=== PATIENT | male | born 1965 | race Caucasian/White ===

== ENCOUNTER 2017-01-23 13:47 | Emergency (ER) | payer MEDICARE ==
[2017-01-23] MEDS ORDERED: Lactated Ringers 1,000 ML IV ONE ×2 (14:07→14:27)
[2017-01-23 14:26] LABS: Lactic Acid 1.8 (0.4-2.0); VBG CARBOXYHEMOGLOBIN 1.3 % T HGB (0.0-6.9); VBG HCO3- 23.7 meq/L (22-28); VBG HEMOGLOBIN 15.8; VBG O2 SATURATION 72.1 (95-100); VBG POTASSIUM 4.5 (3.5-5.1); VBG pH 7.35 (7.32-7.42)
--- NOTE | 2017-01-23 14:27 | ERPHSYRPT ---
- History of Present Illness Time Seen by Provider: 01/23/17 13:57 Source: patient, family Patient Subjective Stated Complaint: pt states his blood sugar has been elevated for the past few days. pt states he has muscle cramps in legs. Triage Nursing Assessment: pt pink, warm dry. accu check 362. pt afebrile. Physician History: CC: high sugar HX: 51 y/o patient of Dr Jose Raul Laughlin and [facility]. He has DM. He has increased sugars for a while. On oral agents. He has a couple of weeks of leg cramps worsening. Not able to see dr and no recent labs so came to ER. No diarrhea. Normal urination. No chest or abd pain. Timing/Duration: week(s) Allergies/Adverse Reactions: tuberculin,PPD,multi-puncture [From Tuberculin PPD Mary Ellen Test] Allergy ( Intermediate, Verified 01/23/17 14:08) Rash butorphanol tartrate [From Stadol] Allergy (Unknown, Verified 01/23/17 14:08) chlorpromazine HCl [From Thorazine] Allergy (Unknown, Verified 01/23/17 14:08) haloperidol Allergy (Unknown, Verified 01/23/17 14:08) ketorolac tromethamine [From Toradol] Allergy (Unknown, Verified 01/23/17 14:08) nalbuphine [Nalbuphine] Allergy (Unknown, Verified 01/23/17 14:08) prochlorperazine edisylate [From Compazine] Allergy (Unknown, Verified 01/23/17 14:08) chloraprep Allergy (Intermediate, Uncoded 01/23/17 14:08) Rash Home Medications: Brimonidine Tartrate [Alphagan P 0.15%] 1 drops OP BID 09/30/12 [History] Metformin HCl 1000 mg [Glucophage 1000 MG] 1,000 mg PO BID 09/15/14 [History] Apixaban [Eliquis] 2.5 mg PO BID 03/30/15 [History] Levothyroxine Sodium 25 Mcg [Synthroid 25 Mcg] 25 mcg PO DAILY 03/30/15 [ History] Dorzolamide HCl/Timolol Maleat [Dorzolamide-Timolol Eye Drops] 1 ml OP BID 09/05 [History] Cetirizine HCl 10 mg PO DAILY 01/23/17 [History] Clonidine HCl 0.1 mg [Catapres 0.1 MG] 0.1 mg PO DAILY 01/23/17 [History] Glipizide 10 mg [Glucotrol 10 MG] 10 mg PO DAILY 01/23/17 [History] Propranolol HCl 20 mg [Inderal 20 MG] 40 mg PO BID 01/23/17 [History] Ropinirole HCl [Requip] 0.5 mg PO HS 01/23/17 [History] Hx Tetanus, Diphtheria Vaccination/Date Given: Yes (unknown) Hx Influenza Vaccination/Date Given: Yes Hx Pneumococcal Vaccination/Date Given: Yes Immunizations Up to Date: Yes - Review of Systems Constitutional: Malaise, No Fever, No Chills Eyes: No Symptoms Ears, Nose, & Throat: No Symptoms Respiratory: No Cough, No Dyspnea Cardiac: No Chest Pain Abdominal/Gastrointestinal: No Abdominal Pain, No Vomiting Genitourinary Symptoms: No Dysuria Musculoskeletal: Myalgias (cramps) Skin: No Symptoms Neurological: No Symptoms All Other Systems: Reviewed and Negative - Past Medical History Pertinent Past Medical History: Yes Neurological History: Migraines ENT History: Glaucoma Cardiac History: Angina, Hypertension Respiratory History: Pneumonia, Pulmonary Embolism, Other Endocrine Medical History: Diabetes Type II, Hypothyroidism Musculoskeletal History: No Pertinent History GI Medical History: Pancreatitis History: No Pertinent History Psycho-Social History: No Pertinent History Male Reproductive Disorders: No Pertinent History Other Medical History: Pulmonary hypertension - Past Surgical History Past Surgical History: Yes Neuro Surgical History: No Pertinent History Cardiac: Cardiac Catheterization Respiratory: No Pertinent History Gastrointestinal: Appendectomy, Cholecystectomy, Hernia Repair, Pancreatic Surgery Genitourinary: No Pertinent History, Other Musculoskeletal: Other Male Surgical History: Testicular Surgery Other Surgical History: old port removed, port placed x 2, had a surgery to look in bladder, right shoulder surgery. SHUNT IN RIGHT EYE - Social History Smoking Status: Current some day smoker How long have you smoked: 2 yrs Exposure to second hand smoke: Yes Alcohol Use: Socially Drug Use: none Patient Lives Alone: No Significant Family History: diabetes - Nursing Vital Signs Nursing Vital Signs: Initial Vital Signs Temperature 98.2 F Temperature Source Oral Pulse Rate 88 Respiratory Rate 18 Blood Pressure [Left Arm] 137/82 Pain Intensity 0 - Physical Exam General Appearance: alert Eye Exam: PERRL/EOMI Ears, Nose, Throat Exam: moist mucous membranes Neck Exam: normal inspection, non-tender, supple Respiratory Exam: normal breath sounds, lungs clear Cardiovascular Exam: regular rate/rhythm Gastrointestinal/Abdomen Exam: soft, No tenderness, No distention Extremity Exam: normal inspection, normal range of motion Neurologic Exam: alert, oriented x 3, cooperative, sensation nml, No motor deficits Skin Exam: warm, dry, No rash SpO2 Interpretation: normal SpO2: 97 Oxygen Delivery: Room Air - Course Nursing assessment & vital signs reviewed: Yes Ordered Tests: Active Orders 24 hr Category Date Time Status Accucheck STAT Care 01/23/17 14:06 Active Clean Catch Urine Specimen STAT Care 01/23/17 14:06 Active IV Insertion STAT Care 01/23/17 14:06 Active CBC W DIFF Stat Lab 01/23/17 14:25 Completed CK-Creatinine Phosphokinase Stat Lab 01/23/17 14:25 Completed CMP Stat Lab 01/23/17 14:25 Completed Lactic Acid Urgent Lab 01/23/17 14:24 Completed MAGNESIUM Stat Lab 01/23/17 14:25 Completed UA Stat Lab 01/23/17 14:25 Completed VENOUS BLOOD GAS Urgent Lab 01/23/17 14:24 Completed Medication Summary Generic Name Dose Route Start Last Admin Trade Name Freq PRN Reason Stop Dose Admin Magnesium Sulfate/Dextrose 100 mls @ 100 mls/hr 01/23/17 15:15 01/23/17 15:19 Magnesium 1 Gm / 100 Ml D5w IV 01/23/17 17:14 100 mls/hr Q1H REGAN Administration Discontinued Medications Generic Name Dose Route Start Last Admin Trade Name Freq PRN Reason Stop Dose Admin Lactated Ringer's 1,000 mls @ 999 mls/hr 01/23/17 14:07 01/23/17 14:29 Lactated Ringers IV 01/23/17 15:07 999 mls/hr .Q1H1M ONE Administration Lactated Ringer's Confirm 01/23/17 14:27 Lactated Ringers Administered 01/23/17 14:28 Dose 1,000 mls @ ud IV .STK-MED ONE Magnesium Sulfate/Dextrose Confirm 01/23/17 15:19 Magnesium 1 Gm / 100 Ml D5w Administered 01/23/17 15:20 Dose 200 mls @ ud IV .STK-MED ONE Insulin Aspart 10 unit 01/23/17 15:14 01/23/17 15:19 Novolog Insulin SQ 01/23/17 15:15 10 unit STAT ONE Administration Insulin Aspart Confirm 01/23/17 15:18 Novolog Insulin Administered 01/23/17 15:19 Dose 10 unit .ROUTE .STK-MED ONE Lab/Rad Data: Laboratory Result Diagrams 01/23/17 14:25 01/23/17 14:25 Laboratory Results 01/23/17 01/23/17 01/23/17 Range/Units 14:25 14:25 14:25 WBC (4.0-10.5) K/mm3 RBC (4.1-5.6) M/mm3 Hgb (12.5-18.0) gm/dl Hct (42-50) % MCV (78-100) fl MCH (26-32) pg MCHC (32-36) g/dl RDW (11.5-14.0) % Plt Count (150-450) K/mm3 MPV (6-9.5) fl Gran % (36.0-66.0) % Lymphocytes % (24.0-44.0) % Monocytes % (0.0-12.0) % Eosinophils % (0.00-5.0) % Basophils % (0.0-0.4) % Basophils # (0-0.4) VBG pH (7.32-7.42) VBG pCO2 at Pat Temp (42-55) mm/Hg VBG pO2 at Pat Temp (25-40) mm/Hg VBG HCO3 (22-28) meq/L VBG O2 Sat (Day[place]) (95-100) VBG Base Excess (-2.0-2.0) VBG Hemoglobin VBG Carboxyhemoglobin (0.0-6.9) % T HGB POC Potassium (3.5-5.1) Sodium (136-145) mEq/L Potassium (3.5-5.1) mEq/L Chloride (98-107) mEq/L Carbon Dioxide (21-32) mEq/L Anion Gap (5-15) MEQ/L BUN (9-20) mg/dL Creatinine (0.55-1.30) mg/dl Estimated GFR ML/MIN Glucose (70-110) MG/DL Hemoglobin A1c 9.6 H (4.5-6.2) Lactic Acid (0.4-2.0) Calcium (8.5-10.1) mg/dL Magnesium 1.7 L (1.8-2.4) mg/dL Total Bilirubin (0.2-1.0) mg/dL AST (15-37) U/L ALT (12-78) U/L Alkaline Phosphatase (46-116) U/L Creatine Kinase 80 (39-308) U/L Serum Total Protein (6.4-8.2) gm/dL Albumin (3.4-5.0) g/dL Ur Collection Type CLEAN CATCH Urine Color YELLOW (YELLOW) Urine Appearance CLEAR (CLEAR) Urine pH 5.0 (5-6) Ur Specific [place] 1.015 (1.005-1.025) Urine Protein NEGATIVE (Negative) Urine Glucose (UA) >=1000 (NEGATIVE) mg/dL Urine Ketones SMALL-15 (NEGATIVE) Urine Nitrite NEGATIVE (NEGATIVE) Urine Bilirubin NEGATIVE (NEGATIVE) Urine Urobilinogen 0.2 (0-1) mg/dL Urine WBC (Auto) NEGATIVE (NEGATIVE) Urine RBC (Auto) NEGATIVE (0-5) Maximino/ul Specimen Received 01/23/17 1407 01/23/17 01/23/17 01/23/17 Range/Units 14:25 14:25 14:24 WBC 10.0 (4.0-10.5) K/mm3 RBC 5.25 (4.1-5.6) M/mm3 Hgb 15.5 (12.5-18.0) gm/dl Hct 46.1 (42-50) % MCV 87.8 (78-100) fl MCH 29.5 (26-32) pg MCHC 33.6 (32-36) g/dl RDW 13.7 (11.5-14.0) % Plt Count 227 (150-450) K/mm3 MPV 9.9 H (6-9.5) fl Gran % 57.7 (36.0-66.0) % Lymphocytes % 30.5 (24.0-44.0) % Monocytes % 9.6 (0.0-12.0) % Eosinophils % 1.7 (0.00-5.0) % Basophils % 0.5 (0.0-0.4) % Basophils # 0.05 (0-0.4) VBG pH 7.35 (7.32-7.42) VBG pCO2 at Pat Temp 43 (42-55) mm/Hg VBG pO2 at Pat Temp 34 (25-40) mm/Hg VBG HCO3 23.7 (22-28) meq/L VBG O2 Sat (Dayne) 72.1 L (95-100) VBG Base Excess -2.0 (-2.0-2.0) VBG Hemoglobin 15.8 VBG Carboxyhemoglobin 1.3 (0.0-6.9) % T HGB POC Potassium 4.5 (3.5-5.1) Sodium 135 L (136-145) mEq/L Potassium 4.5 (3.5-5.1) mEq/L Chloride 99 (98-107) mEq/L Carbon Dioxide 23.4 (21-32) mEq/L Anion Gap 16.7 H (5-15) MEQ/L BUN 17 (9-20) mg/dL Creatinine 0.97 (0.55-1.30) mg/dl Estimated GFR > 60 ML/MIN Glucose 428 H (70-110) MG/DL Hemoglobin A1c (4.5-6.2) Lactic Acid 1.8 (0.4-2.0) Calcium 9.3 (8.5-10.1) mg/dL Magnesium (1.8-2.4) mg/dL Total Bilirubin 0.4 (0.2-1.0) mg/dL AST 17 (15-37) U/L ALT 23 (12-78) U/L Alkaline Phosphatase 50 (46-116) U/L Creatine Kinase (39-308) U/L Serum Total Protein 7.7 (6.4-8.2) gm/dL Albumin 3.9 (3.4-5.0) g/dL Ur Collection Type Urine Color (YELLOW) Urine Appearance (CLEAR) Urine pH (5-6) Ur Specific [place] (1.005-1.025) Urine Protein (Negative) Urine Glucose (UA) (NEGATIVE) mg/dL Urine Ketones (NEGATIVE) Urine Nitrite (NEGATIVE) Urine Bilirubin (NEGATIVE) Urine Urobilinogen (0-1) mg/dL Urine WBC (Auto) (NEGATIVE) Urine RBC (Auto) (0-5) Maximino/ul Specimen Received - Progress Progress Note: 01/23/17 14:27 He is off his pain meds and appears much improved over chronic baseline of the past. Will check labs. IVF given. 01/23/17 15:37 No sign of infection. He has chronically high sugar. Will need med adjustment. IVF bolus, novolog, and mag sulfate given here. Appt tomorrow with Dr Lauhglin at 3 :15. Counseled pt/family regarding: lab results, diagnosis, need for follow-up - Departure Time of Disposition: 15:40 Departure Disposition: Home Clinical Impression: Hyperglycemia due to type 2 diabetes mellitus, Leg cramps Condition: Fair Critical Care Time: No Referrals: EVARISTO LAUGHLIN [Primary Care Provider] - Instructions: Hyperglycemia -- Adult, Leg Cramps Additional Instructions: Continue your normal medications. See Dr Jose Raul Laughlin tomorrow at 3:15. Take your medications to your doctor appt.
[2017-01-23 14:41] LABS: BASOPHIL % 0.5 % (0.0-0.4); Collection Type CLEAN CATCH; Eosinophil % 1.7 % (0.00-5.0); Granulocytes % 57.7 % (36.0-66.0); Lymphocytes % 30.5 % (24.0-44.0); Mean Cell Volume 87.8 fl (78-100); Mean Corpuscular Hemoglobin 29.5 pg (26-32); Mean Platelet Volume 9.9 fl (6-9.5); Monocytes % 9.6 % (0.0-12.0); Platelet Count 227 K/mm3 (150-450); Red Blood Count 5.25 M/mm3 (4.1-5.6); Red Cell Distribution Width 13.7 % (11.5-14.0)
[2017-01-23 14:42] LABS: COMPLETE URINE MICROSCOPIC? NO
[2017-01-23 15:01] LABS: ALBUMIN 3.9 g/dL (3.4-5.0); ALKALINE PHOSPHATASE 50 U/L (46-116); ANION GAP 16.7 MEQ/L (5-15); BILIRUBIN,TOTAL 0.4 mg/dL (0.2-1.0); BLOOD UREA NITROGEN 17 mg/dL (9-20); CHLORIDE 99 mEq/L (98-107); Carbon Dioxide 23.4 mEq/L (21-32); Glucose 428 MG/DL (70-110); Potassium 4.5 mEq/L (3.5-5.1); SGOT/AST 17 U/L (15-37); SGPT/ALT 23 U/L (12-78); SODIUM 135 mEq/L (136-145); Total Protein 7.7 gm/dL (6.4-8.2)
[2017-01-23 15:10] LABS: MAGNESIUM 1.7 mg/dL (1.8-2.4)
[2017-01-23] MEDS ORDERED: NovoLOG Insulin SQ ONE (15:14)
[2017-01-23] MEDS ORDERED: NovoLOG Insulin ONE (15:18)
[2017-01-23] MEDS ORDERED: Magnesium 1 Gm / 100 Ml D5W*** 200 ML IV ONE (15:19)
[2017-01-23] MEDS: Magnesium 1 Gm / 100 Ml D5W*** 100 ML IV SCH ×2 (15:19→15:53)
[2017-01-23 16:10] VITALS: BP 128/70; PULSE 78; O2SAT 100
== END 2017-01-23 16:11 | disposition home or self-care (01) ==
LOC: ED 13:47
DX: E11.65 Type 2 diabetes mellitus with hyperglycemia (principal); R25.2 Cramp and spasm; Z79.01 Long term (current) use of anticoagulants; Z79.84 Long term (current) use of oral hypoglycemic drugs; Z79.899 Other long term (current) drug therapy; E03.9 Hypothyroidism, unspecified; I10 Essential (primary) hypertension
CPT/HCPCS: 36000; 36415; 36591; 80053; 81002; 82550; 82805; 82962; 83036; 83605; 83735; 85025; 96360; 96361; 96365; 96372; 99283; 99284; J1642; J3475; A9270-GY

== ENCOUNTER 2017-02-11 13:20 | Emergency (ER) | payer MEDICARE ==
[2017-02-11 13:43] VITALS: BP 133/79; PULSE 84; O2SAT 96
--- NOTE | 2017-02-11 14:00 | ERPHSYRPT ---
- History of Present Illness Time Seen by Provider: 02/11/17 13:57 Source: patient Exam Limitations: no limitations Patient Subjective Stated Complaint: states for several days has been having severe leg cramps. states they are waking him up at night. Triage Nursing Assessment: ambulated to room without difficulty. skin w/d, color normal. Physician History: Patient is a 51-year-old male who complains of 2 weeks of increasing muscle cramps that are significantly worse at night. He states that when he is in bed and stretches, the muscles in his calves and thighs were tense up and cramping. He also has some cramping of his forearm muscles as well. He was seen 2 weeks ago in the ER and given lactated Ringer's and magnesium with minimal relief. His past medical history significant for diabetes, pulmonary embolism, chronic pain, and migraine. Timing/Duration: week(s) (2) Severity: moderate Modifying Factors: Improves With: nothing Allergies/Adverse Reactions: tuberculin,PPD,multi-puncture [From Tuberculin PPD Mary Ellen Test] Allergy ( Intermediate, Verified 01/23/17 14:08) Rash butorphanol tartrate [From Stadol] Allergy (Unknown, Verified 01/23/17 14:08) chlorpromazine HCl [From Thorazine] Allergy (Unknown, Verified 01/23/17 14:08) haloperidol Allergy (Unknown, Verified 01/23/17 14:08) ketorolac tromethamine [From Toradol] Allergy (Unknown, Verified 01/23/17 14:08) nalbuphine [Nalbuphine] Allergy (Unknown, Verified 01/23/17 14:08) prochlorperazine edisylate [From Compazine] Allergy (Unknown, Verified 01/23/17 14:08) chloraprep Allergy (Intermediate, Uncoded 01/23/17 14:08) Rash Home Medications: Brimonidine Tartrate [Alphagan P 0.15%] 1 drops OP BID 09/30/12 [History] Metformin HCl 1000 mg [Glucophage 1000 MG] 1,000 mg PO BID 09/15/14 [History] Apixaban [Eliquis] 2.5 mg PO BID 03/30/15 [History] Levothyroxine Sodium 25 Mcg [Synthroid 25 Mcg] 25 mcg PO DAILY 03/30/15 [ History] Dorzolamide HCl/Timolol Maleat [Dorzolamide-Timolol Eye Drops] 1 ml OP BID 09/05 [History] Cetirizine HCl 10 mg PO DAILY 01/23/17 [History] Clonidine HCl 0.1 mg [Catapres 0.1 MG] 0.1 mg PO DAILY 01/23/17 [History] Glipizide 10 mg [Glucotrol 10 MG] 10 mg PO DAILY 01/23/17 [History] Propranolol HCl 20 mg [Inderal 20 MG] 40 mg PO BID 01/23/17 [History] Ropinirole HCl [Requip] 0.5 mg PO HS 01/23/17 [History] Insulin Glargine [Lantus Insulin] 6 unit SQ HS 02/11/17 [History] Insulin Glargine [Lantus Insulin] 18 unit SQ DAILY 02/11/17 [History] Lisinopril 10 mg [Zestril 10 MG] 10 mg PO DAILY 02/11/17 [History] Hx Tetanus, Diphtheria Vaccination/Date Given: Yes (unknown) Hx Influenza Vaccination/Date Given: Yes Hx Pneumococcal Vaccination/Date Given: Yes - Review of Systems Constitutional: No Fever, No Chills Eyes: No Symptoms Ears, Nose, & Throat: No Symptoms Respiratory: No Cough, No Dyspnea Cardiac: No Chest Pain, No Edema, No Syncope Abdominal/Gastrointestinal: No Abdominal Pain, No Nausea, No Vomiting, No Diarrhea Genitourinary Symptoms: No Dysuria Musculoskeletal: Other (muscle cramps) Skin: No Rash Neurological: No Dizziness, No Focal Weakness, No Sensory Changes Psychological: No Symptoms Endocrine: No Symptoms Hematologic/Lymphatic: No Symptoms Immunological/Allergic: No Symptoms All Other Systems: Reviewed and Negative - Past Medical History Pertinent Past Medical History: Yes Neurological History: Migraines ENT History: Glaucoma Cardiac History: Angina, Hypertension Respiratory History: Pneumonia, Pulmonary Embolism, Other Endocrine Medical History: Diabetes Type II, Hypothyroidism Musculoskeletal History: No Pertinent History GI Medical History: Pancreatitis History: No Pertinent History Psycho-Social History: No Pertinent History Male Reproductive Disorders: No Pertinent History Other Medical History: Pulmonary hypertension - Past Surgical History Past Surgical History: Yes Neuro Surgical History: No Pertinent History Cardiac: Cardiac Catheterization Respiratory: No Pertinent History Gastrointestinal: Appendectomy, Cholecystectomy, Hernia Repair, Pancreatic Surgery Genitourinary: No Pertinent History, Other Musculoskeletal: Other Male Surgical History: Testicular Surgery Other Surgical History: old port removed, port placed x 2, had a surgery to look in bladder, right shoulder surgery. SHUNT IN RIGHT EYE - Social History Smoking Status: Current every day smoker How long have you smoked: 2 yrs Exposure to second hand smoke: No Alcohol Use: Socially Drug Use: none Patient Lives Alone: Yes Significant Family History: diabetes - Nursing Vital Signs Nursing Vital Signs: Initial Vital Signs Temperature 98.5 F Temperature Source Oral Pulse Rate 84 Respiratory Rate 16 Blood Pressure [Right Arm] 133/79 Blood Pressure [Left Arm] 133/79 Pain Intensity 10 - Physical Exam General Appearance: no apparent distress, alert Eye Exam: PERRL/EOMI, eyes nml inspection Ears, Nose, Throat Exam: normal ENT inspection, TMs normal, pharynx normal, moist mucous membranes Neck Exam: normal inspection, non-tender, supple, full range of motion Respiratory Exam: normal breath sounds, lungs clear, No respiratory distress Cardiovascular Exam: regular rate/rhythm, normal heart sounds, normal peripheral pulses Gastrointestinal/Abdomen Exam: soft, normal bowel sounds, No tenderness, No mass Rectal Exam: not done Back Exam: normal inspection, normal range of motion, No CVA tenderness, No vertebral tenderness Extremity Exam: other (pt curled to keep muscles from cramping. no tenderness on palpation) Neurologic Exam: alert, oriented x 3, cooperative, normal mood/affect, nml cerebellar function, nml station & gait, sensation nml, No motor deficits Skin Exam: normal color, warm, dry, No rash Lymphatic Exam: No adenopathy SpO2 Interpretation: normal SpO2: 96 Oxygen Delivery: Room Air Ordered Tests: Active Orders 24 hr Category Date Time Status IV Insertion STAT Care 02/11/17 14:00 Active BMP Stat Lab 02/11/17 14:22 Completed CBC W DIFF Stat Lab 02/11/17 14:22 Completed MAGNESIUM Stat Lab 02/11/17 14:22 Completed Medication Summary Generic Name Dose Route Start Last Admin Trade Name Freq PRN Reason Stop Dose Admin Lactated Ringer's 1,000 mls @ 999 mls/hr 02/11/17 14:01 02/11/17 14:07 Lactated Ringers IV 02/11/17 15:01 999 mls/hr .Q1H1M ONE Administration Discontinued Medications Generic Name Dose Route Start Last Admin Trade Name Edgar PRN Reason Stop Dose Admin Lactated Ringer's Confirm 02/11/17 14:06 Lactated Ringers Administered 02/11/17 14:07 Dose 1,000 mls @ ud IV .STK-MED ONE Lab/Rad Data: Laboratory Result Diagrams 02/11/17 14:22 02/11/17 14:22 Laboratory Results 02/11/17 02/11/17 02/11/17 Range/Units 14:22 14:22 14:22 WBC 10.0 (4.0-10.5) K/mm3 RBC 4.97 (4.1-5.6) M/mm3 Hgb 14.7 (12.5-18.0) gm/dl Hct 44.9 (42-50) % MCV 90.3 (78-100) fl MCH 29.6 (26-32) pg MCHC 32.7 (32-36) g/dl RDW 13.8 (11.5-14.0) % Plt Count 216 (150-450) K/mm3 MPV 9.5 (6-9.5) fl Gran % 58.9 (36.0-66.0) % Lymphocytes % 28.7 (24.0-44.0) % Monocytes % 10.5 (0.0-12.0) % Eosinophils % 1.4 (0.00-5.0) % Basophils % 0.5 (0.0-0.4) % Basophils # 0.05 (0-0.4) Sodium 139 (136-145) mEq/L Potassium 4.3 (3.5-5.1) mEq/L Chloride 103 (98-107) mEq/L Carbon Dioxide 24.4 (21-32) mEq/L Anion Gap 16.3 H (5-15) MEQ/L BUN 24 H (9-20) mg/dL Creatinine 0.98 (0.55-1.30) mg/dl Estimated GFR > 60 ML/MIN Glucose 255 H (70-110) MG/DL Calcium 8.9 (8.5-10.1) mg/dL Magnesium 1.9 (1.8-2.4) mg/dL - Progress Progress: unchanged Counseled pt/family regarding: lab results, diagnosis - Departure Time of Disposition: 14:54 Departure Disposition: Home Clinical Impression: Muscle cramps Condition: Stable Critical Care Time: No Additional Instructions: You have muscle cramps. The laboratory values show your potassium and magnesium levels are normal. You were given 1 L of lactated Ringer's by IV in the ER. Take Flexeril 10 mg at night every 8 hours as needed. Follow-up as needed. Prescriptions: Cyclobenzaprine HCl [Flexeril] 10 mg PO Q8H PRN PRN #10 tablet PRN Reason: Pain
[2017-02-11] MEDS ORDERED: Lactated Ringers 1,000 ML IV ONE ×2 (14:01→14:06)
[2017-02-11 14:25] LABS: BASOPHIL % 0.5 % (0.0-0.4); Eosinophil % 1.4 % (0.00-5.0); Granulocytes % 58.9 % (36.0-66.0); Lymphocytes % 28.7 % (24.0-44.0); Mean Cell Volume 90.3 fl (78-100); Mean Corpuscular Hemoglobin 29.6 pg (26-32); Mean Platelet Volume 9.5 fl (6-9.5); Monocytes % 10.5 % (0.0-12.0); Platelet Count 216 K/mm3 (150-450); Red Blood Count 4.97 M/mm3 (4.1-5.6); Red Cell Distribution Width 13.8 % (11.5-14.0)
[2017-02-11 14:43] LABS: ANION GAP 16.3 MEQ/L (5-15); BLOOD UREA NITROGEN 24 mg/dL (9-20); CHLORIDE 103 mEq/L (98-107); Carbon Dioxide 24.4 mEq/L (21-32); Glucose 255 MG/DL (70-110); Potassium 4.3 mEq/L (3.5-5.1); SODIUM 139 mEq/L (136-145)
== END 2017-02-11 15:14 | disposition home or self-care (01) ==
LOC: ED 13:20
DX: R25.2 Cramp and spasm (principal)
CPT/HCPCS: 36000; 36415; 36591; 80048; 83735; 85025; 96360; 99283; J1642

== ENCOUNTER 2017-04-06 20:59 | Emergency (ER) | payer MEDICARE, OTHER ==
[2017-04-06] MEDS ORDERED: Sodium Chloride 0.9% 1000 ML 1,000 ML IV SCH (21:30)
[2017-04-06] MEDS ORDERED: Nitrostat 0.4 MG (ED) SL ONE (21:31)
[2017-04-06] MEDS ORDERED: Robitussin AC Syrup Unit Dose Cup PO PRN (21:36)
--- NOTE | 2017-04-06 21:36 | ERPHSYRPT ---
- History of Present Illness Time Seen by Provider: 04/06/17 21:23 Source: patient, other (PREVIOUS ) Exam Limitations: no limitations Physician History: FOR THE PAST 2 MONTHS PT HAS HAD A NON-PRODUCTIVE COUGH UNTIL TONIGHT WHEN HE COUGHED UP GREEN PHLEGM. ABOUT 1 HOUR AGO FOR 15 MINUTES PT HAD 4 EPISODES WHERE HE WOULD COUGH AND LOSE CONSCIOUSNESS FOR A FEW SECONDS. PT ALSO C/O CHEST PAIN, SHORTNESS OF AIR, DIAPHORESIS AND NAUSEA FOR THE PAST HOUR AND A HEADACHE ASSOCIATED WITH COUGHING. Allergies/Adverse Reactions: tuberculin,PPD,multi-puncture [From Tuberculin PPD Mary Ellen Test] Allergy ( Intermediate, Verified 04/06/17 22:34) Rash butorphanol tartrate [From Stadol] Allergy (Unknown, Verified 04/06/17 22:34) chlorpromazine HCl [From Thorazine] Allergy (Unknown, Verified 04/06/17 22:34) haloperidol Allergy (Unknown, Verified 04/06/17 22:34) ketorolac tromethamine [From Toradol] Allergy (Unknown, Verified 04/06/17 22:34) nalbuphine [Nalbuphine] Allergy (Unknown, Verified 04/06/17 22:34) prochlorperazine edisylate [From Compazine] Allergy (Unknown, Verified 04/06/17 22:34) chloraprep Allergy (Intermediate, Uncoded 04/06/17 22:34) Rash Home Medications: Brimonidine Tartrate [Alphagan P 0.15%] 1 drops OP BID 09/30/12 [History] Metformin HCl 1000 mg [Glucophage 1000 MG] 1,000 mg PO BID 09/15/14 [History] Apixaban [Eliquis] 2.5 mg PO BID 03/30/15 [History] Levothyroxine Sodium 25 Mcg [Synthroid 25 Mcg] 25 mcg PO DAILY 03/30/15 [ History] Dorzolamide HCl/Timolol Maleat [Dorzolamide-Timolol Eye Drops] 1 ml OP BID 09/05 [History] Cetirizine HCl 10 mg PO DAILY 01/23/17 [History] Clonidine HCl 0.1 mg [Catapres 0.1 MG] 0.1 mg PO DAILY 01/23/17 [History] Glipizide 10 mg [Glucotrol 10 MG] 10 mg PO DAILY 01/23/17 [History] Propranolol HCl 20 mg [Inderal 20 MG] 40 mg PO BID 01/23/17 [History] Ropinirole HCl [Requip] 0.5 mg PO HS 01/23/17 [History] Insulin Glargine [Lantus Insulin] 6 unit SQ HS 02/11/17 [History] Insulin Glargine [Lantus Insulin] 18 unit SQ DAILY 02/11/17 [History] Lisinopril 10 mg [Zestril 10 MG] 10 mg PO DAILY 02/11/17 [History] Hx Tetanus, Diphtheria Vaccination/Date Given: Yes (unknown) Hx Influenza Vaccination/Date Given: Yes Hx Pneumococcal Vaccination/Date Given: Yes - Review of Systems Respiratory: Cough, Dyspnea Cardiac: Chest Pain Abdominal/Gastrointestinal: Nausea Neurological: Headache, Other (LOSS OF CONSCIOUSNESS TONIGHT) Endocrine: Excessive Sweating All Other Systems: Reviewed and Negative - Past Medical History Pertinent Past Medical History: Yes Neurological History: Migraines ENT History: Glaucoma Cardiac History: Angina, Hypertension Respiratory History: Pneumonia, Pulmonary Embolism, Other Endocrine Medical History: Diabetes Type II, Hypothyroidism Musculoskeletal History: No Pertinent History GI Medical History: Pancreatitis History: No Pertinent History Psycho-Social History: No Pertinent History Male Reproductive Disorders: No Pertinent History Other Medical History: Pulmonary hypertension - Past Surgical History Past Surgical History: Yes Neuro Surgical History: No Pertinent History Cardiac: Cardiac Catheterization Respiratory: No Pertinent History Gastrointestinal: Appendectomy, Cholecystectomy, Hernia Repair, Pancreatic Surgery Genitourinary: No Pertinent History, Other Musculoskeletal: Other Male Surgical History: Testicular Surgery Other Surgical History: old port removed, port placed x 2, had a surgery to look in bladder, right shoulder surgery. SHUNT IN RIGHT EYE - Social History Smoking Status: Current every day smoker How long have you smoked: 2 yrs Exposure to second hand smoke: No Alcohol Use: Socially Drug Use: none Patient Lives Alone: Yes Significant Family History: diabetes - Nursing Vital Signs Nursing Vital Signs: Initial Vital Signs Pulse Rate 92 H 04/06/17 22:11 Respiratory Rate 16 04/06/17 22:11 Blood Pressure 138/88 04/06/17 22:11 O2 Sat by Pulse Oximetry 97 04/06/17 22:11 Pain Scale Pain Intensity 3 - Physical Exam General Appearance: alert Eye Exam: PERRL/EOMI Ears, Nose, Throat Exam: moist mucous membranes, pharyngeal erythema Neck Exam: normal inspection Respiratory Exam: lungs clear Cardiovascular Exam: normal heart sounds Gastrointestinal/Abdomen Exam: soft, normal bowel sounds Back Exam: normal range of motion Extremity Exam: normal inspection Neurologic Exam: alert, cooperative Skin Exam: warm, dry - Course Nursing assessment & vital signs reviewed: Yes EKG Interpreted by Me: RATE (91), Sinus Rhythm, NORMAL AXIS, NORMAL INTERVALS - Radiology Exams Chest X-ray Interpretation: Interpreted by me, No Pneumonia - CT Exams Head CT Interpretation: Tele-radiologist Report (NO ACUTE INTRACRANIAL ABNORMALITY.) Ordered Tests: Active Orders 24 hr Category Date Time Status Fiscal Services Manager STAT Care 04/06/17 21:28 Active EKG-ER Only STAT Care 04/06/17 21:28 Active IV Insertion STAT Care 04/06/17 21:28 Active CHEST 1 VIEW (PORTABLE) Stat Exams 04/06/17 21:29 Taken HEAD WITHOUT CONTRAST [CT] Stat Exams 04/06/17 21:32 Taken AMYLASE Stat Lab 04/06/17 21:55 Completed CBC W DIFF Stat Lab 04/06/17 21:55 Completed CMP Stat Lab 04/06/17 21:55 Completed ETHYL ALCOHOL Stat Lab 04/06/17 21:55 Completed LIPASE Stat Lab 04/06/17 21:55 Completed MAGNESIUM Stat Lab 04/06/17 21:55 Completed NT PRO BNP Stat Lab 04/06/17 21:55 Completed PROTIME WITH INR Stat Lab 04/06/17 21:55 Completed PTT Stat Lab 04/06/17 21:55 Completed TROPONIN Q3H Lab 04/06/17 21:55 Completed TROPONIN Q3H Lab 04/07/17 00:30 Ordered TROPONIN Q3H Lab 04/07/17 03:30 Ordered TROPONIN Q3H Lab 04/07/17 06:30 Ordered TROPONIN Q3H Lab 04/07/17 09:30 Ordered UA W/RFX UR CULTURE Stat Lab 04/06/17 21:45 Completed Urine Triage Profile Stat Lab 04/06/17 21:45 Completed Medication Summary Generic Name Dose Route Start Last Admin Trade Name Freq PRN Reason Stop Dose Admin Guaifenesin/Codeine Phosphate 10 ml 04/06/17 21:36 04/06/17 22:06 Robitussin Ac Syrup Unit Dose Cup PO 05/06/17 21:35 10 ml Q4H PRN PRN Administration COUGH Sodium Chloride 1,000 mls @ 100 mls/hr 04/06/17 21:30 04/06/17 22:07 Sodium Chloride 0.9% 1000 Ml IV 05/06/17 21:29 100 mls/hr .Q10H REGAN Administration Discontinued Medications Generic Name Dose Route Start Last Admin Trade Name Freq PRN Reason Stop Dose Admin Nitroglycerin 0.4 mg 04/06/17 21:31 04/06/17 22:07 Nitrostat 0.4 Mg (Ed) SL 04/06/17 21:32 0.4 mg STAT ONE Administration Lab/Rad Data: Laboratory Result Diagrams 04/06/17 21:55 04/06/17 21:55 Laboratory Results 04/06/17 04/06/17 04/06/17 Range/Units 21:55 21:55 21:55 WBC (4.0-10.5) K/mm3 RBC (4.1-5.6) M/mm3 Hgb (12.5-18.0) gm/dl Hct (42-50) % MCV (78-100) fl MCH (26-32) pg MCHC (32-36) g/dl RDW (11.5-14.0) % Plt Count (150-450) K/mm3 MPV (6-9.5) fl Gran % (36.0-66.0) % Lymphocytes % (24.0-44.0) % Monocytes % (0.0-12.0) % Eosinophils % (0.00-5.0) % Basophils % (0.0-0.4) % Basophils # (0-0.4) INR 1.08 (0.8-3.0) APTT 70.6 H (24.1-36.1) SECONDS Sodium 141 (136-145) mEq/L Potassium 4.0 (3.5-5.1) mEq/L Chloride 104 (98-107) mEq/L Carbon Dioxide 28.2 (21-32) mEq/L Anion Gap 12.9 (5-15) MEQ/L BUN 13 (9-20) mg/dL Creatinine 1.28 (0.55-1.30) mg/dl Estimated GFR > 60 ML/MIN Glucose 154 H (70-110) MG/DL Calcium 8.9 (8.5-10.1) mg/dL Magnesium 1.9 (1.8-2.4) mg/dL Total Bilirubin 0.40 (0.2-1.0) mg/dL AST 18 (15-37) U/L ALT 25 (12-78) U/L Alkaline Phosphatase 39 L (46-116) U/L Troponin I < 0.017 (0.000-0.056) ng/ml NT-Pro-B Natriuret Pep 31 (0-125) pg/ml Serum Total Protein 7.2 (6.4-8.2) gm/dL Albumin 3.7 (3.4-5.0) g/dL Amylase 50 (25-115) U/L Lipase 146 (73-393) U/L Ur Collection Type Urine Color (YELLOW) Urine Appearance (CLEAR) Urine pH (5-6) Ur Specific [place] (1.005-1.025) Urine Protein (Negative) Urine Ketones (NEGATIVE) Urine Blood (0-5) Maximino/ul Urine Nitrite (NEGATIVE) Urine Bilirubin (NEGATIVE) Urine Urobilinogen (0-1) mg/dL Ur Leukocyte Esterase (NEGATIVE) Urine Glucose (NEGATIVE) mg/dL Urine Opiates Level (NEGATIVE) Ur Methadone (NEGATIVE) Urine Barbiturates (NEGATIVE) Ur Phencyclidine (PCP) (NEGATIVE) Urine Amphetamine (NEGATIVE) U Benzodiazepine Level (NEGATIVE) Urine Cocaine (NEGATIVE) Urine Marijuana (THC) (NEGATIVE) Ethyl Alcohol < 0.010 (0.00-0.01) % Specimen Received 04/06/17 04/06/17 04/06/17 Range/Units 21:55 21:45 21:45 WBC 9.2 (4.0-10.5) K/mm3 RBC 4.74 (4.1-5.6) M/mm3 Hgb 14.2 (12.5-18.0) gm/dl Hct 43.1 (42-50) % MCV 90.9 (78-100) fl MCH 30.0 (26-32) pg MCHC 32.9 (32-36) g/dl RDW 13.2 (11.5-14.0) % Plt Count 234 (150-450) K/mm3 MPV 9.3 (6-9.5) fl Gran % 47.7 (36.0-66.0) % Lymphocytes % 34.3 (24.0-44.0) % Monocytes % 15.5 H (0.0-12.0) % Eosinophils % 2.1 (0.00-5.0) % Basophils % 0.4 (0.0-0.4) % Basophils # 0.04 (0-0.4) INR (0.8-3.0) APTT (24.1-36.1) SECONDS Sodium (136-145) mEq/L Potassium (3.5-5.1) mEq/L Chloride (98-107) mEq/L Carbon Dioxide (21-32) mEq/L Anion Gap (5-15) MEQ/L BUN (9-20) mg/dL Creatinine (0.55-1.30) mg/dl Estimated GFR ML/MIN Glucose (70-110) MG/DL Calcium (8.5-10.1) mg/dL Magnesium (1.8-2.4) mg/dL Total Bilirubin (0.2-1.0) mg/dL AST (15-37) U/L ALT (12-78) U/L Alkaline Phosphatase (46-116) U/L Troponin I (0.000-0.056) ng/ml NT-Pro-B Natriuret Pep (0-125) pg/ml Serum Total Protein (6.4-8.2) gm/dL Albumin (3.4-5.0) g/dL Amylase (25-115) U/L Lipase (73-393) U/L Ur Collection Type CCMS Urine Color YELLOW (YELLOW) Urine Appearance CLEAR (CLEAR) Urine pH 7.0 (5-6) Ur Specific [place] 1.010 (1.005-1.025) Urine Protein NEGATIVE (Negative) Urine Ketones NEGATIVE (NEGATIVE) Urine Blood NEGATIVE (0-5) Maximino/ul Urine Nitrite NEGATIVE (NEGATIVE) Urine Bilirubin NEGATIVE (NEGATIVE) Urine Urobilinogen NORMAL (0-1) mg/dL Ur Leukocyte Esterase NEGATIVE (NEGATIVE) Urine Glucose 250 (NEGATIVE) mg/dL Urine Opiates Level NEG. (NEGATIVE) Ur Methadone NEG. (NEGATIVE) Urine Barbiturates NEG. (NEGATIVE) Ur Phencyclidine (PCP) NEG. (NEGATIVE) Urine Amphetamine NEG. (NEGATIVE) U Benzodiazepine Level NEG. (NEGATIVE) Urine Cocaine NEG. (NEGATIVE) Urine Marijuana (THC) NEG. (NEGATIVE) Ethyl Alcohol (0.00-0.01) % Specimen Received 04-06-17 2200 - Departure Time of Disposition: 23:07 Departure Disposition: Home Clinical Impression: CHEST PAIN, PHARYNGITIS, AMS, DM, HTN Condition: Stable Critical Care Time: No Referrals: EVARISTO LAUGHLIN [Primary Care Provider] - Instructions: Pharyngitis/Tonsillopharyngitis -- Adult Additional Instructions: FOLLOW UP WITH PRIVATE DOCTOR TOMORROW. Prescriptions: Guaifenesin/Codeine Phosphate [Robitussin AC Syrup] 10 ml PO Q4H PRN PRN #120 ml PRN Reason: Cough Azithromycin 250 mg [Zithromax 250 MG TABLET] 250 mg PO ZPACK #6 tablet
[2017-04-06 21:58] LABS: BASOPHIL % 0.4 % (0.0-0.4); Eosinophil % 2.1 % (0.00-5.0); Granulocytes % 47.7 % (36.0-66.0); Lymphocytes % 34.3 % (24.0-44.0); Mean Cell Volume 90.9 fl (78-100); Mean Platelet Volume 9.3 fl (6-9.5); Monocytes % 15.5 % (0.0-12.0); Platelet Count 234 K/mm3 (150-450); Red Blood Count 4.74 M/mm3 (4.1-5.6); Red Cell Distribution Width 13.2 % (11.5-14.0); White Blood Count 9.2 K/mm3 (4.0-10.5)
[2017-04-06 22:01] LABS: ADD URINE CULTURE? NO (NO); Bilirubin NEGATIVE (NEGATIVE); Blood NEGATIVE Ery/ul (0-5); COMPLETE URINE MICROSCOPIC? NO; Collection Type CCMS; Glucose 250 mg/dL (NEGATIVE); Leukocyte Esterase NEGATIVE (NEGATIVE)
[2017-04-06] MEDS ORDERED: Robitussin AC Syrup Unit Dose Cup ONE ×2 (22:04→22:07)
[2017-04-06] MEDS ORDERED: Sodium Chloride 0.9% 1000 ML 1,000 ML ONE (22:04)
[2017-04-06 22:23] LABS: INR 1.08 (0.8-3.0); PROTIME 12.2 SECONDS (8.83-12.87)
[2017-04-06 22:26] LABS: PTT 70.6 SECONDS (24.1-36.1)
[2017-04-06 22:36] LABS: ALBUMIN 3.7 g/dL (3.4-5.0); ALKALINE PHOSPHATASE 39 U/L (46-116); ANION GAP 12.9 MEQ/L (5-15); BLOOD UREA NITROGEN 13 mg/dL (9-20); CHLORIDE 104 mEq/L (98-107); Carbon Dioxide 28.2 mEq/L (21-32); ETHYL ALCOHOL < 0.010 % (0.00-0.01); Glucose 154 MG/DL (70-110); LIPASE 146 U/L (73-393); MAGNESIUM 1.9 mg/dL (1.8-2.4); SGOT/AST 18 U/L (15-37); SGPT/ALT 25 U/L (12-78); SODIUM 141 mEq/L (136-145); Total Protein 7.2 gm/dL (6.4-8.2)
[2017-04-06 23:00] VITALS: BP 125/74; PULSE 85; O2SAT 95
[2017-04-06] MEDS ORDERED: Zithromax 250 MG TABLET PO ONE (23:07)
[2017-04-06] MEDS ORDERED: Zithromax 250 MG TABLET ONE (23:18)
[2017-04-07] MEDS ORDERED: Nitrostat 0.4 MG (ED) SL ONE (04:22)
--- NOTE | 2017-04-07 08:01 | XRAY ---
Indication: Cough. Comparison: September 05, 2016. Portable chest remains clear again with calcified granulomas and left-sided Port-A-Cath. Heart is not enlarged. Bony thorax intact. No new/acute findings.
--- NOTE | 2017-04-07 08:01 | XRAY ---
Indication: Syncope. Multiple contiguous axial images obtained through the head without contrast. Comparison: November 25, 2009. Again normal appearing brain parenchyma, ventricles, and bony calvarium. Visualized paranasal sinuses are clear. Again partial opacification of the mastoid cells. 3 mm density seen anterior to the right globe. Impression: 1. No acute intracranial abnormalities. 2. Stable opacification of the mastoid air cells presumed inflammatory. 3. Right anterior globe 3 mm density either iatrogenic versus foreign body. Comment: Preliminary interpretation was made by [facility]. No discrepancy. CTDI 68.98
== END 2017-04-06 23:39 | disposition home or self-care (01) ==
LOC: ED 20:59
DX: R07.89 Other chest pain (principal); J02.9 Acute pharyngitis, unspecified; R41.82 Altered mental status, unspecified; E11.9 Type 2 diabetes mellitus without complications; I10 Essential (primary) hypertension; R06.02 Shortness of breath; R61 Generalized hyperhidrosis
CPT/HCPCS: 93041; 99284; 36000; 96360; 93005; 82150; 81002; 85610; 85730; 36415; 83690; 83880; 83735; 80307; 85025; 80053; 84484; 71010; 70450; G0481; 96361; J1642; A9270-GY

== ENCOUNTER 2018-05-29 22:52 | Emergency (ER) | payer MEDICARE ==
[2018-05-29] MEDS ORDERED: Unasyn 3 GM Vial IM ONE (23:43)
[2018-05-29] MEDS ORDERED: Adacel Vial IM ONE ×2 (23:44→23:52)
--- NOTE | 2018-05-29 23:50 | ERPHSYRPT ---
- History of Present Illness Time Seen by Provider: 05/29/18 23:34 Source: patient Exam Limitations: no limitations Patient Subjective Stated Complaint: pt states while fishing, the fish's horn went into his lt hand. states he thins there is some of the horn or skin remaining in his hand. states his hand and lower arm are swelling and burning Triage Nursing Assessment: pt alert and oreinted, asnwers questions approp. pt ambulatory with steady gait noted. respriations nonlabored with lungs cta. swelling noted to lt hand and wrist. small open area between thumb and forefinger with minimal bleeding noted. cap refill and radial pu lse wnl. Physician History: 52-year-old white male arrives with complaint of pain and swelling and erythema of his left hand. Symptoms since this afternoon patient states he was out fishing he was horned by a catfish. He thinks he might have got some in the morning inside of his left hand. He states he is having pain in his left hand radiating up to his left proximal forearm, He denies any other complaints, Past medical history includes migraines, glaucoma, angina, high blood pressure, pneumonia, pulmonary embolism, diabetes type 2, hypothyroidism, pancreatitis, pulmonary high blood pressure Past surgical history includes cardiac catheter, appendectomy, cholecystectomy, hernia repair, testicular surgery, cystoscopy, right shoulder surgery, shunt in his right eye. Patient states his tetanus is not up-to-date last tetanus was around 10 years ago Occurred: this afternoon Method of Injury: other (horned by a cat fish) Quality: constant Severity of Pain-Max: moderate Severity of Pain-Current: moderate Extremities Pain Location: hand: left Modifying Factors: Improves With: nothing Associated Symptoms: none Allergies/Adverse Reactions: tuberculin,PPD,multi-puncture [From Tuberculin PPD Mary Ellen Test] Allergy ( Intermediate, Verified 05/29/18 23:32) Rash butorphanol tartrate [From Stadol] Allergy (Unknown, Verified 05/29/18 23:32) chlorpromazine HCl [From Thorazine] Allergy (Unknown, Verified 05/29/18 23:32) irritable haloperidol Allergy (Unknown, Verified 05/29/18 23:32) ketorolac tromethamine [From Toradol] Allergy (Unknown, Verified 05/29/18 23:32) nalbuphine [Nalbuphine] Allergy (Unknown, Verified 05/29/18 23:32) prochlorperazine edisylate [From Compazine] Allergy (Unknown, Verified 05/29/18 23:32) irritable lisinopril Adverse Reaction (Verified 05/29/18 23:32) Cough chloraprep Allergy (Intermediate, Uncoded 05/29/18 23:32) Rash Home Medications: Brimonidine Tartrate [Alphagan P 0.15%] 1 drops OP BID 09/30/12 [History] Metformin HCl 1000 mg [Glucophage 1000 MG] 1,000 mg PO BID 09/15/14 [History] Apixaban [Eliquis 5 mg Tablet] 2.5 mg PO BID 03/30/15 [History] Levothyroxine Sodium 25 Mcg [Synthroid 25 Mcg] 25 mcg PO DAILY 03/30/15 [ History] Dorzolamide HCl/Timolol Maleat [Dorzolamide-Timolol Eye Drops] 1 ml OP BID 09/05 [History] Cetirizine HCl 10 mg PO DAILY 01/23/17 [History] Insulin Glargine [Lantus Insulin] 55 unit SQ HS 02/11/17 [History] Insulin Aspart [NovoLOG Insulin] 12 units SQ TIDWM 07/13/17 [History] Furosemide 20 mg [Lasix 20 mg] 20 mg PO DAILY 10/25/17 [History] Metoprolol Succinate 100 mg [Toprol Xl 100 MG] 100 mg PO DAILY 10/25/17 [ History] Potassium Chloride [K-Tab ER] 20 meq PO DAILY 10/25/17 [History] Montelukast Sodium 10 mg [Singulair 10 MG] 10 mg PO QPM 05/22/18 [History] Hx Tetanus, Diphtheria Vaccination/Date Given: Yes (unknown) Hx Influenza Vaccination/Date Given: Yes Hx Pneumococcal Vaccination/Date Given: Yes Immunizations Up to Date: Yes - Review of Systems Constitutional: No Fever, No Chills Eyes: No Symptoms Ears, Nose, & Throat: No Symptoms Respiratory: No Cough, No Dyspnea Cardiac: No Chest Pain, No Edema, No Syncope Abdominal/Gastrointestinal: No Abdominal Pain, No Nausea, No Vomiting, No Diarrhea Genitourinary Symptoms: No Dysuria Musculoskeletal: Other (pain erythema and swelling left hand) Skin: Other (Erythema left hand) Neurological: No Symptoms Psychological: No Symptoms Endocrine: No Symptoms All Other Systems: Reviewed and Negative - Past Medical History Pertinent Past Medical History: Yes Neurological History: Migraines ENT History: Glaucoma Cardiac History: Angina, Hypertension Respiratory History: Pneumonia, Pulmonary Embolism, Other Endocrine Medical History: Diabetes Type II, Hypothyroidism Musculoskeletal History: No Pertinent History GI Medical History: Pancreatitis History: No Pertinent History Psycho-Social History: Anxiety Male Reproductive Disorders: No Pertinent History Other Medical History: Pulmonary hypertension - Past Surgical History Past Surgical History: Yes Neuro Surgical History: No Pertinent History Cardiac: Cardiac Catheterization Respiratory: No Pertinent History Gastrointestinal: Appendectomy, Cholecystectomy, Hernia Repair, Pancreatic Surgery Genitourinary: No Pertinent History, Other Musculoskeletal: Other Male Surgical History: Testicular Surgery Other Surgical History: old port removed, port placed x 2, had a surgery to look in bladder, right shoulder surgery. SHUNT IN RIGHT EYE - Social History Smoking Status: Current some day smoker How long have you smoked: 2 yrs Exposure to second hand smoke: No Alcohol Use: Socially Drug Use: none Patient Lives Alone: No Significant Family History: diabetes - Nursing Vital Signs Nursing Vital Signs: Initial Vital Signs Temperature 98.5 F 05/29/18 23:23 Pulse Rate 87 05/29/18 23:23 Respiratory Rate 18 05/29/18 23:23 Blood Pressure 151/99 05/29/18 23:23 O2 Sat by Pulse Oximetry 96 05/29/18 23:23 Pain Scale Pain Intensity 5 - Physical Exam General Appearance: mild distress Eyes, Ears, Nose, Throat Exam: moist mucous membranes Neck Exam: non-tender, supple Cardiovascular/Respiratory Exam: chest non-tender, normal breath sounds, regular rate/rhythm, no respiratory distress Abdominal Exam: non-tender, No guarding Back Exam: normal inspection, No vertebral tenderness Shoulder Exam: normal inspection, non-tender, no evidence of injury, normal ROM Elbow/Forearm Exam: normal inspection, non-tender, no evidence of injury, normal ROM Wrist Exam: normal inspection, non-tender, no evidence of injury, normal ROM Hand Exam: No normal inspection (mild edema, erythema, left dorsal hand, 1 mm puncture wound left dorsal hand proximal to the first intertriginous area) Neuro/Tendon Exam: normal sensation, normal motor functions Mental Status Exam: alert, oriented x 3, cooperative Skin Exam: other (mild erythema left dorsal hand) SpO2 Interpretation: normal (96%) SpO2: 96 Oxygen Delivery: Room Air - Course Nursing assessment & vital signs reviewed: Yes - Radiology Exams Left Hand X-ray Interpretation: Interpreted by me (small 1-2 mm fb left hand) Ordered Tests: Active Orders 24 hr Category Date Time Status Wound Care STAT Care 05/29/18 23:44 Active HAND (MINIMUM 3 VIEWS) Stat Exams 05/29/18 23:50 Taken BLOOD CULTURE Stat Lab 05/29/18 00:27 Received Medication Summary Discontinued Medications Generic Name Dose Route Start Last Admin Trade Name Freq PRN Reason Stop Dose Admin Ampicillin Sodium/Sulbactam Sodium 3 g 05/29/18 23:43 05/30/18 00:36 Unasyn 3 Gm Vial IM 05/29/18 23:44 3 g STAT ONE Administration Ampicillin Sodium/Sulbactam Sodium Confirm 05/29/18 23:52 Unasyn 3 Gm Vial Administered 05/29/18 23:53 Dose 3 g .ROUTE .STK-MED ONE Diphtheria/Tetanus/Acell Pertussis 0.5 ml 05/29/18 23:44 05/30/18 00:35 Adacel Vial IM 05/29/18 23:45 0.5 ml .ONCE ONE Administration Diphtheria/Tetanus/Acell Pertussis Confirm 05/29/18 23:52 Adacel Vial Administered 05/29/18 23:53 Dose 0.5 ml IM .STK-MED ONE - Progress Progress: improved Progress Note: 05/29/18 23:51 This is a 52-year-old white male arrives with complaint of pain and swelling of his left hand since being horned by a catfish. Patient states he feels like he perhaps could have portion of the catfish eldon in his left hand. On physical examination he has mild edema and erythema to the dorsal left hand. Will go ahead and have area cleansed by the patient's nurse patient does states he soaked his hand in hot water earlier. Will go ahead and obtain of blood cultures and give patient Unasyn 3 g IV. Plan home with Augmentin 500 mg orally 3 times a day for 7 days. Will update patient's DTaP. Patient was offered pain medications however he does not want this. 05/30/18 00:35 Consent obtained for removal of foreign body of left hand, Left hand sterilely cleansed. One percent lidocaine used to anesthetize the area around approximately 1-2 mm laceration/puncture wound left hand just proximal to intertriginous space #1 dorsal hand. Small splinter forceps used to attempt to locate foreign body however unable to locate foreign body. Area is cleansed again by nurse bacitracin is applied. 05/30/18 00:38 patient with full range range of motion left hand, patient neurovascularlily intact after attempt to remove foreign body. - Departure Time of Disposition: 00:37 Departure Disposition: Home Clinical Impression: Puncture wound of left hand Qualifiers: Encounter type: initial encounter Foreign body presence: unspecified Qualified Code(s): S61.432A - Puncture wound without foreign body of left hand, initial encounter Foreign body of left hand Qualifiers: Encounter type: initial encounter Qualified Code(s): S60.552A - Superficial foreign body of left hand, initial encounter Condition: Fair Critical Care Time: No Referrals: EVARISTO LAUGHLIN [Primary Care Provider] - Additional Instructions: Return home. Clean area and apply bacitracin daily. Augmentin 500 mg orally 3 times a day for 7 days. Follow-up with your family doctor. Return for acute distress or for severe symptoms. Prescriptions: Amox Tr/Potass Clav. 500 mg [Augmentin 500-125 Tablet] 500 mg PO TID #21 tablet
[2018-05-29] MEDS ORDERED: Unasyn 3 GM Vial ONE (23:52)
[2018-05-30] MEDS ORDERED: BACIGUENT PACKET TP ONE (00:44)
[2018-05-30 00:57] VITALS: BP 127/80; PULSE 82; O2SAT 97
[2018-05-30] MEDS ORDERED: BACIGUENT PACKET ONE (03:13)
--- NOTE | 2018-05-30 08:52 | XRAY ---
Indication: Puncture wound. Comparison: None 3 views of the left hand demonstrates tiny 2-3 mm foreign body in the soft tissues between the 1st and 2nd metacarpals. Elsewhere mild degenerative changes of the 1st metacarpal multangular articulation and mild degenerative changes of all IP joints. No other bony, articular, or soft tissue abnormalities.
== END 2018-05-30 00:55 | disposition home or self-care (01) ==
LOC: ED 22:52
DX: S61.432A Puncture wound without foreign body of left hand, initial encounter (principal); W56.52XA Struck by other fish, initial encounter; Y93.89 Activity, other specified; Z79.899 Other long term (current) drug therapy
CPT/HCPCS: 36415; 73130; 87040; 90471; 90715; 96372; 99284; J0295; A9270-GY

== ENCOUNTER 2018-09-17 13:16 | Emergency (ER) | payer MEDICARE ==
[2018-09-17 14:18] LABS: BASOPHIL % 0.4 % (0.0-0.4); Basophil (Absolute #) 0.03 (0-0.4); Eosinophil % 2.9 % (0.00-5.0); Eosinophil (Absolute #) 0.24 (0-0.5); Granulocyte Absolute (ANC) 5.02 (1.4-6.9); Granulocytes % 61.4 % (36.0-66.0); Hemoglobin 13.5 gm/dl (12.5-18.0); Lymphocyte (Absolute #) 1.85 (1.0-4.6); Lymphocytes % 22.6 % (24.0-44.0); Mean Cell Volume 91.1 fl (78-100); Mean Corpuscular Hemoglobin 29.3 pg (26-32); Mean Corpuscular Hgb Concent. 32.1 g/dl (32-36); Mean Platelet Volume 9.3 fl (6-9.5); Monocyte (Absolute #) 1.04 (0.0-1.3); Monocytes % 12.7 % (0.0-12.0); Platelet Count 208 K/mm3 (150-450); Red Blood Count 4.61 M/mm3 (4.1-5.6); Red Cell Distribution Width 14.6 % (11.5-14.0); White Blood Count 8.2 K/mm3 (4.0-10.5)
[2018-09-17 14:41] LABS: ALBUMIN 4.1 g/dL (3.5-5.0); ALKALINE PHOSPHATASE 58 U/L (38-126); ANION GAP 16.5 MEQ/L (5-15); BLOOD UREA NITROGEN 23 mg/dL (9-20); CHLORIDE 99 mmol/L (98-107); Calcium 9.3 mg/dL (8.4-10.2); Carbon Dioxide 28 mmol/L (22-30); Glucose 252 mg/dL (74-106); NT PRO BNP 30.8 pg/mL (0-900); Potassium 3.5 mmol/L (3.5-5.1); SGOT/AST 40 U/L (17-59); SGPT/ALT 39 U/L (0-50); SODIUM 140 mmol/L (137-145); Total Protein 7.1 g/dL (6.3-8.2)
[2018-09-17] MEDS ORDERED: Lasix 20 MG/2 ML IV STA (15:13)
[2018-09-17] MEDS ORDERED: Lasix 40 MG/4 ML ONE (15:32)
--- NOTE | 2018-09-17 15:53 | ERPHSYRPT ---
- History of Present Illness Source: patient Exam Limitations: no limitations Patient Subjective Stated Complaint: states has had facial, arm, and leg swelling for two days. denies any new foods or meds. recent dx of enlarged heart from hypertension. also states is unable to lie flat. Triage Nursing Assessment: ambulated to room per self. skin w/d, color normal, resp nonlabored at this time. moderate swelling noted to face, arms, hand, and lower legs. Physician History: Pt is a 52 y/o male that presented to the ED complaining of edema. Pt states, had a cardiac work up in the past, that was okay, and had a stress test that was normal. Pt states, that he woke up today, and noticed that he has edema in his face, abdomen and extremities. Pt presented to the ED. Pt denies SOB or cough. No chest pain or palpitations. No N/V/D or abdominal pain. Timing/Duration: today Severity: mild Modifying Factors: Improves With: nothing Allergies/Adverse Reactions: tuberculin,PPD,multi-puncture [From Tuberculin PPD Mary Ellen Test] Allergy ( Intermediate, Verified 09/17/18 13:31) Rash butorphanol tartrate [From Stadol] Allergy (Unknown, Verified 09/17/18 13:31) chlorpromazine HCl [From Thorazine] Allergy (Unknown, Verified 09/17/18 13:31) irritable haloperidol Allergy (Unknown, Verified 09/17/18 13:31) "makes me stay awake too much" ketorolac tromethamine [From Toradol] Allergy (Unknown, Verified 09/17/18 13:31) severe pain in lower back and kidneys nalbuphine [Nalbuphine] Allergy (Unknown, Verified 09/17/18 13:31) prochlorperazine edisylate [From Compazine] Allergy (Unknown, Verified 09/17/18 13:31) irritable lisinopril Adverse Reaction (Verified 09/17/18 13:31) Cough chloraprep Allergy (Intermediate, Uncoded 09/11/18 07:18) Rash Home Medications: Brimonidine Tartrate [Alphagan P 0.15%] 1 drops OP BID 09/30/12 [History] Metformin HCl 1000 mg [Glucophage 1000 MG] 1,000 mg PO BID 09/15/14 [History] Apixaban [Eliquis 5 mg Tablet] 2.5 mg PO BID 03/30/15 [History] Levothyroxine Sodium 25 Mcg [Synthroid 25 Mcg] 25 mcg PO DAILY 03/30/15 [ History] Dorzolamide HCl/Timolol Maleat [Dorzolamide-Timolol Eye Drops] 1 ml OP BID 09/05 [History] Cetirizine HCl 10 mg PO DAILY 01/23/17 [History] Insulin Glargine [Lantus Insulin] 55 unit SQ HS 02/11/17 [History] Insulin Aspart [NovoLOG Insulin] 12 units SQ TIDWM 07/13/17 [History] Furosemide 20 mg [Lasix 20 mg] 20 mg PO DAILY 10/25/17 [History] Metoprolol Succinate 100 mg [Toprol Xl 100 MG] 100 mg PO DAILY 10/25/17 [ History] Potassium Chloride [K-Tab ER] 20 meq PO DAILY 10/25/17 [History] Montelukast Sodium 10 mg [Singulair 10 MG] 10 mg PO QPM 05/22/18 [History] Cholecalciferol (Vitamin D3) [Vitamin D3] 3,000 unit PO DAILY 06/19/18 [History] Furosemide [Lasix] 30 mg PO DAILY 06/19/18 [History] Hctz/Triamteren 37.5 mg/25 mg* [Maxzide-25MG Tablet] 50 mg PO DAILY 06/19/18 [History] Hx Tetanus, Diphtheria Vaccination/Date Given: No (unknown) Hx Influenza Vaccination/Date Given: No Hx Pneumococcal Vaccination/Date Given: Yes - Review of Systems Constitutional: No Fever, No Chills Eyes: No Symptoms Ears, Nose, & Throat: No Symptoms Respiratory: Dyspnea, Dyspnea on Exertion (LABOY) Cardiac: Edema, Orthopnea, No Chest Pain, No Syncope Abdominal/Gastrointestinal: No Abdominal Pain, No Nausea, No Vomiting, No Diarrhea Musculoskeletal: No Back Pain, No Neck Pain Skin: No Rash Neurological: No Dizziness, No Focal Weakness, No Sensory Changes - Past Medical History Pertinent Past Medical History: Yes Neurological History: Migraines ENT History: Glaucoma Cardiac History: Angina, Hypertension Respiratory History: Pneumonia, Pulmonary Embolism, Other Endocrine Medical History: Diabetes Type II, Hypothyroidism Musculoskeletal History: No Pertinent History GI Medical History: Pancreatitis History: No Pertinent History Psycho-Social History: Anxiety Male Reproductive Disorders: No Pertinent History Other Medical History: Pulmonary hypertension; enlarged heart - Past Surgical History Past Surgical History: Yes Neuro Surgical History: No Pertinent History Cardiac: Cardiac Catheterization Respiratory: No Pertinent History Gastrointestinal: Appendectomy, Cholecystectomy, Hernia Repair, Pancreatic Surgery Genitourinary: No Pertinent History, Other Musculoskeletal: Other Male Surgical History: Testicular Surgery Other Surgical History: old port removed, port placed x 2, had a surgery to look in bladder, right shoulder surgery. SHUNT IN RIGHT EYE - Social History Smoking Status: Current some day smoker How long have you smoked: 2 yrs Exposure to second hand smoke: Yes Alcohol Use: Socially Drug Use: none Patient Lives Alone: No Significant Family History: diabetes - Nursing Vital Signs Nursing Vital Signs: Initial Vital Signs Temperature 98.4 F 09/17/18 13:24 Pulse Rate 95 H 09/17/18 13:24 Respiratory Rate 18 09/17/18 13:24 Blood Pressure 135/82 09/17/18 13:24 O2 Sat by Pulse Oximetry 95 09/17/18 13:24 Pain Scale Pain Intensity 5 - Physical Exam General Appearance: no apparent distress, alert Eye Exam: PERRL/EOMI, eyes nml inspection Ears, Nose, Throat Exam: normal ENT inspection, TMs normal, pharynx normal, moist mucous membranes Neck Exam: normal inspection, non-tender, supple, full range of motion Respiratory Exam: normal breath sounds, lungs clear, No respiratory distress Cardiovascular Exam: regular rate/rhythm, normal heart sounds, normal peripheral pulses, edema (LEs, non pitting.) Gastrointestinal/Abdomen Exam: soft, normal bowel sounds, No tenderness, No mass Extremity Exam: normal inspection, normal range of motion, pelvis stable, pedal edema (Non pitting.) Lymphatic Exam: No adenopathy SpO2: 95 Oxygen Delivery: Room Air - Course Nursing assessment & vital signs reviewed: Yes EKG Interpreted by Me: Sinus Rhythm, Other (old VA) - Radiology Exams Chest X-ray Interpretation: Interpreted by me (Mild congestion. No PNA, or effusions. 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 Tender STAT Care 09/17/18 13:40 Active CHEST 2 VIEWS (PA AND LAT) Stat Exams 09/17/18 13:39 Taken CBC W DIFF Stat Lab 09/17/18 14:05 Completed CMP Stat Lab 09/17/18 14:05 Completed NT PRO BNP Stat Lab 09/17/18 14:05 Completed TROPONIN Q3H Lab 09/17/18 14:05 Completed TROPONIN Q3H Lab 09/17/18 16:45 Ordered TROPONIN Q3H Lab 09/17/18 19:45 Ordered TROPONIN Q3H Lab 09/17/18 22:45 Ordered TROPONIN Q3H Lab 09/18/18 01:45 Ordered Medication Summary Generic Name Dose Route Start Last Admin Trade Name Freq PRN Reason Stop Dose Admin Heparin Sodium (Beef Lung) 500 units 09/17/18 15:41 Heparin Lock Flush 100 Units/Ml 5ml Syringe PORT FLUSH 10/17/18 15:40 PRN PRN IV PORT FLUSH Discontinued Medications Generic Name Dose Route Start Last Admin Trade Name Freq PRN Reason Stop Dose Admin Furosemide 20 mg 09/17/18 15:13 09/17/18 15:34 Lasix 20 Mg/2 Ml IV 09/17/18 15:14 20 mg ONCE STA Administration Furosemide Confirm 09/17/18 15:32 Lasix 40 Mg/4 Ml Administered 09/17/18 15:33 Dose 40 mg .ROUTE .[employer] ONE Lab/Rad Data: Laboratory Result Diagrams 09/17/18 14:05 09/17/18 14:05 Laboratory Results 09/17/18 09/17/18 09/17/18 Range/Units 14:05 14:05 14:05 WBC 8.2 (4.0-10.5) K/mm3 RBC 4.61 (4.1-5.6) M/mm3 Hgb 13.5 (12.5-18.0) gm/dl Hct 42.0 (42-50) % MCV 91.1 (78-100) fl MCH 29.3 (26-32) pg MCHC 32.1 (32-36) g/dl RDW 14.6 H (11.5-14.0) % Plt Count 208 (150-450) K/mm3 MPV 9.3 (6-9.5) fl Gran % 61.4 (36.0-66.0) % Eos # (Auto) 0.24 (0-0.5) Absolute Lymphs (auto) 1.85 (1.0-4.6) Absolute Monos (auto) 1.04 (0.0-1.3) Lymphocytes % 22.6 L (24.0-44.0) % Monocytes % 12.7 H (0.0-12.0) % Eosinophils % 2.9 (0.00-5.0) % Basophils % 0.4 (0.0-0.4) % Absolute Granulocytes 5.02 (1.4-6.9) Basophils # 0.03 (0-0.4) Sodium 140 (137-145) mmol/L Potassium 3.5 (3.5-5.1) mmol/L Chloride 99 (98-107) mmol/L Carbon Dioxide 28 (22-30) mmol/L Anion Gap 16.5 H (5-15) MEQ/L BUN 23 H (9-20) mg/dL Creatinine 0.80 (0.66-1.25) mg/dL Estimated GFR > 60.0 ML/MIN Glucose 252 H (74-106) mg/dL Calcium 9.3 (8.4-10.2) mg/dL Total Bilirubin 0.60 (0.2-1.3) mg/dL AST 40 (17-59) U/L ALT 39 (0-50) U/L Alkaline Phosphatase 58 (38-126) U/L Troponin I < 0.012 (0.000-0.034) ng/mL NT-Pro-B Natriuret Pep 30.8 (0-900) pg/mL Serum Total Protein 7.1 (6.3-8.2) g/dL Albumin 4.1 (3.5-5.0) g/dL - Progress Progress: unchanged Will see patient in: office (F/U with PCP and cardiology) - Departure Time of Disposition: 16:00 Departure Disposition: Home Clinical Impression: Edema Condition: Stable Critical Care Time: No Referrals: EVARISTO LAUGHLIN [Primary Care Provider] - Additional Instructions: Pt did get lasix IV 20mg once. Labs and EKG did not show acute ACS. No CHF. Pt should f/u with his PCP and get referal to Cardiology for a work up, as pt is diabetic as well.
[2018-09-17 16:12] VITALS: BP 166/89; PULSE 80; O2SAT 98
--- NOTE | 2018-09-17 18:53 | XRAY ---
Indication: Edema. Swollen face. Comparison: April 06, 2017. PA/lateral chest remains clear again with incidental calcified granulomas and left Port-A-Cath. Heart and mediastinal structures within normal limits. Bony thorax intact again with mild degenerative changes. Impression: Stable nonacute chest with chronic features..
== END 2018-09-17 16:13 | disposition home or self-care (01) ==
LOC: ED 13:16
DX: R60.9 Edema, unspecified (principal); Z79.899 Other long term (current) drug therapy; E11.9 Type 2 diabetes mellitus without complications; Z79.84 Long term (current) use of oral hypoglycemic drugs; I10 Essential (primary) hypertension
CPT/HCPCS: 36000; 36415; 71046; 80053; 83880; 84484; 85025; 96374; 99284; J1642; J1940

== ENCOUNTER 2018-09-22 22:19 | Emergency (ER) | payer MEDICARE ==
--- NOTE | 2018-09-22 22:37 | ERPHSYRPT ---
- History of Present Illness Time Seen by Provider: 09/22/18 22:32 Source: patient Physician History: 52 y/o diabetic, obese white male with h/o htn presents with palpitations, elevated bp and elevated bs. pts blood glucose was 400. he took 12 subq reg insulin at 1900 and blood glucose on arrival 370. pt denies cp, denies abd pain and denies soa. pt forgot his insulin yesterday Severity: mild Associated Symptoms: No nausea, No vomiting, No abdominal pain, No shortness of breath, No malaise, No weakness Allergies/Adverse Reactions: tuberculin,PPD,multi-puncture [From Tuberculin PPD Mary Ellen Test] Allergy ( Intermediate, Verified 09/17/18 13:31) Rash butorphanol tartrate [From Stadol] Allergy (Unknown, Verified 09/17/18 13:31) chlorpromazine HCl [From Thorazine] Allergy (Unknown, Verified 09/17/18 13:31) irritable haloperidol Allergy (Unknown, Verified 09/17/18 13:31) "makes me stay awake too much" ketorolac tromethamine [From Toradol] Allergy (Unknown, Verified 09/17/18 13:31) severe pain in lower back and kidneys nalbuphine [Nalbuphine] Allergy (Unknown, Verified 09/17/18 13:31) prochlorperazine edisylate [From Compazine] Allergy (Unknown, Verified 09/17/18 13:31) irritable lisinopril Adverse Reaction (Verified 09/17/18 13:31) Cough chloraprep Allergy (Intermediate, Uncoded 09/11/18 07:18) Rash Home Medications: Brimonidine Tartrate [Alphagan P 0.15%] 1 drops OP BID 09/30/12 [History] Metformin HCl 1000 mg [Glucophage 1000 MG] 1,000 mg PO BID 09/15/14 [History] Apixaban [Eliquis 5 mg Tablet] 2.5 mg PO BID 03/30/15 [History] Levothyroxine Sodium 25 Mcg [Synthroid 25 Mcg] 25 mcg PO DAILY 03/30/15 [ History] Dorzolamide HCl/Timolol Maleat [Dorzolamide-Timolol Eye Drops] 1 ml OP BID 09/05 [History] Cetirizine HCl 10 mg PO DAILY 01/23/17 [History] Insulin Glargine [Lantus Insulin] 55 unit SQ HS 02/11/17 [History] Insulin Aspart [NovoLOG Insulin] 12 units SQ TIDWM 07/13/17 [History] Furosemide 20 mg [Lasix 20 mg] 20 mg PO DAILY 10/25/17 [History] Metoprolol Succinate 100 mg [Toprol Xl 100 MG] 100 mg PO DAILY 10/25/17 [ History] Potassium Chloride [K-Tab ER] 20 meq PO DAILY 10/25/17 [History] Montelukast Sodium 10 mg [Singulair 10 MG] 10 mg PO QPM 05/22/18 [History] Cholecalciferol (Vitamin D3) [Vitamin D3] 3,000 unit PO DAILY 06/19/18 [History] Furosemide [Lasix] 30 mg PO DAILY 06/19/18 [History] Hctz/Triamteren 37.5 mg/25 mg* [Maxzide-25MG Tablet] 50 mg PO DAILY 06/19/18 [History] Hx Tetanus, Diphtheria Vaccination/Date Given: No (unknown) Hx Influenza Vaccination/Date Given: No Hx Pneumococcal Vaccination/Date Given: Yes - Review of Systems Constitutional: No Symptoms Eyes: No Symptoms Ears, Nose, & Throat: No Symptoms Respiratory: No Symptoms Cardiac: Palpitations, No Chest Pain Abdominal/Gastrointestinal: No Abdominal Pain, No Nausea, No Vomiting, No Diarrhea Genitourinary Symptoms: No Symptoms, No Dysuria, No Frequency, No Hematuria Musculoskeletal: No Symptoms Skin: No Symptoms Neurological: No Symptoms Psychological: No Symptoms Endocrine: No Symptoms Hematologic/Lymphatic: No Symptoms Immunological/Allergic: No Symptoms All Other Systems: Reviewed and Negative - Past Medical History Pertinent Past Medical History: Yes Neurological History: Migraines ENT History: Glaucoma Cardiac History: Angina, Hypertension Respiratory History: Pneumonia, Pulmonary Embolism, Other Endocrine Medical History: Diabetes Type II, Hypothyroidism Musculoskeletal History: No Pertinent History GI Medical History: Pancreatitis History: No Pertinent History Psycho-Social History: Anxiety Male Reproductive Disorders: No Pertinent History Other Medical History: Pulmonary hypertension; enlarged heart - Past Surgical History Past Surgical History: Yes Neuro Surgical History: No Pertinent History Cardiac: Cardiac Catheterization Respiratory: No Pertinent History Gastrointestinal: Appendectomy, Cholecystectomy, Hernia Repair, Pancreatic Surgery Genitourinary: No Pertinent History, Other Musculoskeletal: Other Male Surgical History: Testicular Surgery Other Surgical History: old port removed, port placed x 2, had a surgery to look in bladder, right shoulder surgery. SHUNT IN RIGHT EYE - Social History Smoking Status: Current some day smoker How long have you smoked: 2 yrs Exposure to second hand smoke: Yes Alcohol Use: Socially Drug Use: none Patient Lives Alone: No Significant Family History: diabetes - Nursing Vital Signs Nursing Vital Signs: Initial Vital Signs Temperature 98.8 F 09/22/18 22:31 Pulse Rate 110 H 09/22/18 22:31 Respiratory Rate 18 09/22/18 22:31 Blood Pressure 169/68 09/22/18 22:31 O2 Sat by Pulse Oximetry 95 09/22/18 22:31 Pain Scale Pain Intensity 3 - Physical Exam General Appearance: no apparent distress, alert, anxiety Eye Exam: PERRL/EOMI Ears, Nose, Throat Exam: normal ENT inspection, moist mucous membranes Neck Exam: normal inspection, non-tender, supple, full range of motion Respiratory Exam: normal breath sounds, lungs clear, airway intact, No chest tenderness, No respiratory distress, No accessory muscle use, No rhonchi, No wheezing, No stridor Cardiovascular Exam: regular rate/rhythm, normal heart sounds, normal peripheral pulses Gastrointestinal/Abdomen Exam: soft, normal bowel sounds, No tenderness, No guarding, No rebound Rectal Exam: not done Extremity Exam: normal inspection, normal range of motion, pelvis stable Neurologic Exam: alert, oriented x 3, cooperative, manganese breaker II-XII nml as tested Skin Exam: normal color, warm, dry Lymphatic Exam: No adenopathy SpO2 Interpretation: normal Oxygen Delivery: Room Air - Course Nursing assessment & vital signs reviewed: Yes EKG Interpreted by Me: RATE ([id number]), Sinus Tach, NORMAL AXIS, NORMAL QRS Ordered Tests: Active Orders 24 hr Category Date Time Status Receiving Associate Store STAT Care 09/22/18 22:40 Active EKG-ER Only STAT Care 09/22/18 22:39 Active IV Insertion STAT Care 09/22/18 22:39 Active CBC W DIFF Stat Lab 09/22/18 23:30 Completed CMP Stat Lab 09/22/18 23:30 Completed PROTIME WITH INR Stat Lab 09/22/18 23:30 Completed TROPONIN Q3H Lab 09/22/18 23:30 Completed TROPONIN Q3H Lab 09/23/18 01:45 Ordered TROPONIN Q3H Lab 09/23/18 04:45 Ordered TROPONIN Q3H Lab 09/23/18 07:45 Ordered TROPONIN Q3H Lab 09/23/18 10:45 Ordered Medication Summary Discontinued Medications Generic Name Dose Route Start Last Admin Trade Name Edgar PRN Reason Stop Dose Admin Sodium Chloride 1,000 mls @ 999 mls/hr 09/22/18 22:39 09/22/18 23:13 Sodium Chloride 0.9% 1000 Ml IV 09/22/18 23:39 999 mls/hr .Q1H1M STA Administration Sodium Chloride Confirm 09/22/18 23:10 Sodium Chloride 0.9% 1000 Ml Administered 09/22/18 23:11 Dose 1,000 mls @ ud .ROUTE .[facility] ONE Insulin Human Regular 5 unit 09/22/18 22:40 09/22/18 23:14 Novolin R IV 09/22/18 22:41 5 unit STAT ONE Administration Insulin Human Regular Confirm 09/22/18 23:10 Novolin R Administered 09/22/18 23:11 Dose 5 unit .ROUTE .[facility] ONE Metoprolol Tartrate 5 mg 09/22/18 22:41 09/22/18 23:14 Lopressor 5 Mg/5 Ml Injection IV 09/22/18 22:42 5 mg STAT ONE Administration Metoprolol Tartrate Confirm 09/22/18 23:10 Lopressor 5 Mg/5 Ml Injection Administered 09/22/18 23:11 Dose 5 mg IV .STK-[facility] ONE Lab/Rad Data: Laboratory Result Diagrams 09/22/18 23:30 09/22/18 23:30 Laboratory Results 09/22/18 09/22/18 09/22/18 Range/Units 23:30 23:30 23:30 WBC (4.0-10.5) K/mm3 RBC (4.1-5.6) M/mm3 Hgb (12.5-18.0) gm/dl Hct (42-50) % MCV (78-100) fl MCH (26-32) pg MCHC (32-36) g/dl RDW (11.5-14.0) % Plt Count (150-450) K/mm3 MPV (6-9.5) fl Gran % (36.0-66.0) % Eos # (Auto) (0-0.5) Absolute Lymphs (auto) (1.0-4.6) Absolute Monos (auto) (0.0-1.3) Lymphocytes % (24.0-44.0) % Monocytes % (0.0-12.0) % Eosinophils % (0.00-5.0) % Basophils % (0.0-0.4) % Absolute Granulocytes (1.4-6.9) Basophils # (0-0.4) PT 11.3 (8.83-12.87) SECONDS INR 0.97 (0.8-3.0) Sodium 134 L (137-145) mmol/L Potassium 3.7 (3.5-5.1) mmol/L Chloride 94 L (98-107) mmol/L Carbon Dioxide 27 (22-30) mmol/L Anion Gap 15.8 H (5-15) MEQ/L BUN 23 H (9-20) mg/dL Creatinine 0.79 (0.66-1.25) mg/dL Estimated GFR > 60.0 ML/MIN Glucose 357 H (74-106) mg/dL Calcium 9.1 (8.4-10.2) mg/dL Total Bilirubin 0.40 (0.2-1.3) mg/dL AST 47 (17-59) U/L ALT 46 (0-50) U/L Alkaline Phosphatase 79 (38-126) U/L Troponin I < 0.012 (0.000-0.034) ng/mL Serum Total Protein 7.3 (6.3-8.2) g/dL Albumin 4.1 (3.5-5.0) g/dL 09/22/18 Range/Units 23:30 WBC 9.8 (4.0-10.5) K/mm3 RBC 4.79 (4.1-5.6) M/mm3 Hgb 13.9 (12.5-18.0) gm/dl Hct 43.3 (42-50) % MCV 90.4 (78-100) fl MCH 29.0 (26-32) pg MCHC 32.1 (32-36) g/dl RDW 14.7 H (11.5-14.0) % Plt Count 222 (150-450) K/mm3 MPV 9.6 H (6-9.5) fl Gran % 59.3 (36.0-66.0) % Eos # (Auto) 0.30 (0-0.5) Absolute Lymphs (auto) 2.22 (1.0-4.6) Absolute Monos (auto) 1.42 H (0.0-1.3) Lymphocytes % 22.7 L (24.0-44.0) % Monocytes % 14.5 H (0.0-12.0) % Eosinophils % 3.1 (0.00-5.0) % Basophils % 0.4 (0.0-0.4) % Absolute Granulocytes 5.80 (1.4-6.9) Basophils # 0.04 (0-0.4) PT (8.83-12.87) SECONDS INR (0.8-3.0) Sodium (137-145) mmol/L Potassium (3.5-5.1) mmol/L Chloride (98-107) mmol/L Carbon Dioxide (22-30) mmol/L Anion Gap (5-15) MEQ/L BUN (9-20) mg/dL Creatinine (0.66-1.25) mg/dL Estimated GFR ML/MIN Glucose (74-106) mg/dL Calcium (8.4-10.2) mg/dL Total Bilirubin (0.2-1.3) mg/dL AST (17-59) U/L ALT (0-50) U/L Alkaline Phosphatase (38-126) U/L Troponin I (0.000-0.034) ng/mL Serum Total Protein (6.3-8.2) g/dL Albumin (3.5-5.0) g/dL - Progress Progress: improved, re-examined Progress Note: 09/23/18 00:11 pt wants to go home. he is feeling well. Counseled pt/family regarding: lab results, diagnosis, need for follow-up, rad results - Departure Time of Disposition: 00:12 Departure Disposition: Home Clinical Impression: Palpitations, Hypertension, Hyperglycemia Condition: Stable Critical Care Time: No Referrals: EVARISTO LAUGHLIN [Primary Care Provider] - Additional Instructions: monitor and treat your high blood sugar closely. take your medications as prescribed. follow up with primary doctor for further management
[2018-09-22] MEDS ORDERED: Sodium Chloride 0.9% 1000 ML 1,000 ML IV STA (22:39)
[2018-09-22 22:40] VITALS: PULSE 110
[2018-09-22] MEDS ORDERED: NovoLIN R IV ONE (22:40)
[2018-09-22] MEDS ORDERED: LOPRESSOR 5 MG/5 ML INJECTION IV ONE ×2 (22:41→23:10)
[2018-09-22] MEDS ORDERED: NovoLIN R ONE (23:10)
[2018-09-22] MEDS ORDERED: Sodium Chloride 0.9% 1000 ML 1,000 ML ONE (23:10)
[2018-09-22 23:36] LABS: BASOPHIL % 0.4 % (0.0-0.4); Basophil (Absolute #) 0.04 (0-0.4); Eosinophil % 3.1 % (0.00-5.0); Granulocytes % 59.3 % (36.0-66.0); Hematocrit 43.3 % (42-50); Hemoglobin 13.9 gm/dl (12.5-18.0); Lymphocyte (Absolute #) 2.22 (1.0-4.6); Lymphocytes % 22.7 % (24.0-44.0); Mean Cell Volume 90.4 fl (78-100); Mean Corpuscular Hgb Concent. 32.1 g/dl (32-36); Mean Platelet Volume 9.6 fl (6-9.5); Monocyte (Absolute #) 1.42 (0.0-1.3); Monocytes % 14.5 % (0.0-12.0); Platelet Count 222 K/mm3 (150-450); Red Blood Count 4.79 M/mm3 (4.1-5.6); Red Cell Distribution Width 14.7 % (11.5-14.0); White Blood Count 9.8 K/mm3 (4.0-10.5)
[2018-09-22 23:49] LABS: INR 0.97 (0.8-3.0); PROTIME 11.3 SECONDS (8.83-12.87)
[2018-09-22 23:53] LABS: ALBUMIN 4.1 g/dL (3.5-5.0); ALKALINE PHOSPHATASE 79 U/L (38-126); ANION GAP 15.8 MEQ/L (5-15); BLOOD UREA NITROGEN 23 mg/dL (9-20); CHLORIDE 94 mmol/L (98-107); Calcium 9.1 mg/dL (8.4-10.2); Carbon Dioxide 27 mmol/L (22-30); Creatinine 1 0.79 mg/dL (0.66-1.25); Glucose 357 mg/dL (74-106); Potassium 3.7 mmol/L (3.5-5.1); SGOT/AST 47 U/L (17-59); SGPT/ALT 46 U/L (0-50); SODIUM 134 mmol/L (137-145); Total Protein 7.3 g/dL (6.3-8.2)
[2018-09-23 00:19] VITALS: BP 144/88; O2SAT 94
== END 2018-09-23 00:34 | disposition home or self-care (01) ==
LOC: ED 22:19
DX: R00.2 Palpitations (principal); I10 Essential (primary) hypertension; E11.65 Type 2 diabetes mellitus with hyperglycemia; Z79.899 Other long term (current) drug therapy; Z79.01 Long term (current) use of anticoagulants; Z79.4 Long term (current) use of insulin
CPT/HCPCS: 36000; 36415; 80053; 82962; 84484; 85025; 85610; 93005; 93041; 96360; 96372; 96374; 99284; J1642; A9270-GY

== ENCOUNTER 2018-10-04 23:21 | Emergency (ER) | payer MEDICARE ==
[2018-10-05] MEDS ORDERED: Zofran 4 MG/2 ML VIAL IV ONE (00:26)
[2018-10-05] MEDS ORDERED: Sodium Chloride 0.9% 1000 ML 1,000 ML IV STA (00:26)
[2018-10-05] MEDS ORDERED: MORPHINE SULFATE 4 MG INJ IV ONE (00:26)
--- NOTE | 2018-10-05 00:26 | ERPHSYRPT ---
- History of Present Illness Time Seen by Provider: 10/05/18 00:21 Source: patient Exam Limitations: no limitations Patient Subjective Stated Complaint: diarrhea Triage Nursing Assessment: Patient ambulated back to ED and transferred self to bed. Patient A+O X 3. Patient complains of diarrhea since 2300 on 10/03/18. Patient states everytime he drinks or eats he will have immediate diarrhea. Patient complains of abdominal pain 5/10. Patient states he ate taco mon prior to this happening. Abdomen soft and non distended with BS X 4. Physician History: Patient is a 53-year-old male complaining of severe diarrhea that began late yesterday evening. The patient thinks is from eating [employer] 2 days ago. He had eye surgery yesterday morning at the [place] on his right eye. He called them to see if it could've been the anesthesia. He has been nauseated but has not vomited. He does not feel well at all. Everything he tries to eat or drink stimulates his bowels are within 10 minutes. He is not lightheaded. He is worried about electrolyte imbalance. His past medical history significant for right eye surgery, HTN, DM, high cholesterol, hypothyroidism. Timing/Duration: yesterday, sudden, worse Severity: severe Modifying Factors: Improves With: eating Associated Symptoms: nausea Allergies/Adverse Reactions: tuberculin,PPD,multi-puncture [From Tuberculin PPD Mary Ellen Test] Allergy ( Intermediate, Verified 10/04/18 23:42) Rash butorphanol tartrate [From Stadol] Allergy (Unknown, Verified 10/04/18 23:42) chlorpromazine HCl [From Thorazine] Allergy (Unknown, Verified 10/04/18 23:42) irritable haloperidol Allergy (Unknown, Verified 10/04/18 23:42) "makes me stay awake too much" ketorolac tromethamine [From Toradol] Allergy (Unknown, Verified 10/04/18 23:42) severe pain in lower back and kidneys nalbuphine [Nalbuphine] Allergy (Unknown, Verified 10/04/18 23:42) prochlorperazine edisylate [From Compazine] Allergy (Unknown, Verified 10/04/18 23:42) irritable lisinopril Adverse Reaction (Verified 10/04/18 23:42) Cough chloraprep Allergy (Intermediate, Uncoded 10/04/18 23:42) Rash Home Medications: Brimonidine Tartrate [Alphagan P 0.15%] 1 drops OP BID 09/30/12 [History] Metformin HCl 1000 mg [Glucophage 1000 MG] 1,000 mg PO BID 09/15/14 [History] Apixaban [Eliquis 5 mg Tablet] 2.5 mg PO BID 03/30/15 [History] Levothyroxine Sodium 25 Mcg [Synthroid 25 Mcg] 25 mcg PO DAILY 03/30/15 [ History] Dorzolamide HCl/Timolol Maleat [Dorzolamide-Timolol Eye Drops] 1 ml OP BID 09/05 [History] Insulin Glargine [Lantus Insulin] 58 unit SQ BID 02/11/17 [History] Insulin Aspart [NovoLOG Insulin] 36 units SQ TIDWM 07/13/17 [History] Metoprolol Succinate 100 mg [Toprol Xl 100 MG] 100 mg PO DAILY 10/25/17 [ History] Montelukast Sodium 10 mg [Singulair 10 MG] 10 mg PO QPM 05/22/18 [History] Cholecalciferol (Vitamin D3) [Vitamin D3] 3,000 unit PO DAILY 06/19/18 [History] Furosemide [Lasix] 30 mg PO DAILY 06/19/18 [History] Hctz/Triamteren 37.5 mg/25 mg* [Maxzide-25MG Tablet] 50 mg PO DAILY 06/19/18 [History] Hx Tetanus, Diphtheria Vaccination/Date Given: No (unknown) Hx Influenza Vaccination/Date Given: No Hx Pneumococcal Vaccination/Date Given: No Immunizations Up to Date: Yes - Review of Systems Constitutional: Fever Eyes: No Symptoms Ears, Nose, & Throat: No Symptoms Respiratory: No Cough, No Dyspnea Cardiac: No Chest Pain, No Edema, No Syncope Abdominal/Gastrointestinal: Nausea, Diarrhea, No Vomiting Genitourinary Symptoms: No Dysuria Musculoskeletal: No Back Pain, No Neck Pain Skin: No Rash Neurological: No Dizziness, No Focal Weakness, No Sensory Changes Psychological: No Symptoms Endocrine: No Symptoms Hematologic/Lymphatic: No Symptoms Immunological/Allergic: No Symptoms All Other Systems: Reviewed and Negative - Past Medical History Pertinent Past Medical History: Yes Neurological History: Migraines ENT History: Glaucoma Cardiac History: Angina, Hypertension Respiratory History: Pneumonia, Pulmonary Embolism, Other Endocrine Medical History: Diabetes Type II, Hypothyroidism Musculoskeletal History: No Pertinent History GI Medical History: Pancreatitis History: No Pertinent History Psycho-Social History: Anxiety Male Reproductive Disorders: No Pertinent History Other Medical History: Pulmonary hypertension; enlarged heart - Past Surgical History Past Surgical History: Yes Neuro Surgical History: No Pertinent History Cardiac: Cardiac Catheterization Respiratory: No Pertinent History Gastrointestinal: Appendectomy, Cholecystectomy, Hernia Repair, Pancreatic Surgery Genitourinary: No Pertinent History, Other Musculoskeletal: Other Male Surgical History: Testicular Surgery Other Surgical History: old port removed, port placed x 2, had a surgery to look in bladder, right shoulder surgery. SHUNT IN RIGHT EYE. Open shut back up in right eye 10/03/18 - Social History Smoking Status: Light tobacco smoker How long have you smoked: 18 months Exposure to second hand smoke: Yes Alcohol Use: Socially Drug Use: none Patient Lives Alone: No Significant Family History: diabetes - Nursing Vital Signs Nursing Vital Signs: Initial Vital Signs Temperature 101.6 F 10/04/18 23:27 Pulse Rate 122 H 10/04/18 23:27 Respiratory Rate 18 10/04/18 23:27 Blood Pressure 123/74 10/04/18 23:27 O2 Sat by Pulse Oximetry 93 L 10/04/18 23:27 Pain Scale Pain Intensity 4 - Physical Exam General Appearance: moderate distress, obese Eye Exam: PERRL/EOMI (right eye with surgically induced conjunctival hemorrhage. ), eyes nml inspection Ears, Nose, Throat Exam: normal ENT inspection, TMs normal, pharynx normal, moist mucous membranes Neck Exam: normal inspection, non-tender, supple, full range of motion Respiratory Exam: normal breath sounds, lungs clear, No respiratory distress Cardiovascular Exam: regular rate/rhythm, normal heart sounds, normal peripheral pulses Gastrointestinal/Abdomen Exam: soft, normal bowel sounds, No tenderness, No mass Rectal Exam: not done Back Exam: normal inspection, normal range of motion, No CVA tenderness, No vertebral tenderness Extremity Exam: normal inspection, normal range of motion, pelvis stable Neurologic Exam: alert, oriented x 3, cooperative, normal mood/affect, nml cerebellar function, nml station & gait, sensation nml, No motor deficits Skin Exam: normal color, warm, dry, No rash SpO2 Interpretation: normal SpO2: 93 O2 Delivery: Room Air - CT Exams Abdomen/Pelvis CT Interpretation: Negative, Tele-radiologist Report (Per Dr Thayer), No appendicitis, Other (fatty liver) Ordered Tests: Active Orders 24 hr Category Date Time Status IV Insertion STAT Care 10/05/18 00:26 Active ABDOMEN AND PELVIS W/0 CONTRAS [CT] Stat Exams 10/05/18 00:26 Taken AMYLASE Stat Lab 10/05/18 01:50 Completed CBC W DIFF Stat Lab 10/05/18 01:50 Completed CMP Stat Lab 10/05/18 01:50 Completed LIPASE Stat Lab 10/05/18 01:50 Completed Lactic Acid Stat Lab 10/05/18 01:52 Completed Medication Summary Discontinued Medications Generic Name Dose Route Start Last Admin Trade Name Freq PRN Reason Stop Dose Admin Diphenoxylate HCl/Atropine 1 tablet 10/05/18 00:28 10/05/18 01:40 Lomotil PO 10/05/18 00:29 1 tablet STAT ONE Administration Diphenoxylate HCl/Atropine Confirm 10/05/18 00:34 Lomotil Administered 10/05/18 00:35 Dose 1 tablet .ROUTE .STK-MED ONE Sodium Chloride 1,000 mls @ 999 mls/hr 10/05/18 00:26 10/05/18 01:43 Sodium Chloride 0.9% 1000 Ml IV 10/05/18 01:26 999 mls/hr .Q1H1M STA Administration Sodium Chloride Confirm 10/05/18 00:34 Sodium Chloride 0.9% 1000 Ml Administered 10/05/18 00:35 Dose 1,000 mls @ ud .ROUTE .STK-MED ONE Morphine Sulfate 4 mg 10/05/18 00:26 10/05/18 01:41 Morphine Sulfate 4 Mg Inj IV 10/05/18 00:27 4 mg STAT ONE Administration Morphine Sulfate Confirm 10/05/18 00:34 Morphine Sulfate 4 Mg Inj Administered 10/05/18 00:35 Dose 4 mg .ROUTE .STK-MED ONE Ondansetron HCl 4 mg 10/05/18 00:26 10/05/18 01:41 Zofran 4 Mg/2 Ml Vial IV 10/05/18 00:27 4 mg STAT ONE Administration Ondansetron HCl Confirm 10/05/18 00:33 Zofran 4 Mg/2 Ml Vial Administered 10/05/18 00:34 Dose 4 mg .ROUTE .STK-MED ONE Lab/Rad Data: Laboratory Result Diagrams 10/05/18 01:50 10/05/18 01:50 Laboratory Results 10/05/18 10/05/18 10/05/18 Range/Units 01:52 01:50 01:50 WBC 9.7 (4.0-10.5) K/mm3 RBC 4.61 (4.1-5.6) M/mm3 Hgb 13.3 (12.5-18.0) gm/dl Hct 42.3 (42-50) % MCV 91.8 (78-100) fl MCH 28.9 (26-32) pg MCHC 31.4 L (32-36) g/dl RDW 15.5 H (11.5-14.0) % Plt Count 183 (150-450) K/mm3 MPV 9.3 (6-9.5) fl Gran % 69.1 H (36.0-66.0) % Eos # (Auto) 0.26 (0-0.5) Absolute Lymphs (auto) 1.45 (1.0-4.6) Absolute Monos (auto) 1.28 (0.0-1.3) Lymphocytes % 14.9 L (24.0-44.0) % Monocytes % 13.1 H (0.0-12.0) % Eosinophils % 2.7 (0.00-5.0) % Basophils % 0.2 (0.0-0.4) % Absolute Granulocytes 6.73 (1.4-6.9) Basophils # 0.02 (0-0.4) Sodium 136 L (137-145) mmol/L Potassium 3.2 L (3.5-5.1) mmol/L Chloride 102 (98-107) mmol/L Carbon Dioxide 24 (22-30) mmol/L Anion Gap 13.6 (5-15) MEQ/L BUN 22 H (9-20) mg/dL Creatinine 0.87 (0.66-1.25) mg/dL Estimated GFR > 60.0 ML/MIN Glucose 203 H (74-106) mg/dL Lactic Acid 1.3 (0.4-2.0) Calcium 7.6 L (8.4-10.2) mg/dL Total Bilirubin 0.40 (0.2-1.3) mg/dL AST 90 H (17-59) U/L ALT 78 H (0-50) U/L Alkaline Phosphatase 46 (38-126) U/L Serum Total Protein 6.4 (6.3-8.2) g/dL Albumin 3.6 (3.5-5.0) g/dL Amylase 48 (30-110) U/L Lipase 76 (23-300) U/L - Progress Progress: improved Counseled pt/family regarding: lab results, diagnosis, rad results - Departure Time of Disposition: 02:42 Departure Disposition: Home Clinical Impression: Hypokalemia, Diarrhea Condition: Stable Critical Care Time: No Referrals: DOCTOR,NO FAMILY [Primary Care Provider] - Additional Instructions: You had diarrhea. You also have low serum potassium. You were given morphine 4 mg, Zofran 4 mg, and fluids by IV in the ER. You were also given Lomotil and potassium 40 mEq orally. Do not take anything more by mouth this evening. In the morning start with a full liquid diet and advance as tolerated. Avoid milk products. Follow-up with your primary medical doctor as needed.
[2018-10-05] MEDS ORDERED: Lomotil PO ONE (00:28)
[2018-10-05] MEDS ORDERED: Zofran 4 MG/2 ML VIAL ONE (00:33)
[2018-10-05] MEDS ORDERED: Sodium Chloride 0.9% 1000 ML 1,000 ML ONE (00:34)
[2018-10-05] MEDS ORDERED: MORPHINE SULFATE 4 MG INJ ONE (00:34)
[2018-10-05] MEDS ORDERED: Lomotil ONE (00:34)
[2018-10-05 02:01] LABS: BASOPHIL % 0.2 % (0.0-0.4); Basophil (Absolute #) 0.02 (0-0.4); Eosinophil % 2.7 % (0.00-5.0); Eosinophil (Absolute #) 0.26 (0-0.5); Granulocytes % 69.1 % (36.0-66.0); Hematocrit 42.3 % (42-50); Hemoglobin 13.3 gm/dl (12.5-18.0); Lymphocyte (Absolute #) 1.45 (1.0-4.6); Lymphocytes % 14.9 % (24.0-44.0); Mean Cell Volume 91.8 fl (78-100); Mean Corpuscular Hemoglobin 28.9 pg (26-32); Mean Corpuscular Hgb Concent. 31.4 g/dl (32-36); Mean Platelet Volume 9.3 fl (6-9.5); Monocyte (Absolute #) 1.28 (0.0-1.3); Monocytes % 13.1 % (0.0-12.0); Platelet Count 183 K/mm3 (150-450); Red Blood Count 4.61 M/mm3 (4.1-5.6); Red Cell Distribution Width 15.5 % (11.5-14.0); White Blood Count 9.7 K/mm3 (4.0-10.5)
[2018-10-05 02:13] VITALS: BP 122/81
[2018-10-05 02:33] LABS: ALBUMIN 3.6 g/dL (3.5-5.0); ALKALINE PHOSPHATASE 46 U/L (38-126); AMYLASE 48 U/L (30-110); ANION GAP 13.6 MEQ/L (5-15); BLOOD UREA NITROGEN 22 mg/dL (9-20); CHLORIDE 102 mmol/L (98-107); Calcium 7.6 mg/dL (8.4-10.2); Carbon Dioxide 24 mmol/L (22-30); Creatinine 1 0.87 mg/dL (0.66-1.25); Glucose 203 mg/dL (74-106); LIPASE 76 U/L (23-300); Potassium 3.2 mmol/L (3.5-5.1); SGOT/AST 90 U/L (17-59); SGPT/ALT 78 U/L (0-50); SODIUM 136 mmol/L (137-145); Total Protein 6.4 g/dL (6.3-8.2)
[2018-10-05] MEDS ORDERED: Klor Con 10 MEQ PO ONE ×2 (02:43→02:45)
[2018-10-05 02:55] VITALS: PULSE 102; O2SAT 96
[2018-10-05 03:00] LABS: 027 TOX PROD PRESUMPTIVE NEGATIVE (NEGATIVE); TOXIGENIC C. DIFF ORG NEGATIVE (NEGATIVE)
--- NOTE | 2018-10-05 09:20 | XRAY ---
Indication: Abdominal pain, fever, and diarrhea. Multiple contiguous axial images obtained through the abdomen and pelvis without contrast as ordered. Comparison: January 07, 2013. Lung bases demonstrates mild bibasilar dependent atelectasis with stable right base calcified granuloma. No infiltrate or effusion. Heart is not enlarged. Noncontrasted stomach and bowel loops appear nonobstructed. Patient reports previous appendectomy and cholecystectomy. No free fluid/air. Mild diffuse fatty liver with now minimal pneumobilia. Again hepatic/splenic calcified granulomas. Remaining liver, pancreas, spleen, adrenal glands, kidneys, ureters, bladder, and aorta appear unremarkable for noncontrast exam. Osseous structures intact. Stable small fatty right inguinal hernia. Impression: 1. Fatty liver, fatty right inguinal hernia, and evidence for old granulomatous disease. 2. No acute intra-abdominal/pelvic abnormalities on this noncontrast exam. Comment: Preliminary interpretation was made by [facility]. No critical discrepancy. CTDI 23.67
[2018-10-07 09:36] LABS: Source: Feces
== END 2018-10-05 03:35 | disposition home or self-care (01) ==
LOC: ED 23:21
DX: R19.7 Diarrhea, unspecified (principal); I10 Essential (primary) hypertension; E11.9 Type 2 diabetes mellitus without complications; E78.00 Pure hypercholesterolemia, unspecified; F41.9 Anxiety disorder, unspecified; E03.9 Hypothyroidism, unspecified; Z79.4 Long term (current) use of insulin; Z79.01 Long term (current) use of anticoagulants; Z79.899 Other long term (current) drug therapy; Z86.711 Personal history of pulmonary embolism; Z72.0 Tobacco use
CPT/HCPCS: 36000; 36415; 74176; 80053; 82150; 83605; 83690; 85025; 87045; 87046; 87177; 87209; 87335; 87493; 96360; 96374; 96375; 99284; J1642; J2270; J2405; A9270-GY

== ENCOUNTER 2018-10-05 16:36 | Inpatient (IN) | payer MEDICARE ==
[2018-10-05] MEDS ORDERED: MORPHINE SULFATE 4 MG INJ IV ONE (17:59)
[2018-10-05] MEDS ORDERED: Sodium Chloride 0.9% 1000 ML 1,000 ML IV STA (17:59)
[2018-10-05] MEDS ORDERED: Zofran 4 MG/2 ML VIAL IV ONE (17:59)
[2018-10-05] MEDS ORDERED: MORPHINE SULFATE 4 MG INJ ONE (18:04)
[2018-10-05] MEDS ORDERED: Sodium Chloride 0.9% 1000 ML 1,000 ML ONE ×2 (18:04→21:24)
[2018-10-05] MEDS ORDERED: Zofran 4 MG/2 ML VIAL ONE (18:04)
--- NOTE | 2018-10-05 18:05 | ERPHSYRPT ---
- History of Present Illness Historian: patient Exam Limitations: no limitations Patient Subjective Stated Complaint: Pt states "I was here last night after my post op and I was having horrible diarrhea and no vomiting. Today I am having severe vomiting and really bad diarrea still. I called the foreign legal consultant dr for Dr. Dawn and he said to just come back to the ed." Triage Nursing Assessment: Pt alert and oriented X 3, skin pwd. Pt ambulates with an upright steady gait, able to speak in clear full sentences. pt in no apparent respiratory distress. PT left eye red, pain free. Timing/Duration: day(s) (3 days) Activities at Onset: none Quality: cramping Abdominal Pain Onset Location: generalized abdomen Pain Radiation: no radiation Severity of Pain-Max: moderate Severity of Pain-Current: moderate Modifying Factors: Improves With: nothing Associated Symptoms: diarrhea, nausea, vomiting, No back, No chest pain, No diaphoresis, No fever/chills, No fatigue, No headache, No heartburn, No loss of appetite, No shortness of breath, No syncope, No testicular pain, No weakness Previous symptoms: same symptoms as today (seen yesterday for the same) Hx Tetanus, Diphtheria Vaccination/Date Given: No Hx Influenza Vaccination/Date Given: No Hx Pneumococcal Vaccination/Date Given: No Immunizations Up to Date: Yes <YENY SANTO - Last Filed: 10/05/18 19:19> <SASHA COX - Last Filed: 10/05/18 23:06> - History of Present Illness Time Seen by Provider: 10/05/18 18:00 Physician History: 53-year-old white male seen here yesterday for complaints of diarrhea patient the apparently began having diarrhea after he had eye surgery 3 days ago he states that he had eaten at [employer] prior to onset of the diarrhea he was seen in this emergency room patient was given Zofran morphine IV fluids and the patient on Lomotil he states today he is beginning to have continuing diarrhea and vomiting he states he has abdominal pain which is a generalized. Past medical history includes migraines, glaucoma, angina, hypertension, pneumonia, pulmonary embolism, diabetes type 2, hypothyroidism, pancreatitis, anxiety, pulmonary hypertension, enlarged heart Past surgical history includes cardiac catheterization, appendectomy, cholecystectomy, hernia repair, pancreatic surgery testicular surgery, old port removed, port placed 2, cystoscopy, right shoulder surgery, shunt in the right eye and opening the shunt back up in the right eye 10/03/18 Social history positive tobacco use alcohol socially denies illicit drug use. (YENY SANTO) Allergies/Adverse Reactions: tuberculin,PPD,multi-puncture [From Tuberculin PPD Mary Ellen Test] Allergy ( Intermediate, Verified 10/04/18 23:42) Rash butorphanol tartrate [From Stadol] Allergy (Unknown, Verified 10/04/18 23:42) chlorpromazine HCl [From Thorazine] Allergy (Unknown, Verified 10/04/18 23:42) irritable haloperidol Allergy (Unknown, Verified 10/04/18 23:42) "makes me stay awake too much" ketorolac tromethamine [From Toradol] Allergy (Unknown, Verified 10/04/18 23:42) severe pain in lower back and kidneys nalbuphine [Nalbuphine] Allergy (Unknown, Verified 10/04/18 23:42) prochlorperazine edisylate [From Compazine] Allergy (Unknown, Verified 10/04/18 23:42) irritable lisinopril Adverse Reaction (Verified 10/04/18 23:42) Cough chloraprep Allergy (Intermediate, Uncoded 10/04/18 23:42) Rash Home Medications: Brimonidine Tartrate [Alphagan P 0.15%] 1 drops OP BID 09/30/12 [History] Metformin HCl 1000 mg [Glucophage 1000 MG] 1,000 mg PO BID 09/15/14 [History] Apixaban [Eliquis 5 mg Tablet] 2.5 mg PO BID 03/30/15 [History] Levothyroxine Sodium 25 Mcg [Synthroid 25 Mcg] 25 mcg PO DAILY 03/30/15 [ History] Dorzolamide HCl/Timolol Maleat [Dorzolamide-Timolol Eye Drops] 1 ml OP BID 09/05 [History] Insulin Glargine [Lantus Insulin] 58 unit SQ BID 02/11/17 [History] Insulin Aspart [NovoLOG Insulin] 36 units SQ TIDWM 07/13/17 [History] Metoprolol Succinate 100 mg [Toprol Xl 100 MG] 100 mg PO DAILY 10/25/17 [ History] Montelukast Sodium 10 mg [Singulair 10 MG] 10 mg PO QPM 05/22/18 [History] Cholecalciferol (Vitamin D3) [Vitamin D3] 3,000 unit PO DAILY 06/19/18 [History] Furosemide [Lasix] 30 mg PO DAILY 06/19/18 [History] Hctz/Triamteren 37.5 mg/25 mg* [Maxzide-25MG Tablet] 50 mg PO DAILY 06/19/18 [History] - Review of Systems Constitutional: No Fever, No Chills Eyes: No Symptoms Ears, Nose, & Throat: No Symptoms Respiratory: No Cough, No Dyspnea Cardiac: No Chest Pain, No Edema, No Syncope Abdominal/Gastrointestinal: Abdominal Pain, Nausea, Vomiting, Diarrhea, No Constipation, No Hematemesis, No Hematochezia, No Melena, No Dysphagia, No Appetite Changes Genitourinary Symptoms: No Dysuria Musculoskeletal: No Back Pain, No Neck Pain Skin: No Rash Neurological: No Dizziness, No Focal Weakness, No Sensory Changes Psychological: No Symptoms Endocrine: No Symptoms All Other Systems: Reviewed and Negative <YENY SANTO - Last Filed: 10/05/18 19:19> - Past Medical History Pertinent Past Medical History: Yes Neurological History: Migraines ENT History: Glaucoma Cardiac History: Angina, Hypertension Respiratory History: Pneumonia, Pulmonary Embolism, Other Endocrine Medical History: Diabetes Type II, Hypothyroidism Musculoskeletal History: No Pertinent History GI Medical History: Pancreatitis History: No Pertinent History Psycho-Social History: Anxiety Male Reproductive Disorders: No Pertinent History Other Medical History: Pulmonary hypertension; enlarged heart - Past Surgical History Past Surgical History: Yes Neuro Surgical History: No Pertinent History Cardiac: Cardiac Catheterization Respiratory: No Pertinent History Gastrointestinal: Appendectomy, Cholecystectomy, Hernia Repair, Pancreatic Surgery Genitourinary: No Pertinent History, Other Musculoskeletal: Other Male Surgical History: Testicular Surgery Other Surgical History: old port removed, port placed x 2, had a surgery to look in bladder, right shoulder surgery. SHUNT IN RIGHT EYE. Open shut back up in right eye 10/03/18 - Social History Smoking Status: Light tobacco smoker How long have you smoked: years Exposure to second hand smoke: Yes Alcohol Use: Socially Drug Use: none Patient Lives Alone: No Significant Family History: diabetes <ANUSHAYENY BRAXTON - Last Filed: 10/05/18 19:19> - Physical Exam General Appearance: mild distress Eye Exam: PERRL/EOMI, eyes nml inspection, other (patient with right subconjunctival hematoma secondary to surgery) Ears, Nose, Throat Exam: normal ENT inspection, pharynx normal, moist mucous membranes Neck Exam: normal inspection, non-tender, supple, full range of motion Respiratory Exam: normal breath sounds, lungs clear, No respiratory distress Cardiovascular Exam: regular rate/rhythm, normal heart sounds, capillary refill <2 sec Gastrointestinal/Abdomen Exam: distention, No soft (Abdomen mildly firm), No tenderness, No mass Back Exam: normal inspection, normal range of motion, No CVA tenderness, No vertebral tenderness Extremity Exam: normal inspection, normal range of motion, pelvis stable Neurologic Exam: alert, oriented x 3, cooperative, bench examiner II-XII nml as tested, normal mood/affect, nml cerebellar function, sensation nml, No motor deficits Skin Exam: normal color, warm, dry SpO2 Interpretation: normal (98%) SpO2: 98 <YENY SANTO - Last Filed: 10/05/18 19:19> - Nursing Vital Signs Nursing Vital Signs: Initial Vital Signs Temperature 99.6 F 10/05/18 17:00 Pulse Rate 106 H 10/05/18 17:00 Respiratory Rate 20 10/05/18 17:00 Blood Pressure 153/85 10/05/18 17:00 O2 Sat by Pulse Oximetry 98 10/05/18 17:00 Pain Scale Pain Intensity 4 - Course Nursing assessment & vital signs reviewed: Yes EKG Interpreted by Me: Sinus Tach, NORMAL AXIS, NORMAL INTERVALS, NORMAL QRS, Non-specific ST Changes - CT Exams Abdomen/Pelvis CT Interpretation: Tele-radiologist Report, Other (mild hepatic steatosis no change for prior CT, no acute abd pathology. reducible hernias) <SASHA COX - Last Filed: 10/05/18 23:06> Ordered Tests: Active Orders 24 hr Category Date Time Status EKG-ER Only STAT Care 10/05/18 19:49 Active IV Insertion STAT Care 10/05/18 17:59 Active ABDOMEN AND PELVIS W CONTRAST [CT] Stat Exams 10/05/18 19:48 Taken AMYLASE Stat Lab 10/05/18 17:15 Completed CBC W DIFF Stat Lab 10/05/18 17:15 Completed CMP Stat Lab 10/05/18 17:15 Completed LIPASE Stat Lab 10/05/18 17:15 Completed Lactic Acid Stat Lab 10/05/18 19:17 Ordered TROPONIN Q3H Lab 10/05/18 20:00 Completed TROPONIN Q3H Lab 10/05/18 23:00 Ordered TROPONIN Q3H Lab 10/06/18 02:00 Ordered TROPONIN Q3H Lab 10/06/18 05:00 Ordered TROPONIN Q3H Lab 10/06/18 08:00 Ordered Medication Summary Discontinued Medications Generic Name Dose Route Start Last Admin Trade Name Freq PRN Reason Stop Dose Admin Sodium Chloride 1,000 mls @ 999 mls/hr 10/05/18 17:59 10/05/18 19:12 Sodium Chloride 0.9% 1000 Ml IV 10/05/18 18:59 Infused .Q1H1M STA Infusion Sodium Chloride Confirm 10/05/18 18:04 Sodium Chloride 0.9% 1000 Ml Administered 10/05/18 18:05 Dose 1,000 mls @ ud .ROUTE .STK-MED ONE Metronidazole 500 mg in 100 mls @ 200 mls/hr 10/05/18 19:50 10/05/18 20:30 Flagyl 500 Mg Ivpb IV 10/05/18 20:19 200 ml/hr STAT STA 200 mls/hr Administration Levofloxacin/Dextrose 750 mg in 150 mls @ 100 mls/hr 10/05/18 19:51 10/05/18 20:40 Levofloxacin 750mg/150ml D5w IV 10/05/18 21:20 100 ml/hr STAT STA 100 mls/hr Administration Metronidazole Confirm 10/05/18 20:28 Flagyl 500 Mg Ivpb Administered 10/05/18 20:29 Dose 500 mg in 100 mls @ ud IV .STK-MED ONE Levofloxacin/Dextrose Confirm 10/05/18 20:28 Levofloxacin 750mg/150ml D5w Administered 10/05/18 20:29 Dose 750 mg in 150 mls @ ud IV .STK-MED ONE Sodium Chloride Confirm 10/05/18 21:24 Sodium Chloride 0.9% 1000 Ml Administered 10/05/18 21:25 Dose 1,000 mls @ ud .ROUTE .STK-MED ONE Midazolam HCl 2 mg 10/05/18 19:03 10/05/18 19:06 Versed 5 Mg/5 Ml IV 10/05/18 19:04 Not Given STAT ONE Midazolam HCl 1 mg 10/05/18 19:04 10/05/18 19:06 Versed 5 Mg/5 Ml IV 10/05/18 19:05 Not Given STAT ONE Morphine Sulfate 4 mg 10/05/18 17:59 10/05/18 18:05 Morphine Sulfate 4 Mg Inj IV 10/05/18 18:00 4 mg STAT ONE Administration Morphine Sulfate Confirm 10/05/18 18:04 Morphine Sulfate 4 Mg Inj Administered 10/05/18 18:05 Dose 4 mg .ROUTE .STK-MED ONE Morphine Sulfate 6 mg 10/05/18 20:41 10/05/18 21:20 Morphine Sulfate 10 Mg/Ml IV 10/05/18 20:42 6 mg STAT ONE Administration Morphine Sulfate Confirm 10/05/18 21:14 Morphine Sulfate 10 Mg/Ml Administered 10/05/18 21:15 Dose 10 mg .ROUTE .STK-MED ONE Ondansetron HCl 4 mg 10/05/18 17:59 10/05/18 18:06 Zofran 4 Mg/2 Ml Vial IV 10/05/18 18:00 4 mg STAT ONE Administration Ondansetron HCl Confirm 10/05/18 18:04 Zofran 4 Mg/2 Ml Vial Administered 10/05/18 18:05 Dose 4 mg .ROUTE .STK-MED ONE Lab/Rad Data: Laboratory Result Diagrams 10/05/18 17:15 10/05/18 17:15 Laboratory Results 10/05/18 10/05/18 10/05/18 Range/Units 20:00 17:15 17:15 WBC 7.3 (4.0-10.5) K/mm3 RBC 4.35 (4.1-5.6) M/mm3 Hgb 12.7 (12.5-18.0) gm/dl Hct 41.1 L (42-50) % MCV 94.5 (78-100) fl MCH 29.2 (26-32) pg MCHC 30.9 L (32-36) g/dl RDW 15.6 H (11.5-14.0) % Plt Count 191 (150-450) K/mm3 MPV 9.3 (6-9.5) fl Gran % 51.1 (36.0-66.0) % Eos # (Auto) 0.26 (0-0.5) Absolute Lymphs (auto) 2.04 (1.0-4.6) Absolute Monos (auto) 1.26 (0.0-1.3) Lymphocytes % 27.8 (24.0-44.0) % Monocytes % 17.2 H (0.0-12.0) % Eosinophils % 3.5 (0.00-5.0) % Basophils % 0.4 (0.0-0.4) % Absolute Granulocytes 3.75 (1.4-6.9) Basophils # 0.03 (0-0.4) Sodium 140 (137-145) mmol/L Potassium 4.2 D (3.5-5.1) mmol/L Chloride 106 (98-107) mmol/L Carbon Dioxide 23 (22-30) mmol/L Anion Gap 14.4 (5-15) MEQ/L BUN 16 (9-20) mg/dL Creatinine 0.69 (0.66-1.25) mg/dL Estimated GFR > 60.0 ML/MIN Glucose 283 H (74-106) mg/dL Calcium 7.7 L (8.4-10.2) mg/dL Total Bilirubin 0.30 (0.2-1.3) mg/dL AST 55 (17-59) U/L ALT 70 H (0-50) U/L Alkaline Phosphatase 45 (38-126) U/L Troponin I < 0.012 (0.000-0.034) ng/mL Serum Total Protein 6.4 (6.3-8.2) g/dL Albumin 3.6 (3.5-5.0) g/dL Amylase 43 (30-110) U/L Lipase 87 (23-300) U/L - Progress Progress: improved <YENY SANTO - Last Filed: 10/05/18 19:19> - Progress Progress: improved, re-examined Discussed with : Satish Will see patient in: hospital (observation) Counseled pt/family regarding: lab results, diagnosis, need for follow-up, rad results <SASHA COX - Last Filed: 10/05/18 23:06> - Progress Progress Note: 10/05/18 19:18 Care of this patient will be transferred to Dr. Ye. Secondary to shift change. I have discussed the case with Dr. Cox. (YENY SANTO) 10/05/18 19:47 pt taken over from dr santo at [facility]; now very tender RLQ and need to reimage , discussed with pt; also will begin ab 10/05/18 21:22 we have had some delays in imaging and lab which has delayed the pts disposition. 10/05/18 23:04 discussed with pt and Dr. Satish goodiwn and all agree best for obs and rehydration; (SASHA COX) <YENY SANTO - Last Filed: 10/05/18 19:19> - Departure Time of Disposition: 23:05 Departure Disposition: Observation Critical Care Time: No <SASHA COX - Last Filed: 10/05/18 23:06> - Departure Clinical Impression: Diarrhea, Nausea & vomiting, intractable vomiting and bloody diarrhea Condition: Good Referrals: DOCTOR,NO FAMILY [Primary Care Provider] -
[2018-10-05] MEDS ORDERED: VERSED 5 MG/5 ML IV ONE ×2 (19:03→19:04)
[2018-10-05 19:29] LABS: ALBUMIN 3.6 g/dL (3.5-5.0); ALKALINE PHOSPHATASE 45 U/L (38-126); AMYLASE 43 U/L (30-110); ANION GAP 14.4 MEQ/L (5-15); BLOOD UREA NITROGEN 16 mg/dL (9-20); CHLORIDE 106 mmol/L (98-107); Calcium 7.7 mg/dL (8.4-10.2); Carbon Dioxide 23 mmol/L (22-30); Creatinine 1 0.69 mg/dL (0.66-1.25); Glucose 283 mg/dL (74-106); LIPASE 87 U/L (23-300); Potassium 4.2 mmol/L (3.5-5.1); SGOT/AST 55 U/L (17-59); SGPT/ALT 70 U/L (0-50); SODIUM 140 mmol/L (137-145); Total Protein 6.4 g/dL (6.3-8.2)
[2018-10-05 19:33] LABS: BASOPHIL % 0.4 % (0.0-0.4); Basophil (Absolute #) 0.03 (0-0.4); Eosinophil % 3.5 % (0.00-5.0); Eosinophil (Absolute #) 0.26 (0-0.5); Granulocyte Absolute (ANC) 3.75 (1.4-6.9); Granulocytes % 51.1 % (36.0-66.0); Hematocrit 41.1 % (42-50); Hemoglobin 12.7 gm/dl (12.5-18.0); Lymphocyte (Absolute #) 2.04 (1.0-4.6); Lymphocytes % 27.8 % (24.0-44.0); Mean Cell Volume 94.5 fl (78-100); Mean Corpuscular Hemoglobin 29.2 pg (26-32); Mean Corpuscular Hgb Concent. 30.9 g/dl (32-36); Mean Platelet Volume 9.3 fl (6-9.5); Monocyte (Absolute #) 1.26 (0.0-1.3); Monocytes % 17.2 % (0.0-12.0); Platelet Count 191 K/mm3 (150-450); Red Blood Count 4.35 M/mm3 (4.1-5.6); Red Cell Distribution Width 15.6 % (11.5-14.0); White Blood Count 7.3 K/mm3 (4.0-10.5)
[2018-10-05] MEDS ORDERED: FLAGYL 500 MG IVPB 500 MG/100 ML BAG IV STA (19:50)
[2018-10-05] MEDS ORDERED: LEVOFLOXACIN 750MG/150ML D5W 750 MG/150 ML BAG IV STA (19:51)
[2018-10-05] MEDS ORDERED: LEVOFLOXACIN 750MG/150ML D5W 750 MG/150 ML BAG IV ONE (20:28)
[2018-10-05] MEDS ORDERED: FLAGYL 500 MG IVPB 500 MG/100 ML BAG IV ONE (20:28)
[2018-10-05] MEDS ORDERED: MORPHINE SULFATE 10 MG/ML IV ONE (20:41)
[2018-10-05] MEDS ORDERED: MORPHINE SULFATE 10 MG/ML ONE (21:14)
[2018-10-06] MEDS: FLAGYL 500 MG IVPB 500 MG/100 ML BAG IV SCH ×5 (00:25→23:40)
[2018-10-06] MEDS: Zofran 4 MG/2 ML VIAL IV PRN ×3 (01:16→22:30)
[2018-10-06] MEDS: DILAUDID 2 MG INJECTION IV PRN ×5 (01:17→22:32)
[2018-10-06] MEDS: ELIQUIS 2.5 MG TABLET PO SCH ×3 (01:59→21:04)
[2018-10-06] MEDS: Mirapex 0.5 MG Tablet PO SCH ×2 (01:59→21:03)
[2018-10-06] MEDS: TYLENOL 325 MG PO PRN ×2 (05:50→21:03)
[2018-10-06] MEDS: Sodium Chloride 0.9% 1000 ML 1,000 ML IV SCH ×2 (05:51→17:11)
[2018-10-06 06:16] LABS: BASOPHIL % 0.4 % (0.0-0.4); Basophil (Absolute #) 0.04 (0-0.4); Eosinophil % 2.6 % (0.00-5.0); Eosinophil (Absolute #) 0.28 (0-0.5); Granulocyte Absolute (ANC) 6.71 (1.4-6.9); Granulocytes % 62.4 % (36.0-66.0); Hemoglobin 12.4 gm/dl (12.5-18.0); Lymphocytes % 20.5 % (24.0-44.0); Mean Cell Volume 94.5 fl (78-100); Mean Corpuscular Hgb Concent. 30.2 g/dl (32-36); Mean Platelet Volume 9.3 fl (6-9.5); Monocyte (Absolute #) 1.51 (0.0-1.3); Monocytes % 14.1 % (0.0-12.0); Platelet Count 187 K/mm3 (150-450); Red Blood Count 4.34 M/mm3 (4.1-5.6); Red Cell Distribution Width 15.6 % (11.5-14.0); White Blood Count 10.7 K/mm3 (4.0-10.5)
[2018-10-06 06:39] LABS: Mean Corpuscular Hemoglobin 28.5 pg (26-32)
[2018-10-06 06:41] LABS: ALBUMIN 3.6 g/dL (3.5-5.0); ALKALINE PHOSPHATASE 46 U/L (38-126); ANION GAP 11.2 MEQ/L (5-15); BLOOD UREA NITROGEN 12 mg/dL (9-20); CHLORIDE 102 mmol/L (98-107); Calcium 7.7 mg/dL (8.4-10.2); Carbon Dioxide 29 mmol/L (22-30); Creatinine 1 0.73 mg/dL (0.66-1.25); Glucose 186 mg/dL (74-106); SGOT/AST 50 U/L (17-59); SGPT/ALT 72 U/L (0-50); SODIUM 137 mmol/L (137-145); Total Protein 6.4 g/dL (6.3-8.2)
[2018-10-06 08:29] LABS: Slide Review 1 YES
[2018-10-06] MEDS: NovoLIN R SQ PRN ×4 (08:55→21:02)
--- NOTE | 2018-10-06 09:02 | XRAY ---
Indication: Worsening abdominal pain and diarrhea. Vomiting. Multiple contiguous axial images obtained through the abdomen and pelvis using 80 cc of Isovue-370 contrast only. Comparison: Noncontrast exam taken earlier in the day. Lung bases again demonstrates bibasilar dependent atelectasis and right base calcified granuloma. New finding paraesophageal calcified granuloma not previously imaged. Heart is not enlarged. Noncontrasted stomach and bowel loops remain nonobstructed. Again appendectomy and cholecystectomy. No free fluid/air. Stable fatty liver, hepatic/splenic calcified granulomas, and small fatty right inguinal hernia. Remaining liver, pancreas, spleen, adrenal glands, kidneys, ureters, bladder, and aorta appear unremarkable. Impression: CT abdomen/pelvis with contrast exam unchanged again demonstrating fatty liver, fatty right inguinal hernia, and evidence for old granulomatous disease. No new/acute findings. Comment: Preliminary interpretation was made by [facility]. No critical discrepancy. CTDI 23.68
[2018-10-06] MEDS: Pepcid 20 MG VIAL IV SCH ×2 (09:19→21:05)
--- NOTE | 2018-10-06 10:08 | PCM.HP ---
History of Present Illness - Chief Complaint Chief Complaint: intractable bloody diarrhea /vomiting History of Present Illness: is a 53 year old male who presented to the ER with complaints of a 3 day history of abdominal cramping, diarrhea and nausea. He reports blood in the stool and states he was febrile at home, thinks he ate something bad from [employer] the night before his eye surgery. he has no complaints related to the eye from the procedure. - Review of Systems Constitutional: Fever, Chills Abdominal/Gastrointestinal: Abdominal Pain, Diarrhea Genitourinary Symptoms: No Dysuria Musculoskeletal: No Back Pain, No Neck Pain Skin: No Rash Neurological: No Symptoms All Other Systems: Reviewed and Negative Medications & Allergies Home Medications: Home Medication List Brimonidine Tartrate [Alphagan P 0.15%] 1 drops OP BID 09/30/12 [History Confirmed 10/05/18] Promethazine HCl 25 mg [Phenergan 25 mg] 25 mg PO Q6H PRN PRN #0 tablet [Rx Confirmed 10/05/18] Metformin HCl 1000 mg [Glucophage 1000 MG] 1,000 mg PO BID 09/15/14 [History Confirmed 10/05/18] Magnesium Oxide 400 mg [Mag-Ox 400] 400 mg PO BID #0 tablet 12/26/14 [Rx Confirmed 10/05/18] Apixaban [Eliquis 5 mg Tablet] 2.5 mg PO BID 03/30/15 [History Confirmed 10/05/18] Levothyroxine Sodium 25 Mcg [Synthroid 25 Mcg] 25 mcg PO DAILY 03/30/15 [ History Confirmed 10/05/18] Dorzolamide HCl/Timolol Maleat [Dorzolamide-Timolol Eye Drops] 1 drop OP BID [History Confirmed 10/06/18] Insulin Glargine [Lantus Insulin] 58 unit SQ BID 02/11/17 [History Confirmed 10/05/18] Insulin Aspart [NovoLOG Insulin] 36 units SQ TIDWM 07/13/17 [History Confirmed 10/05/18] Metoprolol Succinate 100 mg [Toprol Xl 100 MG] 100 mg PO DAILY 10/25/17 [ History Confirmed 10/05/18] Montelukast Sodium 10 mg [Singulair 10 MG] 10 mg PO QPM 05/22/18 [History Confirmed 10/05/18] Cholecalciferol (Vitamin D3) [Vitamin D3] 3,000 unit PO DAILY 06/19/18 [History Confirmed 10/05/18] Furosemide [Lasix] 30 mg PO DAILY 06/19/18 [History Confirmed 10/05/18] Hctz/Triamteren 37.5 mg/25 mg* [Maxzide-25MG Tablet] 50 mg PO DAILY 06/19/18 [History Confirmed 10/05/18] Latanoprostene Bunod [Vyzulta] 1 drop OP HS 10/06/18 [History Confirmed 10/06/18 ] Moxifloxacin HCl [Moxifloxacin] 1 drop OP QID 10/06/18 [History Confirmed ] Neomycin/Polymyxin B/Dexametha [Mryvmu-Qzqdz-Ajhrsne Eye Ointm] 0.5 gm OP HS [History Confirmed 10/06/18] Pramipexole Di-HCl 0.5 mg [Mirapex 0.5 MG Tablet] 1 mg PO HS 10/06/18 [ History Confirmed 10/06/18] Prednisolone Acetate/Pf [Prednisolone Acet 1% Eye Drop] 1 drop OP UD 10/06/18 [ History Confirmed 10/06/18] Allergies/Adverse Reactions: Allergies Allergy/AdvReac Type Severity Reaction Status Date / Time tuberculin,PPD,multi-puncture Allergy Intermediate Rash Verified 10/04/18 23:42 [From Tuberculin PPD Mary Ellen Test] butorphanol tartrate Allergy Unknown Verified 10/04/18 23:42 [From Stadol] chlorpromazine HCl Allergy Unknown Verified 10/04/18 23:42 [From Thorazine] haloperidol Allergy Unknown Verified 10/04/18 23:42 ketorolac tromethamine Allergy Unknown Verified 10/04/18 23:42 [From Toradol] nalbuphine [Nalbuphine] Allergy Unknown Verified 10/04/18 23:42 prochlorperazine edisylate Allergy Unknown Verified 10/04/18 23:42 [From Compazine] lisinopril AdvReac Cough Verified 10/04/18 23:42 chloraprep Allergy Intermediate Rash Uncoded 10/04/18 23:42 - Past Medical History Past Medical History: Yes Neurological History: Migraines ENT History: Glaucoma Cardiac History: Angina, Hypertension Respiratory History: Pneumonia, Pulmonary Embolism, Other Endocrine Medical History: Diabetes Type II, Hypothyroidism Musculoskelatal History: No Pertinent History GI Medical History: Pancreatitis History: No Pertinent History Pyscho-Social History: Anxiety Male Reproductive Disorders: No Pertinent History Comment: Pulmonary hypertension; enlarged heart - Past Surgical History Past Surgical History: Yes Neuro Surgical History: No Pertinent History Cardiac History: Cardiac Catheterization Respiratory Surgery: No Pertinent History GI Surgical History: Appendectomy, Cholecystectomy, Hernia Repair, Pancreatic Surgery Genitourinary Surgical Hx: No Pertinent History, Other Musculskeletal Surgical Hx: Other Male Surgical History: Testicular Surgery Other Surgical History: old port removed, port placed x 2, had a surgery to look in bladder, right shoulder surgery. SHUNT IN RIGHT EYE. Open shut back up in right eye 10/03/18 - Social History Smoking Status: Former smoker How long have you smoked: years Exposure to second hand smoke: No Alcohol: Rarely Drug Use: none Significant Family History: diabetes - Physical Exam Vital Signs: Vital Signs - 24 hr Temp Pulse Resp BP Pulse Ox 10/06/18 08:37 86 18 92 L 10/06/18 07:13 97.8 F 88 20 128/61 94 L 10/06/18 02:00 97.2 F 82 20 127/81 99 10/06/18 01:32 95 10/05/18 22:45 83 18 126/85 98 10/05/18 22:44 83 18 126/85 98 10/05/18 22:42 106 H 18 148/69 95 10/05/18 21:28 81 18 129/84 97 10/05/18 20:31 81 18 134/75 97 10/05/18 19:19 98 10/05/18 19:09 98.9 F 95 H 18 139/81 95 10/05/18 18:11 93 H 20 157/89 94 L 10/05/18 17:00 99.6 F 106 H 20 153/85 98 Oxygen-Last 24 hours O2 Percentage 2 Liters = 28% O2 Percentage 2 Liters = 28% General Appearance: no apparent distress, alert, obese Neurologic Exam: alert, oriented x 3, cooperative Eye Exam: PERRL/EOMI, other (bruising around right eye, conjunctive clear. no warmth, no redness, no drainage) Respiratory Exam: normal breath sounds, lungs clear, No respiratory distress Cardiovascular Exam: regular rate/rhythm, normal heart sounds, normal peripheral pulses Gastrointestinal/Abdomen Exam: soft, normal bowel sounds, No tenderness, No mass Extremity Exam: normal inspection, normal range of motion, pelvis stable Skin Exam: normal color, warm, dry, No rash Results - Labs Lab/Micro Results: Accuchecks Accucheck Value: 195 Accucheck Value: 348 Lab Results-Last 24 Hours 10/05/18 10/05/18 10/05/18 Range/Units 17:15 17:15 20:00 WBC 7.3 (4.0-10.5) K/mm3 RBC 4.35 (4.1-5.6) M/mm3 Hgb 12.7 (12.5-18.0) gm/dl Hct 41.1 L (42-50) % MCV 94.5 (78-100) fl MCH 29.2 (26-32) pg MCHC 30.9 L (32-36) g/dl RDW 15.6 H (11.5-14.0) % Plt Count 191 (150-450) K/mm3 MPV 9.3 (6-9.5) fl Gran % 51.1 (36.0-66.0) % Eos # (Auto) 0.26 (0-0.5) Absolute Lymphs (auto) 2.04 (1.0-4.6) Absolute Monos (auto) 1.26 (0.0-1.3) Lymphocytes % 27.8 (24.0-44.0) % Monocytes % 17.2 H (0.0-12.0) % Eosinophils % 3.5 (0.00-5.0) % Basophils % 0.4 (0.0-0.4) % Absolute Granulocytes 3.75 (1.4-6.9) Basophils # 0.03 (0-0.4) Sodium 140 (137-145) mmol/L Potassium 4.2 D (3.5-5.1) mmol/L Chloride 106 (98-107) mmol/L Carbon Dioxide 23 (22-30) mmol/L Anion Gap 14.4 (5-15) MEQ/L BUN 16 (9-20) mg/dL Creatinine 0.69 (0.66-1.25) mg/dL Estimated GFR > 60.0 ML/MIN Glucose 283 H (74-106) mg/dL Lactic Acid (0.4-2.0) Calcium 7.7 L (8.4-10.2) mg/dL Total Bilirubin 0.30 (0.2-1.3) mg/dL AST 55 (17-59) U/L ALT 70 H (0-50) U/L Alkaline Phosphatase 45 (38-126) U/L Troponin I < 0.012 (0.000-0.034) ng/mL Serum Total Protein 6.4 (6.3-8.2) g/dL Albumin 3.6 (3.5-5.0) g/dL Amylase 43 (30-110) U/L Lipase 87 (23-300) U/L Slides for Path Review 10/05/18 10/05/18 10/06/18 Range/Units 23:00 23:20 02:00 WBC (4.0-10.5) K/mm3 RBC (4.1-5.6) M/mm3 Hgb (12.5-18.0) gm/dl Hct (42-50) % MCV (78-100) fl MCH (26-32) pg MCHC (32-36) g/dl RDW (11.5-14.0) % Plt Count (150-450) K/mm3 MPV (6-9.5) fl Gran % (36.0-66.0) % Eos # (Auto) (0-0.5) Absolute Lymphs (auto) (1.0-4.6) Absolute Monos (auto) (0.0-1.3) Lymphocytes % (24.0-44.0) % Monocytes % (0.0-12.0) % Eosinophils % (0.00-5.0) % Basophils % (0.0-0.4) % Absolute Granulocytes (1.4-6.9) Basophils # (0-0.4) Sodium (137-145) mmol/L Potassium (3.5-5.1) mmol/L Chloride (98-107) mmol/L Carbon Dioxide (22-30) mmol/L Anion Gap (5-15) MEQ/L BUN (9-20) mg/dL Creatinine (0.66-1.25) mg/dL Estimated GFR ML/MIN Glucose (74-106) mg/dL Lactic Acid 1.2 (0.4-2.0) Calcium (8.4-10.2) mg/dL Total Bilirubin (0.2-1.3) mg/dL AST (17-59) U/L ALT (0-50) U/L Alkaline Phosphatase (38-126) U/L Troponin I < 0.012 < 0.012 (0.000-0.034) ng/mL Serum Total Protein (6.3-8.2) g/dL Albumin (3.5-5.0) g/dL Amylase (30-110) U/L Lipase (23-300) U/L Slides for Path Review 10/06/18 10/06/18 10/06/18 Range/Units 06:00 06:00 06:00 WBC 10.7 H (4.0-10.5) K/mm3 RBC 4.34 (4.1-5.6) M/mm3 Hgb 12.4 L (12.5-18.0) gm/dl Hct 41.0 L (42-50) % MCV 94.5 (78-100) fl MCH 28.5 (26-32) pg MCHC 30.2 L (32-36) g/dl RDW 15.6 H (11.5-14.0) % Plt Count 187 (150-450) K/mm3 MPV 9.3 (6-9.5) fl Gran % 62.4 (36.0-66.0) % Eos # (Auto) 0.28 (0-0.5) Absolute Lymphs (auto) 2.20 (1.0-4.6) Absolute Monos (auto) 1.51 H (0.0-1.3) Lymphocytes % 20.5 L (24.0-44.0) % Monocytes % 14.1 H (0.0-12.0) % Eosinophils % 2.6 (0.00-5.0) % Basophils % 0.4 (0.0-0.4) % Absolute Granulocytes 6.71 (1.4-6.9) Basophils # 0.04 (0-0.4) Sodium (137-145) mmol/L Potassium (3.5-5.1) mmol/L Chloride (98-107) mmol/L Carbon Dioxide (22-30) mmol/L Anion Gap (5-15) MEQ/L BUN (9-20) mg/dL Creatinine (0.66-1.25) mg/dL Estimated GFR ML/MIN Glucose (74-106) mg/dL Lactic Acid 0.8 (0.4-2.0) Calcium (8.4-10.2) mg/dL Total Bilirubin (0.2-1.3) mg/dL AST (17-59) U/L ALT (0-50) U/L Alkaline Phosphatase (38-126) U/L Troponin I < 0.012 (0.000-0.034) ng/mL Serum Total Protein (6.3-8.2) g/dL Albumin (3.5-5.0) g/dL Amylase (30-110) U/L Lipase (23-300) U/L Slides for Path Review YES 10/06/18 10/06/18 Range/Units 06:00 08:05 WBC (4.0-10.5) K/mm3 RBC (4.1-5.6) M/mm3 Hgb (12.5-18.0) gm/dl Hct (42-50) % MCV (78-100) fl MCH (26-32) pg MCHC (32-36) g/dl RDW (11.5-14.0) % Plt Count (150-450) K/mm3 MPV (6-9.5) fl Gran % (36.0-66.0) % Eos # (Auto) (0-0.5) Absolute Lymphs (auto) (1.0-4.6) Absolute Monos (auto) (0.0-1.3) Lymphocytes % (24.0-44.0) % Monocytes % (0.0-12.0) % Eosinophils % (0.00-5.0) % Basophils % (0.0-0.4) % Absolute Granulocytes (1.4-6.9) Basophils # (0-0.4) Sodium 137 (137-145) mmol/L Potassium 4.0 (3.5-5.1) mmol/L Chloride 102 (98-107) mmol/L Carbon Dioxide 29 (22-30) mmol/L Anion Gap 11.2 (5-15) MEQ/L BUN 12 (9-20) mg/dL Creatinine 0.73 (0.66-1.25) mg/dL Estimated GFR > 60.0 ML/MIN Glucose 186 H (74-106) mg/dL Lactic Acid (0.4-2.0) Calcium 7.7 L (8.4-10.2) mg/dL Total Bilirubin 0.40 (0.2-1.3) mg/dL AST 50 (17-59) U/L ALT 72 H (0-50) U/L Alkaline Phosphatase 46 (38-126) U/L Troponin I < 0.012 (0.000-0.034) ng/mL Serum Total Protein 6.4 (6.3-8.2) g/dL Albumin 3.6 (3.5-5.0) g/dL Amylase (30-110) U/L Lipase (23-300) U/L Slides for Path Review Accuchecks Accucheck Value: 195 Accucheck Value: 348 - Radiology Impressions Radiology Exams & Impressions: Radiology Procedures Category Date Time Status ABDOMEN AND PELVIS W CONTRAST [CT] Stat Exams 10/05/18 19:48 Completed - Other Procedures and Tests Respiratory Therapy 10/06/18 02:02 Oxygen NASAL CANNULA 2 lpm Respiratory Therapy Assessment Assessment/Plan (1) Diarrhea Current Visit: Yes Status: Acute Assessment & Plan: GI panel ordered as directed but uncollected for some reason, improved at this point on levaquin and flagyl. continue fluids and supportive care at this time. h/h stable Code(s): R19.7 - DIARRHEA, UNSPECIFIED (2) Nausea & vomiting Current Visit: Yes Status: Acute Code(s): R11.2 - NAUSEA WITH VOMITING, UNSPECIFIED
[2018-10-06] MEDS ORDERED: PREDNISOLONE ACETATE OP SCH (11:00)
[2018-10-06] MEDS: Alphagan P 0.15% OP SCH ×2 (11:37→21:18)
[2018-10-06] MEDS: PRED-FORTE 1% OPHTHALMIC OP SCH ×5 (11:38→21:15)
[2018-10-06] MEDS: Lantus Insulin SQ SCH ×2 (11:44→21:01)
[2018-10-06] MEDS: PATIENT OWN MEDICATION OP SCH ×5 (13:08→23:34)
[2018-10-06] MEDS: Singulair 10 MG PO SCH (21:04)
[2018-10-06] MEDS ORDERED: LEVOFLOXACIN 750MG/150ML D5W 750 MG/150 ML BAG IV SCH (22:00)
[2018-10-06] MEDS ORDERED: LATANOPROSTENE BUNOD OP SCH (22:00)
[2018-10-06] MEDS ORDERED: POLYMYXIN B OP SCH (22:00)
[2018-10-06] MEDS ORDERED: [UNRECOGNIZED DRUG - OTHER] OP SCH (22:00)
[2018-10-06] MEDS ORDERED: DEXAMETHASONE OP SCH (22:00)
[2018-10-06] MEDS ORDERED: NEOMYCIN OP SCH (22:00)
[2018-10-06] MEDS: COSOPT OPHTHALMIC 10 ML OP SCH (23:29)
[2018-10-07] MEDS: DILAUDID 2 MG INJECTION IV PRN ×4 (04:07→19:54)
[2018-10-07] MEDS: Zofran 4 MG/2 ML VIAL IV PRN (04:41)
[2018-10-07] MEDS: Sodium Chloride 0.9% 1000 ML 1,000 ML IV SCH ×3 (04:41→15:38)
[2018-10-07] MEDS: FLAGYL 500 MG IVPB 500 MG/100 ML BAG IV SCH (06:11)
[2018-10-07] MEDS: PRED-FORTE 1% OPHTHALMIC OP SCH ×8 (06:16→19:56)
[2018-10-07 06:56] LABS: C. difficile toxin A/B NEGATIVE (NEGATIVE); Campylobacter NEGATIVE (NEGATIVE); Cyclospora cayentanensis NEGATIVE (NEGATIVE); Entamoeaba histolytica NEGATIVE (NEGATIVE); Enteroaggregative E.coli NEGATIVE (NEGATIVE); Giardia lamblia NEGATIVE (NEGATIVE); Salmonella NEGATIVE (NEGATIVE); Shiga-like toxin prod.E.coli NEGATIVE (NEGATIVE); Vibrio NEGATIVE (NEGATIVE)
[2018-10-07 06:57] LABS: Adenovirus F 40/41 NEGATIVE (NEGATIVE); Astrovirus NEGATIVE (NEGATIVE); Rotavirus A NEGATIVE (NEGATIVE)
[2018-10-07 06:58] LABS: Sapovirus NEGATIVE (NEGATIVE)
[2018-10-07] MEDS: NovoLIN R SQ PRN ×4 (08:18→23:02)
--- NOTE | 2018-10-07 09:14 | PCM.NOTE ---
Date and Time: 10/07/18911 Subjective Assessment: patient continues to complain of abdominal cramping, diarrhea and nausea and vomiting. he feels weak still Objective Exam General Appearance: no apparent distress, alert Neurologic Exam: alert, oriented x 3, cooperative, normal mood/affect, nml cerebellar function, sensation nml, No motor deficits Skin Exam: normal color, warm, dry Respiratory Exam: normal breath sounds, lungs clear, No respiratory distress Cardiovascular Exam: regular rate/rhythm, normal heart sounds Gastrointestinal/Abdomen Exam: soft, No tenderness, No mass Extremity Exam: normal inspection, normal range of motion OBJECTIVE DATA Vital Signs: Vital Signs - 24 hr Temp Pulse Resp BP Pulse Ox 10/07/18 08:00 97.7 F 80 18 142/71 95 10/07/18 04:15 97.7 F 80 20 145/76 98 10/07/18 00:21 98.3 F 76 18 128/61 98 10/06/18 19:42 97.9 F 87 20 129/65 97 10/06/18 16:00 98.4 F 78 18 131/78 96 10/06/18 10:41 98.1 F 90 20 126/66 93 L Oxygen-Last 24 hours O2 Percentage 2 Liters = 28% O2 Percentage 2 Liters = 28% O2 Percentage 2 Liters = 28% O2 Percentage 2 Liters = 28% O2 Percentage 2 Liters = 28% Pain Assessment - Last Documented Pain Intensity 4 Pain Scale Used 0-10 Pain Scale Intake and Output: Intake & Output 10/04/18 10/05/18 10/06/18 10/07/18 11:59 11:59 11:59 11:59 Intake Total 300 4698 Output Total 550 1600 Balance -250 3098 Weight 114.9 kg 119.5 kg Lab Results: Accuchecks Date 10/06/18 Date 10/06/18 Time 16:30 Time 11:30 Accucheck Value: 253 Accucheck Value: 215 Accucheck Value: 183 Lab Results-Last 24 Hours 10/06/18 Range/Units 23:01 Stl C. cayetanensis PCR NEGATIVE (NEGATIVE) Stl Adenov F 40/41 PCR NEGATIVE (NEGATIVE) Stool Astrovirus (PCR) NEGATIVE (NEGATIVE) Stool Cryptosporidium PCR NEGATIVE (NEGATIVE) Stool EPEC (PCR) NEGATIVE (NEGATIVE) Stool EAEC (PCR) NEGATIVE (NEGATIVE) Stl E. histolytica PCR NEGATIVE (NEGATIVE) Stl P. shigelloides PCR NEGATIVE (NEGATIVE) Stool Sapovirus (PCR) NEGATIVE (NEGATIVE) St Y.enterocolitica PCR NEGATIVE (NEGATIVE) Stool Vibrio (PCR) NEGATIVE (NEGATIVE) Stl Vibrio cholerae PCR NEGATIVE (NEGATIVE) Stl Norovirus GI/GII PCR POSITIVE A (NEGATIVE) Campylobacter (PCR) NEGATIVE (NEGATIVE) C. difficile Toxin A&B NEGATIVE (NEGATIVE) Enterotoxigenic E. coli NEGATIVE (NEGATIVE) E.coli Shiga Toxins NEGATIVE (NEGATIVE) Giardia lamblia NEGATIVE (NEGATIVE) Rotavirus A (PCR) NEGATIVE (NEGATIVE) Salmonella (PCR) NEGATIVE (NEGATIVE) Shigella (PCR) NEGATIVE (NEGATIVE) Radiology Exams: Radiology Procedures Category Date Time Status ABDOMEN AND PELVIS W CONTRAST [CT] Stat Exams 10/05/18 19:48 Completed Assessment/Plan (1) Diarrhea Current Visit: Yes Status: Acute Assessment & Plan: gi panel positive for norovirus, otherwise negative. continue fluids and symptomatic treatment Code(s): R19.7 - DIARRHEA, UNSPECIFIED (2) Nausea & vomiting Current Visit: Yes Status: Acute Assessment & Plan: zofran not effective, will try phenergan Code(s): R11.2 - NAUSEA WITH VOMITING, UNSPECIFIED
[2018-10-07] MEDS: Alphagan P 0.15% OP SCH ×2 (09:37→22:54)
[2018-10-07] MEDS: COSOPT OPHTHALMIC 10 ML OP SCH ×2 (09:38→22:55)
[2018-10-07] MEDS: ELIQUIS 2.5 MG TABLET PO SCH ×2 (09:39→22:58)
[2018-10-07] MEDS: Lantus Insulin SQ SCH ×2 (09:39→22:58)
[2018-10-07] MEDS: Maxzide-25MG Tablet PO SCH (09:39)
[2018-10-07] MEDS: PATIENT OWN MEDICATION OP SCH ×6 (09:40→23:11)
[2018-10-07] MEDS: Pepcid 20 MG VIAL IV SCH ×2 (09:41→22:59)
[2018-10-07] MEDS: Toprol Xl 100 MG PO SCH (09:42)
[2018-10-07] MEDS: SYNTHROID 25 MCG PO SCH (09:42)
[2018-10-07] MEDS: Phenergan 25 MG INJ IM PRN ×3 (09:54→19:53)
[2018-10-07] MEDS ORDERED: FLUZONE QUAD (36mo-64yo) 2018-2019 SYRINGE IM ONE (10:00)
[2018-10-07] MEDS: Mirapex 0.5 MG Tablet PO SCH (22:59)
[2018-10-07] MEDS: Singulair 10 MG PO SCH (23:00)
[2018-10-08] MEDS: DILAUDID 2 MG INJECTION IV PRN ×6 (00:50→22:43)
[2018-10-08] MEDS: Sodium Chloride 0.9% 1000 ML 1,000 ML IV SCH ×3 (00:50→17:43)
[2018-10-08] MEDS: Phenergan 25 MG INJ IM PRN ×2 (00:51→05:39)
[2018-10-08 05:35] LABS: Hematocrit 40.3 % (42-50); Hemoglobin 12.4 gm/dl (12.5-18.0); Mean Cell Volume 93.5 fl (78-100); Mean Corpuscular Hgb Concent. 30.8 g/dl (32-36); Mean Platelet Volume 9.5 fl (6-9.5); Platelet Count 190 K/mm3 (150-450); Red Blood Count 4.31 M/mm3 (4.1-5.6); Red Cell Distribution Width 14.8 % (11.5-14.0); White Blood Count 9.5 K/mm3 (4.0-10.5)
[2018-10-08] MEDS: PRED-FORTE 1% OPHTHALMIC OP SCH ×8 (05:39→22:23)
[2018-10-08 05:46] LABS: Mean Corpuscular Hemoglobin 28.7 pg (26-32)
[2018-10-08 05:52] LABS: ANISOCYTOSIS 1+; Lymphocytes 17 % (24-44); Monocyte 4 % (0.0-12.0); Neutrophils 79 % (36.-66.); Polychromasia 1+; Total Cells Counted 100
[2018-10-08 05:53] LABS: Platelet Estimate NORMAL (NORMAL)
[2018-10-08 05:57] LABS: ALBUMIN 3.4 g/dL (3.5-5.0); ALKALINE PHOSPHATASE 46 U/L (38-126); ANION GAP 8.5 MEQ/L (5-15); BLOOD UREA NITROGEN 10 mg/dL (9-20); CHLORIDE 95 mmol/L (98-107); Calcium 8.3 mg/dL (8.4-10.2); Carbon Dioxide 35 mmol/L (22-30); Creatinine 1 0.75 mg/dL (0.66-1.25); Glucose 143 mg/dL (74-106); Potassium 3.9 mmol/L (3.5-5.1); SGOT/AST 40 U/L (17-59); SGPT/ALT 56 U/L (0-50); SODIUM 135 mmol/L (137-145); Total Protein 6.3 g/dL (6.3-8.2)
[2018-10-08] MEDS: Maxzide-25MG Tablet PO SCH (09:06)
[2018-10-08] MEDS: Pepcid 20 MG VIAL IV SCH ×2 (09:06→22:40)
[2018-10-08] MEDS: SYNTHROID 25 MCG PO SCH (09:06)
[2018-10-08] MEDS: ELIQUIS 2.5 MG TABLET PO SCH ×2 (09:06→22:34)
[2018-10-08] MEDS: Toprol Xl 100 MG PO SCH (09:06)
[2018-10-08] MEDS: Alphagan P 0.15% OP SCH ×2 (09:07→22:33)
--- NOTE | 2018-10-08 09:11 | PCM.NOTE ---
Date and Time: 10/08/18906 Subjective Assessment: Pt still c/o lower abd cramping. Had several episodes of vomiting last night. Some small amounts of liquid stool at times. Overall feels the vomiting and diarrhea have improved since admission. R eye is s/p surgery and he is supposed to f/u with surgery in 2d. - Review of Systems Constitutional: No Fever Abdominal/Gastrointestinal: Abdominal Pain, Vomiting, Diarrhea Objective Exam General Appearance: no apparent distress, alert Neurologic Exam: oriented x 3, cooperative Skin Exam: normal color, warm, dry, No rash Eye Exam: other (R eyelids with bruising; conjunctival erythema - no exudate) Respiratory Exam: normal breath sounds, lungs clear, No crackles/rales, No rhonchi, No wheezing Cardiovascular Exam: regular rate/rhythm Gastrointestinal/Abdomen Exam: soft, normal bowel sounds, tenderness (LLQ/ suprapubic), guarding (mild), No distention, No mass, No rebound Extremity Exam: normal inspection, No pedal edema, No swelling Back Exam: normal inspection, No rash OBJECTIVE DATA Vital Signs: Vital Signs - 24 hr Temp Pulse Resp BP Pulse Ox 10/08/18 07:16 98 F 71 20 141/74 95 10/08/18 04:00 97.4 F 71 20 135/84 94 L 10/08/18 00:00 96.9 F 72 19 136/73 96 10/07/18 20:00 96.1 F 73 16 124/68 95 10/07/18 19:43 95 10/07/18 15:49 97.6 F 78 18 129/80 95 10/07/18 12:00 95.9 F 78 18 153/85 93 L Oxygen-Last 24 hours O2 Percentage 2 Liters = 28% O2 Percentage 2 Liters = 28% O2 Percentage 2 Liters = 28% O2 Percentage 2 Liters = 28% Pain Assessment - Last Documented Pain Intensity 7 Pain Scale Used 0-10 Pain Scale Intake and Output: Intake & Output 10/05/18 10/06/18 10/07/18 10/08/18 11:59 11:59 11:59 11:59 Intake Total 300 4818 3651 Output Total 550 1600 1950 Balance -250 3218 1701 Weight 114.9 kg 119.5 kg 114.8 kg Lab Results: Accuchecks Date 10/08/18 Date 10/07/18 Date 10/07/18 Date 10/07/18 Time 07:43 Time 22:00 Time 16:30 Time 11:30 Accucheck Value: 145 Accucheck Value: 181 Accucheck Value: 189 Accucheck Value: 264 Lab Results-Last 24 Hours 10/08/18 10/08/18 Range/Units 05:15 05:15 WBC 9.5 (4.0-10.5) K/mm3 RBC 4.31 (4.1-5.6) M/mm3 Hgb 12.4 L (12.5-18.0) gm/dl Hct 40.3 L (42-50) % MCV 93.5 (78-100) fl MCH 28.7 (26-32) pg MCHC 30.8 L (32-36) g/dl RDW 14.8 H (11.5-14.0) % Plt Count 190 (150-450) K/mm3 MPV 9.5 (6-9.5) fl Segmented Neutrophils 79 H (36.-66.) % Lymphocytes (Manual) 17 L (24-44) % Monocytes (Manual) 4 (0.0-12.0) % Platelet Estimate NORMAL (NORMAL) RBC Morphology ABNORMAL Polychromasia 1+ Anisocytosis 1+ Sodium 135 L (137-145) mmol/L Potassium 3.9 (3.5-5.1) mmol/L Chloride 95 L (98-107) mmol/L Carbon Dioxide 35 H (22-30) mmol/L Anion Gap 8.5 (5-15) MEQ/L BUN 10 (9-20) mg/dL Creatinine 0.75 (0.66-1.25) mg/dL Estimated GFR > 60.0 ML/MIN Glucose 143 H (74-106) mg/dL Calcium 8.3 L (8.4-10.2) mg/dL Total Bilirubin 0.60 (0.2-1.3) mg/dL AST 40 (17-59) U/L ALT 56 H (0-50) U/L Alkaline Phosphatase 46 (38-126) U/L Serum Total Protein 6.3 (6.3-8.2) g/dL Albumin 3.4 L (3.5-5.0) g/dL Assessment/Plan (1) Diarrhea Current Visit: Yes Status: Acute Qualifiers: Diarrhea type: infectious Qualified Code(s): A09 - Infectious gastroenteritis and colitis, unspecified Assessment & Plan: Norovirus. on isolation. some improvement. Will decrease diet back to full liquids and change his nausea medicine to scheduled in an effort to decrease the vomiting and increase his po intake. Code(s): R19.7 - DIARRHEA, UNSPECIFIED (2) Glaucoma Current Visit: Yes Status: Chronic Qualifiers: Glaucoma type: unspecified Laterality: unspecified laterality Qualified Code(s): H40.9 - Unspecified glaucoma Assessment & Plan: s/p surgery on the R. Would like to keep ICP down (no vomiting) Code(s): H40.9 - UNSPECIFIED GLAUCOMA (3) Nausea & vomiting Current Visit: Yes Status: Acute Qualifiers: Vomiting type: unspecified Vomiting Intractability: non-intractable Qualified Code(s): R11.2 - Nausea with vomiting, unspecified Code(s): R11.2 - NAUSEA WITH VOMITING, UNSPECIFIED (4) Diabetes mellitus type 2 Current Visit: No Status: Chronic Assessment & Plan: [phone] here Code(s): E11.9 - TYPE 2 DIABETES MELLITUS WITHOUT COMPLICATIONS (5) Hx pulmonary embolism Current Visit: No Status: Chronic Assessment & Plan: on eliquis Code(s): Z86.711 - PERSONAL HISTORY OF PULMONARY EMBOLISM
[2018-10-08] MEDS: COSOPT OPHTHALMIC 10 ML OP SCH ×2 (09:14→22:38)
[2018-10-08] MEDS: PATIENT OWN MEDICATION OP SCH ×6 (09:17→22:51)
[2018-10-08] MEDS: Lantus Insulin SQ SCH ×2 (09:23→22:35)
[2018-10-08] MEDS: Phenergan 25 MG INJ IV SCH ×3 (09:24→22:25)
[2018-10-08] MEDS: Zofran 4 MG/2 ML VIAL IV SCH ×4 (09:24→22:45)
[2018-10-08] MEDS: Mirapex 0.5 MG Tablet PO SCH (22:34)
[2018-10-08] MEDS: Singulair 10 MG PO SCH (22:35)
[2018-10-09] MEDS: Zofran 4 MG/2 ML VIAL IV SCH ×4 (02:25→09:41)
[2018-10-09] MEDS: Sodium Chloride 0.9% 1000 ML 1,000 ML IV SCH (02:26)
[2018-10-09] MEDS: DILAUDID 2 MG INJECTION IV PRN ×2 (03:39→07:51)
[2018-10-09] MEDS: Phenergan 25 MG INJ IV SCH ×2 (03:39→07:52)
[2018-10-09 05:58] LABS: Hematocrit 42.9 % (42-50); Hemoglobin 13.3 gm/dl (12.5-18.0); Mean Cell Volume 92.7 fl (78-100); Mean Corpuscular Hemoglobin 28.7 pg (26-32); Mean Platelet Volume 9.2 fl (6-9.5); Platelet Count 223 K/mm3 (150-450); Red Blood Count 4.63 M/mm3 (4.1-5.6); Red Cell Distribution Width 14.9 % (11.5-14.0); White Blood Count 8.4 K/mm3 (4.0-10.5)
[2018-10-09 06:07] LABS: ALBUMIN 3.5 g/dL (3.5-5.0); ALKALINE PHOSPHATASE 50 U/L (38-126); ANION GAP 11.4 MEQ/L (5-15); BLOOD UREA NITROGEN 9 mg/dL (9-20); CHLORIDE 96 mmol/L (98-107); Calcium 8.8 mg/dL (8.4-10.2); Carbon Dioxide 34 mmol/L (22-30); Creatinine 1 0.68 mg/dL (0.66-1.25); Glucose 151 mg/dL (74-106); SGOT/AST 44 U/L (17-59); SGPT/ALT 54 U/L (0-50); SODIUM 138 mmol/L (137-145); Total Protein 6.4 g/dL (6.3-8.2)
--- NOTE | 2018-10-09 07:57 | PCM.DS ---
Discharge Summary Date of Admission: 10/06/18 10:04 Admitting Physician: ANSHU NYE Primary Care Provider: ANSHU NYE Allergies Allergies tuberculin,PPD,multi-puncture [From Tuberculin PPD Mary Ellen Test] Allergy ( Intermediate, Verified 10/04/18 23:42) Rash butorphanol tartrate [From Stadol] Allergy (Unknown, Verified 10/04/18 23:42) chlorpromazine HCl [From Thorazine] Allergy (Unknown, Verified 10/04/18 23:42) irritable haloperidol Allergy (Unknown, Verified 10/04/18 23:42) "makes me stay awake too much" ketorolac tromethamine [From Toradol] Allergy (Unknown, Verified 10/04/18 23:42) severe pain in lower back and kidneys nalbuphine [Nalbuphine] Allergy (Unknown, Verified 10/04/18 23:42) prochlorperazine edisylate [From Compazine] Allergy (Unknown, Verified 10/04/18 23:42) irritable lisinopril Adverse Reaction (Verified 10/04/18 23:42) Cough chloraprep Allergy (Intermediate, Uncoded 10/04/18 23:42) Rash Hospital Summary - Hospital Course Hospital Course: patient was admitted with nausea, vomiting and diarrhea 3 days after eye surgery for glaucoma. he was found to have norovirus on GI panel, he is tolerating po intake now. still has some nausea and abdominal cramping but diarrhea nearly resolved and vomiting as well. he is afebrile. - Vitals & Intake/Output Vital Signs: Vital Signs Temperature 97.2 F 10/09/18 04:03 Pulse Rate 77 10/09/18 04:03 Respiratory Rate 20 10/09/18 04:03 Blood Pressure 135/77 10/09/18 04:03 O2 Sat by Pulse Oximetry 94 L 10/09/18 04:03 Oxygen-Last Documented O2 Percentage 4 Liters = 36% Intake & Output: Intake & Output 10/06/18 10/07/18 10/08/18 10/09/18 11:59 11:59 11:59 11:59 Intake Total 300 4818 3651 4618 Output Total 550 1600 1950 3400 Balance -250 3218 1701 1218 Weight 114.9 kg 119.5 kg 114.8 kg - Lab Result Diagrams: 10/09/18 05:30 10/09/18 05:30 Lab Results-Last 24 Hrs: Accuchecks Date 10/08/18 Date 10/08/18 Date 10/08/18 Time 22:00 Time 16:40 Time 10:57 Accucheck Value: 142 Accucheck Value: 182 Accucheck Value: 210 Lab Results-Last 24 Hours 10/09/18 10/09/18 Range/Units 05:30 05:30 WBC 8.4 (4.0-10.5) K/mm3 RBC 4.63 (4.1-5.6) M/mm3 Hgb 13.3 (12.5-18.0) gm/dl Hct 42.9 (42-50) % MCV 92.7 (78-100) fl MCH 28.7 (26-32) pg MCHC 31.0 L (32-36) g/dl RDW 14.9 H (11.5-14.0) % Plt Count 223 (150-450) K/mm3 MPV 9.2 (6-9.5) fl Sodium 138 (137-145) mmol/L Potassium 4.0 (3.5-5.1) mmol/L Chloride 96 L (98-107) mmol/L Carbon Dioxide 34 H (22-30) mmol/L Anion Gap 11.4 (5-15) MEQ/L BUN 9 (9-20) mg/dL Creatinine 0.68 (0.66-1.25) mg/dL Estimated GFR > 60.0 ML/MIN Glucose 151 H (74-106) mg/dL Calcium 8.8 (8.4-10.2) mg/dL Total Bilirubin 0.70 (0.2-1.3) mg/dL AST 44 (17-59) U/L ALT 54 H (0-50) U/L Alkaline Phosphatase 50 (38-126) U/L Serum Total Protein 6.4 (6.3-8.2) g/dL Albumin 3.5 (3.5-5.0) g/dL Micro Results-Entire Visit: Accuchecks Date 10/08/18 Date 10/08/18 Date 10/08/18 Time 22:00 Time 16:40 Time 10:57 Accucheck Value: 142 Accucheck Value: 182 Accucheck Value: 210 - Procedures and Test Procedures and Tests throughout Hospitalization: Therapy Orders & Screens 10/06/18 02:02 Oxygen NASAL CANNULA 2 lpm Comment: Diagnosis: intractable bloody diarrhea /vomiting Respiratory Therapy Assessment Comment: Diagnosis: intractable bloody diarrhea /vomiting 10/06/18 02:20 RT Screen per Nursing Assess ONCE Comment: Protocol Order Physician Instructions: Greater than 3 points order RT Admission Screen Reason For Exam: Triggered on Admission Diagnosis: intractable bloody diarrhea /vomiting Diagnosis: intractable bloody diarrhea /vomiting Pneumonia: No Home O2: Yes Asthma: Yes CHF: No Home CPAP/BIPAP: No Home Nebs/MDI: No Total Points: 9 Discharge Exam General Appearance: no apparent distress, alert Neurologic Exam: alert, oriented x 3, cooperative, normal mood/affect, nml cerebellar function, sensation nml, No motor deficits Skin Exam: normal color, warm, dry Eye Exam: other (right periorbital bruising and conjunctival injection, no drainage, no redness) Neck Exam: normal inspection, non-tender, supple, full range of motion Respiratory Exam: normal breath sounds, lungs clear, No respiratory distress Cardiovascular Exam: regular rate/rhythm, normal heart sounds Gastrointestinal/Abdomen Exam: soft, No tenderness, No mass Extremity Exam: normal inspection, normal range of motion Final Diagnosis/Problem List - Final Discharge Diagnosis/Problem (1) Diarrhea Current Visit: Yes Status: Acute Assessment & Plan: resolved at this time, discussed bland diet and push fluids at home (2) Nausea & vomiting Current Visit: Yes Status: Acute (3) Norovirus Current Visit: Yes Status: Acute - Discharge Disposition: Home, Self-Care Condition: Good Prescriptions: Continue Brimonidine Tartrate [Alphagan P 0.15%] 1 drops OP BID Promethazine HCl 25 mg [Phenergan 25 mg] 25 mg PO Q6H PRN PRN #0 tablet PRN Reason: Nausea Metformin HCl 1000 mg [Glucophage 1000 MG] 1,000 mg PO BID Magnesium Oxide 400 mg [Mag-Ox 400] 400 mg PO BID #0 tablet Apixaban [Eliquis 5 mg Tablet] 2.5 mg PO BID Levothyroxine Sodium 25 Mcg [Synthroid 25 Mcg] 25 mcg PO DAILY Dorzolamide HCl/Timolol Maleat [Dorzolamide-Timolol Eye Drops] 1 drop OP BID Insulin Glargine [Lantus Insulin] 58 unit SQ BID Insulin Aspart [NovoLOG Insulin] 36 units SQ TIDWM Metoprolol Succinate 100 mg [Toprol Xl 100 MG] 100 mg PO DAILY Montelukast Sodium 10 mg [Singulair 10 MG] 10 mg PO QPM Cholecalciferol (Vitamin D3) [Vitamin D3] 3,000 unit PO DAILY Hctz/Triamteren 37.5 mg/25 mg* [Maxzide-25MG Tablet] 50 mg PO DAILY Furosemide [Lasix] 30 mg PO DAILY Moxifloxacin HCl [Moxifloxacin] 1 drop OP QID Neomycin/Polymyxin B/Dexametha [Iszfvu-Zpxjs-Rxqddfc Eye Ointm] 0.5 gm OP HS Prednisolone Acetate/Pf [Prednisolone Acet 1% Eye Drop] 1 drop OP UD Latanoprostene Bunod [Vyzulta] 1 drop OP HS Pramipexole Di-HCl 0.5 mg [Mirapex 0.5 MG Tablet] 1 mg PO HS Follow up with: MICHAELA SAL NP [NON-STAFF PHY W/O PRIVILEGES] - 1 Week
[2018-10-09] MEDS: PRED-FORTE 1% OPHTHALMIC OP SCH ×2 (08:04)
[2018-10-09 08:18] VITALS: BP 152/74; PULSE 78; O2SAT 95
== END 2018-10-09 09:55 | disposition home or self-care (01) | DRG 392 ==
LOC: ED 16:36 → UNDOADMOB 10-06 00:20 → MED SURG 10-06 00:20 → OBSVTOIN 10-06 10:04 → MED SURG 10-06 10:04 → OBSVTOIN 10-07 10:04 → INTOOBSV 10-07 10:04
PROVIDERS: ADMIT Family Medicine; ATTEND Family Medicine
DX: R19.7 Diarrhea, unspecified (principal); K92.1 Melena; A08.11 Acute gastroenteropathy due to Norwalk agent; R11.2 Nausea with vomiting, unspecified; I10 Essential (primary) hypertension; E11.9 Type 2 diabetes mellitus without complications; Z79.4 Long term (current) use of insulin; Z79.899 Other long term (current) drug therapy; R10.9 Unspecified abdominal pain; Z98.890 Other specified postprocedural states; Z86.711 Personal history of pulmonary embolism
CPT/HCPCS: 36000; 36415; 74177; 80053; 82150; 82962; 83605; 83690; 84484; 85025; 87507; 93005; 94760; 94762; 96360; 96365; 96367; 96374; 96375; 96376; 99285; J1170; J1642; J1956; J2270; J2405; J2550; A9270-GY

== ENCOUNTER 2018-10-28 09:05 | Emergency (ER) | payer MEDICARE ==
[2018-10-28] MEDS ORDERED: Zofran 4 MG/2 ML VIAL IV ONE (09:28)
[2018-10-28] MEDS ORDERED: Sodium Chloride 0.9% 1000 ML 1,000 ML IV STA (09:28)
[2018-10-28] MEDS ORDERED: MORPHINE SULFATE 4 MG INJ IV ONE ×2 (09:28→13:35)
--- NOTE | 2018-10-28 09:29 | ERPHSYRPT ---
- History of Present Illness Time Seen by Provider: 10/28/18 09:24 Source: patient Exam Limitations: no limitations Physician History: The patient is a 53-year-old male status post eye shunt for pressure relief secondary to glaucoma one month ago now complaining of a sudden onset of right eye pain that began Sunday night after vomiting. His vision has decreased significantly. The eye surgery was done at [facility] in [place] by Dr. Mcclure. The patient called the nurse this morning and was told to come immediately to have his eye checked out. He is unable to drive secondary to the pain and vomiting. He is also vomited again this morning. His past medical history is significant for glaucoma, right eye surgery, HTN, DM , high cholesterol, and PE. Timing/Duration: day(s) (3), sudden Location: right eye Severity: severe Apparent Injury: possibly Associated Symptoms: pain, redness, blurred vision Visual Assistive Devices: Glasses Allergies/Adverse Reactions: tuberculin,PPD,multi-puncture [From Tuberculin PPD Mary Ellen Test] Allergy ( Intermediate, Verified 10/28/18 09:24) Rash butorphanol tartrate [From Stadol] Allergy (Unknown, Verified 10/28/18 09:24) chlorpromazine HCl [From Thorazine] Allergy (Unknown, Verified 10/28/18 09:24) irritable haloperidol Allergy (Unknown, Verified 10/28/18:24) "makes me stay awake too much" ketorolac tromethamine [From Toradol] Allergy (Unknown, Verified 10/28/18 09:24) severe pain in lower back and kidneys nalbuphine [Nalbuphine] Allergy (Unknown, Verified 10/28/18 09:24) prochlorperazine edisylate [From Compazine] Allergy (Unknown, Verified 10/28/18 09:24) irritable lisinopril Adverse Reaction (Verified 10/28/18 09:24) Cough chloraprep Allergy (Intermediate, Uncoded 10/28/18:24) Rash Home Medications: Brimonidine Tartrate [Alphagan P 0.15%] 1 drops OP BID 09/30/12 [History] Metformin HCl 1000 mg [Glucophage 1000 MG] 1,000 mg PO BID 09/15/14 [History] Apixaban [Eliquis 5 mg Tablet] 2.5 mg PO BID 03/30/15 [History] Levothyroxine Sodium 25 Mcg [Synthroid 25 Mcg] 25 mcg PO DAILY 03/30/15 [ History] Dorzolamide HCl/Timolol Maleat [Dorzolamide-Timolol Eye Drops] 1 drop OP BID [History] Insulin Glargine [Lantus Insulin] 58 unit SQ BID 02/11/17 [History] Insulin Aspart [NovoLOG Insulin] 36 units SQ TIDWM 07/13/17 [History] Metoprolol Succinate 100 mg [Toprol Xl 100 MG] 100 mg PO DAILY 10/25/17 [ History] Montelukast Sodium 10 mg [Singulair 10 MG] 10 mg PO QPM 05/22/18 [History] Cholecalciferol (Vitamin D3) [Vitamin D3] 3,000 unit PO DAILY 06/19/18 [History] Furosemide [Lasix] 30 mg PO DAILY 06/19/18 [History] Hctz/Triamteren 37.5 mg/25 mg* [Maxzide-25MG Tablet] 50 mg PO DAILY 06/19/18 [History] Latanoprostene Bunod [Vyzulta] 1 drop OP HS 10/06/18 [History] Moxifloxacin HCl [Moxifloxacin] 1 drop OP QID 10/06/18 [History] Neomycin/Polymyxin B/Dexametha [Mxtowf-Qxuvh-Hyiknbs Eye Ointm] 0.5 gm OP HS [History] Pramipexole Di-HCl 0.5 mg [Mirapex 0.5 MG Tablet] 1 mg PO HS 10/06/18 [ History] Prednisolone Acetate/Pf [Prednisolone Acet 1% Eye Drop] 1 drop OP UD 10/06/18 [ History] Hx Tetanus, Diphtheria Vaccination/Date Given: No Hx Influenza Vaccination/Date Given: No Hx Pneumococcal Vaccination/Date Given: No - Review of Systems Constitutional: No Fever, No Chills Eyes: Eye Pain, Eye Redness, Vision Changes Ears, Nose, & Throat: No Symptoms Respiratory: No Cough, No Dyspnea Cardiac: No Chest Pain, No Edema, No Syncope Abdominal/Gastrointestinal: No Abdominal Pain, No Nausea, No Vomiting, No Diarrhea Genitourinary Symptoms: No Dysuria Musculoskeletal: No Back Pain, No Neck Pain Skin: No Rash Neurological: No Dizziness, No Focal Weakness, No Sensory Changes Psychological: No Symptoms Endocrine: No Symptoms Hematologic/Lymphatic: No Symptoms Immunological/Allergic: No Symptoms All Other Systems: Reviewed and Negative - Past Medical History Pertinent Past Medical History: Yes Neurological History: Migraines ENT History: Glaucoma Cardiac History: Angina, Hypertension Respiratory History: Pneumonia, Pulmonary Embolism, Other Endocrine Medical History: Diabetes Type II, Hypothyroidism Musculoskeletal History: No Pertinent History GI Medical History: Pancreatitis History: No Pertinent History Psycho-Social History: Anxiety Male Reproductive Disorders: No Pertinent History Other Medical History: Pulmonary hypertension; enlarged heart - Past Surgical History Past Surgical History: Yes Neuro Surgical History: No Pertinent History Cardiac: Cardiac Catheterization Respiratory: No Pertinent History Gastrointestinal: Appendectomy, Cholecystectomy, Hernia Repair, Pancreatic Surgery Genitourinary: No Pertinent History, Other Musculoskeletal: Other Male Surgical History: Testicular Surgery Other Surgical History: old port removed, port placed x 2, had a surgery to look in bladder, right shoulder surgery. SHUNT IN RIGHT EYE. Open shut back up in right eye 10/03/18 - Social History Smoking Status: Former smoker How long have you smoked: years Exposure to second hand smoke: No Alcohol Use: Socially Drug Use: none Patient Lives Alone: No Significant Family History: diabetes - Nursing Vital Signs Nursing Vital Signs: Initial Vital Signs Temperature 97.8 F 10/28/18 09:10 Pulse Rate 91 H 10/28/18 09:10 Blood Pressure 162/86 10/28/18 09:10 O2 Sat by Pulse Oximetry 98 10/28/18 09:10 Pain Scale Pain Intensity 8 - Physical Exam General Appearance: moderate distress, obese Eye Exam: right eye: conjunctival inflammation, other (pupil nonreactive to light and contralateral light), left eye: normal inspection, PERRL Ears, Nose, Throat Exam: normal ENT inspection Neck Exam: normal inspection Respiratory Exam: normal breath sounds Cardiovascular Exam: regular rate/rhythm Gastrointestinal Exam: soft Extremity Exam: normal inspection Neurologic: alert Skin Exam: normal color SpO2 Interpretation: normal O2 Delivery: Room Air Ordered Tests: Active Orders 24 hr Category Date Time Status Nursing [Miscellaneous Nursing Order] ROUTINE Care 10/28/18 09:32 Active BMP Stat Lab 10/28/18 09:55 Completed CBC W DIFF Stat Lab 10/28/18 09:55 Completed Lactic Acid Stat Lab 10/28/18 09:57 Completed Lactic Acid Stat Lab 10/28/18 11:58 Ordered Medication Summary Discontinued Medications Generic Name Dose Route Start Last Admin Trade Name Edgar PRN Reason Stop Dose Admin Sodium Chloride 1,000 mls @ 999 mls/hr 10/28/18 09:28 10/28/18 11:21 Sodium Chloride 0.9% 1000 Ml IV 10/28/18 10:28 Infused .Q1H1M STA Infusion Sodium Chloride Confirm 10/28/18 10:03 Sodium Chloride 0.9% 1000 Ml Administered 10/28/18 10:04 Dose 1,000 mls @ ud .ROUTE .STK-MED ONE Morphine Sulfate 4 mg 10/28/18 09:28 10/28/18 10:18 Morphine Sulfate 4 Mg Inj IV 10/28/18 09:29 4 mg STAT ONE Administration Morphine Sulfate Confirm 10/28/18 10:03 Morphine Sulfate 4 Mg Inj Administered 10/28/18 10:04 Dose 4 mg .ROUTE .STK-MED ONE Ondansetron HCl 4 mg 10/28/18 09:28 10/28/18 10:26 Zofran 4 Mg/2 Ml Vial IV 10/28/18 09:29 Not Given STAT ONE Promethazine HCl 25 mg 10/28/18 10:04 10/28/18 10:17 Phenergan 25 Mg Inj IM 10/28/18 10:05 25 mg STAT ONE Administration Promethazine HCl Confirm 10/28/18 10:11 Phenergan 25 Mg Inj Administered 10/28/18 10:12 Dose 25 mg .ROUTE .STK-MED ONE Lab/Rad Data: Laboratory Result Diagrams 10/28/18 09:55 10/28/18 09:55 Laboratory Results 10/28/18 10/28/18 10/28/18 Range/Units 09:57 09:55 09:55 WBC 10.9 H (4.0-10.5) K/mm3 RBC 4.70 (4.1-5.6) M/mm3 Hgb 13.3 (12.5-18.0) gm/dl Hct 42.0 (42-50) % MCV 89.4 (78-100) fl MCH 28.3 (26-32) pg MCHC 31.7 L (32-36) g/dl RDW 14.7 H (11.5-14.0) % Plt Count 194 (150-450) K/mm3 MPV 9.3 (6-9.5) fl Gran % 69.1 H (36.0-66.0) % Eos # (Auto) 0.15 (0-0.5) Absolute Lymphs (auto) 2.02 (1.0-4.6) Absolute Monos (auto) 1.17 (0.0-1.3) Lymphocytes % 18.5 L (24.0-44.0) % Monocytes % 10.7 (0.0-12.0) % Eosinophils % 1.4 (0.00-5.0) % Basophils % 0.3 (0.0-0.4) % Absolute Granulocytes 7.57 H (1.4-6.9) Basophils # 0.03 (0-0.4) Sodium 135 L (137-145) mmol/L Potassium 4.1 (3.5-5.1) mmol/L Chloride 97 L (98-107) mmol/L Carbon Dioxide 26 (22-30) mmol/L Anion Gap 16.9 H (5-15) MEQ/L BUN 22 H (9-20) mg/dL Creatinine 0.63 L (0.66-1.25) mg/dL Estimated GFR > 60.0 ML/MIN Glucose 261 H (74-106) mg/dL Lactic Acid 3.1 H (0.4-2.0) Calcium 9.0 (8.4-10.2) mg/dL - Progress Progress: improved Progress Note: 10/28/18 12:17 [facility] and several hrs before I talked with Dr Whittaker who accepts pt to 2nd floor eye clinic at [facility]. - Departure Time of Disposition: 12:18 Departure Disposition: Transfer (transfer to [facility] [place] per Dr Whittaker) Clinical Impression: Acute right eye pain Condition: Stable Critical Care Time: No Referrals: ANSHU NYE MD [Primary Care Provider] -
[2018-10-28 09:59] LABS: Lactic Acid 3.1 (0.4-2.0)
[2018-10-28] MEDS ORDERED: MORPHINE SULFATE 4 MG INJ ONE ×2 (10:03→13:37)
[2018-10-28] MEDS ORDERED: Sodium Chloride 0.9% 1000 ML 1,000 ML ONE (10:03)
[2018-10-28] MEDS ORDERED: Phenergan 25 MG INJ IM ONE ×2 (10:04→12:24)
[2018-10-28] MEDS ORDERED: Phenergan 25 MG INJ ONE ×2 (10:11→13:37)
[2018-10-28 10:15] LABS: ANION GAP 16.9 MEQ/L (5-15); BLOOD UREA NITROGEN 22 mg/dL (9-20); CHLORIDE 97 mmol/L (98-107); Carbon Dioxide 26 mmol/L (22-30); Creatinine 1 0.63 mg/dL (0.66-1.25); Glucose 261 mg/dL (74-106); Potassium 4.1 mmol/L (3.5-5.1); SODIUM 135 mmol/L (137-145)
[2018-10-28 11:00] LABS: BASOPHIL % 0.3 % (0.0-0.4); Basophil (Absolute #) 0.03 (0-0.4); Eosinophil % 1.4 % (0.00-5.0); Eosinophil (Absolute #) 0.15 (0-0.5); Granulocyte Absolute (ANC) 7.57 (1.4-6.9); Granulocytes % 69.1 % (36.0-66.0); Hemoglobin 13.3 gm/dl (12.5-18.0); Lymphocyte (Absolute #) 2.02 (1.0-4.6); Lymphocytes % 18.5 % (24.0-44.0); Mean Cell Volume 89.4 fl (78-100); Mean Corpuscular Hemoglobin 28.3 pg (26-32); Mean Corpuscular Hgb Concent. 31.7 g/dl (32-36); Mean Platelet Volume 9.3 fl (6-9.5); Monocyte (Absolute #) 1.17 (0.0-1.3); Monocytes % 10.7 % (0.0-12.0); Platelet Count 194 K/mm3 (150-450); Red Cell Distribution Width 14.7 % (11.5-14.0); White Blood Count 10.9 K/mm3 (4.0-10.5)
[2018-10-28 13:55] VITALS: BP 130/94; PULSE 70; O2SAT 97
== END 2018-10-28 14:14 | disposition critical access hospital (66) ==
LOC: ED 09:05
DX: H57.11 Ocular pain, right eye (principal); H40.9 Unspecified glaucoma; I10 Essential (primary) hypertension; E11.9 Type 2 diabetes mellitus without complications; Z79.4 Long term (current) use of insulin; E78.00 Pure hypercholesterolemia, unspecified; Z86.711 Personal history of pulmonary embolism; E03.9 Hypothyroidism, unspecified; Z79.899 Other long term (current) drug therapy
CPT/HCPCS: 36415; 80048; 83605; 85025; 96360; 96372; 96374; 99285; J1642; J2270; J2550

== ENCOUNTER 2018-12-08 00:43 | Emergency (ER) | payer MEDICARE ==
[2018-12-08] MEDS ORDERED: DUONEB 0.5-3 MG/3 ml Neb IH ONE ×2 (01:23→01:33)
--- NOTE | 2018-12-08 01:23 | ERPHSYRPT ---
- History of Present Illness Time Seen by Provider: 12/08/18 01:22 Patient Subjective Stated Complaint: pt is alert and oriented. pt is ambulatory with a steady gait. pt comes in via personal vehicle. pt comes in with c/o SOB beginning earlier today. pt has had a cough and states he is coughing up clear thick mucus. pt denies chest pain, n/v. pt states he does get lightheaded and dizzy with coughing. pt is 93% on RA. pt denies past cardiac hx. pt states he's had a PE in the past 5 years ago. pt lung sounds clear bilat throughout. pt heart sounds regular. pt has mild pitting 2+ edema to his bilat lower legs. Triage Nursing Assessment: see above Physician History: pt comes in with c/o SOB beginning earlier today. pt has had a cough and states he is coughing up clear thick mucus. pt denies chest pain, n/v. pt states he does get lightheaded and dizzy with coughing. Allergies/Adverse Reactions: tuberculin,PPD,multi-puncture [From Tuberculin PPD Mary Ellen Test] Allergy ( Intermediate, Verified 10/28/18 09:24) Rash butorphanol tartrate [From Stadol] Allergy (Unknown, Verified 10/28/18 09:24) chlorpromazine HCl [From Thorazine] Allergy (Unknown, Verified 10/28/18 09:24) irritable haloperidol Allergy (Unknown, Verified 10/28/18 09:24) "makes me stay awake too much" ketorolac tromethamine [From Toradol] Allergy (Unknown, Verified 10/28/18 09:24) severe pain in lower back and kidneys nalbuphine [Nalbuphine] Allergy (Unknown, Verified 10/28/18 09:24) prochlorperazine edisylate [From Compazine] Allergy (Unknown, Verified 10/28/18 09:24) irritable lisinopril Adverse Reaction (Verified 10/28/18:24) Cough chloraprep Allergy (Intermediate, Uncoded 10/28/18:24) Rash Home Medications: Brimonidine Tartrate [Alphagan P 0.15%] 1 drops OP BID 09/30/12 [History] Metformin HCl 1000 mg [Glucophage 1000 MG] 1,000 mg PO BID 09/15/14 [History] Apixaban [Eliquis 5 mg Tablet] 2.5 mg PO BID 03/30/15 [History] Levothyroxine Sodium 25 Mcg [Synthroid 25 Mcg] 25 mcg PO DAILY 03/30/15 [ History] Dorzolamide HCl/Timolol Maleat [Dorzolamide-Timolol Eye Drops] 1 drop OP BID [History] Insulin Glargine [Lantus Insulin] 58 unit SQ BID 02/11/17 [History] Insulin Aspart [NovoLOG Insulin] 36 units SQ TIDWM 07/13/17 [History] Metoprolol Succinate 100 mg [Toprol Xl 100 MG] 100 mg PO DAILY 10/25/17 [ History] Montelukast Sodium 10 mg [Singulair 10 MG] 10 mg PO QPM 05/22/18 [History] Cholecalciferol (Vitamin D3) [Vitamin D3] 3,000 unit PO DAILY 06/19/18 [History] Furosemide [Lasix] 30 mg PO DAILY 06/19/18 [History] Hctz/Triamteren 37.5 mg/25 mg* [Maxzide-25MG Tablet] 50 mg PO DAILY 06/19/18 [History] Latanoprostene Bunod [Vyzulta] 1 drop OP HS 10/06/18 [History] Moxifloxacin HCl [Moxifloxacin] 1 drop OP QID 10/06/18 [History] Neomycin/Polymyxin B/Dexametha [Yupvrz-Yzddf-Nmkmvds Eye Ointm] 0.5 gm OP HS [History] Pramipexole Di-HCl 0.5 mg [Mirapex 0.5 MG Tablet] 1 mg PO HS 10/06/18 [ History] Prednisolone Acetate/Pf [Prednisolone Acet 1% Eye Drop] 1 drop OP UD 10/06/18 [ History] Hx Tetanus, Diphtheria Vaccination/Date Given: No Hx Influenza Vaccination/Date Given: No Hx Pneumococcal Vaccination/Date Given: No Immunizations Up to Date: Yes - Review of Systems Constitutional: No Fever, No Chills Eyes: No Symptoms Ears, Nose, & Throat: No Symptoms Respiratory: Cough, Dyspnea Cardiac: No Chest Pain, No Edema, No Syncope Abdominal/Gastrointestinal: No Abdominal Pain, No Nausea, No Vomiting, No Diarrhea Genitourinary Symptoms: No Dysuria Musculoskeletal: No Back Pain, No Neck Pain Skin: No Rash Neurological: No Dizziness, No Focal Weakness, No Sensory Changes Psychological: No Symptoms Endocrine: No Symptoms All Other Systems: Reviewed and Negative - Past Medical History Pertinent Past Medical History: Yes Neurological History: Migraines ENT History: Glaucoma Cardiac History: Angina, Hypertension Respiratory History: Pneumonia, Pulmonary Embolism, Other Endocrine Medical History: Diabetes Type II, Hypothyroidism Musculoskeletal History: No Pertinent History GI Medical History: Pancreatitis History: No Pertinent History Psycho-Social History: Anxiety Male Reproductive Disorders: No Pertinent History Other Medical History: Pulmonary hypertension; enlarged heart - Past Surgical History Past Surgical History: Yes Neuro Surgical History: No Pertinent History Cardiac: Cardiac Catheterization Respiratory: No Pertinent History Gastrointestinal: Appendectomy, Cholecystectomy, Hernia Repair, Pancreatic Surgery Genitourinary: No Pertinent History, Other Musculoskeletal: Other Male Surgical History: Testicular Surgery Other Surgical History: old port removed, port placed x 2, had a surgery to look in bladder, right shoulder surgery. SHUNT IN RIGHT EYE. Open shut back up in right eye 10/03/18 - Social History Smoking Status: Former smoker How long have you smoked: years Exposure to second hand smoke: No Alcohol Use: Socially Drug Use: none Patient Lives Alone: No Significant Family History: diabetes - Nursing Vital Signs Nursing Vital Signs: Initial Vital Signs Pulse Rate 108 H 12/08/18 00:45 Respiratory Rate 18 12/08/18 00:45 Blood Pressure 156/102 12/08/18 00:45 O2 Sat by Pulse Oximetry 93 L 12/08/18 00:45 Pain Scale Pain Intensity 0 - Physical Exam General Appearance: no apparent distress, alert Eye Exam: PERRL/EOMI Neck Exam: normal inspection, supple Respiratory Exam: crackles/rales Cardiovascular/Chest Exam: normal heart sounds, regular rate/rhythm Abdominal/Gastrointestinal Exam: soft, No tenderness, No distention, No mass Extremity Exam: non-tender, normal range of motion, normal inspection, no calf tenderness, no pedal edema, swelling, No ronak's sign Neurologic Exam: alert, oriented x 3, cooperative, shotblaster II-XII nml as tested, sensation nml, No motor deficits Skin Exam: normal color, warm, No dry SpO2 Interpretation: borderline oxygenation SpO2: 93 - Course Nursing assessment & vital signs reviewed: Yes EKG Interpreted by Me: Sinus Rhythm - Radiology Exams Chest X-ray Interpretation: Reviewed by me, Negative - CT Exams Chest CT Interpretation: Tele-radiologist Report (no PE) Ordered Tests: Active Orders 24 hr Category Date Time Status Hand Box Coverer STAT Care 12/08/18 01:24 Active EKG-ER Only STAT Care 12/08/18 01:23 Active CHEST 1 VIEW (PORTABLE) Stat Exams 12/08/18 01:23 Taken CHEST WITH CONTRAST [CT] Stat Exams 12/08/18 01:53 Taken CBC W DIFF Stat Lab 12/08/18 01:33 Completed CMP Stat Lab 12/08/18 01:33 Completed D-DIMER QUANTITATION Stat Lab 12/08/18 01:33 Completed NT PRO BNP Stat Lab 12/08/18 01:33 Completed TROPONIN Stat Lab 12/08/18 01:33 Completed Peak Expiratory Flow Rate ONCE RT 12/08/18 01:39 Active Respiratory Nebulizer STAT RT 12/08/18 01:24 Completed Respiratory Therapy Assessment DAILY RT 12/08/18 01:39 Active Medication Summary Generic Name Dose Route Start Last Admin Trade Name Freq PRN Reason Stop Dose Admin Sodium Chloride 1,000 mls @ 50 mls/hr 12/08/18 01:30 12/08/18 01:32 Sodium Chloride 0.9% 1000 Ml IV 01/07/19 01:29 50 mls/hr .Q20H REGAN Administration Discontinued Medications Generic Name Dose Route Start Last Admin Trade Name Freq PRN Reason Stop Dose Admin Albuterol/Ipratropium 3 ml 12/08/18 01:23 12/08/18 01:36 Duoneb 0.5-3 Mg/3 Ml Neb IH 12/08/18 01:24 3 ml STAT ONE Administration Albuterol/Ipratropium Confirm 12/08/18 01:33 Duoneb 0.5-3 Mg/3 Ml Neb Administered 12/08/18 01:34 Dose 3 ml IH .STK-MED ONE Lab/Rad Data: Laboratory Result Diagrams 12/08/18 01:33 12/08/18 01:33 Laboratory Results 12/08/18 12/08/18 12/08/18 Range/Units 01:33 01:33 01:33 WBC (4.0-10.5) K/mm3 RBC (4.1-5.6) M/mm3 Hgb (12.5-18.0) gm/dl Hct (42-50) % MCV (78-100) fl MCH (26-32) pg MCHC (32-36) g/dl RDW (11.5-14.0) % Plt Count (150-450) K/mm3 MPV (6-9.5) fl Gran % (36.0-66.0) % Eos # (Auto) (0-0.5) Absolute Lymphs (auto) (1.0-4.6) Absolute Monos (auto) (0.0-1.3) Lymphocytes % (24.0-44.0) % Monocytes % (0.0-12.0) % Eosinophils % (0.00-5.0) % Basophils % (0.0-0.4) % Absolute Granulocytes (1.4-6.9) Basophils # (0-0.4) D-Dimer 4176 H* (215-500) ng/mL Sodium 139 (137-145) mmol/L Potassium 3.4 L (3.5-5.1) mmol/L Chloride 96 L (98-107) mmol/L Carbon Dioxide 32 H (22-30) mmol/L Anion Gap 14.9 (5-15) MEQ/L BUN 27 H (9-20) mg/dL Creatinine 0.86 (0.66-1.25) mg/dL Estimated GFR > 60.0 ML/MIN Glucose 275 H (74-106) mg/dL Calcium 9.0 (8.4-10.2) mg/dL Total Bilirubin 0.30 (0.2-1.3) mg/dL AST 27 (17-59) U/L ALT 37 (0-50) U/L Alkaline Phosphatase 55 (38-126) U/L Troponin I < 0.012 (0.000-0.034) ng/mL NT-Pro-B Natriuret Pep 42.1 (0-900) pg/mL Serum Total Protein 7.0 (6.3-8.2) g/dL Albumin 3.9 (3.5-5.0) g/dL 12/08/18 Range/Units 01:33 WBC 9.9 (4.0-10.5) K/mm3 RBC 4.61 (4.1-5.6) M/mm3 Hgb 13.0 (12.5-18.0) gm/dl Hct 42.0 (42-50) % MCV 91.1 (78-100) fl MCH 28.2 (26-32) pg MCHC 31.0 L (32-36) g/dl RDW 15.5 H (11.5-14.0) % Plt Count 188 (150-450) K/mm3 MPV 9.9 H (6-9.5) fl Gran % 52.9 (36.0-66.0) % Eos # (Auto) 0.32 (0-0.5) Absolute Lymphs (auto) 2.77 (1.0-4.6) Absolute Monos (auto) 1.54 H (0.0-1.3) Lymphocytes % 28.0 (24.0-44.0) % Monocytes % 15.6 H (0.0-12.0) % Eosinophils % 3.2 (0.00-5.0) % Basophils % 0.3 (0.0-0.4) % Absolute Granulocytes 5.22 (1.4-6.9) Basophils # 0.03 (0-0.4) D-Dimer (215-500) ng/mL Sodium (137-145) mmol/L Potassium (3.5-5.1) mmol/L Chloride (98-107) mmol/L Carbon Dioxide (22-30) mmol/L Anion Gap (5-15) MEQ/L BUN (9-20) mg/dL Creatinine (0.66-1.25) mg/dL Estimated GFR ML/MIN Glucose (74-106) mg/dL Calcium (8.4-10.2) mg/dL Total Bilirubin (0.2-1.3) mg/dL AST (17-59) U/L ALT (0-50) U/L Alkaline Phosphatase (38-126) U/L Troponin I (0.000-0.034) ng/mL NT-Pro-B Natriuret Pep (0-900) pg/mL Serum Total Protein (6.3-8.2) g/dL Albumin (3.5-5.0) g/dL - Progress Progress: improved Air Movement: good Blood Culture(s) Obtained: No Antibiotics given: Yes Counseled pt/family regarding: lab results, diagnosis, need for follow-up, rad results - Departure Time of Disposition: 03:13 Departure Disposition: Home Clinical Impression: Bronchitis Condition: Stable Critical Care Time: Yes Critical Care Time(excluding separately billable procedures): 30-74 minutes Referrals: ANSHU NYE MD [Primary Care Provider] - Instructions: Chronic Obstructive Pulmonary Disease, Acute Bronchitis Additional Instructions: TIARAYENY was seen on 12/08/18 n the Emergency Room. At that time you were treated for an emergent condition, during your visit Laboratory, Radiology and/or other procedures may have been ordered. It is very important that you follow-up with your Primary Care Physician ANSHU NYE within the next 24- 48 hours to review your Emergency Room visit and the final results of testing that was ordered. Some test results such as Urine Cultures, Blood Cultures, and other cultures if ordered will not be finalized for 24-48 hours. If you do not have a Primary Care Provider please call the medical records department at [phone] ext [phone] to obtain a copy of your results or you may sign into our patient portal to obtain these results by visiting us @ [email or web address] and completing the following steps: 1. Click on the Patient Portal link 2. Click the Patient Self Enrollment Link to complete the enrollment form and entering your 3. Once the enrollment form is completed you will receive an email with a temporary ID and password at the email address you provided. 4. Next choose a user name and password. Your user name must be at least 4 characters long and your password must be at least 4 characters long. 5. Choose a security question from the list and provide your answer to the question. If you already have signed into the Health Portal you may access your Health Care Information 09/04 by the following steps: 1. Login to our website @ [email or web address] 2. Enter your original user name and password. FAQS The [facility] Portal is an online tool that contains your Lab Results, Radiology Reports, Visit History, Discharge Instructions and Health Summary Lab and Radiology Results will not be available for 72 hours on the portal. The Portal is a secure site, passwords are encryted and URLs are re-written so they cannot be copied and pasted. You and authorized family members are the only ones who can access your Portal. Also there is a timeout feature that protects your information if you leave the Portal page open. If you have technical difficulty please use the Contact Us link on the page this will allow you to submit any questions you have regarding the Portal or you may contact the Medical Record Department at [phone]. Prescriptions: Cephalexin Mh 500 mg [Keflex 500 mg] 500 mg PO Q6H #40 capsule
[2018-12-08] MEDS ORDERED: Sodium Chloride 0.9% 1000 ML 1,000 ML IV SCH (01:30)
[2018-12-08] MEDS ORDERED: Sodium Chloride 0.9% 1000 ML 1,000 ML ONE (01:30)
[2018-12-08 01:38] LABS: BASOPHIL % 0.3 % (0.0-0.4); Basophil (Absolute #) 0.03 (0-0.4); Eosinophil % 3.2 % (0.00-5.0); Eosinophil (Absolute #) 0.32 (0-0.5); Granulocyte Absolute (ANC) 5.22 (1.4-6.9); Granulocytes % 52.9 % (36.0-66.0); Lymphocyte (Absolute #) 2.77 (1.0-4.6); Mean Cell Volume 91.1 fl (78-100); Mean Corpuscular Hemoglobin 28.2 pg (26-32); Mean Platelet Volume 9.9 fl (6-9.5); Monocyte (Absolute #) 1.54 (0.0-1.3); Monocytes % 15.6 % (0.0-12.0); Platelet Count 188 K/mm3 (150-450); Red Blood Count 4.61 M/mm3 (4.1-5.6); Red Cell Distribution Width 15.5 % (11.5-14.0); White Blood Count 9.9 K/mm3 (4.0-10.5)
[2018-12-08 01:57] LABS: ALBUMIN 3.9 g/dL (3.5-5.0); ALKALINE PHOSPHATASE 55 U/L (38-126); ANION GAP 14.9 MEQ/L (5-15); BLOOD UREA NITROGEN 27 mg/dL (9-20); CHLORIDE 96 mmol/L (98-107); Carbon Dioxide 32 mmol/L (22-30); Creatinine 1 0.86 mg/dL (0.66-1.25); Glucose 275 mg/dL (74-106); NT PRO BNP 42.1 pg/mL (0-900); Potassium 3.4 mmol/L (3.5-5.1); SGOT/AST 27 U/L (17-59); SGPT/ALT 37 U/L (0-50); SODIUM 139 mmol/L (137-145)
[2018-12-08] MEDS ORDERED: ROCEPHIN 1 Gm-D5w 50 ml Bag** 1 G/50 ML IVPB IV STA (03:16)
[2018-12-08] MEDS ORDERED: ROCEPHIN 1 Gm-D5w 50 ml Bag** 1 G/50 ML IVPB IV ONE (03:17)
[2018-12-08 03:47] VITALS: BP 120/72; PULSE 98; O2SAT 95
--- NOTE | 2018-12-08 08:45 | XRAY ---
Indication: Short of breath. Comparison: September 17, 2018. Portable chest remains clear. Heart is not enlarged again with right hilar calcified node and left Port-A-Cath. No new/acute findings.
--- NOTE | 2018-12-08 08:48 | XRAY ---
Indication: Short of breath. Elevated d-dimer. History PE. Multiple contiguous axial images obtained through the chest using 100 cc Isovue-370 contrast and PE protocol. Comparison: December 23, 2014. There is satisfactory opacification of the pulmonary arteries to include the lobar and segmental branches. No filling defect or pulmonary embolus. Heart is not enlarged with stable left Port-A-Cath. There remains mediastinal and right hilar calcified nodes. No pathologic mediastinal/hilar lymphadenopathy. Examination of the lung parenchyma demonstrates mild bilateral dependent atelectasis. Stable right lower lobe calcified granuloma. No suspicious pulmonary mass, infiltrate, or effusion. Bony thorax intact with old right 5 rib fracture. Limited upper abdomen again demonstrates fatty liver, cholecystectomy clips, and hepatic/splenic calcified granulomas. Impression: 1. Negative pulmonary embolus. No acute cardiopulmonary abnormalities. 2. Stable fatty liver and evidence for old granulomatous disease. Comment: Preliminary interpretation was made by [facility]. No mention for pulmonary embolus evaluation. Also incidental old rib fracture and upper abdomen findings are not reported. CTDI 23.69
== END 2018-12-08 03:52 | disposition home or self-care (01) ==
LOC: ED 00:43
DX: J40 Bronchitis, not specified as acute or chronic (principal); I10 Essential (primary) hypertension; Z86.711 Personal history of pulmonary embolism; E11.9 Type 2 diabetes mellitus without complications; Z79.4 Long term (current) use of insulin; E03.9 Hypothyroidism, unspecified; I51.7 Cardiomegaly; Z79.01 Long term (current) use of anticoagulants; Z79.899 Other long term (current) drug therapy
CPT/HCPCS: 36415; 71045; 71260; 80053; 83880; 84484; 85025; 85379; 93005; 93041; 94150; 94640; 96360; 96361; 96365; 99284; 99285; J0696; J1642; A9270-GY

== ENCOUNTER 2018-12-13 00:29 | Emergency (ER) | payer MEDICARE ==
--- NOTE | 2018-12-13 01:04 | ERPHSYRPT ---
- History of Present Illness Time Seen by Provider: 12/13/18 00:45 Source: patient Patient Subjective Stated Complaint: PT C/O WORSENING SOB SINCE LAST NIGHT, PT WAS SEEN HERE IN ED 1 WEEK AGO FOR SOB AND DX WITH BRONCHITIS AND HAS BEEN DOING BREATHING TX AND TAKING ABX. PT NOT TAKING ANY STEROID. DENIES FEVER. C/O CP WITH DEEP BREATH. Triage Nursing Assessment: PINK/WARM/DRY, INCREASED RESP EFFORT NOTED, WORSE ON EXACERBATION, PT STILL ABLE TO SPEAK IN FULL SENTENCES. OCCASSIONAL COUGH NOTED , A&OX4, STEADY GAIT, DECLINED WHEELCHAIR TO ROOM. Physician History: 53 y/o diabetic obese white male presents with worsening soa and coughing since yesterday morning. pt has h/o recurrent bronchitis, pulmonary emboli on eliquis. no h/o steroid use recently. neb tx not helping at home. pt here 4 days ago for same issue. cta chest negative for pulm emboli then. Timing/Duration: yesterday Severity of Dyspnea-Max: moderate Severity of Dyspnea-Current: moderate Possible Cause: occasional episodes Modifying Factors: Improves With: albuterol nebulizer, coughing, oxygen, rest Associated Symptoms: anxiety, cough, chest pain/discomfort (with cough) Allergies/Adverse Reactions: tuberculin,PPD,multi-puncture [From Tuberculin PPD Mary Ellen Test] Allergy ( Intermediate, Verified 12/13/18 00:53) Rash butorphanol tartrate [From Stadol] Allergy (Unknown, Verified 12/13/18 00:53) chlorpromazine HCl [From Thorazine] Allergy (Unknown, Verified 12/13/18 00:53) irritable haloperidol Allergy (Unknown, Verified 12/13/18 00:53) "makes me stay awake too much" ketorolac tromethamine [From Toradol] Allergy (Unknown, Verified 12/13/18 00:53) severe pain in lower back and kidneys nalbuphine [Nalbuphine] Allergy (Unknown, Verified 12/13/18 00:53) prochlorperazine edisylate [From Compazine] Allergy (Unknown, Verified 12/13/18 00:53) irritable lisinopril Adverse Reaction (Verified 12/13/18 00:53) Cough chloraprep Allergy (Intermediate, Uncoded 10/28/18 09:24) Rash Home Medications: Brimonidine Tartrate [Alphagan P 0.15%] 1 drops OP BID 09/30/12 [History] Metformin HCl 1000 mg [Glucophage 1000 MG] 1,000 mg PO BID 09/15/14 [History] Apixaban [Eliquis 5 mg Tablet] 2.5 mg PO BID 03/30/15 [History] Levothyroxine Sodium 25 Mcg [Synthroid 25 Mcg] 25 mcg PO DAILY 03/30/15 [ History] Dorzolamide HCl/Timolol Maleat [Dorzolamide-Timolol Eye Drops] 1 drop OP BID [History] Insulin Glargine [Lantus Insulin] 58 unit SQ BID 02/11/17 [History] Insulin Aspart [NovoLOG Insulin] 36 units SQ TIDWM 07/13/17 [History] Metoprolol Succinate 100 mg [Toprol Xl 100 MG] 100 mg PO DAILY 10/25/17 [ History] Montelukast Sodium 10 mg [Singulair 10 MG] 10 mg PO QPM 05/22/18 [History] Cholecalciferol (Vitamin D3) [Vitamin D3] 3,000 unit PO DAILY 06/19/18 [History] Furosemide [Lasix] 30 mg PO DAILY 06/19/18 [History] Hctz/Triamteren 37.5 mg/25 mg* [Maxzide-25MG Tablet] 50 mg PO DAILY 06/19/18 [History] Latanoprostene Bunod [Vyzulta] 1 drop OP HS 10/06/18 [History] Moxifloxacin HCl [Moxifloxacin] 1 drop OP QID 10/06/18 [History] Neomycin/Polymyxin B/Dexametha [Kzvbdr-Bshvy-Lezpque Eye Ointm] 0.5 gm OP HS [History] Pramipexole Di-HCl 0.5 mg [Mirapex 0.5 MG Tablet] 1 mg PO HS 10/06/18 [ History] Prednisolone Acetate/Pf [Prednisolone Acet 1% Eye Drop] 1 drop OP UD 10/06/18 [ History] Hx Tetanus, Diphtheria Vaccination/Date Given: Yes Hx Influenza Vaccination/Date Given: No Hx Pneumococcal Vaccination/Date Given: No Immunizations Up to Date: Yes - Review of Systems Constitutional: No Symptoms Eyes: No Symptoms Ears, Nose, & Throat: No Symptoms Respiratory: Cough, Dyspnea, Wheezing Cardiac: Chest Pain (with cough) Abdominal/Gastrointestinal: No Symptoms Genitourinary Symptoms: No Symptoms Musculoskeletal: No Symptoms Skin: No Symptoms Neurological: No Symptoms Psychological: No Symptoms Endocrine: No Symptoms Hematologic/Lymphatic: No Symptoms Immunological/Allergic: No Symptoms All Other Systems: Reviewed and Negative - Past Medical History Pertinent Past Medical History: Yes Neurological History: Migraines ENT History: Glaucoma Cardiac History: Angina, Hypertension Respiratory History: Pneumonia, Pulmonary Embolism, Other Endocrine Medical History: Diabetes Type II, Hypothyroidism Musculoskeletal History: No Pertinent History GI Medical History: Pancreatitis History: No Pertinent History Psycho-Social History: Anxiety Male Reproductive Disorders: No Pertinent History Other Medical History: Pulmonary hypertension; enlarged heart - Past Surgical History Past Surgical History: Yes Neuro Surgical History: No Pertinent History Cardiac: Cardiac Catheterization Respiratory: No Pertinent History Gastrointestinal: Appendectomy, Cholecystectomy, Hernia Repair, Pancreatic Surgery Genitourinary: No Pertinent History, Other Musculoskeletal: Other Male Surgical History: Testicular Surgery Other Surgical History: old port removed, port placed x 2, had a surgery to look in bladder, right shoulder surgery. SHUNT IN RIGHT EYE. Open shut back up in right eye 10/03/18 - Social History Smoking Status: Never smoker How long have you smoked: years Exposure to second hand smoke: Yes Alcohol Use: Socially Drug Use: none Patient Lives Alone: No Significant Family History: diabetes - Nursing Vital Signs Nursing Vital Signs: Initial Vital Signs Temperature 99.0 F 12/13/18 00:41 Pulse Rate 108 H 12/13/18 00:41 Respiratory Rate 24 12/13/18 00:41 Blood Pressure 152/83 12/13/18 00:41 O2 Sat by Pulse Oximetry 93 L 12/13/18 00:41 Pain Scale Pain Intensity 4 - Physical Exam General Appearance: moderate distress, alert, anxiety, obese Eye Exam: PERRL/EOMI, eyes nml inspection Ears, Nose, Throat Exam: hearing grossly normal Neck Exam: normal inspection, non-tender, supple Respiratory Exam: chest tenderness (with coug), respiratory distress (mild), diminished breath sounds, wheezing, No accessory muscle use, No stridor Cardiovascular/Chest Exam: tachycardia Abdominal/Gastrointestinal Exam: soft, normal bowel sounds, No tenderness, No guarding, No rebound Rectal Exam: not done Extremity Exam: non-tender, normal range of motion, normal inspection, normal capillary refill Neurologic Exam: alert, oriented x 3, cooperative, 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, normal mood/affect Skin Exam: normal color, warm, dry Lymphatic Exam: No adenopathy SpO2 Interpretation: borderline oxygenation SpO2: 93 O2 Delivery: Room Air - Course Nursing assessment & vital signs reviewed: Yes EKG Interpreted by Me: RATE ([id number]), Sinus Rhythm, NORMAL AXIS, NORMAL INTERVALS, Non-specific ST Changes, Other (no changes when compared to ekg dated 12/08/18) Ordered Tests: Active Orders 24 hr Category Date Time Status Director Data Processing STAT Care 12/13/18 01:11 Active EKG-ER Only STAT Care 12/13/18 01:10 Active EKG-ER Only STAT Care 12/13/18 01:13 Active IV Insertion STAT Care 12/13/18 01:10 Active Oxygen-ED Only Nasal Cannula 2 lpm Care 12/13/18 01:10 Active Pulse Oximetry (ED) STAT Care 12/13/18 01:10 Active CHEST 1 VIEW (PORTABLE) Stat Exams 12/13/18 01:11 Ordered BLOOD CULTURE Stat Lab 12/13/18 01:20 Received CBC W DIFF Stat Lab 12/13/18 01:10 Completed CMP Stat Lab 12/13/18 01:10 Completed D-DIMER QUANTITATION Stat Lab 12/13/18 01:10 Completed NT PRO BNP Stat Lab 12/13/18 01:10 Completed TROPONIN Q3H Lab 12/13/18 01:10 Completed TROPONIN Q3H Lab 12/13/18 04:15 Ordered TROPONIN Q3H Lab 12/13/18 07:15 Ordered TROPONIN Q3H Lab 12/13/18 10:15 Ordered TROPONIN Q3H Lab 12/13/18 13:15 Ordered Peak Expiratory Flow Rate ONCE RT 12/13/18 01:27 Active Respiratory Therapy Assessment DAILY RT 12/13/18 01:27 Active Medication Summary Discontinued Medications Generic Name Dose Route Start Last Admin Trade Name Freq PRN Reason Stop Dose Admin Hydrocodone Bitart/Acetaminophen 10 ml 12/13/18 02:47 Hydrocodone-Acetamin 2.5-108/5 Ml Solution PO 12/13/18 02:48 STAT STA Albuterol/Ipratropium Confirm 12/13/18 01:08 Duoneb 0.5-3 Mg/3 Ml Neb Administered 12/13/18 01:09 Dose 3 ml IH .STK-MED ONE Albuterol/Ipratropium 3 ml 12/13/18 01:10 12/13/18 01:20 Duoneb 0.5-3 Mg/3 Ml Neb IH 12/13/18 01:11 3 ml STAT ONE Administration Sodium Chloride 1,000 mls @ 999 mls/hr 12/13/18 02:45 Sodium Chloride 0.9% 1000 Ml IV 12/13/18 03:45 .Q1H1M STA Methylprednisolone Sodium Succinate 125 mg 12/13/18 01:10 12/13/18 01:16 Solu-Medrol 125 Mg IV 12/13/18 01:11 125 mg STAT ONE Administration Methylprednisolone Sodium Succinate Confirm 12/13/18 01:15 Solu-Medrol 125 Mg Administered 12/13/18 01:16 Dose 125 mg .ROUTE .STK-MED ONE Ondansetron HCl 4 mg 12/13/18 02:44 Zofran 4 Mg/2 Ml Vial IV 12/13/18 02:45 STAT ONE Lab/Rad Data: Laboratory Result Diagrams 12/13/18 01:10 12/13/18 01:10 Laboratory Results 12/13/18 12/13/18 12/13/18 Range/Units 01:10 01:10 01:10 WBC (4.0-10.5) K/mm3 RBC (4.1-5.6) M/mm3 Hgb (12.5-18.0) gm/dl Hct (42-50) % MCV (78-100) fl MCH (26-32) pg MCHC (32-36) g/dl RDW (11.5-14.0) % Plt Count (150-450) K/mm3 MPV (6-9.5) fl Gran % (36.0-66.0) % Eos # (Auto) (0-0.5) Absolute Lymphs (auto) (1.0-4.6) Absolute Monos (auto) (0.0-1.3) Lymphocytes % (24.0-44.0) % Monocytes % (0.0-12.0) % Eosinophils % (0.00-5.0) % Basophils % (0.0-0.4) % Absolute Granulocytes (1.4-6.9) Basophils # (0-0.4) D-Dimer 282 (215-500) ng/mL Sodium 138 (137-145) mmol/L Potassium 3.3 L (3.5-5.1) mmol/L Chloride 102 (98-107) mmol/L Carbon Dioxide 25 (22-30) mmol/L Anion Gap 14.6 (5-15) MEQ/L BUN 20 (9-20) mg/dL Creatinine 0.86 (0.66-1.25) mg/dL Estimated GFR > 60.0 ML/MIN Glucose 357 H (74-106) mg/dL Calcium 9.1 (8.4-10.2) mg/dL Total Bilirubin 0.40 (0.2-1.3) mg/dL AST 42 (17-59) U/L ALT 51 H (0-50) U/L Alkaline Phosphatase 61 (38-126) U/L Troponin I < 0.012 (0.000-0.034) ng/mL NT-Pro-B Natriuret Pep 27.2 (0-900) pg/mL Serum Total Protein 7.0 (6.3-8.2) g/dL Albumin 3.7 (3.5-5.0) g/dL 12/13/18 Range/Units 01:10 WBC 7.5 (4.0-10.5) K/mm3 RBC 4.64 (4.1-5.6) M/mm3 Hgb 13.1 (12.5-18.0) gm/dl Hct 41.5 L (42-50) % MCV 89.4 (78-100) fl MCH 28.2 (26-32) pg MCHC 31.6 L (32-36) g/dl RDW 15.7 H (11.5-14.0) % Plt Count 202 (150-450) K/mm3 MPV 9.7 H (6-9.5) fl Gran % 56.5 (36.0-66.0) % Eos # (Auto) 0.22 (0-0.5) Absolute Lymphs (auto) 1.71 (1.0-4.6) Absolute Monos (auto) 1.30 (0.0-1.3) Lymphocytes % 22.9 L (24.0-44.0) % Monocytes % 17.4 H (0.0-12.0) % Eosinophils % 2.9 (0.00-5.0) % Basophils % 0.3 (0.0-0.4) % Absolute Granulocytes 4.23 (1.4-6.9) Basophils # 0.02 (0-0.4) D-Dimer (215-500) ng/mL Sodium (137-145) mmol/L Potassium (3.5-5.1) mmol/L Chloride (98-107) mmol/L Carbon Dioxide (22-30) mmol/L Anion Gap (5-15) MEQ/L BUN (9-20) mg/dL Creatinine (0.66-1.25) mg/dL Estimated GFR ML/MIN Glucose (74-106) mg/dL Calcium (8.4-10.2) mg/dL Total Bilirubin (0.2-1.3) mg/dL AST (17-59) U/L ALT (0-50) U/L Alkaline Phosphatase (38-126) U/L Troponin I (0.000-0.034) ng/mL NT-Pro-B Natriuret Pep (0-900) pg/mL Serum Total Protein (6.3-8.2) g/dL Albumin (3.5-5.0) g/dL - Progress Progress: improved Air Movement: good Progress Note: 12/13/18 02:51 cxr-no acute infiltrate. ? mild increased bronchovascular markings vs technique 12/13/18 02:52 pt states he can take hydrocodone. no allergic rxn per pt. might have had mild short lived itching. wants to try hydrocodone for his cough Counseled pt/family regarding: lab results, diagnosis, need for follow-up, rad results - Departure Departure Disposition: Home Clinical Impression: Bronchitis Condition: Stable Critical Care Time: No Referrals: ANSHU NYE MD [Primary Care Provider] - Additional Instructions: drink plenty of fluids. use your nebulizer every 4 hours while awake. wear your sleep apnea machine as directed. follow up with your primary doctor for further management Prescriptions: Hydrocodone Bit/Acetaminophen [Hydrocodone-Acetaminophen Soln] 10 ml PO Q6H # 120 ml Prednisone 10 mg [Deltasone 10 mg] 10 mg PO TID #6 tablet
[2018-12-13] MEDS ORDERED: DUONEB 0.5-3 MG/3 ml Neb IH ONE ×2 (01:08→01:10)
[2018-12-13] MEDS ORDERED: solu-MEDROL 125 MG IV ONE (01:10)
[2018-12-13] MEDS ORDERED: solu-MEDROL 125 MG ONE (01:15)
[2018-12-13 01:29] LABS: BASOPHIL % 0.3 % (0.0-0.4); Basophil (Absolute #) 0.02 (0-0.4); Eosinophil % 2.9 % (0.00-5.0); Eosinophil (Absolute #) 0.22 (0-0.5); Granulocyte Absolute (ANC) 4.23 (1.4-6.9); Granulocytes % 56.5 % (36.0-66.0); Hematocrit 41.5 % (42-50); Hemoglobin 13.1 gm/dl (12.5-18.0); Lymphocyte (Absolute #) 1.71 (1.0-4.6); Lymphocytes % 22.9 % (24.0-44.0); Mean Cell Volume 89.4 fl (78-100); Mean Corpuscular Hemoglobin 28.2 pg (26-32); Mean Corpuscular Hgb Concent. 31.6 g/dl (32-36); Mean Platelet Volume 9.7 fl (6-9.5); Monocytes % 17.4 % (0.0-12.0); Platelet Count 202 K/mm3 (150-450); Red Blood Count 4.64 M/mm3 (4.1-5.6); Red Cell Distribution Width 15.7 % (11.5-14.0); White Blood Count 7.5 K/mm3 (4.0-10.5)
[2018-12-13 01:54] LABS: ALBUMIN 3.7 g/dL (3.5-5.0); ALKALINE PHOSPHATASE 61 U/L (38-126); ANION GAP 14.6 MEQ/L (5-15); BLOOD UREA NITROGEN 20 mg/dL (9-20); CHLORIDE 102 mmol/L (98-107); Calcium 9.1 mg/dL (8.4-10.2); Carbon Dioxide 25 mmol/L (22-30); Creatinine 1 0.86 mg/dL (0.66-1.25); Glucose 357 mg/dL (74-106); NT PRO BNP 27.2 pg/mL (0-900); Potassium 3.3 mmol/L (3.5-5.1); SGOT/AST 42 U/L (17-59); SGPT/ALT 51 U/L (0-50); SODIUM 138 mmol/L (137-145)
[2018-12-13 02:27] VITALS: BP 148/94
[2018-12-13] MEDS ORDERED: Zofran 4 MG/2 ML VIAL IV ONE (02:44)
[2018-12-13] MEDS ORDERED: Sodium Chloride 0.9% 1000 ML 1,000 ML IV STA (02:45)
[2018-12-13] MEDS ORDERED: HYDROCODONE-ACETAMIN 2.5-108/5 ML SOLUTION PO STA (02:47)
[2018-12-13] MEDS ORDERED: HYDROCODONE-ACETAMIN 2.5-108/5 ML SOLUTION ONE (02:55)
[2018-12-13 03:03] VITALS: PULSE 87; O2SAT 97
--- NOTE | 2018-12-13 09:26 | XRAY ---
Indication: Short of breath. Cough. Comparison: December 08, 2018. Portable chest again demonstrates normal heart and lungs with incidental right hilar calcified node and left Port-A-Cath. No new/acute findings.
== END 2018-12-13 03:25 | disposition home or self-care (01) ==
LOC: ED 00:29
DX: J40 Bronchitis, not specified as acute or chronic (principal); I10 Essential (primary) hypertension; Z86.711 Personal history of pulmonary embolism; E03.9 Hypothyroidism, unspecified; E11.9 Type 2 diabetes mellitus without complications; F41.9 Anxiety disorder, unspecified; I51.7 Cardiomegaly; Z79.4 Long term (current) use of insulin; Z79.899 Other long term (current) drug therapy
CPT/HCPCS: 36000; 36415; 71045; 80053; 83880; 84484; 85025; 85379; 87040; 93005; 93041; 94150; 94640; 96374; 99284; J1642; J2930; A9270-GY

== ENCOUNTER 2018-12-14 03:47 | Observation (INO) | payer MEDICARE ==
[2018-12-14] MEDS ORDERED: ROCEPHIN 1 Gm-D5w 50 ml Bag** 1 G/50 ML IVPB IV STA (04:05)
[2018-12-14] MEDS ORDERED: PROVENTIL 2.5 MG/3 ML NEB IH ONE (04:05)
[2018-12-14] MEDS ORDERED: Zithromax 500 MG/ 250 ML NaCl Premix 500 MG/250 ML IVPB IV STA (04:05)
--- NOTE | 2018-12-14 04:05 | ERPHSYRPT ---
- History of Present Illness Time Seen by Provider: 12/14/18 03:50 Source: patient Exam Limitations: clinical condition Patient Subjective Stated Complaint: Pt returned to ed tonight after being seen last night, states sob has worsened around 0200 today. pt c/o feeling of "fluid all around my neck and throat". pt states "i think the swelling in my legs is worse too" Triage Nursing Assessment: Flushed/warm/dry, resp labored and grunting noted, no audible wheezing, pt ambulated to room per his preference, edema noted. Physician History: PATIENT WITH A HISTORY OF PULMONARY EMBOLISM, TYPE 2 DIABETES, SLEEP APNEA, REACTIVE AIRWAY DISEASE COMPLAINS OF INCREASING DYSPNEA, WORSE UPON EXERTION. EVALUATED IN EMERGENCY ROOM YESTERDAY AND [address] HIS CHEST [address] SCAN WAS NEGATIVE FOR PULMONARY EMBOLISM, PRESENTLY ON ANTICOAGULATION, ELIQUIS 5MG TWICE DAILY. DENIES FEVER, CHILLS, CHEST PAIN, DIAPHORESIS OR PALPITATIONS. HE ALSO COMPLAINS OF SWELLING IN BOTH LOWER EXTREMITIES. Timing/Duration: day(s) Activities at Onset: activity Severity of Dyspnea-Max: moderate Severity of Dyspnea-Current: moderate Possible Cause: occasional episodes Modifying Factors: Improves With: exertion Associated Symptoms: cough, edema Allergies/Adverse Reactions: tuberculin,PPD,multi-puncture [From Tuberculin PPD Mary Ellen Test] Allergy ( Intermediate, Verified 12/14/18 03:50) Rash butorphanol tartrate [From Stadol] Allergy (Unknown, Verified 12/14/18 03:50) chlorpromazine HCl [From Thorazine] Allergy (Unknown, Verified 12/14/18 03:50) irritable haloperidol Allergy (Unknown, Verified 12/14/18 03:50) "makes me stay awake too much" ketorolac tromethamine [From Toradol] Allergy (Unknown, Verified 12/14/18 03:50) severe pain in lower back and kidneys nalbuphine [Nalbuphine] Allergy (Unknown, Verified 12/14/18 03:50) prochlorperazine edisylate [From Compazine] Allergy (Unknown, Verified 12/14/18 03:50) irritable lisinopril Adverse Reaction (Verified 12/14/18 03:50) Cough chloraprep Allergy (Intermediate, Uncoded 10/28/18 09:24) Rash Home Medications: Brimonidine Tartrate [Alphagan P 0.15%] 1 drops OP BID 09/30/12 [History] Metformin HCl 1000 mg [Glucophage 1000 MG] 1,000 mg PO BID 09/15/14 [History] Apixaban [Eliquis 5 mg Tablet] 2.5 mg PO BID 03/30/15 [History] Levothyroxine Sodium 25 Mcg [Synthroid 25 Mcg] 25 mcg PO DAILY 03/30/15 [ History] Dorzolamide HCl/Timolol Maleat [Dorzolamide-Timolol Eye Drops] 1 drop OP BID [History] Insulin Glargine [Lantus Insulin] 58 unit SQ BID 02/11/17 [History] Insulin Aspart [NovoLOG Insulin] 36 units SQ TIDWM 07/13/17 [History] Metoprolol Succinate 100 mg [Toprol Xl 100 MG] 100 mg PO DAILY 10/25/17 [ History] Montelukast Sodium 10 mg [Singulair 10 MG] 10 mg PO QPM 05/22/18 [History] Cholecalciferol (Vitamin D3) [Vitamin D3] 3,000 unit PO DAILY 06/19/18 [History] Furosemide [Lasix] 30 mg PO DAILY 06/19/18 [History] Hctz/Triamteren 37.5 mg/25 mg* [Maxzide-25MG Tablet] 50 mg PO DAILY 06/19/18 [History] Latanoprostene Bunod [Vyzulta] 1 drop OP HS 10/06/18 [History] Moxifloxacin HCl [Moxifloxacin] 1 drop OP QID 10/06/18 [History] Neomycin/Polymyxin B/Dexametha [Syypbb-Mpjcz-Aejtlwy Eye Ointm] 0.5 gm OP HS [History] Pramipexole Di-HCl 0.5 mg [Mirapex 0.5 MG Tablet] 1 mg PO HS 10/06/18 [ History] Prednisolone Acetate/Pf [Prednisolone Acet 1% Eye Drop] 1 drop OP UD 10/06/18 [ History] Hx Tetanus, Diphtheria Vaccination/Date Given: Yes Hx Influenza Vaccination/Date Given: No Hx Pneumococcal Vaccination/Date Given: No Immunizations Up to Date: Yes - Review of Systems Constitutional: No Fever, No Chills Eyes: No Symptoms Ears, Nose, & Throat: No Symptoms Respiratory: Cough, Dyspnea, Dyspnea on Exertion (LABOY) Cardiac: Edema (SWELLING IN LEGS), No Chest Pain, No Syncope Abdominal/Gastrointestinal: No Symptoms, No Abdominal Pain, No Nausea, No Vomiting, No Diarrhea Genitourinary Symptoms: No Symptoms, No Dysuria Musculoskeletal: No Symptoms, No Back Pain, No Neck Pain Skin: No Symptoms, No Rash Neurological: No Symptoms, No Dizziness, No Focal Weakness, No Sensory Changes Psychological: No Symptoms Endocrine: No Symptoms All Other Systems: Reviewed and Negative - Past Medical History Pertinent Past Medical History: Yes Neurological History: Migraines ENT History: Glaucoma Cardiac History: Angina, Hypertension Respiratory History: Pneumonia, Pulmonary Embolism, Other Endocrine Medical History: Diabetes Type II, Hypothyroidism Musculoskeletal History: No Pertinent History GI Medical History: Pancreatitis History: No Pertinent History Psycho-Social History: Anxiety Male Reproductive Disorders: No Pertinent History Other Medical History: Pulmonary hypertension; enlarged heart - Past Surgical History Past Surgical History: Yes Neuro Surgical History: No Pertinent History Cardiac: Cardiac Catheterization Respiratory: No Pertinent History Gastrointestinal: Appendectomy, Cholecystectomy, Hernia Repair, Pancreatic Surgery Genitourinary: No Pertinent History, Other Musculoskeletal: Other Male Surgical History: Testicular Surgery Other Surgical History: old port removed, port placed x 2, had a surgery to look in bladder, right shoulder surgery. SHUNT IN RIGHT EYE. Open shut back up in right eye 10/03/18 - Social History Smoking Status: Never smoker How long have you smoked: years Exposure to second hand smoke: No Alcohol Use: Socially Drug Use: none Patient Lives Alone: Yes Significant Family History: diabetes - Nursing Vital Signs Nursing Vital Signs: Initial Vital Signs Temperature 98.7 F 12/14/18 03:51 Pulse Rate 108 H 12/14/18 03:51 Respiratory Rate 26 H 12/14/18 03:51 Blood Pressure 164/86 12/14/18 03:51 O2 Sat by Pulse Oximetry 91 L 12/14/18 03:51 Pain Scale Pain Intensity 0 - Physical Exam General Appearance: moderate distress, alert Eye Exam: PERRL/EOMI Ears, Nose, Throat Exam: hearing grossly normal Neck Exam: normal inspection, supple Respiratory Exam: diminished breath sounds Cardiovascular/Chest Exam: normal heart sounds, regular rate/rhythm, edema Abdominal/Gastrointestinal Exam: soft, normal bowel sounds, No tenderness, No distention, No mass Extremity Exam: non-tender, normal range of motion, normal inspection, no calf tenderness, pedal edema (2+ PITTING EDEMA BILATERAL FEET TO KNEES) Peripheral Pulses Exam: carotid (R): 2+, carotid (L): 2+, femoral (R): 2+, femoral (L): 2+, dorsalis-pedis (R): 2+, dorsalis-pedis (L): 2+ Neurologic Exam: alert, oriented x 3, cooperative, crystal 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 II-XII nml as tested, sensation nml, No motor deficits Skin Exam: normal color, warm, No dry SpO2 Interpretation: borderline oxygenation SpO2: 91 O2 Delivery: Room Air - Course EKG Interpreted by Me: RATE, Sinus Rhythm, Sinus Tach, NORMAL AXIS - Radiology Exams Chest X-ray Interpretation: Interpreted by me (RIGHT HILAR CALCIFIED NODE, LEFT HEMITHORAX PORT-A-CATH) Ordered Tests: Active Orders 24 hr Category Date Time Status City Distribution Clerk STAT Care 12/14/18 04:06 Active EKG-ER Only STAT Care 12/14/18 04:05 Active IV Insertion STAT Care 12/14/18 04:05 Active Oxygen-ED Only Nasal Cannula 2 lpm Care 12/14/18 04:05 Active CHEST 1 VIEW (PORTABLE) Stat Exams 12/14/18 04:05 Ordered CBC W DIFF Stat Lab 12/14/18 04:48 Received CMP Stat Lab 12/14/18 04:48 Received Lactic Acid Stat Lab 12/14/18 04:40 Results MAGNESIUM Stat Lab 12/14/18 04:48 Received NT PRO BNP Stat Lab 12/14/18 04:48 Received PT INR [PROTIME WITH INR] Stat Lab 12/14/18 04:53 Ordered TROPONIN Q3H Lab 12/14/18 04:48 Received TROPONIN Q3H Lab 12/14/18 07:15 Ordered TROPONIN Q3H Lab 12/14/18 10:15 Ordered TROPONIN Q3H Lab 12/14/18 13:15 Ordered TROPONIN Q3H Lab 12/14/18 16:15 Ordered Respiratory Nebulizer STAT RT 12/14/18 04:18 Completed Respiratory Therapy Assessment DAILY RT 12/14/18 04:30 Active Medication Summary Generic Name Dose Route Start Last Admin Trade Name Edgar PRN Reason Stop Dose Admin Azithromycin 500 mg in 250 mls @ 250 mls/hr 12/14/18 04:05 Zithromax 500 Mg/ 250 Ml Nacl Premix IV 12/14/18 05:04 STAT STA Discontinued Medications Generic Name Dose Route Start Last Admin Trade Name Edgar PRN Reason Stop Dose Admin Albuterol Sulfate 10 mg 12/14/18 04:05 12/14/18 04:20 Proventil 2.5 Mg/3 Ml Neb IH 12/14/18 04:06 10 mg STAT ONE Administration Albuterol Sulfate Confirm 12/14/18 04:20 Proventil Solution 2.5 Mg/0.5 Ml Administered 12/14/18 04:21 Dose 10 mg IH .STK-MED ONE Bumetanide 1 mg 12/14/18 04:30 12/14/18 04:42 Bumex 1 Mg IV 12/14/18 04:31 1 mg STAT ONE Administration Bumetanide Confirm 12/14/18 04:32 Bumex 1 Mg Administered 12/14/18 04:33 Dose 1 mg .ROUTE .STK-MED ONE Ceftriaxone Sodium/Dextrose 1 g in 50 mls @ 100 mls/hr 12/14/18 04:05 04:42 Rocephin 1 Gm-D5w 50 Ml Bag IV 12/14/18 04:34 100 ml/hr STAT STA 100 mls/hr Administration Ceftriaxone Sodium/Dextrose Confirm 12/14/18 04:34 Rocephin 1 Gm-D5w 50 Ml Bag Administered 12/14/18 04:35 Dose 1 g in 50 mls @ ud IV .STK-MED ONE Methylprednisolone Sodium Succinate 125 mg 12/14/18 04:34 12/14/18 04:42 Solu-Medrol 125 Mg IV 12/14/18 04:35 125 mg STAT ONE Administration Methylprednisolone Sodium Succinate Confirm 12/14/18 04:39 Solu-Medrol 125 Mg Administered 12/14/18 04:40 Dose 125 mg .ROUTE .STK-MED ONE Sodium Chloride Confirm 12/14/18 04:20 Sodium Chloride 3 Ml Ud Nebules Administered 12/14/18 04:21 Dose 9 ml IH .STK-MED ONE Lab/Rad Data: Laboratory Result Diagrams 12/14/18 04:48 Laboratory Results 12/14/18 12/14/18 Range/Units 04:48 04:40 WBC 12.6 H (4.0-10.5) K/mm3 RBC 4.36 (4.1-5.6) M/mm3 Hgb 12.5 (12.5-18.0) gm/dl Hct 39.4 L (42-50) % MCV 90.4 (78-100) fl MCH 28.7 (26-32) pg MCHC 31.7 L (32-36) g/dl RDW 15.9 H (11.5-14.0) % Plt Count 210 (150-450) K/mm3 MPV 9.3 (6-9.5) fl Gran % 68.9 H (36.0-66.0) % Eos # (Auto) 0.01 (0-0.5) Absolute Lymphs (auto) 2.21 (1.0-4.6) Absolute Monos (auto) 1.68 H (0.0-1.3) Lymphocytes % 17.5 L (24.0-44.0) % Monocytes % 13.3 H (0.0-12.0) % Eosinophils % 0.1 (0.00-5.0) % Basophils % 0.2 (0.0-0.4) % Absolute Granulocytes 8.72 H (1.4-6.9) Basophils # 0.02 (0-0.4) Lactic Acid 2.9 H (0.4-2.0) - Progress Progress: re-examined Air Movement: fair Progress Note: 12/14/18 05:04 ADMINISTERED CONTINUOUS ALBUTEROL 10MG OVER 1 HOUR, [id number] IV, ROCEPHIN 1GM, ZITHROMAX 400MG IVPB AND BUMEX 1MG, PULSE OXIMETRY 95% WITH 2 LITERS OXYGEN 12/14/18 05:23, LACTIC ACID 2.[address] OF SEPSIS PROTOCOL DUE TO MARKED DEPENDENT EDEMA Antibiotics given: Yes Discussed with : Luke (DISCUSSED WITH DR BEAN AT 0520 FOR OBSERVATION) - Departure Departure Disposition: Observation Clinical Impression: ACUTE DYSPNEA, EXACERBATION COPD Condition: Stable Critical Care Time: No Referrals: ANSHU NYE MD [Primary Care Provider] -
[2018-12-14] MEDS ORDERED: PROVENTIL Solution 2.5 MG/0.5 ML IH ONE (04:20)
[2018-12-14] MEDS ORDERED: Sodium Chloride 3 ML UD NEBULES IH ONE (04:20)
[2018-12-14] MEDS ORDERED: BUMEX 1 MG IV ONE (04:30)
[2018-12-14] MEDS ORDERED: BUMEX 1 MG ONE (04:32)
[2018-12-14] MEDS ORDERED: ROCEPHIN 1 Gm-D5w 50 ml Bag** 1 G/50 ML IVPB IV ONE (04:34)
[2018-12-14] MEDS ORDERED: solu-MEDROL 125 MG IV ONE (04:34)
[2018-12-14] MEDS ORDERED: solu-MEDROL 125 MG ONE (04:39)
[2018-12-14 04:46] LABS: Lactic Acid 2.9 (0.4-2.0)
[2018-12-14 04:51] LABS: BASOPHIL % 0.2 % (0.0-0.4); Basophil (Absolute #) 0.02 (0-0.4); Eosinophil % 0.1 % (0.00-5.0); Eosinophil (Absolute #) 0.01 (0-0.5); Granulocyte Absolute (ANC) 8.72 (1.4-6.9); Granulocytes % 68.9 % (36.0-66.0); Hematocrit 39.4 % (42-50); Hemoglobin 12.5 gm/dl (12.5-18.0); Lymphocyte (Absolute #) 2.21 (1.0-4.6); Lymphocytes % 17.5 % (24.0-44.0); Mean Cell Volume 90.4 fl (78-100); Mean Corpuscular Hemoglobin 28.7 pg (26-32); Mean Corpuscular Hgb Concent. 31.7 g/dl (32-36); Mean Platelet Volume 9.3 fl (6-9.5); Monocyte (Absolute #) 1.68 (0.0-1.3); Monocytes % 13.3 % (0.0-12.0); Platelet Count 210 K/mm3 (150-450); Red Blood Count 4.36 M/mm3 (4.1-5.6); Red Cell Distribution Width 15.9 % (11.5-14.0); White Blood Count 12.6 K/mm3 (4.0-10.5)
[2018-12-14 05:03] LABS: INR 1.07 (0.8-3.0); PROTIME 12.4 SECONDS (8.83-12.87)
[2018-12-14 05:11] LABS: ALBUMIN 3.7 g/dL (3.5-5.0); ALKALINE PHOSPHATASE 48 U/L (38-126); ANION GAP 14.8 MEQ/L (5-15); BLOOD UREA NITROGEN 23 mg/dL (9-20); CHLORIDE 101 mmol/L (98-107); Calcium 9.1 mg/dL (8.4-10.2); Carbon Dioxide 24 mmol/L (22-30); Creatinine 1 0.79 mg/dL (0.66-1.25); Glucose 361 mg/dL (74-106); NT PRO BNP 86.2 pg/mL (0-900); Potassium 3.6 mmol/L (3.5-5.1); SGOT/AST 35 U/L (17-59); SGPT/ALT 42 U/L (0-50); SODIUM 136 mmol/L (137-145); Total Protein 6.8 g/dL (6.3-8.2)
[2018-12-14] MEDS ORDERED: Zithromax 500 MG/ 250 ML NaCl Premix 500 MG/250 ML IVPB IV ONE (05:16)
[2018-12-14 05:22] LABS: INFLUENZA A NEGATIVE (NEGATIVE); INFLUENZA B NEGATIVE (NEGATIVE); RESPIRATORY SYNCTIAL VIRUS NEGATIVE (Negative)
[2018-12-14] MEDS ORDERED: NovoLIN R IV ONE (05:25)
[2018-12-14] MEDS ORDERED: NovoLIN R ONE (05:30)
[2018-12-14] MEDS ORDERED: Xopenex 1.25 MG/0.5 ML UD NEBULE IH PRN (06:43)
[2018-12-14] MEDS ORDERED: solu-MEDROL 125 MG IV SCH (06:43)
[2018-12-14] MEDS: Sodium Chloride 0.9% 10 ML FLUSH Syringe PORT FLUSH SCH ×2 (06:59→22:18)
[2018-12-14] MEDS ORDERED: DUONEB 0.5-3 MG/3 ml Neb IH SCH (07:00)
[2018-12-14 07:33] LABS: Lactic Acid 2.5 (0.4-2.0)
--- NOTE | 2018-12-14 08:08 | XRAY ---
Indication: Cough. Difficulty breathing. Comparison: One day earlier. Portable chest remains clear. Heart and mediastinal structures within normal limits. Stable right hilar calcified node and left Port-A-Cath. No new/acute findings.
[2018-12-14] MEDS: Glucophage 500 MG PO SCH ×2 (08:30→17:03)
[2018-12-14] MEDS: NovoLOG Insulin SQ SCH ×3 (08:30→17:03)
[2018-12-14] MEDS ORDERED: ELIQUIS 2.5 MG TABLET PO SCH (10:00)
[2018-12-14] MEDS ORDERED: Lantus Insulin SQ SCH (10:00)
[2018-12-14] MEDS: BUMEX 1 MG IV SCH ×2 (10:09→22:17)
[2018-12-14] MEDS: Toprol Xl 100 MG PO SCH (10:09)
[2018-12-14] MEDS: Klor Con 10 MEQ PO SCH ×2 (10:09→22:17)
[2018-12-14] MEDS: SYNTHROID 25 MCG PO SCH (10:09)
[2018-12-14 10:10] LABS: Lactic Acid 3.4 (0.4-2.0)
[2018-12-14] MEDS: Ativan 2 MG/1 ML VIAL IV PRN ×2 (11:26→23:53)
--- NOTE | 2018-12-14 12:06 | PCM.HP ---
History of Present Illness - Chief Complaint Chief Complaint: c/o shortness of breath for 1 week, multiple Er visits in last week History of Present Illness: is a 53 year old male.Pt returned to [facility] after being seen last night, states sob has worsened around 0200 today. pt c/o feeling of "fluid all around my neck and throat". pt states "i think the swelling in my legs is worse too" - Review of Systems Constitutional: No Fever, No Chills Eyes: No Symptoms Ears, Nose, & Throat: No Symptoms Respiratory: No Cough, No Short Of Breath Cardiac: No Chest Pain, No Edema, No Syncope Abdominal/Gastrointestinal: No Abdominal Pain, No Nausea, No Vomiting, No Diarrhea Genitourinary Symptoms: No Dysuria Musculoskeletal: No Back Pain, No Neck Pain Skin: No Rash Neurological: No Dizziness, No Focal Weakness, No Sensory Changes Psychological: No Symptoms Endocrine: No Symptoms Hematologic/Lymphatic: No Symptoms Immunological/Allergic: No Symptoms Medications & Allergies Home Medications: Home Medication List Brimonidine Tartrate [Alphagan P 0.15%] 1 drops OP BID 09/30/12 [History Confirmed 12/14/18] Metformin HCl 1000 mg [Glucophage 1000 MG] 1,000 mg PO BID 09/15/14 [History Confirmed 12/14/18] Magnesium Oxide 400 mg [Mag-Ox 400] 400 mg PO BID #0 tablet 12/26/14 [Rx Confirmed 12/14/18] Apixaban [Eliquis 5 mg Tablet] 2.5 mg PO BID 03/30/15 [History Confirmed 12/14/18] Levothyroxine Sodium 25 Mcg [Synthroid 25 Mcg] 25 mcg PO DAILY 03/30/15 [ History Confirmed 12/14/18] Dorzolamide HCl/Timolol Maleat [Dorzolamide-Timolol Eye Drops] 1 drop OP BID [History Confirmed 12/14/18] Insulin Glargine [Lantus Insulin] 75 unit SQ BID 02/11/17 [History Confirmed 12/14/18] Insulin Aspart [NovoLOG Insulin] 52 units SQ TIDWM 07/13/17 [History Confirmed 12/14/18] Metoprolol Succinate 100 mg [Toprol Xl 100 MG] 100 mg PO DAILY 10/25/17 [ History Confirmed 12/14/18] Montelukast Sodium 10 mg [Singulair 10 MG] 10 mg PO QPM 05/22/18 [History Confirmed 12/14/18] Cholecalciferol (Vitamin D3) [Vitamin D3] 3,000 unit PO DAILY 06/19/18 [History Confirmed 12/14/18] Furosemide [Lasix] 30 mg PO DAILY 06/19/18 [History Confirmed 12/14/18] Hctz/Triamteren 37.5 mg/25 mg* [Maxzide-25MG Tablet] 2 mg PO DAILY 06/19/18 [ History Confirmed 12/14/18] Latanoprostene Bunod [Vyzulta] 1 drop OP HS 10/06/18 [History Confirmed 12/14/18 ] Pramipexole Di-HCl 0.5 mg [Mirapex 0.5 MG Tablet] 1 mg PO HS 10/06/18 [ History Confirmed 12/14/18] Cephalexin Mh 500 mg [Keflex 500 mg] 500 mg PO Q6H #40 capsule 12/08/18 [Rx Confirmed 12/14/18] Prednisone 10 mg [Deltasone 10 mg] 10 mg PO TID #6 tablet 12/13/18 [Rx Confirmed 12/14/18] Rosuvastatin Calcium [Crestor] 10 mg PO HS 12/14/18 [History Confirmed 12/14/18] Allergies/Adverse Reactions: Allergies Allergy/AdvReac Type Severity Reaction Status Date / Time tuberculin,PPD,multi-puncture Allergy Intermediate Rash Verified 12/14/18 03:50 [From Tuberculin PPD Mary Ellen Test] butorphanol tartrate Allergy Unknown Verified 12/14/18 03:50 [From Stadol] chlorpromazine HCl Allergy Unknown Verified 12/14/18 03:50 [From Thorazine] haloperidol Allergy Unknown Verified 12/14/18 03:50 ketorolac tromethamine Allergy Unknown Verified 12/14/18 03:50 [From Toradol] nalbuphine [Nalbuphine] Allergy Unknown Verified 12/14/18 03:50 prochlorperazine edisylate Allergy Unknown Verified 12/14/18 03:50 [From Compazine] lisinopril AdvReac Cough Verified 12/14/18 03:50 chloraprep Allergy Intermediate Rash Uncoded 10/28/18 09:24 - Past Medical History Past Medical History: Yes Neurological History: Migraines ENT History: Glaucoma Cardiac History: Angina, Hypertension Respiratory History: Pneumonia, Pulmonary Embolism, Sleep Apnea, Other Endocrine Medical History: Diabetes Type II, Hypothyroidism Musculoskelatal History: No Pertinent History GI Medical History: Pancreatitis History: No Pertinent History Pyscho-Social History: Anxiety Male Reproductive Disorders: No Pertinent History Comment: Pulmonary hypertension; enlarged heart - Past Surgical History Past Surgical History: Yes Neuro Surgical History: No Pertinent History Cardiac History: Cardiac Catheterization Respiratory Surgery: No Pertinent History GI Surgical History: Appendectomy, Cholecystectomy, Hernia Repair, Pancreatic Surgery Genitourinary Surgical Hx: No Pertinent History, Other Musculskeletal Surgical Hx: Other Male Surgical History: Testicular Surgery Other Surgical History: old port removed, port placed x 2, had a surgery to look in bladder, right shoulder surgery. SHUNT IN RIGHT EYE. Open shut back up in right eye 10/03/18 - Social History Smoking Status: Never smoker How long have you smoked: years Exposure to second hand smoke: No Alcohol: Rarely Drug Use: none Significant Family History: diabetes - Physical Exam Vital Signs: Vital Signs - 24 hr Temp Pulse Resp BP Pulse Ox 12/14/18 11:54 20 12/14/18 08:49 98.7 F 102 H 20 144/79 93 L 12/14/18 05:55 107 H 21 150/82 93 L 12/14/18 05:25 91 L 12/14/18 04:48 101 H 18 159/88 96 12/14/18 04:30 106 H 20 96 12/14/18 03:51 98.7 F 108 H 26 H 164/86 91 L Oxygen-Last 24 hours O2 Percentage 3 Liters = 32% O2 Percentage 3 Liters = 32% O2 Percentage 3 Liters = 32% O2 Percentage 2 Liters = 28% General Appearance: no apparent distress, alert Neurologic Exam: alert, oriented x 3, cooperative, normal mood/affect, nml cerebellar function, nml station & gait, sensation nml, No motor deficits Eye Exam: PERRL/EOMI, eyes nml inspection Ears, Nose, Throat Exam: normal ENT inspection, TMs normal, pharynx normal, moist mucous membranes Neck Exam: normal inspection, non-tender, supple, full range of motion Respiratory Exam: normal breath sounds, lungs clear, No respiratory distress Cardiovascular Exam: regular rate/rhythm, normal heart sounds, normal peripheral pulses Gastrointestinal/Abdomen Exam: soft, normal bowel sounds, No tenderness, No mass Back Exam: normal inspection, normal range of motion, No CVA tenderness, No vertebral tenderness Extremity Exam: normal inspection, normal range of motion, pelvis stable Skin Exam: normal color, warm, dry, No rash Lymphatic Exam: No adenopathy Results - Labs Lab/Micro Results: Accuchecks Date 12/14/18 Date 12/14/18 Time 11:30 Time 07:30 Accucheck Value: 327 Accucheck Value: 258 Lab Results-Last 24 Hours 12/14/18 12/14/18 12/14/18 Range/Units 04:40 04:48 04:48 WBC 12.6 H (4.0-10.5) K/mm3 RBC 4.36 (4.1-5.6) M/mm3 Hgb 12.5 (12.5-18.0) gm/dl Hct 39.4 L (42-50) % MCV 90.4 (78-100) fl MCH 28.7 (26-32) pg MCHC 31.7 L (32-36) g/dl RDW 15.9 H (11.5-14.0) % Plt Count 210 (150-450) K/mm3 MPV 9.3 (6-9.5) fl Gran % 68.9 H (36.0-66.0) % Eos # (Auto) 0.01 (0-0.5) Absolute Lymphs (auto) 2.21 (1.0-4.6) Absolute Monos (auto) 1.68 H (0.0-1.3) Lymphocytes % 17.5 L (24.0-44.0) % Monocytes % 13.3 H (0.0-12.0) % Eosinophils % 0.1 (0.00-5.0) % Basophils % 0.2 (0.0-0.4) % Absolute Granulocytes 8.72 H (1.4-6.9) Basophils # 0.02 (0-0.4) PT (8.83-12.87) SECONDS INR (0.8-3.0) Sodium 136 L (137-145) mmol/L Potassium 3.6 (3.5-5.1) mmol/L Chloride 101 (98-107) mmol/L Carbon Dioxide 24 (22-30) mmol/L Anion Gap 14.8 (5-15) MEQ/L BUN 23 H (9-20) mg/dL Creatinine 0.79 (0.66-1.25) mg/dL Estimated GFR > 60.0 ML/MIN Glucose 361 H (74-106) mg/dL Hemoglobin A1c (4.5-6.0) % Lactic Acid 2.9 H (0.4-2.0) Calcium 9.1 (8.4-10.2) mg/dL Magnesium 2.0 (1.6-2.3) mg/dL Total Bilirubin 0.30 (0.2-1.3) mg/dL AST 35 (17-59) U/L ALT 42 (0-50) U/L Alkaline Phosphatase 48 (38-126) U/L Troponin I (0.000-0.034) ng/mL NT-Pro-B Natriuret Pep 86.2 (0-900) pg/mL Serum Total Protein 6.8 (6.3-8.2) g/dL Albumin 3.7 (3.5-5.0) g/dL Influenza Type A Ag (NEGATIVE) Influenza Type B Ag (NEGATIVE) RSV (PCR) (Negative) 12/14/18 12/14/18 12/14/18 Range/Units 04:48 04:48 05:00 WBC (4.0-10.5) K/mm3 RBC (4.1-5.6) M/mm3 Hgb (12.5-18.0) gm/dl Hct (42-50) % MCV (78-100) fl MCH (26-32) pg MCHC (32-36) g/dl RDW (11.5-14.0) % Plt Count (150-450) K/mm3 MPV (6-9.5) fl Gran % (36.0-66.0) % Eos # (Auto) (0-0.5) Absolute Lymphs (auto) (1.0-4.6) Absolute Monos (auto) (0.0-1.3) Lymphocytes % (24.0-44.0) % Monocytes % (0.0-12.0) % Eosinophils % (0.00-5.0) % Basophils % (0.0-0.4) % Absolute Granulocytes (1.4-6.9) Basophils # (0-0.4) PT 12.4 (8.83-12.87) SECONDS INR 1.07 (0.8-3.0) Sodium (137-145) mmol/L Potassium (3.5-5.1) mmol/L Chloride (98-107) mmol/L Carbon Dioxide (22-30) mmol/L Anion Gap (5-15) MEQ/L BUN (9-20) mg/dL Creatinine (0.66-1.25) mg/dL Estimated GFR ML/MIN Glucose (74-106) mg/dL Hemoglobin A1c (4.5-6.0) % Lactic Acid (0.4-2.0) Calcium (8.4-10.2) mg/dL Magnesium (1.6-2.3) mg/dL Total Bilirubin (0.2-1.3) mg/dL AST (17-59) U/L ALT (0-50) U/L Alkaline Phosphatase (38-126) U/L Troponin I < 0.012 (0.000-0.034) ng/mL NT-Pro-B Natriuret Pep (0-900) pg/mL Serum Total Protein (6.3-8.2) g/dL Albumin (3.5-5.0) g/dL Influenza Type A Ag NEGATIVE (NEGATIVE) Influenza Type B Ag NEGATIVE (NEGATIVE) RSV (PCR) NEGATIVE (Negative) 12/14/18 12/14/18 12/14/18 Range/Units 06:45 07:15 07:15 WBC (4.0-10.5) K/mm3 RBC (4.1-5.6) M/mm3 Hgb (12.5-18.0) gm/dl Hct (42-50) % MCV (78-100) fl MCH (26-32) pg MCHC (32-36) g/dl RDW (11.5-14.0) % Plt Count (150-450) K/mm3 MPV (6-9.5) fl Gran % (36.0-66.0) % Eos # (Auto) (0-0.5) Absolute Lymphs (auto) (1.0-4.6) Absolute Monos (auto) (0.0-1.3) Lymphocytes % (24.0-44.0) % Monocytes % (0.0-12.0) % Eosinophils % (0.00-5.0) % Basophils % (0.0-0.4) % Absolute Granulocytes (1.4-6.9) Basophils # (0-0.4) PT (8.83-12.87) SECONDS INR (0.8-3.0) Sodium (137-145) mmol/L Potassium (3.5-5.1) mmol/L Chloride (98-107) mmol/L Carbon Dioxide (22-30) mmol/L Anion Gap (5-15) MEQ/L BUN (9-20) mg/dL Creatinine (0.66-1.25) mg/dL Estimated GFR ML/MIN Glucose (74-106) mg/dL Hemoglobin A1c 9.84 H (4.5-6.0) % Lactic Acid 2.5 H (0.4-2.0) Calcium (8.4-10.2) mg/dL Magnesium (1.6-2.3) mg/dL Total Bilirubin (0.2-1.3) mg/dL AST (17-59) U/L ALT (0-50) U/L Alkaline Phosphatase (38-126) U/L Troponin I 0.014 (0.000-0.034) ng/mL NT-Pro-B Natriuret Pep (0-900) pg/mL Serum Total Protein (6.3-8.2) g/dL Albumin (3.5-5.0) g/dL Influenza Type A Ag (NEGATIVE) Influenza Type B Ag (NEGATIVE) RSV (PCR) (Negative) 12/14/18 12/14/18 Range/Units 09:32 10:06 WBC (4.0-10.5) K/mm3 RBC (4.1-5.6) M/mm3 Hgb (12.5-18.0) gm/dl Hct (42-50) % MCV (78-100) fl MCH (26-32) pg MCHC (32-36) g/dl RDW (11.5-14.0) % Plt Count (150-450) K/mm3 MPV (6-9.5) fl Gran % (36.0-66.0) % Eos # (Auto) (0-0.5) Absolute Lymphs (auto) (1.0-4.6) Absolute Monos (auto) (0.0-1.3) Lymphocytes % (24.0-44.0) % Monocytes % (0.0-12.0) % Eosinophils % (0.00-5.0) % Basophils % (0.0-0.4) % Absolute Granulocytes (1.4-6.9) Basophils # (0-0.4) PT (8.83-12.87) SECONDS INR (0.8-3.0) Sodium (137-145) mmol/L Potassium (3.5-5.1) mmol/L Chloride (98-107) mmol/L Carbon Dioxide (22-30) mmol/L Anion Gap (5-15) MEQ/L BUN (9-20) mg/dL Creatinine (0.66-1.25) mg/dL Estimated GFR ML/MIN Glucose (74-106) mg/dL Hemoglobin A1c (4.5-6.0) % Lactic Acid 3.4 H (0.4-2.0) Calcium (8.4-10.2) mg/dL Magnesium (1.6-2.3) mg/dL Total Bilirubin (0.2-1.3) mg/dL AST (17-59) U/L ALT (0-50) U/L Alkaline Phosphatase (38-126) U/L Troponin I 0.013 (0.000-0.034) ng/mL NT-Pro-B Natriuret Pep (0-900) pg/mL Serum Total Protein (6.3-8.2) g/dL Albumin (3.5-5.0) g/dL Influenza Type A Ag (NEGATIVE) Influenza Type B Ag (NEGATIVE) RSV (PCR) (Negative) Accuchecks Date 12/14/18 Date 12/14/18 Time 11:30 Time 07:30 Accucheck Value: 327 Accucheck Value: 258 - Radiology Impressions Radiology Exams & Impressions: Radiology Procedures Category Date Time Status CHEST 1 VIEW (PORTABLE) Stat Exams 12/14/18 04:05 Completed RAD/CHEST 1 VIEW (PORTABLE) Indication: Cough. Difficulty breathing. Comparison: One day earlier. Portable chest remains clear. Heart and mediastinal structures within normal limits. Stable right hilar calcified node and left Port-A-Cath. No new/acute findings. - Other Procedures and Tests Respiratory Therapy 12/14/18 06:43 Oxygen Oxymizer LPM 2% Respiratory Nebulizer STAT 12/14/18 09:06 RT Screen per Nursing Assess ONCE Assessment/Plan (1) COPD exacerbation Current Visit: Yes Status: Acute Assessment & Plan: Last Vital Signs Temp 97.8 F 12/15/18 07:52 Pulse 84 12/15/18 07:52 Resp 20 12/15/18 07:52 BP 133/80 12/15/18 07:52 Pulse Ox 92 L 12/15/18 07:52 Allergies tuberculin,PPD,multi-puncture [From Tuberculin PPD Mary Ellen Test] Allergy ( Intermediate, Verified 12/14/18 03:50) Rash butorphanol tartrate [From Stadol] Allergy (Unknown, Verified 12/14/18 03:50) chlorpromazine HCl [From Thorazine] Allergy (Unknown, Verified 12/14/18 03:50) irritable haloperidol Allergy (Unknown, Verified 12/14/18 03:50) "makes me stay awake too much" ketorolac tromethamine [From Toradol] Allergy (Unknown, Verified 12/14/18 03:50) severe pain in lower back and kidneys nalbuphine [Nalbuphine] Allergy (Unknown, Verified 12/14/18 03:50) prochlorperazine edisylate [From Compazine] Allergy (Unknown, Verified 12/14/18 03:50) irritable lisinopril Adverse Reaction (Verified 12/14/18 03:50) Cough chloraprep Allergy (Intermediate, Uncoded 10/28/18 09:24) Rash Active Medications Albuterol Sulfate (Proventil 2.5 Mg/3 Ml Neb) 2.5 mg IH Q4H PRN PRN PRN Reason: SHORTNESS OF BREATH/WHEEZING Stop: 01/13/19 13:27 Last Admin: 12/14/18 14:13 Dose: 2.5 mg Apixaban (Eliquis 2.5 Mg Tablet) 2.5 mg PO BID [facility] Stop: 01/13/19 09:59 Last Admin: 12/14/18 22:17 Dose: 2.5 mg Brimonidine Tartrate (Alphagan P 0.15%) 0 ml OP BID [facility] Stop: 01/13/19 12:59 Last Admin: 12/14/18 22:16 Dose: 1 ml Bumetanide (Bumex 1 Mg) 1 mg IV Q12HT [facility] Stop: 01/13/19 09:59 Last Admin: 12/14/18 22:17 Dose: 1 mg Cholecalciferol (Vitamin D) 3,000 unit PO DAILY [facility] Stop: 01/13/19 13:14 Last Admin: 12/14/18 13:23 Dose: 3,000 unit Dorzolamide/Timolol (Cosopt Ophthalmic 10 Ml) 0 ml OP BID [facility] Stop: 01/13/19 13:14 Last Admin: 12/14/18 22:17 Dose: 1 ml Furosemide (Lasix 20 Mg) 30 mg PO DAILY [facility] Stop: 01/14/19 09:59 Heparin Sodium (Beef Lung) (Heparin Lock Flush 100 Units/Ml 5ml Syringe) 500 units PORT FLUSH PRN PRN PRN Reason: IV PORT FLUSH Stop: 01/13/19 06:58 Last Admin: 12/15/18 00:11 Dose: 500 units Azithromycin (Zithromax 500 Mg/ 250 Ml Nacl Premix) 500 mg in 250 mls @ 250 mls /hr IV Q24H22 [facility] Stop: 01/13/19 21:59 Last Admin: 12/14/18 23:03 Dose: 250 mls/hr Ceftriaxone Sodium/Dextrose (Rocephin 1 Gm-D5w 50 Ml Bag) 1 g in 50 mls @ 100 mls/hr IV Q24H22 [facility] Stop: 01/13/19 21:59 Last Admin: 12/14/18 22:18 Dose: 100 mls/hr Insulin Aspart (Novolog Insulin) 52 unit SQ TIDWM [facility] Stop: 01/13/19 16:59 Last Admin: 12/14/18 17:03 Dose: 52 unit Insulin Glargine (Lantus Insulin) 75 unit SQ BID [facility] Stop: 01/13/19 21:59 Last Admin: 12/14/18 22:18 Dose: 75 unit Levalbuterol HCl (Xopenex 1.25 Mg/0.5 Ml Ud Nebule) 1.25 mg IH Q2HPRN PRN PRN Reason: DIFFICULTY BREATHING Stop: 01/13/19 06:42 Levothyroxine Sodium (Synthroid 25 Mcg) 25 mcg PO QAM [facility] Stop: 01/13/19 09:59 Last Admin: 12/14/18 10:09 Dose: 25 mcg Lorazepam (Ativan 2 Mg/1 Ml Vial) 1 mg IV Q12H PRN PRN PRN Reason: ANXIETY Stop: 01/13/19 11:03 Last Admin: 12/14/18 23:53 Dose: 1 mg Magnesium Oxide (Mag-Ox 400) 400 mg PO BID [facility] Stop: 01/13/19 21:59 Last Admin: 12/14/18 22:18 Dose: 400 mg Metformin HCl (Glucophage 500 Mg) 1,000 mg PO BIDWM [facility] Stop: 01/13/19 07:59 Last Admin: 12/14/18 17:03 Dose: 1,000 mg Methylprednisolone Sodium Succinate (Solu-Medrol 40 Mg) 40 mg IV Q12HT [facility] Stop: 01/13/19 21:59 Last Admin: 12/14/18 22:19 Dose: 40 mg Metoprolol Succinate (Toprol Xl 100 Mg) 100 mg PO DAILY [facility] Stop: 01/13/19 09:59 Last Admin: 12/14/18 10:09 Dose: 100 mg Miscellaneous Information (Medication Intervention) 0 each MC .RN TO CHECK WITH PT [facility] Stop: 01/13/19 13:29 Montelukast Sodium (Singulair 10 Mg) 10 mg PO QPM [facility] Stop: 01/13/19 21:59 Last Admin: 12/14/18 22:18 Dose: 10 mg Potassium Chloride (Klor Con 10 Meq) 10 meq PO BID [facility] Stop: 01/13/19 09:59 Last Admin: 12/14/18 22:17 Dose: 10 meq Pramipexole Dihydrochloride (Mirapex 0.5 Mg Tablet) 1 mg PO HS [facility] Stop: 01/13/19 21:59 Last Admin: 03/30/19 22:18 Dose: 1 mg Simvastatin (Zocor 20mg) 20 mg PO HS [facility] Stop: 01/13/19 21:59 Last Admin: 12/14/18 22:19 Dose: 20 mg Sodium Chloride (Sodium Chloride 0.9% 10 Ml Flush Syringe) 10 ml PORT FLUSH TID [facility] Stop: 01/13/19 09:59 Last Admin: 12/15/18 00:11 Dose: 10 ml Triamterene/HCTZ (Maxzide-25mg Tablet) 2 tab PO DAILY [facility] Stop: 01/13/19 12:59 Last Admin: 12/14/18 14:14 Dose: 2 tab Intake & Output 12/14/18 12/15/18 11:59 11:59 Intake Total 240 1257 Output Total 475 5275 Balance -235 -4018 Weight 123.2 kg Orders 12/14/18 11:04 Lorazepam 2 mg/1 ml [Ativan 2 MG/1 ML VIAL] 1 mg IV Q12H PRN PRN 12/14/18 13:00 Brimonidine Tartrate [Alphagan P 0.15%] 0 ml OP BID 12/14/18 13:15 Cholecalciferol (Vitamin D3) [Vitamin D] 3,000 unit PO DAILY Timolol Maleate/Dorzolam HCl [Cosopt Ophthalmic 10 ml] 0 ml OP BID 12/14/18 13:30 Medication Intervention 0 each [facility] .RN TO CHECK WITH PT 12/14/18 17:00 Insulin Aspart [NovoLOG Insulin] 52 unit SQ TIDWM 12/14/18 22:00 Insulin Glargine [Lantus Insulin] 75 unit SQ BID Magnesium Oxide 400 mg [Mag-Ox 400] 400 mg PO BID Methylprednisolone Sod Suc 40M [solu-MEDROL 40 MG] 40 mg IV Q12HT Montelukast Sodium 10 mg [Singulair 10 MG] 10 mg PO QPM Pramipexole Di-HCl 0.5 mg [Mirapex 0.5 MG Tablet] 1 mg PO HS Simvastatin 20Mg [Zocor 20Mg] 20 mg PO HS 12/15/18 10:00 Furosemide 20 mg [Lasix 20 mg] 30 mg PO DAILY Hctz/Triamteren 37.5 mg/25 mg* [Maxzide-25MG Tablet] 2 tab PO DAILY Lab Tests 12/14/18 12/14/18 12/14/18 07:15 07:15 09:32 Hemoglobin A1c 9.84 H Lactic Acid 3.4 H Troponin I 0.014 12/14/18 12/14/18 12/14/18 10:06 13:16 16:02 Hemoglobin A1c Lactic Acid Troponin I 0.013 < 0.012 < 0.012 Code(s): J44.1 - CHRONIC OBSTRUCTIVE PULMONARY DISEASE W (ACUTE) EXACERBATION (2) Bronchitis Current Visit: Yes Status: Acute Assessment & Plan: continue present management Code(s): J40 - BRONCHITIS, NOT SPECIFIED ACUTE OR CHRONIC (3) Hx pulmonary embolism Current Visit: No Status: Acute Assessment & Plan: on ribavaxin Code(s): Z86.711 - PERSONAL HISTORY OF PULMONARY EMBOLISM
[2018-12-14] MEDS ORDERED: Maxzide-25MG Tablet PO SCH (13:00)
[2018-12-14] MEDS ORDERED: Toprol Xl 100 MG PO SCH (13:00)
[2018-12-14] MEDS ORDERED: SYNTHROID 25 MCG PO SCH (13:15)
[2018-12-14] MEDS: VITAMIN D PO SCH (13:23)
[2018-12-14] MEDS: COSOPT OPHTHALMIC 10 ML OP SCH ×2 (13:24→22:17)
[2018-12-14] MEDS ORDERED: MEDICATION INTERVENTION MC SCH (13:30)
[2018-12-14] MEDS: PROVENTIL 2.5 MG/3 ML NEB IH PRN (14:13)
[2018-12-14] MEDS: Maxzide-25MG Tablet PO SCH (14:14)
[2018-12-14] MEDS: Alphagan P 0.15% OP SCH ×2 (14:15→22:16)
[2018-12-14] MEDS ORDERED: DELTASONE 10 MG PO SCH (15:00)
[2018-12-14] MEDS ORDERED: Singulair 10 MG PO SCH (22:00)
[2018-12-14] MEDS ORDERED: LATANOPROSTENE BUNOD OP SCH (22:00)
[2018-12-14] MEDS ORDERED: NON-FORMULARY ITEM (Rosuvastatin Calcium [Crestor] 10 MG) PO SCH (22:00)
[2018-12-14] MEDS: ELIQUIS 2.5 MG TABLET PO SCH (22:17)
[2018-12-14] MEDS: MAG-OX 400 PO SCH (22:18)
[2018-12-14] MEDS: Lantus Insulin SQ SCH (22:18)
[2018-12-14] MEDS: ROCEPHIN 1 Gm-D5w 50 ml Bag** 1 G/50 ML IVPB IV SCH (22:18)
[2018-12-14] MEDS: Mirapex 0.5 MG Tablet PO SCH (22:18)
[2018-12-14] MEDS: Singulair 10 MG PO SCH (22:18)
[2018-12-14] MEDS: solu-MEDROL 40 MG IV SCH (22:19)
[2018-12-14] MEDS: ZOCOR 20MG PO SCH (22:19)
[2018-12-14] MEDS: Zithromax 500 MG/ 250 ML NaCl Premix 500 MG/250 ML IVPB IV SCH (23:03)
[2018-12-15] MEDS: Sodium Chloride 0.9% 10 ML FLUSH Syringe PORT FLUSH SCH ×4 (00:11→22:31)
--- NOTE | 2018-12-15 08:16 | PCM.NOTE ---
Date and Time: 12/15/18814 Subjective Assessment: doing better - Review of Systems Constitutional: No Fever, No Chills Eyes: No Symptoms Ears, Nose, & Throat: No Symptoms Respiratory: Short Of Breath, No Cough Cardiac: No Chest Pain, No Edema, No Syncope Abdominal/Gastrointestinal: No Abdominal Pain, No Nausea, No Vomiting, No Diarrhea Genitourinary Symptoms: No Dysuria Musculoskeletal: No Back Pain, No Neck Pain Skin: No Rash Neurological: No Dizziness, No Focal Weakness, No Sensory Changes Psychological: No Symptoms Endocrine: No Symptoms Hematologic/Lymphatic: No Symptoms Immunological/Allergic: No Symptoms Objective Exam General Appearance: no apparent distress, alert Neurologic Exam: alert, oriented x 3, cooperative, normal mood/affect, nml cerebellar function, sensation nml, No motor deficits Skin Exam: normal color, warm, dry Eye Exam: PERRL, EOMI, eyes nml inspection Ears, Nose, Throat Exam: normal ENT inspection, pharynx normal, moist mucous membranes Neck Exam: normal inspection, non-tender, supple, full range of motion Respiratory Exam: crackles/rales, rhonchi, wheezing, No respiratory distress Cardiovascular Exam: regular rate/rhythm, normal heart sounds Gastrointestinal/Abdomen Exam: soft, No tenderness, No mass Extremity Exam: normal inspection, normal range of motion Back Exam: normal inspection, normal range of motion, No CVA tenderness, No vertebral tenderness Male Genitalia Exam: deferred Rectal Exam: deferred OBJECTIVE DATA Vital Signs: Vital Signs - 24 hr Temp Pulse Resp BP Pulse Ox 12/15/18 07:52 97.8 F 84 20 133/80 92 L 12/15/18 04:00 98.1 F 81 22 132/78 96 12/14/18 23:59 98.3 F 84 18 128/71 94 L 12/14/18 23:45 97 12/14/18 20:00 97.4 F 88 20 137/73 96 12/14/18 16:00 97.5 F 86 19 143/92 93 L 12/14/18 14:16 99 H 24 94 L 12/14/18 13:50 95 12/14/18 12:00 98.0 F 92 H 19 138/79 92 L 12/14/18 11:54 20 12/14/18 08:49 98.7 F 102 H 20 144/79 93 L Oxygen-Last 24 hours O2 Percentage 2 Liters = 28% O2 Percentage 2 Liters = 28% O2 Percentage 3 Liters = 32% O2 Percentage 3 Liters = 32% Oxygen Flowrate (L/min)-RT 2 Pain Assessment - Last Documented Pain Intensity 0 Pain Scale Used 0-10 Pain Scale Intake and Output: Intake & Output 12/12/18 12/13/18 12/14/18 12/15/18 11:59 11:59 11:59 11:59 Intake Total 240 1257 Output Total 475 7865 Balance -235 -4018 Weight 123.2 kg Lab Results: Accuchecks Date 12/14/18 Date 12/14/18 Time 16:30 Time 11:30 Accucheck Value: 236 Accucheck Value: 358 Accucheck Value: 327 Lab Results-Last 24 Hours 12/14/18 12/14/18 12/14/18 Range/Units 07:15 09:32 10:06 Hemoglobin A1c 9.84 H (4.5-6.0) % Lactic Acid 3.4 H (0.4-2.0) Troponin I 0.013 (0.000-0.034) ng/mL 12/14/18 12/14/18 Range/Units 13:16 16:02 Hemoglobin A1c (4.5-6.0) % Lactic Acid (0.4-2.0) Troponin I < 0.012 < 0.012 (0.000-0.034) ng/mL Radiology Exams: Radiology Procedures Category Date Time Status CHEST 1 VIEW (PORTABLE) Stat Exams 12/14/18 04:05 Completed Multi-Disciplinary Progress Notes: Multi-Disciplinary Progress Notes 12/14/18 13:51 Respiratory Note by Suzy Lora PT APPEARS TO BE MORE SOB, BS DIM AND CLEAR, WILL GIVE PRN ALB NEB TX Initialized on 12/14/18 13:51 - END OF NOTE Assessment/Plan (1) COPD exacerbation Current Visit: Yes Status: Acute Assessment & Plan: Last Vital Signs Temp 97.8 F 12/15/18 07:52 Pulse 84 12/15/18 07:52 Resp 20 12/15/18 07:52 BP 133/80 12/15/18 07:52 Pulse Ox 92 L 12/15/18 07:52 Allergies tuberculin,PPD,multi-puncture [From Tuberculin PPD Mary Ellen Test] Allergy ( Intermediate, Verified 12/14/18 03:50) Rash butorphanol tartrate [From Stadol] Allergy (Unknown, Verified 12/14/18 03:50) chlorpromazine HCl [From Thorazine] Allergy (Unknown, Verified 12/14/18 03:50) irritable haloperidol Allergy (Unknown, Verified 12/14/18 03:50) "makes me stay awake too much" ketorolac tromethamine [From Toradol] Allergy (Unknown, Verified 12/14/18 03:50) severe pain in lower back and kidneys nalbuphine [Nalbuphine] Allergy (Unknown, Verified 12/14/18 03:50) prochlorperazine edisylate [From Compazine] Allergy (Unknown, Verified 12/14/18 03:50) irritable lisinopril Adverse Reaction (Verified 12/14/18 03:50) Cough chloraprep Allergy (Intermediate, Uncoded 10/28/18 09:24) Rash Active Medications Albuterol Sulfate (Proventil 2.5 Mg/3 Ml Neb) 2.5 mg IH Q4H PRN PRN PRN Reason: SHORTNESS OF BREATH/WHEEZING Stop: 01/13/19 13:27 Last Admin: 12/14/18 14:13 Dose: 2.5 mg Apixaban (Eliquis 2.5 Mg Tablet) 2.5 mg PO BID [facility] Stop: 01/13/19 09:59 Last Admin: 12/14/18 22:17 Dose: 2.5 mg Brimonidine Tartrate (Alphagan P 0.15%) 0 ml OP BID [facility] Stop: 01/13/19 12:59 Last Admin: 12/14/18 22:16 Dose: 1 ml Bumetanide (Bumex 1 Mg) 1 mg IV Q12HT [facility] Stop: 01/13/19 09:59 Last Admin: 12/14/18 22:17 Dose: 1 mg Cholecalciferol (Vitamin D) 3,000 unit PO DAILY [facility] Stop: 01/13/19 13:14 Last Admin: 12/14/18 13:23 Dose: 3,000 unit Dorzolamide/Timolol (Cosopt Ophthalmic 10 Ml) 0 ml OP BID [facility] Stop: 01/13/19 13:14 Last Admin: 12/14/18 22:17 Dose: 1 ml Furosemide (Lasix 20 Mg) 30 mg PO DAILY [facility] Stop: 01/14/19 09:59 Heparin Sodium (Beef Lung) (Heparin Lock Flush 100 Units/Ml 5ml Syringe) 500 units PORT FLUSH PRN PRN PRN Reason: IV PORT FLUSH Stop: 01/13/19 06:58 Last Admin: 12/15/18 00:11 Dose: 500 units Azithromycin (Zithromax 500 Mg/ 250 Ml Nacl Premix) 500 mg in 250 mls @ 250 mls /hr IV Q24H22 [facility] Stop: 01/13/19 21:59 Last Admin: 12/14/18 23:03 Dose: 250 mls/hr Ceftriaxone Sodium/Dextrose (Rocephin 1 Gm-D5w 50 Ml Bag) 1 g in 50 mls @ 100 mls/hr IV Q24H22 [facility] Stop: 01/13/19 21:59 Last Admin: 12/14/18 22:18 Dose: 100 mls/hr Insulin Aspart (Novolog Insulin) 52 unit SQ TIDWM [facility] Stop: 01/13/19 16:59 Last Admin: 12/14/18 17:03 Dose: 52 unit Insulin Glargine (Lantus Insulin) 75 unit SQ BID [facility] Stop: 01/13/19 21:59 Last Admin: 12/14/18 22:18 Dose: 75 unit Levalbuterol HCl (Xopenex 1.25 Mg/0.5 Ml Ud Nebule) 1.25 mg IH Q2HPRN PRN PRN Reason: DIFFICULTY BREATHING Stop: 01/13/19 06:42 Levothyroxine Sodium (Synthroid 25 Mcg) 25 mcg PO QAM [facility] Stop: 01/13/19 09:59 Last Admin: 12/14/18 10:09 Dose: 25 mcg Lorazepam (Ativan 2 Mg/1 Ml Vial) 1 mg IV Q12H PRN PRN PRN Reason: ANXIETY Stop: 01/13/19 11:03 Last Admin: 12/14/18 23:53 Dose: 1 mg Magnesium Oxide (Mag-Ox 400) 400 mg PO BID [facility] Stop: 01/13/19 21:59 Last Admin: 12/14/18 22:18 Dose: 400 mg Metformin HCl (Glucophage 500 Mg) 1,000 mg PO BIDWM [facility] Stop: 01/13/19 07:59 Last Admin: 12/14/18 17:03 Dose: 1,000 mg Methylprednisolone Sodium Succinate (Solu-Medrol 40 Mg) 40 mg IV Q12HT [facility] Stop: 01/13/19 21:59 Last Admin: 12/14/18 22:19 Dose: 40 mg Metoprolol Succinate (Toprol Xl 100 Mg) 100 mg PO DAILY [facility] Stop: 01/13/19 09:59 Last Admin: 12/14/18 10:09 Dose: 100 mg Miscellaneous Information (Medication Intervention) 0 each MC .RN TO CHECK WITH PT [facility] Stop: 01/13/19 13:29 Montelukast Sodium (Singulair 10 Mg) 10 mg PO QPM [facility] Stop: 01/13/19 21:59 Last Admin: 12/14/18 22:18 Dose: 10 mg Potassium Chloride (Klor Con 10 Meq) 10 meq PO BID [facility] Stop: 01/13/19 09:59 Last Admin: 12/14/18 22:17 Dose: 10 meq Pramipexole Dihydrochloride (Mirapex 0.5 Mg Tablet) 1 mg PO HS [facility] Stop: 01/13/19 21:59 Last Admin: 12/14/18 22:18 Dose: 1 mg Simvastatin (Zocor 20mg) 20 mg PO HS [facility] Stop: 01/13/19 21:59 Last Admin: 12/14/18 22:19 Dose: 20 mg Sodium Chloride (Sodium Chloride 0.9% 10 Ml Flush Syringe) 10 ml PORT FLUSH TID [facility] Stop: 01/13/19 09:59 Last Admin: 12/15/18 00:11 Dose: 10 ml Triamterene/HCTZ (Maxzide-25mg Tablet) 2 tab PO DAILY [facility] Stop: 01/13/19 12:59 Last Admin: 12/14/18 14:14 Dose: 2 tab Intake & Output 12/14/18 12/15/18 11:59 11:59 Intake Total 240 1257 Output Total 939 4757 Balance -235 -4015 Weight 123.2 kg Orders 12/14/18 11:04 Lorazepam 2 mg/1 ml [Ativan 2 MG/1 ML VIAL] 1 mg IV Q12H PRN PRN 12/14/18 13:00 Brimonidine Tartrate [Alphagan P 0.15%] 0 ml OP BID 12/14/18 13:15 Cholecalciferol (Vitamin D3) [Vitamin D] 3,000 unit PO DAILY Timolol Maleate/Dorzolam HCl [Cosopt Ophthalmic 10 ml] 0 ml OP BID 12/14/18 13:30 Medication Intervention 0 each MC .RN TO CHECK WITH PT 12/14/18 17:00 Insulin Aspart [NovoLOG Insulin] 52 unit SQ TIDWM 12/14/18 22:00 Insulin Glargine [Lantus Insulin] 75 unit SQ BID Magnesium Oxide 400 mg [Mag-Ox 400] 400 mg PO BID Methylprednisolone Sod Suc 40M [solu-MEDROL 40 MG] 40 mg IV Q12HT Montelukast Sodium 10 mg [Singulair 10 MG] 10 mg PO QPM Pramipexole Di-HCl 0.5 mg [Mirapex 0.5 MG Tablet] 1 mg PO HS Simvastatin 20Mg [Zocor 20Mg] 20 mg PO HS 12/15/18 10:00 Furosemide 20 mg [Lasix 20 mg] 30 mg PO DAILY Hctz/Triamteren 37.5 mg/25 mg* [Maxzide-25MG Tablet] 2 tab PO DAILY Lab Tests 12/14/18 12/14/18 12/14/18 07:15 09:32 10:06 Hemoglobin A1c 9.84 H Lactic Acid 3.4 H Troponin I 0.013 12/14/18 12/14/18 13:16 16:02 Hemoglobin A1c Lactic Acid Troponin I < 0.012 < 0.012 Code(s): J44.1 - CHRONIC OBSTRUCTIVE PULMONARY DISEASE W (ACUTE) EXACERBATION (2) Bronchitis Current Visit: Yes Status: Acute Code(s): J40 - BRONCHITIS, NOT SPECIFIED ACUTE OR CHRONIC (3) Hx pulmonary embolism Current Visit: No Status: Acute Code(s): Z86.711 - PERSONAL HISTORY OF PULMONARY EMBOLISM
[2018-12-15] MEDS: Glucophage 500 MG PO SCH ×2 (08:22→16:45)
[2018-12-15] MEDS: NovoLOG Insulin SQ SCH ×3 (08:23→16:45)
[2018-12-15] MEDS: PROVENTIL 2.5 MG/3 ML NEB IH PRN (08:48)
[2018-12-15] MEDS ORDERED: CHOLECALCIFEROL 3000 UNIT PO SCH (10:00)
[2018-12-15] MEDS: Lantus Insulin SQ SCH ×2 (10:14→22:29)
[2018-12-15] MEDS: BUMEX 1 MG IV SCH ×2 (10:14→22:29)
[2018-12-15] MEDS: solu-MEDROL 40 MG IV SCH ×2 (10:14→22:31)
[2018-12-15] MEDS: VITAMIN D PO SCH (10:15)
[2018-12-15] MEDS: COSOPT OPHTHALMIC 10 ML OP SCH ×2 (10:16→22:29)
[2018-12-15] MEDS: MAG-OX 400 PO SCH ×2 (10:16→22:30)
[2018-12-15] MEDS: LASIX 20 MG PO SCH (10:19)
[2018-12-15] MEDS: Klor Con 10 MEQ PO SCH ×2 (10:19→22:29)
[2018-12-15] MEDS: SYNTHROID 25 MCG PO SCH (10:22)
[2018-12-15] MEDS: Toprol Xl 100 MG PO SCH (10:23)
[2018-12-15] MEDS: Maxzide-25MG Tablet PO SCH (10:24)
[2018-12-15] MEDS: Alphagan P 0.15% OP SCH ×2 (10:38→22:28)
[2018-12-15] MEDS: ELIQUIS 2.5 MG TABLET PO SCH ×2 (10:41→22:29)
[2018-12-15] MEDS: Ativan 2 MG/1 ML VIAL IV PRN (11:57)
[2018-12-15] MEDS ORDERED: TYLENOL 325 MG PO PRN (16:12)
[2018-12-15] MEDS ORDERED: PHENERGAN 25 MG PO PRN (18:41)
[2018-12-15] MEDS: ROCEPHIN 1 Gm-D5w 50 ml Bag** 1 G/50 ML IVPB IV SCH (22:30)
[2018-12-15] MEDS: Singulair 10 MG PO SCH (22:30)
[2018-12-15] MEDS: Mirapex 0.5 MG Tablet PO SCH (22:30)
[2018-12-15] MEDS: ZOCOR 20MG PO SCH (22:31)
[2018-12-15] MEDS: Zithromax 500 MG/ 250 ML NaCl Premix 500 MG/250 ML IVPB IV SCH (23:14)
[2018-12-16] MEDS: Ativan 2 MG/1 ML VIAL IV PRN (00:19)
[2018-12-16] MEDS: PROVENTIL 2.5 MG/3 ML NEB IH PRN (07:20)
[2018-12-16 07:36] VITALS: BP 132/75; PULSE 89; O2SAT 95
[2018-12-16] MEDS: NovoLOG Insulin SQ SCH (08:02)
[2018-12-16] MEDS: Glucophage 500 MG PO SCH (08:02)
--- NOTE | 2018-12-16 08:25 | PCM.DS ---
Discharge Summary Date of Admission: 12/14/18 06:38 Admitting Physician: ANSHU NYE Primary Care Provider: ANSHU NYE Allergies Allergies tuberculin,PPD,multi-puncture [From Tuberculin PPD Mary Ellen Test] Allergy ( Intermediate, Verified 12/14/18 03:50) Rash butorphanol tartrate [From Stadol] Allergy (Unknown, Verified 12/14/18 03:50) chlorpromazine HCl [From Thorazine] Allergy (Unknown, Verified 12/14/18 03:50) irritable haloperidol Allergy (Unknown, Verified 12/14/18 03:50) "makes me stay awake too much" ketorolac tromethamine [From Toradol] Allergy (Unknown, Verified 12/14/18 03:50) severe pain in lower back and kidneys nalbuphine [Nalbuphine] Allergy (Unknown, Verified 12/14/18 03:50) prochlorperazine edisylate [From Compazine] Allergy (Unknown, Verified 12/14/18 03:50) irritable lisinopril Adverse Reaction (Verified 12/14/18 03:50) Cough chloraprep Allergy (Intermediate, Uncoded 10/28/18 09:24) Rash Hospital Summary - Hospital Course Hospital Course: patient was admitted with cough and shortness of breath, found to have copd exacerbation. was treated with antibiotics and steroids. he is back to his baseline at this time and feels well. he does relay anxiety with bipap at night , received ativan here at bedtime and doing much better at this time. - Vitals & Intake/Output Vital Signs: Vital Signs Temperature 98.0 F 12/16/18 07:35 Pulse Rate 89 12/16/18 07:35 Respiratory Rate 18 12/16/18 07:35 Blood Pressure 132/75 12/16/18 07:35 O2 Sat by Pulse Oximetry 95 12/16/18 07:35 Oxygen-Last Documented O2 Percentage 2 Liters = 28% Intake & Output: Intake & Output 12/13/18 12/14/18 12/15/18 12/16/18 11:59 11:59 11:59 11:59 Intake Total 240 1617 1156 Output Total 245 4544 9085 Balance -794 -8255 -1069 Weight 123.2 kg 118.6 kg - Lab Result Diagrams: 12/14/18 04:48 12/14/18 04:48 Lab Results-Last 24 Hrs: Accuchecks Date 12/15/18 Date 12/15/18 Time 16:30 Time 11:30 Accucheck Value: 225 Accucheck Value: 258 Accucheck Value: 264 Accucheck Value: 271 Micro Results-Entire Visit: Accuchecks Date 12/15/18 Date 12/15/18 Time 16:30 Time 11:30 Accucheck Value: 225 Accucheck Value: 258 Accucheck Value: 264 Accucheck Value: 271 - Procedures and Test Procedures and Tests throughout Hospitalization: Therapy Orders & Screens 12/14/18 04:18 Respiratory Nebulizer STAT Comment: Diagnosis: Shortness of Breath 12/14/18 04:30 Respiratory Therapy Assessment DAILY Comment: Diagnosis: Shortness of Breath 12/14/18 06:43 Oxygen Oxymizer LPM 2% Comment: Diagnosis: Shortness of Breath Respiratory Nebulizer STAT Comment: Diagnosis: Shortness of Breath 12/14/18 09:06 RT Screen per Nursing Assess ONCE Comment: Protocol Order Physician Instructions: Greater than 3 points order RT Admission Screen Reason For Exam: Triggered on Admission Diagnosis: ACUTE EXACERBATION COPD Diagnosis: ACUTE EXACERBATION COPD Pneumonia: No Home O2: No Asthma: No CHF: No Home CPAP/BIPAP: Yes Home Nebs/MDI: Yes Total Points: 10 12/14/18 13:46 Peak Expiratory Flow Rate ONCE Comment: Reason For Exam: Diagnosis: c/o shortness of breath for 1 week, multiple Er visits in last week Respiratory Therapy Assessment DAILY Comment: Diagnosis: c/o shortness of breath for 1 week, multiple Er visits in last week 12/14/18 23:44 BiPap/CPAP ROUTINE Comment: Diagnosis: c/o shortness of breath for 1 week, multiple Er visits in last week 12/16/18 07:27 Flutter Therapy UD Comment: Diagnosis: c/o shortness of breath for 1 week, multiple Er visits in last week Discharge Exam General Appearance: no apparent distress Skin Exam: normal color, warm, dry Respiratory Exam: normal breath sounds, lungs clear, No respiratory distress Cardiovascular Exam: regular rate/rhythm, normal heart sounds Gastrointestinal/Abdomen Exam: soft, No tenderness, No mass Extremity Exam: normal inspection, normal range of motion Final Diagnosis/Problem List - Final Discharge Diagnosis/Problem (1) COPD exacerbation Current Visit: Yes Status: Acute Code(s): J44.1 - CHRONIC OBSTRUCTIVE PULMONARY DISEASE W (ACUTE) EXACERBATION - Discharge Disposition: Home, Self-Care Condition: Stable Prescriptions: New LORazepam [Lorazepam] 0.5 mg PO QHS PRN #30 tablet PRN Reason: Anxiety Continue Brimonidine Tartrate [Alphagan P 0.15%] 1 drops OP BID Metformin HCl 1000 mg [Glucophage 1000 MG] 1,000 mg PO BID Magnesium Oxide 400 mg [Mag-Ox 400] 400 mg PO BID #0 tablet Apixaban [Eliquis 5 mg Tablet] 2.5 mg PO BID Levothyroxine Sodium 25 Mcg [Synthroid 25 Mcg] 25 mcg PO DAILY Dorzolamide HCl/Timolol Maleat [Dorzolamide-Timolol Eye Drops] 1 drop OP BID Insulin Glargine [Lantus Insulin] 75 unit SQ BID Insulin Aspart [NovoLOG Insulin] 52 units SQ TIDWM Metoprolol Succinate 100 mg [Toprol Xl 100 MG] 100 mg PO DAILY Montelukast Sodium 10 mg [Singulair 10 MG] 10 mg PO QPM Cholecalciferol (Vitamin D3) [Vitamin D3] 3,000 unit PO DAILY Hctz/Triamteren 37.5 mg/25 mg* [Maxzide-25MG Tablet] 2 mg PO DAILY Furosemide [Lasix] 30 mg PO DAILY Latanoprostene Bunod [Vyzulta] 1 drop OP HS Pramipexole Di-HCl 0.5 mg [Mirapex 0.5 MG Tablet] 1 mg PO HS Prednisone 10 mg [Deltasone 10 mg] 10 mg PO TID #6 tablet Rosuvastatin Calcium [Crestor] 10 mg PO HS Discontinued Cephalexin Mh 500 mg [Keflex 500 mg] 500 mg PO Q6H #40 capsule Follow up with: ANSHU NYE MD [Primary Care Provider] - 1 Week
[2018-12-16] MEDS: solu-MEDROL 40 MG IV SCH (09:06)
[2018-12-16] MEDS: BUMEX 1 MG IV SCH (09:06)
[2018-12-16] MEDS: Toprol Xl 100 MG PO SCH (09:06)
[2018-12-16] MEDS: Klor Con 10 MEQ PO SCH (09:07)
[2018-12-16] MEDS: VITAMIN D PO SCH (09:07)
[2018-12-16] MEDS: ELIQUIS 2.5 MG TABLET PO SCH (09:07)
[2018-12-16] MEDS: LASIX 20 MG PO SCH (09:07)
[2018-12-16] MEDS: SYNTHROID 25 MCG PO SCH (09:07)
[2018-12-16] MEDS: MAG-OX 400 PO SCH (09:08)
[2018-12-16] MEDS: Lantus Insulin SQ SCH (09:08)
[2018-12-16] MEDS: COSOPT OPHTHALMIC 10 ML OP SCH (09:08)
[2018-12-16] MEDS: Alphagan P 0.15% OP SCH (09:08)
[2018-12-16] MEDS: Maxzide-25MG Tablet PO SCH (09:09)
== END 2018-12-16 09:57 | disposition home or self-care (01) ==
LOC: ED 03:47 → MED SURG 06:38
PROVIDERS: ADMIT Family Medicine; ATTEND Family Medicine
DX: J44.1 Chronic obstructive pulmonary disease with (acute) exacerbation (principal); E11.9 Type 2 diabetes mellitus without complications; I10 Essential (primary) hypertension; E03.9 Hypothyroidism, unspecified; F41.9 Anxiety disorder, unspecified; Z79.899 Other long term (current) drug therapy; Z86.711 Personal history of pulmonary embolism
CPT/HCPCS: 36000; 36415; 71045; 80053; 82962; 83036; 83605; 83735; 83880; 84484; 85025; 85610; 87631; 93005; 93041; 93268; 94150; 94640; 94667; 94760; 96365; 96367; 96374; 96375; 99285; G0378; J0456; J0696; J1642; J2060; J2920; J2930; J7609; A9270-GY

== ENCOUNTER 2019-01-31 18:29 | Emergency (ER) | payer MEDICARE ==
[2019-01-31] MEDS ORDERED: Lasix 20 MG/2 ML IV ONE (18:46)
--- NOTE | 2019-01-31 18:51 | ERPHSYRPT ---
- History of Present Illness Source: patient Patient Subjective Stated Complaint: pt here for sob for some time now getting worse, he states hes swelling is getting worse, cough nonproductive, no fever Triage Nursing Assessment: pt walked in, alert, resp easy, no distress, pt has sweling to face, abd, hands and lower legs, Hx Tetanus, Diphtheria Vaccination/Date Given: Yes Hx Influenza Vaccination/Date Given: No Hx Pneumococcal Vaccination/Date Given: Yes Immunizations Up to Date: Yes <PERRI ORTA - Last Filed: 01/31/19 18:47> <TODD PAYAN - Last Filed: 01/31/19 20:28> - History of Present Illness Time Seen by Provider: 01/31/19 18:47 Physician History: mild to mod shortness of breath today, worse with exertion, no chest pain, + edema, no fever, does not smoke (PERRI ORTA) Allergies/Adverse Reactions: tuberculin,PPD,multi-puncture [From Tuberculin PPD Mary Ellen Test] Allergy ( Intermediate, Verified 01/31/19 18:42) Rash butorphanol tartrate [From Stadol] Allergy (Unknown, Verified 01/31/19 18:42) chlorpromazine HCl [From Thorazine] Allergy (Unknown, Verified 01/31/19 18:42) irritable haloperidol Allergy (Unknown, Verified 01/31/19 18:42) "makes me stay awake too much" ketorolac tromethamine [From Toradol] Allergy (Unknown, Verified 01/31/19 18:42) severe pain in lower back and kidneys nalbuphine [Nalbuphine] Allergy (Unknown, Verified 01/31/19 18:42) prochlorperazine edisylate [From Compazine] Allergy (Unknown, Verified 01/31/19 18:42) irritable lisinopril Adverse Reaction (Verified 01/31/19 18:42) Cough chloraprep Allergy (Intermediate, Uncoded 01/31/19 18:42) Rash Home Medications: Brimonidine Tartrate [Alphagan P 0.15%] 1 drops OP BID 09/30/12 [History] Metformin HCl 1000 mg [Glucophage 1000 MG] 1,000 mg PO BID 09/15/14 [History] Apixaban [Eliquis 5 mg Tablet] 2.5 mg PO BID 03/30/15 [History] Levothyroxine Sodium 25 Mcg [Synthroid 25 Mcg] 25 mcg PO DAILY 03/30/15 [ History] Dorzolamide HCl/Timolol Maleat [Dorzolamide-Timolol Eye Drops] 1 drop OP BID [History] Insulin Glargine [Lantus Insulin] 75 unit SQ BID 02/11/17 [History] Insulin Aspart [NovoLOG Insulin] 52 units SQ TIDWM 07/13/17 [History] Metoprolol Succinate 100 mg [Toprol Xl 100 MG] 100 mg PO DAILY 10/25/17 [ History] Montelukast Sodium 10 mg [Singulair 10 MG] 10 mg PO QPM 05/22/18 [History] Cholecalciferol (Vitamin D3) [Vitamin D3] 3,000 unit PO DAILY 06/19/18 [History] Furosemide [Lasix] 30 mg PO DAILY 06/19/18 [History] Hctz/Triamteren 37.5 mg/25 mg* [Maxzide-25MG Tablet] 2 mg PO DAILY 06/19/18 [ History] Latanoprostene Bunod [Vyzulta] 1 drop OP HS 10/06/18 [History] Pramipexole Di-HCl 0.5 mg [Mirapex 0.5 MG Tablet] 1 mg PO HS 10/06/18 [ History] Rosuvastatin Calcium [Crestor] 10 mg PO HS 12/14/18 [History] - Review of Systems Constitutional: No Fever Eyes: No Eye Redness Ears, Nose, & Throat: No Nose Congestion Respiratory: Dyspnea, Dyspnea on Exertion (LABOY), No Cyanosis Cardiac: No Chest Pain Abdominal/Gastrointestinal: No Abdominal Pain, No Vomiting Musculoskeletal: No Back Pain Skin: No Rash Neurological: No Dizziness, No Focal Weakness <PERRI ORTA - Last Filed: 01/31/19 18:47> - Past Medical History Pertinent Past Medical History: Yes Neurological History: Migraines ENT History: Glaucoma Cardiac History: Angina, Hypertension Respiratory History: Pneumonia, Pulmonary Embolism, Sleep Apnea, Other Endocrine Medical History: Diabetes Type II, Hypothyroidism Musculoskeletal History: No Pertinent History GI Medical History: Pancreatitis History: No Pertinent History Psycho-Social History: Anxiety Male Reproductive Disorders: No Pertinent History Other Medical History: Pulmonary hypertension; enlarged heart - Past Surgical History Past Surgical History: Yes Neuro Surgical History: No Pertinent History Cardiac: Cardiac Catheterization Respiratory: No Pertinent History Gastrointestinal: Appendectomy, Cholecystectomy, Hernia Repair, Pancreatic Surgery Genitourinary: No Pertinent History, Other Musculoskeletal: Other Male Surgical History: Testicular Surgery Other Surgical History: old port removed, port placed x 2, had a surgery to look in bladder, right shoulder surgery. SHUNT IN RIGHT EYE. Open shut back up in right eye 10/03/18 - Social History Smoking Status: Never smoker How long have you smoked: years Exposure to second hand smoke: No Alcohol Use: Socially Drug Use: none Patient Lives Alone: No Significant Family History: diabetes <PERRI ORTA - Last Filed: 01/31/19 18:47> - Physical Exam General Appearance: no apparent distress Eye Exam: PERRL/EOMI Ears, Nose, Throat Exam: normal pharynx Neck Exam: normal inspection Respiratory Exam: No respiratory distress, No wheezing Cardiovascular/Chest Exam: regular rate/rhythm Abdominal/Gastrointestinal Exam: soft, No tenderness Extremity Exam: normal range of motion, pedal edema Neurologic Exam: alert, oriented x 3, cooperative Skin Exam: normal color, warm, dry SpO2 Interpretation: normal SpO2: 94 <PERRI ORTA - Last Filed: 01/31/19 18:47> - Nursing Vital Signs Nursing Vital Signs: Initial Vital Signs Temperature 97.9 F 01/31/19 18:33 Pulse Rate 105 H 01/31/19 18:33 Respiratory Rate 24 01/31/19 18:33 Blood Pressure 125/90 01/31/19 18:33 O2 Sat by Pulse Oximetry 94 L 01/31/19 18:33 Pain Scale Pain Intensity 0 - Course Nursing assessment & vital signs reviewed: Yes <TODD PAYAN - Last Filed: 01/31/19 20:28> Ordered Tests: Active Orders 24 hr Category Date Time Status Paper Carrier STAT Care 01/31/19 18:45 Active EKG-ER Only STAT Care 01/31/19 18:45 Active IV Insertion STAT Care 01/31/19 18:45 Active CHEST 1 VIEW (PORTABLE) Stat Exams 01/31/19 19:03 Taken CBC W DIFF Stat Lab 01/31/19 19:10 Completed CMP Stat Lab 01/31/19 19:10 Completed D-DIMER QUANTITATION Stat Lab 01/31/19 19:10 Completed NT PRO BNP Stat Lab 01/31/19 19:10 Completed PROTIME WITH INR Stat Lab 01/31/19 19:10 Completed TROPONIN Q3H Lab 01/31/19 19:10 Completed TROPONIN Q3H Lab 01/31/19 21:45 Ordered TROPONIN Q3H Lab 02/01/19 00:45 Ordered TROPONIN Q3H Lab 02/01/19 03:45 Ordered TROPONIN Q3H Lab 02/01/19 06:45 Ordered Medication Summary Discontinued Medications Generic Name Dose Route Start Last Admin Trade Name Freq PRN Reason Stop Dose Admin Furosemide 20 mg 01/31/19 18:46 01/31/19 19:40 Lasix 20 Mg/2 Ml IV 01/31/19 18:47 20 mg AFTER EA UNIT BLOOD ONE Administration Furosemide Confirm 01/31/19 19:39 Lasix 40 Mg/4 Ml Administered 01/31/19 19:40 Dose 40 mg .ROUTE .STK-MED ONE Potassium Bicarbonate 50 meq 01/31/19 20:23 K-Lyte 25 Meq PO 01/31/19 20:24 STAT ONE Lab/Rad Data: Laboratory Result Diagrams 01/31/19 19:10 01/31/19 19:10 Laboratory Results 01/31/19 01/31/19 01/31/19 Range/Units 19:10 19:10 19:10 WBC 8.5 (4.0-10.5) K/mm3 RBC 4.81 (4.1-5.6) M/mm3 Hgb 14.1 (12.5-18.0) gm/dl Hct 43.5 (42-50) % MCV 90.4 (78-100) fl MCH 29.3 (26-32) pg MCHC 32.4 (32-36) g/dl RDW 15.8 H (11.5-14.0) % Plt Count 200 (150-450) K/mm3 MPV 9.6 H (6-9.5) fl Gran % 58.3 (36.0-66.0) % Eos # (Auto) 0.23 (0-0.5) Absolute Lymphs (auto) 2.18 (1.0-4.6) Absolute Monos (auto) 1.10 (0.0-1.3) Lymphocytes % 25.6 (24.0-44.0) % Monocytes % 12.9 H (0.0-12.0) % Eosinophils % 2.7 (0.00-5.0) % Basophils % 0.5 (0.0-0.4) % Absolute Granulocytes 4.97 (1.4-6.9) Basophils # 0.04 (0-0.4) PT 11.6 (8.83-12.87) SECONDS INR 1.00 (0.8-3.0) D-Dimer 250 (215-500) ng/mL Sodium 138 (137-145) mmol/L Potassium 3.0 L (3.5-5.1) mmol/L Chloride 96 L (98-107) mmol/L Carbon Dioxide 30 (22-30) mmol/L Anion Gap 14.6 (5-15) MEQ/L BUN 22 H (9-20) mg/dL Creatinine 0.82 (0.66-1.25) mg/dL Estimated GFR > 60.0 ML/MIN Glucose 275 H (74-106) mg/dL Calcium 9.4 (8.4-10.2) mg/dL Total Bilirubin 0.30 (0.2-1.3) mg/dL AST 46 (17-59) U/L ALT 46 (0-50) U/L Alkaline Phosphatase 67 (38-126) U/L Troponin I (0.000-0.034) ng/mL NT-Pro-B Natriuret Pep 11.5 (0-900) pg/mL Serum Total Protein 6.9 (6.3-8.2) g/dL Albumin 3.8 (3.5-5.0) g/dL 01/31/19 Range/Units 19:10 WBC (4.0-10.5) K/mm3 RBC (4.1-5.6) M/mm3 Hgb (12.5-18.0) gm/dl Hct (42-50) % MCV (78-100) fl MCH (26-32) pg MCHC (32-36) g/dl RDW (11.5-14.0) % Plt Count (150-450) K/mm3 MPV (6-9.5) fl Gran % (36.0-66.0) % Eos # (Auto) (0-0.5) Absolute Lymphs (auto) (1.0-4.6) Absolute Monos (auto) (0.0-1.3) Lymphocytes % (24.0-44.0) % Monocytes % (0.0-12.0) % Eosinophils % (0.00-5.0) % Basophils % (0.0-0.4) % Absolute Granulocytes (1.4-6.9) Basophils # (0-0.4) PT (8.83-12.87) SECONDS INR (0.8-3.0) D-Dimer (215-500) ng/mL Sodium (137-145) mmol/L Potassium (3.5-5.1) mmol/L Chloride (98-107) mmol/L Carbon Dioxide (22-30) mmol/L Anion Gap (5-15) MEQ/L BUN (9-20) mg/dL Creatinine (0.66-1.25) mg/dL Estimated GFR ML/MIN Glucose (74-106) mg/dL Calcium (8.4-10.2) mg/dL Total Bilirubin (0.2-1.3) mg/dL AST (17-59) U/L ALT (0-50) U/L Alkaline Phosphatase (38-126) U/L Troponin I < 0.012 (0.000-0.034) ng/mL NT-Pro-B Natriuret Pep (0-900) pg/mL Serum Total Protein (6.3-8.2) g/dL Albumin (3.5-5.0) g/dL <PERRI ORTA - Last Filed: 01/31/19 18:47> - Progress Progress: improved Air Movement: good Blood Culture(s) Obtained: No Antibiotics given: No Counseled pt/family regarding: lab results, diagnosis, need for follow-up, rad results <TODD PAYAN - Last Filed: 01/31/19 20:28> - Progress Progress Note: 01/31/19 18:[address] Payan at 19:00 (PERRI ORTA) 01/31/19 20:25 cxr-no acute process. (TODD PAYAN) <PERRI ORTA - Last Filed: 01/31/19 18:47> - Departure Departure Disposition: Home Critical Care Time: No <TODD PAYAN - Last Filed: 01/31/19 20:28> - Departure Clinical Impression: Swelling, Hypokalemia Condition: Stable Referrals: ANSHU PAZ MD [Primary Care Provider] - Additional Instructions: follow up with dr. paz on sunday for further management including referral to cardiology and nephrology if indicated. Prescriptions: Potassium Chloride 10 Meq Tab* [Klor Con 10 MEQ] 10 meq PO BID #5 tab
[2019-01-31 19:17] LABS: BASOPHIL % 0.5 % (0.0-0.4); Basophil (Absolute #) 0.04 (0-0.4); Eosinophil % 2.7 % (0.00-5.0); Eosinophil (Absolute #) 0.23 (0-0.5); Granulocyte Absolute (ANC) 4.97 (1.4-6.9); Granulocytes % 58.3 % (36.0-66.0); Hematocrit 43.5 % (42-50); Hemoglobin 14.1 gm/dl (12.5-18.0); Lymphocyte (Absolute #) 2.18 (1.0-4.6); Lymphocytes % 25.6 % (24.0-44.0); Mean Cell Volume 90.4 fl (78-100); Mean Corpuscular Hemoglobin 29.3 pg (26-32); Mean Corpuscular Hgb Concent. 32.4 g/dl (32-36); Mean Platelet Volume 9.6 fl (6-9.5); Monocytes % 12.9 % (0.0-12.0); Platelet Count 200 K/mm3 (150-450); Red Blood Count 4.81 M/mm3 (4.1-5.6); Red Cell Distribution Width 15.8 % (11.5-14.0); White Blood Count 8.5 K/mm3 (4.0-10.5)
[2019-01-31 19:37] LABS: PROTIME 11.6 SECONDS (8.83-12.87)
[2019-01-31] MEDS ORDERED: Lasix 40 MG/4 ML ONE (19:39)
[2019-01-31 19:50] LABS: ALBUMIN 3.8 g/dL (3.5-5.0); ALKALINE PHOSPHATASE 67 U/L (38-126); ANION GAP 14.6 MEQ/L (5-15); BLOOD UREA NITROGEN 22 mg/dL (9-20); CHLORIDE 96 mmol/L (98-107); Calcium 9.4 mg/dL (8.4-10.2); Carbon Dioxide 30 mmol/L (22-30); Creatinine 1 0.82 mg/dL (0.66-1.25); Glucose 275 mg/dL (74-106); NT PRO BNP 11.5 pg/mL (0-900); SGOT/AST 46 U/L (17-59); SGPT/ALT 46 U/L (0-50); SODIUM 138 mmol/L (137-145); Total Protein 6.9 g/dL (6.3-8.2)
[2019-01-31 20:15] VITALS: BP 133/82; O2SAT 95
[2019-01-31] MEDS ORDERED: K-LYTE 25 MEQ PO ONE (20:23)
[2019-01-31] MEDS ORDERED: K-LYTE 25 MEQ ONE (20:27)
[2019-01-31 20:48] VITALS: PULSE 100
--- NOTE | 2019-01-31 21:36 | XRAY ---
Indication: Fluid retention. Comparison: December 14, 2018. Portable chest remains clear. Heart is not enlarged for AP portable technique again with left Port-A-Cath. No new/acute findings.
== END 2019-01-31 20:53 | disposition home or self-care (01) ==
LOC: ED 18:29
DX: E87.6 Hypokalemia (principal); I10 Essential (primary) hypertension; E11.9 Type 2 diabetes mellitus without complications; Z79.4 Long term (current) use of insulin; G47.30 Sleep apnea, unspecified; E03.9 Hypothyroidism, unspecified; F41.9 Anxiety disorder, unspecified; I51.7 Cardiomegaly; Z79.01 Long term (current) use of anticoagulants; Z79.899 Other long term (current) drug therapy; Z86.711 Personal history of pulmonary embolism
CPT/HCPCS: 36000; 36415; 71045; 80053; 83880; 84484; 85025; 85379; 85610; 93005; 93041; 96374; 99284; J1642; J1940; A9270-GY

== ENCOUNTER 2019-02-20 10:27 | Emergency (ER) | payer MEDICARE ==
--- NOTE | 2019-02-20 10:51 | ERPHSYRPT ---
- History of Present Illness Time Seen by Provider: 02/20/19 10:46 Source: patient Exam Limitations: no limitations Patient Subjective Stated Complaint: alert and oriented with c/o SOB and swelling x 1 1/2 weeks. seen at [facility] yesterday and [place] this AM. swelling generalized Triage Nursing Assessment: alert with exertional SOB. noted swelling to arms, hands and bilateral lower extremities. has hx of same.. seen here last week for same.. had syncopal episode yesterday which he had evaluated at [facility] ER. lungs clear bilateally. feels like skin is being town due to being so tight. was [facility] Physician History: 53-year-old white male arrives with complaint of shortness of breath for 3-4 days he states he feels like he is short of breath he states he's been having swelling to his extremities. Patient was seen yesterday at [facility] for a syncopal episode at work . Patient was seen today by the [place] clinic he states that he was told by the [place] [facility] that they thought he should be treated in a hospital however he states they told him increase his Lasix. Patient states he does not want to go to [place] hospital so he came here. He has no chest pain Patient was seen here approximately 2 weeks ago for same complaint Past medical history includes migraines, glaucoma, angina, high blood pressure, pneumonia, pulmonary embolism, sleep apnea, diabetes type 2, hypothyroidism, pancreatitis, anxiety, pulmonary hypertension, enlarged heart Past surgical history includes cardiac catheter, appendectomy, cholecystectomy, hernia repair, pancreatic surgery, testicular surgery, port placed and removed, right shoulder surgery, shunt in his right eye Timing/Duration: day(s) (33-4 days) Severity: moderate Modifying Factors: Improves With: nothing Associated Symptoms: shortness of breath, other (sswelling of hands and feet), No nausea, No vomiting, No abdominal pain, No heartburn, No diaphoresis, No cough, No chills, No chest pain, No fever, No headaches, No loss of appetite, No malaise, No rash, No syncope, No seizure, No weakness Allergies/Adverse Reactions: tuberculin,PPD,multi-puncture [From Tuberculin PPD Mary Ellen Test] Allergy ( Intermediate, Verified 01/31/19 18:42) Rash butorphanol tartrate [From Stadol] Allergy (Unknown, Verified 01/31/19 18:42) chlorpromazine HCl [From Thorazine] Allergy (Unknown, Verified 01/31/19 18:42) irritable haloperidol Allergy (Unknown, Verified 01/31/19 18:42) "makes me stay awake too much" ketorolac tromethamine [From Toradol] Allergy (Unknown, Verified 01/31/19 18:42) severe pain in lower back and kidneys nalbuphine [Nalbuphine] Allergy (Unknown, Verified 01/31/19 18:42) prochlorperazine edisylate [From Compazine] Allergy (Unknown, Verified 01/31/19 18:42) irritable lisinopril Adverse Reaction (Verified 01/31/19 18:42) Cough chloraprep Allergy (Intermediate, Uncoded 01/31/19 18:42) Rash Home Medications: Brimonidine Tartrate [Alphagan P 0.15%] 1 drops OP BID 09/30/12 [History] Metformin HCl 1000 mg [Glucophage 1000 MG] 1,000 mg PO BID 09/15/14 [History] Apixaban [Eliquis 5 mg Tablet] 2.5 mg PO BID 03/30/15 [History] Levothyroxine Sodium 25 Mcg [Synthroid 25 Mcg] 25 mcg PO DAILY 03/30/15 [ History] Dorzolamide HCl/Timolol Maleat [Dorzolamide-Timolol Eye Drops] 1 drop OP BID [History] Insulin Glargine [Lantus Insulin] 75 unit SQ BID 02/11/17 [History] Insulin Aspart [NovoLOG Insulin] 52 units SQ TIDWM 07/13/17 [History] Metoprolol Succinate 100 mg [Toprol Xl 100 MG] 100 mg PO DAILY 10/25/17 [ History] Montelukast Sodium 10 mg [Singulair 10 MG] 10 mg PO QPM 05/22/18 [History] Cholecalciferol (Vitamin D3) [Vitamin D3] 3,000 unit PO DAILY 06/19/18 [History] Furosemide [Lasix] 30 mg PO DAILY 06/19/18 [History] Hctz/Triamteren 37.5 mg/25 mg* [Maxzide-25MG Tablet] 2 mg PO DAILY 06/19/18 [ History] Latanoprostene Bunod [Vyzulta] 1 drop OP HS 10/06/18 [History] Pramipexole Di-HCl 0.5 mg [Mirapex 0.5 MG Tablet] 1 mg PO HS 10/06/18 [ History] Rosuvastatin Calcium [Crestor] 10 mg PO HS 12/14/18 [History] Hx Tetanus, Diphtheria Vaccination/Date Given: Yes Hx Influenza Vaccination/Date Given: No Hx Pneumococcal Vaccination/Date Given: Yes - Review of Systems Constitutional: No Fever, No Chills Eyes: No Symptoms Ears, Nose, & Throat: No Symptoms Respiratory: Dyspnea Cardiac: Edema, Syncope (syncope yesterday seen at [facility] for this), No Chest Pain, No Palpitations Abdominal/Gastrointestinal: No Abdominal Pain, No Nausea, No Vomiting, No Diarrhea Genitourinary Symptoms: No Dysuria Musculoskeletal: No Back Pain, No Neck Pain Skin: No Rash Neurological: No Dizziness, No Focal Weakness, No Sensory Changes Psychological: No Symptoms Endocrine: No Symptoms All Other Systems: Reviewed and Negative - Past Medical History Pertinent Past Medical History: Yes Neurological History: Migraines ENT History: Glaucoma Cardiac History: Angina, Hypertension Respiratory History: Pneumonia, Pulmonary Embolism, Sleep Apnea, Other Endocrine Medical History: Diabetes Type II, Hypothyroidism Musculoskeletal History: No Pertinent History GI Medical History: Pancreatitis History: No Pertinent History Psycho-Social History: Anxiety Male Reproductive Disorders: No Pertinent History Other Medical History: Pulmonary hypertension; enlarged heart - Past Surgical History Past Surgical History: Yes Neuro Surgical History: No Pertinent History Cardiac: Cardiac Catheterization Respiratory: No Pertinent History Gastrointestinal: Appendectomy, Cholecystectomy, Hernia Repair, Pancreatic Surgery Genitourinary: No Pertinent History, Other Musculoskeletal: Other Male Surgical History: Testicular Surgery Other Surgical History: old port removed, port placed x 2, had a surgery to look in bladder, right shoulder surgery. SHUNT IN RIGHT EYE. Open shut back up in right eye 10/03/18 - Social History Smoking Status: Never smoker How long have you smoked: years Exposure to second hand smoke: No Alcohol Use: Socially Drug Use: none Patient Lives Alone: No Significant Family History: diabetes - Nursing Vital Signs Nursing Vital Signs: Initial Vital Signs Temperature 98.4 F 02/20/19 10:37 Pulse Rate 92 H 02/20/19 10:37 Respiratory Rate 18 02/20/19 10:37 Blood Pressure 166/93 02/20/19 10:37 O2 Sat by Pulse Oximetry 100 02/20/19 10:37 Pain Scale Pain Intensity 4 - Physical Exam General Appearance: mild distress, alert Eye Exam: PERRL/EOMI, eyes nml inspection Ears, Nose, Throat Exam: normal ENT inspection, TMs normal, pharynx normal, moist mucous membranes Neck Exam: normal inspection, non-tender, supple, full range of motion Respiratory Exam: normal breath sounds, lungs clear, No respiratory distress Cardiovascular Exam: regular rate/rhythm, normal heart sounds, normal peripheral pulses, capillary refill <2 sec, edema (edema bilateral hands and feet) Gastrointestinal/Abdomen Exam: soft, normal bowel sounds, No tenderness, No mass Back Exam: normal inspection, normal range of motion, No CVA tenderness, No vertebral tenderness Extremity Exam: normal inspection, normal range of motion, pelvis stable Neurologic Exam: alert, oriented x 3, cooperative, onshore diver II-XII nml as tested, normal mood/affect, nml cerebellar function, nml station & gait, sensation nml, No motor deficits Skin Exam: normal color, warm, dry, No rash Lymphatic Exam: No adenopathy SpO2 Interpretation: normal (1no known on00%) SpO2: 100 - Course Nursing assessment & vital signs reviewed: Yes EKG Interpreted by Me: RATE (93 bpm), Sinus Rhythm (meds at), NORMAL AXIS, Other (EKG: Sinus rhythm, 93 beats per minute, small amount of artifact, normal axis, no acute ST or T wave changes noted) - Radiology Exams Chest X-ray Interpretation: Discussed w/ radiologist (chest x-ray: Impression: Minimal bibasilar infiltrate versus atelectasis. Remaining heart and lungs unremarkable with stable left Port-A-Cath. Bony thorax demonstrates mild degenerative changes and old right fifth rib fractures) Ordered Tests: Active Orders 24 hr Category Date Time Status EKG-ER Only STAT Care 02/20/19 10:43 Active IV Insertion STAT Care 02/20/19 10:43 Active CHEST 1 VIEW (PORTABLE) Stat Exams 02/20/19 10:44 Completed CBC W DIFF Stat Lab 02/20/19 11:22 Completed CMP Stat Lab 02/20/19 11:22 Completed D-DIMER QUANTITATION Stat Lab 02/20/19 11:22 Completed Manual Differential NC Stat Lab 02/20/19 11:22 Completed NT PRO BNP Stat Lab 02/20/19 10:45 Ordered NT PRO BNP Stat Lab 02/20/19 11:22 Completed TROPONIN Q3H Lab 02/20/19 11:22 Completed TROPONIN Q3H Lab 02/20/19 13:45 Ordered TROPONIN Q3H Lab 02/20/19 16:45 Ordered TROPONIN Q3H Lab 02/20/19 19:45 Ordered TROPONIN Q3H Lab 02/20/19 22:45 Ordered TSH [TSH, 3RD Generation] Stat Lab 02/20/19 10:46 Ordered TSH, 3RD Generation Stat Lab 02/20/19 11:22 Completed UA W/RFX UR CULTURE Stat Lab 02/20/19 12:12 Completed Lab/Rad Data: Laboratory Result Diagrams 02/20/19 11:22 02/20/19 11:22 Laboratory Results 02/20/19 02/20/19 02/20/19 Range/Units 12:12 11:22 11:22 WBC (4.0-10.5) K/mm3 RBC (4.1-5.6) M/mm3 Hgb (12.5-18.0) gm/dl Hct (42-50) % MCV (78-100) fl MCH (26-32) pg MCHC (32-36) g/dl RDW (11.5-14.0) % Plt Count (150-450) K/mm3 MPV (6-9.5) fl Segmented Neutrophils (36.-66.) % Lymphocytes (Manual) (24-44) % Monocytes (Manual) (0.0-12.0) % Eosinophils (Manual) (0.00-3.0) % Atypical Lymphocytes % Toxic Granulation Platelet Estimate (NORMAL) RBC Morphology Anisocytosis D-Dimer 274 (215-500) ng/mL Sodium (137-145) mmol/L Potassium (3.5-5.1) mmol/L Chloride (98-107) mmol/L Carbon Dioxide (22-30) mmol/L Anion Gap (5-15) MEQ/L BUN (9-20) mg/dL Creatinine (0.66-1.25) mg/dL Estimated GFR ML/MIN Glucose (74-106) mg/dL Calcium (8.4-10.2) mg/dL Total Bilirubin (0.2-1.3) mg/dL AST (17-59) U/L ALT (0-50) U/L Alkaline Phosphatase (38-126) U/L Troponin I (0.000-0.034) ng/mL NT-Pro-B Natriuret Pep (0-900) pg/mL Serum Total Protein (6.3-8.2) g/dL Albumin (3.5-5.0) g/dL Free T4 1.01 (0.76-1.46) ng/dL TSH 3rd Generation (0.47-4.68) mIU/L Urine Color YELLOW (YELLOW) Urine Appearance CLEAR (CLEAR) Urine pH 7.0 (5-6) Ur Specific [place] 1.032 (1.005-1.025) Urine Protein NEGATIVE (Negative) Urine Ketones TRACE (NEGATIVE) Urine Blood NEGATIVE (0-5) Maximino/ul Urine Nitrite NEGATIVE (NEGATIVE) Urine Bilirubin NEGATIVE (NEGATIVE) Urine Urobilinogen NEGATIVE (0-1) mg/dL Ur Leukocyte Esterase NEGATIVE (NEGATIVE) Urine WBC (Auto) NONE (0-5) /HPF Urine RBC (Auto) NONE (0-2) /HPF U Epithel Cells (Auto) NONE (FEW) /HPF Urine Bacteria (Auto) NONE (NEGATIVE) /HPF Urine Culture Reflexed NO (NO) Urine Glucose >=500 (NEGATIVE) mg/dL 02/20/19 02/20/19 02/20/19 Range/Units 11:22 11:22 11:22 WBC 6.5 (4.0-10.5) K/mm3 RBC 4.66 (4.1-5.6) M/mm3 Hgb 13.7 (12.5-18.0) gm/dl Hct 43.4 (42-50) % MCV 93.1 (78-100) fl MCH 29.4 (26-32) pg MCHC 31.6 L (32-36) g/dl RDW 16.2 H (11.5-14.0) % Plt Count 194 (150-450) K/mm3 MPV 9.4 (6-9.5) fl Segmented Neutrophils 62 (36.-66.) % Lymphocytes (Manual) 28 (24-44) % Monocytes (Manual) 6 (0.0-12.0) % Eosinophils (Manual) 2 (0.00-3.0) % Atypical Lymphocytes 2 % Toxic Granulation 1+ Platelet Estimate NORMAL (NORMAL) RBC Morphology ABNORMAL Anisocytosis 1+ D-Dimer (215-500) ng/mL Sodium 140 (137-145) mmol/L Potassium 3.7 (3.5-5.1) mmol/L Chloride 99 (98-107) mmol/L Carbon Dioxide 30 (22-30) mmol/L Anion Gap 13.8 (5-15) MEQ/L BUN 20 (9-20) mg/dL Creatinine 0.68 (0.66-1.25) mg/dL Estimated GFR > 60.0 ML/MIN Glucose 267 H (74-106) mg/dL Calcium 9.1 (8.4-10.2) mg/dL Total Bilirubin 0.40 (0.2-1.3) mg/dL AST 72 H (17-59) U/L ALT 55 H (0-50) U/L Alkaline Phosphatase 68 (38-126) U/L Troponin I 0.012 (0.000-0.034) ng/mL NT-Pro-B Natriuret Pep 15.7 (0-900) pg/mL Serum Total Protein 6.8 (6.3-8.2) g/dL Albumin 3.7 (3.5-5.0) g/dL Free T4 (0.76-1.46) ng/dL TSH 3rd Generation 3.360 (0.47-4.68) mIU/L Urine Color (YELLOW) Urine Appearance (CLEAR) Urine pH (5-6) Ur Specific [place] (1.005-1.025) Urine Protein (Negative) Urine Ketones (NEGATIVE) Urine Blood (0-5) Maximino/ul Urine Nitrite (NEGATIVE) Urine Bilirubin (NEGATIVE) Urine Urobilinogen (0-1) mg/dL Ur Leukocyte Esterase (NEGATIVE) Urine WBC (Auto) (0-5) /HPF Urine RBC (Auto) (0-2) /HPF U Epithel Cells (Auto) (FEW) /HPF Urine Bacteria (Auto) (NEGATIVE) /HPF Urine Culture Reflexed (NO) Urine Glucose (NEGATIVE) mg/dL - Progress Progress: improved Progress Note: 02/20/19 13:02 Patient's labs are essentially normal with the exception of a glucose of 267 slight elevation in AST and ALT of 72 and 55. I discussed the patient's case with the patient he was seen yesterday secondary syncope. His chest x-ray shows infiltrate versus atelectasis in the bases he does not show any signs of pneumonia her white count is normal hemoglobin hematocrit are normal chemistry is essentially normal BNP is normal at 15.7 troponin 0.012. Patient does not appear to be in acute distress vitals are stable. I have offered to discuss the case with Dr. Bahena as the patient was wishing to be in admitted initially now he states he would prefer to get some Lasix he apparently had discussed this case with the [facility] and they had advised him to increase his Lasix at home. Will go ahead and give patient Lasix 40 mg IV. Will have patient return home rest. Have him take his medications as prescribed by the [facility]. He can return for any problems - Departure Departure Disposition: Home Clinical Impression: Peripheral edema Condition: Fair Critical Care Time: No Additional Instructions: Return home. Rest. Medications as prescribed by the [facility]. Followup with your family . Return for acute distress or for severe symptoms or for any problems.
--- NOTE | 2019-02-20 11:11 | XRAY ---
Indication: Short of breath. Comparison: January 31, 2019. Portable chest now demonstrates minimal bibasilar infiltrates versus atelectasis. Remaining heart and lungs unremarkable with stable left Port-A-Cath. Bony thorax again demonstrates mild degenerative changes and old right 5 rib fracture.
[2019-02-20 11:34] LABS: Hematocrit 43.4 % (42-50); Hemoglobin 13.7 gm/dl (12.5-18.0); Mean Cell Volume 93.1 fl (78-100); Mean Corpuscular Hemoglobin 29.4 pg (26-32); Mean Corpuscular Hgb Concent. 31.6 g/dl (32-36); Mean Platelet Volume 9.4 fl (6-9.5); Platelet Count 194 K/mm3 (150-450); Red Blood Count 4.66 M/mm3 (4.1-5.6); Red Cell Distribution Width 16.2 % (11.5-14.0); White Blood Count 6.5 K/mm3 (4.0-10.5)
[2019-02-20 11:53] LABS: ATYPICAL LYMPHS 2 %; Eosinophil 2 % (0.00-3.0); Lymphocytes 28 % (24-44); Monocyte 6 % (0.0-12.0); Neutrophils 62 % (36.-66.); Total Cells Counted 100
[2019-02-20 11:54] LABS: ANISOCYTOSIS 1+; Platelet Estimate NORMAL (NORMAL); Toxic Granulation 1+
[2019-02-20 12:26] LABS: Appearance CLEAR (CLEAR); Bilirubin NEGATIVE (NEGATIVE); Blood NEGATIVE Ery/ul (0-5); Glucose >=500 mg/dL (NEGATIVE); Ketones TRACE (NEGATIVE); Leukocyte Esterase NEGATIVE (NEGATIVE); Nitrite NEGATIVE (NEGATIVE); Protein,Urine Dip NEGATIVE (Negative); Specific Gravity 1.032 (1.005-1.025); Urobilinogen NEGATIVE mg/dL (0-1)
[2019-02-20 12:52] LABS: ALBUMIN 3.7 g/dL (3.5-5.0); ALKALINE PHOSPHATASE 68 U/L (38-126); ANION GAP 13.8 MEQ/L (5-15); BLOOD UREA NITROGEN 20 mg/dL (9-20); CHLORIDE 99 mmol/L (98-107); Calcium 9.1 mg/dL (8.4-10.2); Carbon Dioxide 30 mmol/L (22-30); Creatinine 1 0.68 mg/dL (0.66-1.25); Glucose 267 mg/dL (74-106); NT PRO BNP 15.7 pg/mL (0-900); Potassium 3.7 mmol/L (3.5-5.1); SGOT/AST 72 U/L (17-59); SGPT/ALT 55 U/L (0-50); SODIUM 140 mmol/L (137-145); Total Protein 6.8 g/dL (6.3-8.2)
[2019-02-20] MEDS ORDERED: Lasix 40 MG/4 ML IV ONE (13:01)
[2019-02-20] MEDS ORDERED: Lasix 40 MG/4 ML ONE (13:19)
[2019-02-20 13:43] VITALS: BP 165/91; PULSE 86; O2SAT 93
== END 2019-02-20 13:46 | disposition home or self-care (01) ==
LOC: ED 10:27
DX: R60.9 Edema, unspecified (principal); R06.02 Shortness of breath; E11.9 Type 2 diabetes mellitus without complications; E03.9 Hypothyroidism, unspecified; G47.30 Sleep apnea, unspecified; I27.20 Pulmonary hypertension, unspecified; Z86.711 Personal history of pulmonary embolism; Z79.01 Long term (current) use of anticoagulants; Z79.899 Other long term (current) drug therapy; Z79.4 Long term (current) use of insulin
CPT/HCPCS: 36000; 36415; 71045; 80053; 81001; 83880; 84439; 84443; 84484; 85025; 85379; 93005; 96374; 99284; J1642; J1940

== ENCOUNTER 2019-03-02 20:12 | Inpatient (IN) | payer MEDICARE ==
[2019-03-02] MEDS ORDERED: solu-MEDROL 125 MG IV ONE (20:24)
[2019-03-02] MEDS ORDERED: DUONEB 0.5-3 MG/3 ml Neb IH ONE ×4 (20:24→22:57)
--- NOTE | 2019-03-02 20:31 | ERPHSYRPT ---
- History of Present Illness Time Seen by Provider: 03/02/19 20:17 Source: patient Exam Limitations: no limitations Physician History: Pt started c/o cough, increasing SOB two days ago, he is coughing up small amount of white phlegm, denies hemoptysis, chest pain, vomiting, fever , chills , sore throat other complaints, he has been using Albuterol inhaler and nebulizer treatments, but did not help today. He quit smoking 2 months ago. Timing/Duration: day(s) (2) Activities at Onset: none Severity of Dyspnea-Max: moderate Severity of Dyspnea-Current: moderate Possible Cause: occasional episodes Modifying Factors: Improves With: albuterol inhaler Associated Symptoms: intermittent, cough, wheezing Allergies/Adverse Reactions: tuberculin,PPD,multi-puncture [From Tuberculin PPD Mary Ellen Test] Allergy ( Intermediate, Verified 03/02/19 20:43) Rash butorphanol tartrate [From Stadol] Allergy (Unknown, Verified 03/02/19 20:43) chlorpromazine HCl [From Thorazine] Allergy (Unknown, Verified 03/02/19 20:43) irritable haloperidol Allergy (Unknown, Verified 03/02/19 20:43) "makes me stay awake too much" ketorolac tromethamine [From Toradol] Allergy (Unknown, Verified 03/02/19 20:43) severe pain in lower back and kidneys nalbuphine [Nalbuphine] Allergy (Unknown, Verified 03/02/19 20:43) prochlorperazine edisylate [From Compazine] Allergy (Unknown, Verified 03/02/19 20:43) irritable lisinopril Adverse Reaction (Verified 03/02/19 20:43) Cough chloraprep Allergy (Intermediate, Uncoded 03/02/19 20:43) Rash Home Medications: Brimonidine Tartrate [Alphagan P 0.15%] 1 drops OP BID 09/30/12 [History] Metformin HCl 1000 mg [Glucophage 1000 MG] 1,000 mg PO BID 09/15/14 [History] Apixaban [Eliquis 5 mg Tablet] 2.5 mg PO BID 03/30/15 [History] Levothyroxine Sodium 25 Mcg [Synthroid 25 Mcg] 25 mcg PO DAILY 03/30/15 [ History] Dorzolamide HCl/Timolol Maleat [Dorzolamide-Timolol Eye Drops] 1 drop OP BID [History] Insulin Glargine [Lantus Insulin] 75 unit SQ BID 02/11/17 [History] Insulin Aspart [NovoLOG Insulin] 52 units SQ TIDWM 07/13/17 [History] Metoprolol Succinate 100 mg [Toprol Xl 100 MG] 100 mg PO DAILY 10/25/17 [ History] Montelukast Sodium 10 mg [Singulair 10 MG] 10 mg PO QPM 05/22/18 [History] Cholecalciferol (Vitamin D3) [Vitamin D3] 3,000 unit PO DAILY 06/19/18 [History] Furosemide [Lasix] 40 mg PO BID 06/19/18 [History] Hctz/Triamteren 37.5 mg/25 mg* [Maxzide-25MG Tablet] 2 mg PO DAILY 06/19/18 [ History] Latanoprostene Bunod [Vyzulta] 1 drop OP HS 10/06/18 [History] Pramipexole Di-HCl 0.5 mg [Mirapex 0.5 MG Tablet] 1 mg PO HS 10/06/18 [ History] Rosuvastatin Calcium [Crestor] 10 mg PO HS 12/14/18 [History] Potassium Chloride 10 Meq Tab* [Klor Con 10 MEQ] 20 meq PO BID 03/02/19 [ History] Hx Tetanus, Diphtheria Vaccination/Date Given: Yes Hx Influenza Vaccination/Date Given: No Hx Pneumococcal Vaccination/Date Given: Yes - Review of Systems Constitutional: No Symptoms Ears, Nose, & Throat: No Symptoms Respiratory: Cough, Dyspnea, Dyspnea on Exertion (LABOY), Wheezing Cardiac: No Symptoms Abdominal/Gastrointestinal: No Symptoms Genitourinary Symptoms: No Symptoms Skin: No Symptoms Neurological: No Symptoms All Other Systems: Reviewed and Negative - Past Medical History Pertinent Past Medical History: Yes Neurological History: Migraines ENT History: Glaucoma Cardiac History: Angina, Hypertension Respiratory History: Pneumonia, Pulmonary Embolism, Sleep Apnea, Other Endocrine Medical History: Diabetes Type II, Hypothyroidism Musculoskeletal History: No Pertinent History GI Medical History: Pancreatitis History: No Pertinent History Psycho-Social History: Anxiety Male Reproductive Disorders: No Pertinent History Other Medical History: Pulmonary hypertension; enlarged heart - Past Surgical History Past Surgical History: Yes Neuro Surgical History: No Pertinent History Cardiac: Cardiac Catheterization Respiratory: No Pertinent History Gastrointestinal: Appendectomy, Cholecystectomy, Hernia Repair, Pancreatic Surgery Genitourinary: No Pertinent History, Other Musculoskeletal: Other Male Surgical History: Testicular Surgery Other Surgical History: old port removed, port placed x 2, had a surgery to look in bladder, right shoulder surgery. SHUNT IN RIGHT EYE. Open shut back up in right eye 10/03/18 - Social History Smoking Status: Never smoker How long have you smoked: years Exposure to second hand smoke: No Alcohol Use: Socially Drug Use: none Patient Lives Alone: No Significant Family History: diabetes - Nursing Vital Signs Nursing Vital Signs: Initial Vital Signs Temperature 99.7 F 03/02/19 20:18 Pulse Rate 100 H 03/02/19 20:18 Respiratory Rate 22 03/02/19 20:18 Blood Pressure 168/87 03/02/19 20:18 O2 Sat by Pulse Oximetry 95 03/02/19 20:18 Pain Scale Pain Intensity 0 - Physical Exam General Appearance: no apparent distress Eye Exam: eyes nml inspection Ears, Nose, Throat Exam: normal pharynx Neck Exam: normal inspection, non-tender, supple, No carotid bruit, No JVD Respiratory Exam: rhonchi, wheezing, No chest tenderness, No respiratory distress, No airway intact Cardiovascular/Chest Exam: normal heart sounds, regular rate/rhythm, murmur, normal peripheral pulses, No edema, No JVD Abdominal/Gastrointestinal Exam: soft, normal bowel sounds, No tenderness Extremity Exam: non-tender, No no calf tenderness, No ronak's sign Peripheral Pulses Exam: dorsalis-pedis (R): 3+, dorsalis-pedis (L): 3+ Neurologic Exam: alert, oriented x 3, cooperative, normal mood/affect Skin Exam: normal color, warm, dry, No rash, No petechiae, No cyanosis Lymphatic Exam: No adenopathy SpO2 Interpretation: borderline oxygenation O2 Delivery: Room Air - Course Nursing assessment & vital signs reviewed: Yes EKG Interpreted by Me: RATE (103/min), NORMAL AXIS, Non-specific ST Changes, Other (repeat Ekg: at 23:19 PM: unchanged.) - Radiology Exams Chest X-ray Interpretation: Interpreted by me, Negative - CT Exams Chest CT Interpretation: No PE, Other (possible bibasilar infiltrates) Ordered Tests: Active Orders 24 hr Category Date Time Status Wire Threader STAT Care 03/02/19 20:23 Active EKG-ER Only STAT Care 03/02/19 20:22 Active EKG-ER Only STAT Care 03/02/19 22:52 Active IV Insertion STAT Care 03/02/19 20:22 Active Pulse Oximetry (ED) STAT Care 03/02/19 20:22 Active CHEST 2 VIEWS (PA AND LAT) Stat Exams 03/02/19 20:23 Taken CHEST WITH CONTRAST [CT] Stat Exams 03/03/19 00:21 Taken ABG [ARTERIAL BLOOD GASES] Stat Lab 03/02/19 23:54 Completed BLOOD CULTURE Stat Lab 03/02/19 20:58 Received CBC W DIFF Stat Lab 03/02/19 20:42 Completed CK-Creatinine Phosphokinase Stat Lab 03/02/19 20:42 Completed CMP Stat Lab 03/02/19 20:42 Completed D-DIMER QUANTITATION Stat Lab 03/02/19 20:42 Completed Glucose Stat Lab 03/02/19 23:06 Completed Lactic Acid Stat Lab 03/02/19 20:40 Completed Lactic Acid Stat Lab 03/02/19 23:00 Completed Lactic Acid Stat Lab 03/03/19 01:06 Ordered NT PRO BNP Stat Lab 03/02/19 20:42 Completed PROTIME WITH INR Stat Lab 03/02/19 20:42 Completed PTT Stat Lab 03/02/19 20:42 Completed TROPONIN Q3H Lab 03/02/19 20:42 Completed TROPONIN Q3H Lab 03/02/19 23:06 Completed TROPONIN Q3H Lab 03/03/19 02:30 Ordered TROPONIN Q3H Lab 03/03/19 05:30 Ordered TROPONIN Q3H Lab 03/03/19 08:30 Ordered Peak Expiratory Flow Rate ONCE RT 03/02/19 20:53 Active Respiratory Therapy Assessment DAILY RT 03/02/19 20:53 Active Medication Summary Generic Name Dose Route Start Last Admin Trade Name Freq PRN Reason Stop Dose Admin Sodium Chloride 1,000 mls @ 150 mls/hr 03/03/19 00:30 03/03/19 00:34 Sodium Chloride 0.9% 1000 Ml IV 04/02/19 00:29 150 mls/hr .[id number] REGAN Administration Discontinued Medications Generic Name Dose Route Start Last Admin Trade Name Williq PRN Reason Stop Dose Admin Albuterol/Ipratropium 3 ml 03/02/19 20:24 03/02/19 20:52 Duoneb 0.5-3 Mg/3 Ml Neb IH 03/02/19 20:25 3 ml STAT ONE Administration Albuterol/Ipratropium Confirm 03/02/19 20:28 Duoneb 0.5-3 Mg/3 Ml Neb Administered 03/02/19 20:29 Dose 3 ml IH .STK-MED ONE Albuterol/Ipratropium 3 ml 03/02/19 22:52 03/02/19 22:58 Duoneb 0.5-3 Mg/3 Ml Neb IH 03/02/19 22:53 3 ml STAT ONE Administration Albuterol/Ipratropium Confirm 03/02/19 22:57 Duoneb 0.5-3 Mg/3 Ml Neb Administered 03/02/19 22:58 Dose 3 ml IH .STK-MED ONE Sodium Chloride 1,000 mls @ 999 mls/hr 03/02/19 21:41 03/03/19 00:31 Sodium Chloride 0.9% 1000 Ml IV 03/02/19 22:41 Infused .Q1H1M STA Infusion Sodium Chloride Confirm 03/02/19 21:46 Sodium Chloride 0.9% 1000 Ml Administered 03/02/19 21:47 Dose 1,000 mls @ ud .ROUTE .STK-MED ONE Azithromycin 500 mg in 250 mls @ 250 mls/hr 03/02/19 22:26 03/03/19 00:30 Zithromax 500 Mg/ 250 Ml Nacl Premix IV 03/02/19 23:25 Infused STAT STA Infusion Ceftriaxone Sodium/Dextrose 1 g in 50 mls @ 100 mls/hr 03/03/19 00:22 00:34 Rocephin 1 Gm-D5w 50 Ml Bag IV 03/03/19 00:51 100 mls/hr STAT STA 100 mls/hr Administration Ceftriaxone Sodium/Dextrose Confirm 03/03/19 00:32 Rocephin 1 Gm-D5w 50 Ml Bag Administered 03/03/19 00:33 Dose 1 g in 50 mls @ ud IV .STK-MED ONE Insulin Human Regular 10 unit 03/02/19 21:42 03/02/19 21:51 Novolin R IV 03/02/19 21:43 10 unit STAT ONE Administration Insulin Human Regular Confirm 03/02/19 21:46 Novolin R Administered 03/02/19 21:47 Dose 10 unit .ROUTE .STK-MED ONE Methylprednisolone Sodium Succinate 125 mg 03/02/19 20:24 03/02/19 20:39 Solu-Medrol 125 Mg IV 03/02/19 20:25 125 mg STAT ONE Administration Methylprednisolone Sodium Succinate Confirm 03/02/19 20:37 Solu-Medrol 125 Mg Administered 03/02/19 20:38 Dose 125 mg .ROUTE .STK-MED ONE Lab/Rad Data: Laboratory Result Diagrams 03/02/19 20:42 03/02/19 20:42 Laboratory Results 03/03/19 03/02/19 03/02/19 Range/Units 00:13 23:06 23:06 WBC (4.0-10.5) K/mm3 RBC (4.1-5.6) M/mm3 Hgb (12.5-18.0) gm/dl Hct (42-50) % MCV (78-100) fl MCH (26-32) pg MCHC (32-36) g/dl RDW (11.5-14.0) % Plt Count (150-450) K/mm3 MPV (6-9.5) fl Gran % (36.0-66.0) % Eos # (Auto) (0-0.5) Absolute Lymphs (auto) (1.0-4.6) Absolute Monos (auto) (0.0-1.3) Lymphocytes % (24.0-44.0) % Monocytes % (0.0-12.0) % Eosinophils % (0.00-5.0) % Basophils % (0.0-0.4) % Absolute Granulocytes (1.4-6.9) Basophils # (0-0.4) PT (8.83-12.87) SECONDS INR (0.8-3.0) APTT (24.1-36.1) SECONDS D-Dimer (215-500) ng/mL Puncture Site RIGHT RADIAL pCO2 49 H (35-45) mmHg pO2 56 L (75-100) mmHg Base Excess 2.1 H (-2.0-2.0) O2 Saturation 88.3 L (94-100) g/dF ABG pH 7.37 (7.35-7.45) ABG HCO3 28.3 H (22-28) ABG O2 Sat (Measured) 90.9 L (95-100) % Dennis Test YES A-a Gradient 32 a/A Ratio 0.64 Hemoglobin 14.3 Carboxyhemoglobin 2.2 (0.0-6.9) % THgb Methemoglobin 0.6 L (1.4-1.5) % Temperature 37.0 C POC O2 Flow Rate 21 % Sodium (137-145) mmol/L Potassium 4.2 (3.5-5.1) mmol/L Chloride (98-107) mmol/L Carbon Dioxide (22-30) mmol/L Anion Gap (5-15) MEQ/L BUN (9-20) mg/dL Creatinine (0.66-1.25) mg/dL Estimated GFR ML/MIN Glucose 366 H (74-106) mg/dL Lactic Acid (0.4-2.0) Calcium (8.4-10.2) mg/dL Total Bilirubin (0.2-1.3) mg/dL AST (17-59) U/L ALT (0-50) U/L Alkaline Phosphatase (38-126) U/L Creatine Kinase (55-170) U/L Troponin I < 0.012 (0.000-0.034) ng/mL NT-Pro-B Natriuret Pep (0-900) pg/mL Serum Total Protein (6.3-8.2) g/dL Albumin (3.5-5.0) g/dL 03/02/19 03/02/19 03/02/19 Range/Units 23:00 20:42 20:42 WBC (4.0-10.5) K/mm3 RBC (4.1-5.6) M/mm3 Hgb (12.5-18.0) gm/dl Hct (42-50) % MCV (78-100) fl MCH (26-32) pg MCHC (32-36) g/dl RDW (11.5-14.0) % Plt Count (150-450) K/mm3 MPV (6-9.5) fl Gran % (36.0-66.0) % Eos # (Auto) (0-0.5) Absolute Lymphs (auto) (1.0-4.6) Absolute Monos (auto) (0.0-1.3) Lymphocytes % (24.0-44.0) % Monocytes % (0.0-12.0) % Eosinophils % (0.00-5.0) % Basophils % (0.0-0.4) % Absolute Granulocytes (1.4-6.9) Basophils # (0-0.4) PT 11.3 (8.83-12.87) SECONDS INR 1.00 (0.8-3.0) APTT 24.0 L (24.1-36.1) SECONDS D-Dimer 412 (215-500) ng/mL Puncture Site pCO2 (35-45) mmHg pO2 (75-100) mmHg Base Excess (-2.0-2.0) O2 Saturation (94-100) g/dF ABG pH (7.35-7.45) ABG HCO3 (22-28) ABG O2 Sat (Measured) (95-100) % Dennis Test A-a Gradient a/A Ratio Hemoglobin Carboxyhemoglobin (0.0-6.9) % THgb Methemoglobin (1.4-1.5) % Temperature C POC O2 Flow Rate % Sodium (137-145) mmol/L Potassium (3.5-5.1) mmol/L Chloride (98-107) mmol/L Carbon Dioxide (22-30) mmol/L Anion Gap (5-15) MEQ/L BUN (9-20) mg/dL Creatinine (0.66-1.25) mg/dL Estimated GFR ML/MIN Glucose (74-106) mg/dL Lactic Acid 2.3 H (0.4-2.0) Calcium (8.4-10.2) mg/dL Total Bilirubin (0.2-1.3) mg/dL AST (17-59) U/L ALT (0-50) U/L Alkaline Phosphatase (38-126) U/L Creatine Kinase (55-170) U/L Troponin I < 0.012 (0.000-0.034) ng/mL NT-Pro-B Natriuret Pep (0-900) pg/mL Serum Total Protein (6.3-8.2) g/dL Albumin (3.5-5.0) g/dL 03/02/19 03/02/19 03/02/19 Range/Units 20:42 20:42 20:40 WBC 7.2 (4.0-10.5) K/mm3 RBC 4.67 (4.1-5.6) M/mm3 Hgb 13.8 (12.5-18.0) gm/dl Hct 43.3 (42-50) % MCV 92.7 (78-100) fl MCH 29.6 (26-32) pg MCHC 31.9 L (32-36) g/dl RDW 15.8 H (11.5-14.0) % Plt Count 189 (150-450) K/mm3 MPV 9.3 (6-9.5) fl Gran % 60.2 (36.0-66.0) % Eos # (Auto) 0.18 (0-0.5) Absolute Lymphs (auto) 1.37 (1.0-4.6) Absolute Monos (auto) 1.29 (0.0-1.3) Lymphocytes % 18.9 L (24.0-44.0) % Monocytes % 17.8 H (0.0-12.0) % Eosinophils % 2.5 (0.00-5.0) % Basophils % 0.6 (0.0-0.4) % Absolute Granulocytes 4.36 (1.4-6.9) Basophils # 0.04 (0-0.4) PT (8.83-12.87) SECONDS INR (0.8-3.0) APTT (24.1-36.1) SECONDS D-Dimer (215-500) ng/mL Puncture Site pCO2 (35-45) mmHg pO2 (75-100) mmHg Base Excess (-2.0-2.0) O2 Saturation (94-100) g/dF ABG pH (7.35-7.45) ABG HCO3 (22-28) ABG O2 Sat (Measured) (95-100) % Dennis Test A-a Gradient a/A Ratio Hemoglobin Carboxyhemoglobin (0.0-6.9) % THgb Methemoglobin (1.4-1.5) % Temperature C POC O2 Flow Rate % Sodium 134 L (137-145) mmol/L Potassium 4.0 (3.5-5.1) mmol/L Chloride 95 L (98-107) mmol/L Carbon Dioxide 28 (22-30) mmol/L Anion Gap 14.9 (5-15) MEQ/L BUN 20 (9-20) mg/dL Creatinine 0.79 (0.66-1.25) mg/dL Estimated GFR > 60.0 ML/MIN Glucose 440 H (74-106) mg/dL Lactic Acid 3.4 H (0.4-2.0) Calcium 9.0 (8.4-10.2) mg/dL Total Bilirubin 0.50 (0.2-1.3) mg/dL AST 75 H (17-59) U/L ALT 50 (0-50) U/L Alkaline Phosphatase 67 (38-126) U/L Creatine Kinase 243 H (55-170) U/L Troponin I (0.000-0.034) ng/mL NT-Pro-B Natriuret Pep 32.2 (0-900) pg/mL Serum Total Protein 7.0 (6.3-8.2) g/dL Albumin 3.8 (3.5-5.0) g/dL - Progress Progress: improved Air Movement: fair Progress Note: 03/03/19 02:41 Pt states, he feels better after 2 Duoneb treatments, Solumedrol 125 mg iv and IV Saline bolus, lactic acid improved from 3.4 to 2.3, he has been afebrile, but hypoxaemic, requires nasal O2. He was started on IV Rocephin anmd Zithromax after blood cultures, called Dr Morejon, discussed his findings and his current condition and she accepted him to be admitted for further care. Patient was informed and agreed. Discussed with Dr.: Other (Jean-Pierre) Will see patient in: hospital (full admit) Counseled pt/family regarding: lab results, diagnosis, rad results - Departure Departure Disposition: In-patient Admission Clinical Impression: COPD exacerbation Pneumonia Qualifiers: Pneumonia type: due to unspecified organism Laterality: bilateral Lung location : lower lobe of lung Qualified Code(s): J18.1 - Lobar pneumonia, unspecified organism Condition: Stable Critical Care Time: No Referrals: DOCTOR,NO FAMILY [Primary Care Provider] - Instructions: Chronic Obstructive Pulmonary Disease, Pneumonia, Adult (DC)
[2019-03-02] MEDS ORDERED: solu-MEDROL 125 MG ONE (20:37)
[2019-03-02 20:46] LABS: BASOPHIL % 0.6 % (0.0-0.4); Basophil (Absolute #) 0.04 (0-0.4); Eosinophil % 2.5 % (0.00-5.0); Eosinophil (Absolute #) 0.18 (0-0.5); Granulocyte Absolute (ANC) 4.36 (1.4-6.9); Granulocytes % 60.2 % (36.0-66.0); Hematocrit 43.3 % (42-50); Hemoglobin 13.8 gm/dl (12.5-18.0); Lymphocyte (Absolute #) 1.37 (1.0-4.6); Lymphocytes % 18.9 % (24.0-44.0); Mean Cell Volume 92.7 fl (78-100); Mean Corpuscular Hemoglobin 29.6 pg (26-32); Mean Corpuscular Hgb Concent. 31.9 g/dl (32-36); Mean Platelet Volume 9.3 fl (6-9.5); Monocytes % 17.8 % (0.0-12.0); Platelet Count 189 K/mm3 (150-450); Red Blood Count 4.67 M/mm3 (4.1-5.6); Red Cell Distribution Width 15.8 % (11.5-14.0); White Blood Count 7.2 K/mm3 (4.0-10.5)
[2019-03-02 20:49] LABS: Lactic Acid 3.4 (0.4-2.0)
[2019-03-02 20:53] LABS: PROTIME 11.3 SECONDS (8.83-12.87)
[2019-03-02 21:06] LABS: ALBUMIN 3.8 g/dL (3.5-5.0); ALKALINE PHOSPHATASE 67 U/L (38-126); ANION GAP 14.9 MEQ/L (5-15); BLOOD UREA NITROGEN 20 mg/dL (9-20); CHLORIDE 95 mmol/L (98-107); CK-Creatinine Phosphokinase 243 U/L (55-170); Carbon Dioxide 28 mmol/L (22-30); Creatinine 1 0.79 mg/dL (0.66-1.25); Glucose 440 mg/dL (74-106); NT PRO BNP 32.2 pg/mL (0-900); SGOT/AST 75 U/L (17-59); SGPT/ALT 50 U/L (0-50); SODIUM 134 mmol/L (137-145)
[2019-03-02] MEDS ORDERED: Sodium Chloride 0.9% 1000 ML 1,000 ML IV STA (21:41)
[2019-03-02] MEDS ORDERED: NovoLIN R IV ONE (21:42)
[2019-03-02] MEDS ORDERED: Sodium Chloride 0.9% 1000 ML 1,000 ML ONE (21:46)
[2019-03-02] MEDS ORDERED: NovoLIN R ONE (21:46)
[2019-03-02] MEDS ORDERED: Zithromax 500 MG/ 250 ML NaCl Premix 500 MG/250 ML IVPB IV STA (22:26)
[2019-03-02 23:06] LABS: Lactic Acid 2.3 (0.4-2.0)
[2019-03-03 00:16] LABS: A-aADO2 32; ABG HEMOGLOBIN 14.3; ABG POTASSIUM 4.2 (3.5-5.1); ARTERIAL BLD GAS O2 SATURATION 90.9 % (95-100); ARTERIAL BLOOD GAS BASE EXCESS 2.1 (-2.0-2.0); ARTERIAL BLOOD GAS FIO2 21 %; ARTERIAL BLOOD GAS PCO2 49 mmHg (35-45); ARTERIAL BLOOD GAS PO2 56 mmHg (75-100); ARTERIAL BLOOD GAS pH 7.37 (7.35-7.45); CARBOXYHEMOGLOBIN 2.2 % THgb (0.0-6.9); HCO3- 28.3 (22-28); HGB O2 SAT 88.3 g/dF (94-100); Methhemoglobin 0.6 % (1.4-1.5); paO2 pAO1 0.64
[2019-03-03 00:17] LABS: ABG SITE RIGHT RADIAL; ALLEN TEST OK? YES
[2019-03-03] MEDS ORDERED: ROCEPHIN 1 Gm-D5w 50 ml Bag** 1 G/50 ML IVPB IV STA (00:22)
[2019-03-03] MEDS ORDERED: Sodium Chloride 0.9% 1000 ML 1,000 ML IV SCH ×2 (00:30→03:01)
[2019-03-03] MEDS ORDERED: Sodium Chloride 0.9% 1000 ML 1,000 ML ONE (00:32)
[2019-03-03] MEDS ORDERED: ROCEPHIN 1 Gm-D5w 50 ml Bag** 1 G/50 ML IVPB IV ONE (00:32)
[2019-03-03] MEDS: DUONEB 0.5-3 MG/3 ml Neb IH SCH ×7 (03:26→23:11)
[2019-03-03] MEDS ORDERED: Robitussin-Dm Syrup PO PRN (04:56)
[2019-03-03] MEDS: NovoLOG Insulin SQ PRN ×4 (04:59→16:46)
[2019-03-03 05:40] LABS: Hematocrit 44.9 % (42-50); Hemoglobin 14.1 gm/dl (12.5-18.0); Mean Cell Volume 93.2 fl (78-100); Mean Corpuscular Hemoglobin 29.3 pg (26-32); Mean Corpuscular Hgb Concent. 31.4 g/dl (32-36); Mean Platelet Volume 9.5 fl (6-9.5); Platelet Count 183 K/mm3 (150-450); Red Blood Count 4.82 M/mm3 (4.1-5.6); Red Cell Distribution Width 15.9 % (11.5-14.0)
[2019-03-03 05:53] LABS: ANION GAP 16.9 MEQ/L (5-15); BLOOD UREA NITROGEN 17 mg/dL (9-20); CHLORIDE 98 mmol/L (98-107); Calcium 8.8 mg/dL (8.4-10.2); Carbon Dioxide 26 mmol/L (22-30); Creatinine 1 0.64 mg/dL (0.66-1.25); Glucose 383 mg/dL (74-106); Potassium 4.2 mmol/L (3.5-5.1); SODIUM 137 mmol/L (137-145)
--- NOTE | 2019-03-03 08:54 | XRAY ---
Indication: Hypoxia and elevated d-dimer. Multiple contiguous axial images obtained through the chest using 80 cc Isovue 370 contrast and PE protocol. Comparison: December 08, 2018. There is again satisfactory opacification of the pulmonary arteries to include the lobar and segmental branches. Again no filling defect or pulmonary embolus. Heart is not enlarged with stable left Port-A-Cath. Aorta is normal in course and caliber. Stable subcarinal and right hilar calcified nodes. No pathologic mediastinal/hilar lymphadenopathy. Examination of the lung parenchyma again demonstrates mild bilateral dependent atelectasis and right lower lobe calcified granuloma. No new pulmonary mass, infiltrate, or effusion. Bony thorax intact again with old right 5 rib fracture. Limited upper abdomen again demonstrates diffuse fatty liver, cholecystectomy, and hepatic/splenic calcified granulomas. Impression: 1. Again negative pulmonary embolus. 2. Stable fatty liver and evidence for old granulomatous disease. 3. No new or acute cardiopulmonary abnormalities. Comment: Preliminary interpretation was made by [facility]. No critical discrepancy. CT DI 28.13
--- NOTE | 2019-03-03 08:56 | XRAY ---
Indication: Cough and short of breath. Comparison: February 20, 2019. PA/lateral chest better inflated again with calcified granulomas and left Port-A-Cath. No focal infiltrate, consolidation, or large effusion. Heart is not enlarged. Bony thorax intact again with old right 5 rib fracture. Impression: Stable nonacute chest with chronic features.
[2019-03-03] MEDS: Maxzide-25MG Tablet PO SCH (09:44)
[2019-03-03] MEDS: TYLENOL 325 MG PO PRN ×3 (09:44→23:23)
[2019-03-03] MEDS: SYNTHROID 25 MCG PO SCH (09:44)
[2019-03-03] MEDS: Klor Con 10 MEQ PO SCH ×2 (09:45→18:57)
[2019-03-03] MEDS ORDERED: MEDICATION INTERVENTION MC SCH (09:45)
[2019-03-03] MEDS: Alphagan P 0.15% OP SCH ×2 (09:45→21:37)
[2019-03-03] MEDS: ELIQUIS 2.5 MG TABLET PO SCH ×2 (09:45→21:34)
[2019-03-03] MEDS: Lasix 40 MG/4 ML IV SCH ×2 (09:45→16:45)
[2019-03-03] MEDS: MAG-OX 400 PO SCH ×2 (09:45→21:35)
[2019-03-03] MEDS: VITAMIN D PO SCH (09:45)
[2019-03-03] MEDS: Lantus Insulin SQ SCH ×2 (09:46→21:38)
[2019-03-03] MEDS: Toprol Xl 100 MG PO SCH (09:46)
[2019-03-03] MEDS: Robitussin-Dm Syrup PO PRN ×4 (09:49→23:40)
[2019-03-03] MEDS ORDERED: [UNRECOGNIZED DRUG - OTHER] PO SCH (10:00)
[2019-03-03] MEDS ORDERED: TRIAMTERENE PO SCH (10:00)
[2019-03-03] MEDS ORDERED: APIXABAN 2.5 MG PO SCH (10:00)
[2019-03-03] MEDS ORDERED: CHOLECALCIFEROL 3000 UNIT PO SCH (10:00)
[2019-03-03] MEDS ORDERED: HYDROCHLOROTHIAZIDE PO SCH (10:00)
--- NOTE | 2019-03-03 10:19 | HP ---
HISTORY OF PRESENT ILLNESS: This is a 53 year-old patient without a physician in the local area who presented to the emergency department overnight. He was accepted by Dr. Silverman. The patient reports that he had dyspnea with any kind of exertion and is having a cough that is occasionally productive of white sputum. He felt like he is retaining fluid. He reports his legs are swollen. His face feels swollen. He takes Lasix 40 mg twice a day but states he cannot tell any difference when he takes it. He reports he urinates more when he takes the hydrochlorothiazide. The patient reports that he thinks he has an appointment with Dr. Covarrubias today. He does not have a casino floor person that he sees even though he has a history of pulmonary hypertension and enlarged heart. He reports a remote history of a heart catheterization 20 years ago when he had chest pain when he was in his 30's. He did not have any stents placed. He reports he wears CPAP at night but has not had any sleep studies in the past couple of years. He does not see a loading checker either. He reports that sometimes when he is traveling for work in the morning he will just fall asleep at breakfast easily. The patient reports no history of chronic obstructive pulmonary disease. He does not usually need oxygen at home. He reports a low grade tactile fever at home and felt warm. REVIEW OF SYSTEMS: No nausea. No vomiting. He has had diaphoresis. No abdominal pain. Otherwise review of systems as in the history of present illness. MEDICATIONS: Please see the home medication reconciliation form which I have reviewed. On his INSPECT report his last prescription for lorazepam was 12/16/[address] Covarrubias. ALLERGIES: THORAZINE, COMPAZINE, STADOL, PPD TEST, TORADOL, LISINOPRIL, HALOPERIDOL, NALBUPHINE, CHLOROPREP. PAST MEDICAL HISTORY: Pulmonary embolism, sleep apnea, pneumonia, diabetes mellitus type 2, hypothyroidism, pancreatitis, pulmonary hypertension, enlarged heart, migraine, glaucoma, hypertension, angina. PAST SURGICAL HISTORY: Heart cath 20 years ago, normal per patient. Appendectomy. Cholecystectomy. Hernia repair. Pancreas surgery. Testicular surgery. Port placed and removed. New port placed. Right shoulder surgery. Shunt to his right eye. SOCIAL HISTORY: His son lives at home with him. The patient is working and travels every other week. He reports that he quit smoking two months ago and smoked for two years, one to two cigarettes per day. He has one alcoholic beverage per week. FAMILY HISTORY: His mother is living and has diabetes and heart problems. His father is and had chronic obstructive pulmonary disease, lung cancer and smoked. PHYSICAL EXAMINATION: VITAL SIGNS: Temperature current 98.5F, temperature max 98.5F, heart rate 100, respiratory rate 20, blood pressure 135/71, weight 125.2 kg. Oxygen saturation 92% on 2 liters nasal cannula. GENERAL: The patient is a pleasant talkative man sitting up in no acute distress. CVS: He has a regular rate and rhythm. No murmurs, gallops or rubs are appreciated. CHEST: Clear to auscultation bilaterally. No crackles or wheezes. ABDOMEN: Obese, soft, nontender, nondistended with normal bowel sounds. EXTREMITIES: He has +2 pitting edema to his knees bilaterally. No clubbing or cyanosis. SKIN: Warm, dry and intact. LABORATORY DATA AND TESTS: BNP was normal at 32. Blood gas around midnight last night revealed pH of 7.37, pCO2 49, pO2 56. BMP revealed a blood sugar of 383 this morning. CBC within normal limits. Chest CT without contrast no pulmonary embolism, mild posterior bibasilar peripheral atelectasis, scarring or peripheral pneumonia. Please see the radiologist report for the full dictation. Chest x-ray with no reading from the radiologist yet. EKG sinus tachycardia with heart rate of 103, no ST-T wave changes are noted. ASSESSMENT AND PLAN: 1) BILATERAL PNEUMONIA: He has been started on ceftriaxone and azithromycin. Will plan to continue with this. I will ask loading checker, Dr. Ezio Jackson, to see him. 2) HYPOXIA: Again, will continue with oxygen and ask Dr. Ezio Jackson to see him. 3) OBSTRUCTIVE SLEEP APNEA: Will continue with the CPAP. He may need a titration study as an outpatient. 4) PERIPHERAL EDEMA: I am stopping his oral Lasix and starting Lasix 40 mg IV daily. 5) HISTORY OF ENLARGED HEART: Will ask a casino floor person to see him. 6) DIABETES MELLITUS TYPE 2: Will restart his home doses of insulin. 7) HISTORY OF MIGRAINE HEADACHE: He is asking for Tylenol this morning and this is ordered. 8) HISTORY OF PULMONARY EMBOLISM: Will continue with his anticoagulation.
[2019-03-03] MEDS: COSOPT OPHTHALMIC 10 ML OP SCH ×2 (10:26→21:36)
[2019-03-03] MEDS: NovoLOG Insulin SQ SCH ×2 (12:33→16:45)
[2019-03-03] MEDS: Mirapex 0.5 MG Tablet PO SCH (14:22)
[2019-03-03] MEDS: ZOCOR 20MG PO SCH (21:34)
[2019-03-03] MEDS: Singulair 10 MG PO SCH (21:35)
[2019-03-03] MEDS: ROCEPHIN 1 Gm-D5w 50 ml Bag** 1 G/50 ML IVPB IV SCH (21:35)
[2019-03-03] MEDS: Ativan 0.5 MG PO PRN (21:35)
[2019-03-03] MEDS ORDERED: LATANOPROSTENE BUNOD OP SCH (22:00)
[2019-03-03] MEDS ORDERED: Mirapex 0.5 MG Tablet PO SCH (22:00)
[2019-03-03] MEDS ORDERED: NON-FORMULARY ITEM (Rosuvastatin Calcium [Crestor] 10 MG) PO SCH (22:00)
[2019-03-03] MEDS: Zithromax 500 MG/ 250 ML NaCl Premix 500 MG/250 ML IVPB IV SCH (23:08)
[2019-03-04] MEDS: DUONEB 0.5-3 MG/3 ml Neb IH SCH ×4 (03:32→15:08)
[2019-03-04] MEDS: Robitussin-Dm Syrup PO PRN ×4 (03:38→20:41)
[2019-03-04 05:52] LABS: ANION GAP 14.9 MEQ/L (5-15); BLOOD UREA NITROGEN 30 mg/dL (9-20); CHLORIDE 94 mmol/L (98-107); Calcium 9.3 mg/dL (8.4-10.2); Carbon Dioxide 31 mmol/L (22-30); Glucose 213 mg/dL (74-106); Potassium 3.6 mmol/L (3.5-5.1); SODIUM 136 mmol/L (137-145)
--- NOTE | 2019-03-04 07:47 | ECHO ---
DATE OF TEST: 03/03/2019 INDICATION: Shortness of breath. FINDINGS: 1) Technically fair study. 2) Mild concentric left ventricular hypertrophy with normal left ventricular cavity size and normal left ventricular systolic function. Overall left ventricular ejection fraction is 65-70%. Left ventricle inflow Doppler examination is suggestive of grade I diastolic dysfunction or abnormal relaxation pattern. No wall motion abnormalities were observed. Right ventricle is normal in size and systolic function. 3) Left atrium is borderline dilated. Right atrium is normal in size. 4) Mitral valve is structurally normal with mild 1+ mitral regurgitation. 5) Tricuspid valve is grossly normal with mild 1+ tricuspid regurgitation. Estimated pulmonary artery systolic pressure in the normal range. 6) Aortic valve is not well visualized but probably trileaflet with normal valve excursion. No aortic insufficiency was noted. Pulmonic valve is not well visualized. 7) No pericardial effusion. 8) Inferior vena cava was not well visualized. IMPRESSION: 1) TECHNICALLY FAIR STUDY. 2) MILD CONCENTRIC LEFT VENTRICULAR HYPERTROPHY WITH NORMAL LEFT VENTRICULAR SYSTOLIC FUNCTION. OVERALL LEFT VENTRICULAR EJECTION FRACTION IS 65-70%. 3) GRADE I DIASTOLIC DYSFUNCTION. 4) MILD 1+ MITRAL REGURGITATION. 5) MILD 1+ TRICUSPID REGURGITATION WITHOUT EVIDENCE OF PULMONARY HYPERTENSION.
[2019-03-04] MEDS: Lantus Insulin SQ SCH ×2 (08:03→19:47)
[2019-03-04] MEDS: NovoLOG Insulin SQ SCH ×3 (08:04→16:49)
[2019-03-04] MEDS: NovoLOG Insulin SQ PRN ×2 (08:04→22:00)
--- NOTE | 2019-03-04 08:06 | CONS ---
CONSULT DATE: 03/03/2019 HISTORY: Jim Ro is a 53 year-old male who has been hospitalized with complaints of cough, shortness of breath that got progressively worse. The patient reports that he presented to the emergency room after failing outpatient treatment. He was suspected of having bronchopneumonia. Since admission he has had x-rays and CT scan. He is being treated with IV antibiotics and does report improvement in clinical symptoms. His effort tolerance has been moderately reduced. The patient is also scheduled to have cardiac evaluation which is currently pending. He did have echo done earlier which has been awaited as well. The patient reports episode of pulmonary embolization about seven years ago. He did not appear to have any obvious risk factors for the same. Nevertheless he has been maintained on anticoagulation to prevent additional of the same. The patient was diagnosed as having obstructive sleep apnea. He has a CPAP that was prescribed to him by the [place]. He is less than optimally compliant with the same. PAST MEDICAL HISTORY: Besides above the patient has history of diabetes mellitus type 2, hypothyroidism, pancreatitis, pulmonary hypertension, migraine headaches. PAST SURGICAL HISTORY: He has had appendectomy, cholecystectomy, hernia repair, pancreatic surgery, testicular surgery, placement and removal of port, right shoulder surgery and eye surgery. PERSONAL AND SOCIAL HISTORY: He only smoked for two years several years ago. 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 MEDICATIONS: Home and current medications are reviewed. ALLERGIES: ALLERGIES NOTED. PHYSICAL EXAMINATION: This is a middle aged male who appears comfortable. The patient appears "Slow to react". Vital signs noted. HEENT: Normocephalic. Oral exam shows small oropharynx. NECK: Supple. CVS: First and second heart sounds are normal, regular, rhythmic. RESPIRATORY: Shows diminished breath sounds, clear to auscultation. ABDOMEN: Soft. No edema is noted. EXTREMITIES: Trace edema is noted. He is wearing DAYNA hose. LABORATORY DATA AND TESTS: White blood cell count 7.2, hemoglobin 13.8, hematocrit 43, PLT count 189,000. Sodium 134, potassium 4.0, chloride 95, bicarb 28, BUN 20, creatinine 0.7. Lactic acid was 2.4. BNP 32. Albumin 3.8. D-dimer was negative. The pH shows 7.37, pCO2 49, pO2 56. Chest x-ray noted. ASSESSMENT: This is a 53 year old man admitted with: 1) Symptoms of acute bronchitis/bronchopneumonia. 2) Hypoxemia. 3) Prior history of pulmonary embolization on anticoagulation. 4) Obstructive sleep apnea on CPAP therapy. 5) History of hypertension. 6) History of diabetes mellitus. RECOMMENDATIONS: 1) The patient has already started showing clinical improvement and advised to continue the same. May later switch to p.o. antibiotics with outpatient follow-up. 2) Need for CPAP compliance was stressed. 3) Obtain pulmonary function test as outpatient. 4) Check echo for pulmonary hypertension. 5) I agree with the treatment, will follow up in outpatient setting. Thank you for allowing me to participate in the care of your patient.
[2019-03-04] MEDS: VITAMIN D PO SCH (09:34)
[2019-03-04] MEDS: Klor Con 10 MEQ PO SCH ×2 (09:34→21:20)
[2019-03-04] MEDS: COSOPT OPHTHALMIC 10 ML OP SCH ×2 (09:34→21:19)
[2019-03-04] MEDS: MAG-OX 400 PO SCH ×2 (09:35→21:21)
[2019-03-04] MEDS: Maxzide-25MG Tablet PO SCH (09:35)
[2019-03-04] MEDS: Alphagan P 0.15% OP SCH ×2 (09:35→21:18)
[2019-03-04] MEDS: Toprol Xl 100 MG PO SCH (09:35)
[2019-03-04] MEDS: Lasix 40 MG/4 ML IV SCH ×2 (09:35→16:49)
[2019-03-04] MEDS: SYNTHROID 25 MCG PO SCH (09:35)
[2019-03-04] MEDS: ELIQUIS 2.5 MG TABLET PO SCH ×2 (09:35→21:21)
[2019-03-04] MEDS: TYLENOL 325 MG PO PRN ×3 (09:39→21:20)
[2019-03-04] MEDS: Mucinex 600MG ER Tabs PO SCH ×2 (10:16→21:21)
--- NOTE | 2019-03-04 13:22 | PCM.NOTE ---
Date and Time: 03/04/19 1320 Subjective Assessment: Patient states his coughing spells are extreme and getting worse,bringing up small amount of milky mucus,feels the IV steroid given in the ER helped but cough is not releived with Neb tx or robitussin DM..He had tele Cardiology and Pulmonology consults yesterday.He will be followed by both when discharged.He is on sodium restriction and tolerating a diabetic diet.Patient states his sugars have been difficult to control since pancreatitis. - Review of Systems Constitutional: Other (no fever) Ears, Nose, & Throat: Other (states nasal polyp ) Respiratory: Other (unable to wear CPap without mild sedative,has been taking Ativan 0.[address] Covarrubias ) Objective Exam General Appearance: other (coughing spells during visit until face turns red- purple and finally brings up a small amount of white tenacious mucus.) Neurologic Exam: alert, oriented x 3, normal mood/affect Ears, Nose, Throat Exam: TMs normal, moist mucous membranes, other (not inflamed ,no exudate) Neck Exam: supple, other (no JVD) Respiratory Exam: diminished breath sounds, other (On O2) Cardiovascular Exam: regular rate/rhythm, normal heart sounds, other (no murmur , SEE ECHO -normal EF,LVH, See I/O negative balance(-[id number])) Gastrointestinal/Abdomen Exam: other (nontender) Extremity Exam: other (trace ankle edema) OBJECTIVE DATA Vital Signs: Vital Signs - 24 hr Temp Pulse Resp BP Pulse Ox 03/04/19 12:00 98.6 F 96 H 24 158/99 93 L 03/04/19 11:28 96 H 24 93 L 03/04/19 07:54 98.1 F 96 H 22 136/74 94 L 03/04/19 07:04 89 22 93 L 03/04/19 04:00 97.8 F 86 21 136/71 93 L 03/04/19 03:35 95 H 28 H 86 L 03/04/19 00:00 97.6 F 94 H 22 120/60 91 L 03/03/19 23:13 91 H 20 91 L 03/03/19 20:00 97 F 87 24 129/73 91 L 03/03/19 19:16 95 H 24 95 03/03/19 16:00 98 F 89 20 121/68 92 L Oxygen-Last 24 hours O2 Percentage 2 Liters = 28% O2 Percentage 2 Liters = 28% O2 Percentage 2 Liters = 28% O2 Percentage 2 Liters = 28% O2 Percentage 2 Liters = 28% O2 Percentage 2 Liters = 28% Pain Assessment - Last Documented Pain Intensity 4 Pain Scale Used 0-10 Pain Scale Intake and Output: Intake & Output 03/02/19 03/03/19 03/04/19 03/05/19 11:59 11:59 11:59 11:59 Intake Total 640 2420 720 Output Total 4050 5700 500 Balance -3410 -3280 220 Weight 125.2 kg 125.8 kg Lab Results: Accuchecks Accucheck Value: 144 Accucheck Value: 213 Accucheck Value: 153 Accucheck Value: 257 Lab Results-Last 24 Hours 03/04/19 Range/Units 05:20 Sodium 136 L (137-145) mmol/L Potassium 3.6 (3.5-5.1) mmol/L Chloride 94 L (98-107) mmol/L Carbon Dioxide 31 H (22-30) mmol/L Anion Gap 14.9 (5-15) MEQ/L BUN 30 H (9-20) mg/dL Creatinine 0.80 (0.66-1.25) mg/dL Estimated GFR > 60.0 ML/MIN Glucose 213 H (74-106) mg/dL Calcium 9.3 (8.4-10.2) mg/dL Radiology Exams: Radiology Procedures Category Date Time Status CHEST 2 VIEWS (PA AND LAT) Stat Exams 03/02/19 20:23 Completed CHEST WITH CONTRAST [CT] Stat Exams 03/03/19 00:21 Completed ECHO W/2D AND DOPPLER [US] Routine Exams 03/03/19 11:56 Draft Multi-Disciplinary Progress Notes: Multi-Disciplinary Progress Notes 03/03/19 15:50 Respiratory Note by Daniel Schmitt ATTEMPTED 3X TO DO PT 1500 DUO NEB TX TODAY AND PT WAS IN A TELE CARDIO CONF CALL. Initialized on 03/03/19 15:50 - END OF NOTE Assessment/Plan (1) COPD exacerbation Current Visit: Yes Status: Acute Assessment & Plan: IV solumedrol x 1 dose ,start Budesonide Neb tx Code(s): J44.1 - CHRONIC OBSTRUCTIVE PULMONARY DISEASE W (ACUTE) EXACERBATION (2) Pneumonia Current Visit: Yes Status: Acute Qualifiers: Pneumonia type: due to unspecified organism Laterality: bilateral Lung location: lower lobe of lung Qualified Code(s): J18.1 - Lobar pneumonia, unspecified organism Assessment & Plan: continue antibiotics and Neb Txs Code(s): J18.9 - PNEUMONIA, UNSPECIFIED ORGANISM (3) Diabetes Current Visit: No Status: Acute Qualifiers: Diabetes mellitus type: type 2 Assessment & Plan: continue current Insulin sliding scale and Lantus Code(s): E11.9 - TYPE 2 DIABETES MELLITUS WITHOUT COMPLICATIONS (4) CHF (congestive heart failure) Current Visit: Yes Status: Acute Assessment & Plan: See I/O- d/c IV lasix,restart oral Lasix Code(s): I50.9 - HEART FAILURE, UNSPECIFIED
[2019-03-04] MEDS ORDERED: solu-MEDROL 125 MG IV ONE (14:30)
[2019-03-04] MEDS ORDERED: PROVENTIL 2.5 MG/3 ML NEB IH ONE (18:43)
[2019-03-04] MEDS ORDERED: PULMICORT 0.5 MG/2 ML RESPULES IH ONE (18:44)
[2019-03-04] MEDS: PULMICORT 0.5 MG/2 ML RESPULES IH SCH (18:51)
[2019-03-04] MEDS: PROVENTIL 2.5 MG/3 ML NEB IH SCH ×2 (18:51→22:40)
[2019-03-04] MEDS: ROCEPHIN 1 Gm-D5w 50 ml Bag** 1 G/50 ML IVPB IV SCH (20:12)
[2019-03-04] MEDS: Zithromax 500 MG/ 250 ML NaCl Premix 500 MG/250 ML IVPB IV SCH (20:51)
[2019-03-04] MEDS: ZOCOR 20MG PO SCH (21:20)
[2019-03-04] MEDS: Singulair 10 MG PO SCH (21:21)
[2019-03-04] MEDS: Mirapex 0.5 MG Tablet PO SCH (21:21)
[2019-03-04] MEDS: Ativan 0.5 MG PO PRN (21:26)
[2019-03-04] MEDS: Atrovent 0.5MG NEBULE IH SCH (22:40)
[2019-03-05] MEDS: TYLENOL 325 MG PO PRN ×3 (02:12→20:41)
[2019-03-05] MEDS: Robitussin-Dm Syrup PO PRN ×3 (02:13→19:07)
[2019-03-05] MEDS: PROVENTIL 2.5 MG/3 ML NEB IH SCH ×6 (02:57→22:50)
[2019-03-05] MEDS: PULMICORT 0.5 MG/2 ML RESPULES IH SCH ×2 (06:35→19:05)
[2019-03-05] MEDS: Atrovent 0.5MG NEBULE IH SCH ×3 (06:35→22:50)
[2019-03-05 07:01] LABS: ANION GAP 14.8 MEQ/L (5-15); BLOOD UREA NITROGEN 26 mg/dL (9-20); CHLORIDE 90 mmol/L (98-107); Calcium 8.7 mg/dL (8.4-10.2); Carbon Dioxide 34 mmol/L (22-30); Creatinine 1 0.64 mg/dL (0.66-1.25); Glucose 246 mg/dL (74-106); Potassium 3.9 mmol/L (3.5-5.1); SODIUM 134 mmol/L (137-145)
[2019-03-05] MEDS: Lantus Insulin SQ SCH ×2 (07:45→20:43)
[2019-03-05] MEDS: NovoLOG Insulin SQ SCH ×3 (07:45→18:09)
[2019-03-05] MEDS: VITAMIN D PO SCH (09:00)
[2019-03-05] MEDS: Maxzide-25MG Tablet PO SCH (09:00)
[2019-03-05] MEDS: Klor Con 10 MEQ PO SCH ×2 (09:01→22:21)
[2019-03-05] MEDS: ELIQUIS 2.5 MG TABLET PO SCH ×2 (09:01→22:21)
[2019-03-05] MEDS: MAG-OX 400 PO SCH ×2 (09:02→22:21)
[2019-03-05] MEDS: Mucinex 600MG ER Tabs PO SCH ×2 (09:02→22:21)
[2019-03-05] MEDS: Lasix 40 MG PO SCH ×2 (09:02→18:04)
[2019-03-05] MEDS: SYNTHROID 25 MCG PO SCH (09:02)
[2019-03-05] MEDS: COSOPT OPHTHALMIC 10 ML OP SCH ×2 (09:04→22:33)
[2019-03-05] MEDS: Alphagan P 0.15% OP SCH ×2 (09:12→22:31)
[2019-03-05] MEDS: Toprol Xl 100 MG PO SCH (09:15)
[2019-03-05] MEDS: NovoLOG Insulin SQ PRN (11:29)
[2019-03-05] MEDS ORDERED: MOTRIN 600 MG PO ONE (12:25)
--- NOTE | 2019-03-05 12:28 | PCM.NOTE ---
Date and Time: 03/05/19 1223 Subjective Assessment: Patient says his coughing spells have improved ,not as severe but feels he has a migraine ,pain behind right eye. He also has tension back of neck into temples. - Review of Systems Constitutional: Other (no fever) Eyes: Other (has shunt right eye for glaucoma but the pain in the right eye he has now is behind the eye like his migraine.) Respiratory: Cough, Other (no SOB at rest) Cardiac: Other (no chest pain, edema in legs has improved.) Abdominal/Gastrointestinal: Other (no abd pain) Neurological: Headache (hx migraine) Objective Exam Neurologic Exam: alert, oriented x 3, cooperative Neck Exam: other (paracervical and trapezius mm spasm 2+/4,tender frontalis mm) Respiratory Exam: diminished breath sounds (bases bilat), crackles/rales (bases) , wheezing (eew right mid lung) Cardiovascular Exam: regular rate/rhythm (edemapitting right > left 1-2+/4 ankle and pedal), other (see ECHO) OBJECTIVE DATA Vital Signs: Vital Signs - 24 hr Temp Pulse Resp BP Pulse Ox 03/05/19 11:37 98.2 F 91 H 16 128/72 94 L 03/05/19 10:58 84 20 03/05/19 07:20 97.3 F 89 16 124/70 93 L 03/05/19 06:40 89 16 93 L 03/05/19 04:00 98.4 F 76 22 128/70 91 L 03/05/19 02:57 76 22 91 L 03/05/19 00:00 97.9 F 83 17 150/60 96 03/04/19 20:00 98.3 F 94 H 15 132/63 92 L 03/04/19 18:51 94 H 15 92 L 03/04/19 16:00 97.9 F 93 H 24 132/75 94 L 03/04/19 15:10 90 20 93 L Oxygen-Last 24 hours O2 Percentage 3 Liters = 32% O2 Percentage 3 Liters = 32% O2 Percentage 3 Liters = 32% O2 Percentage 2 Liters = 28% Oxygen Flowrate (L/min)-RT 3 Pain Assessment - Last Documented Pain Intensity 8 Pain Scale Used 0-10 Pain Scale Intake and Output: Intake & Output 06/1703/04/19 03/05/19 03/06/19 11:59 11:59 11:59 11:59 Intake Total 640 2420 2340 Output Total 4056 0508 3722 Balance -3410 -3280 -1385 Weight 125.2 kg 125.8 kg 123 kg Lab Results: Accuchecks Date 03/05/19 Date 03/05/19 Date 03/04/19 Time 11:30 Time 07:30 Time 21:00 Accucheck Value: 366 Accucheck Value: 266 Accucheck Value: 328 Accucheck Value: 130 Lab Results-Last 24 Hours 03/05/19 03/05/19 Range/Units 05:43 05:43 Sodium 134 L (137-145) mmol/L Potassium 3.9 (3.5-5.1) mmol/L Chloride 90 L (98-107) mmol/L Carbon Dioxide 34 H (22-30) mmol/L Anion Gap 14.8 (5-15) MEQ/L BUN 26 H (9-20) mg/dL Creatinine 0.64 L (0.66-1.25) mg/dL Estimated GFR > 60.0 ML/MIN Glucose 246 H (74-106) mg/dL Calcium 8.7 (8.4-10.2) mg/dL TSH 3rd Generation 1.620 (0.47-4.68) mIU/L Radiology Exams: Radiology Procedures Category Date Time Status ECHO W/2D AND DOPPLER [US] Routine Exams 03/03/19 11:56 Draft Assessment/Plan (1) COPD exacerbation Current Visit: Yes Status: Acute Assessment & Plan: improved with IV solumedrol and Neb Tx ,added Budesonide. but not at baseline Code(s): J44.1 - CHRONIC OBSTRUCTIVE PULMONARY DISEASE W (ACUTE) EXACERBATION (2) Pneumonia Current Visit: Yes Status: Acute Qualifiers: Pneumonia type: due to unspecified organism Laterality: bilateral Lung location: lower lobe of lung Qualified Code(s): J18.1 - Lobar pneumonia, unspecified organism Assessment & Plan: afebrile,still coughing thick mucus Code(s): J18.9 - PNEUMONIA, UNSPECIFIED ORGANISM (3) Diabetes Current Visit: No Status: Acute Qualifiers: Diabetes mellitus type: type 2 Code(s): E11.9 - TYPE 2 DIABETES MELLITUS WITHOUT COMPLICATIONS (4) CHF (congestive heart failure) Current Visit: Yes Status: Acute Qualifiers: Heart failure type: diastolic Assessment & Plan: need Sleep apnea controlled Code(s): I50.9 - HEART FAILURE, UNSPECIFIED (5) Migraine Current Visit: Yes Status: Acute Assessment & Plan: one time dose Ibuprofen 600mg Code(s): G43.909 - MIGRAINE, UNSP, NOT INTRACTABLE, WITHOUT STATUS MIGRAINOSUS (6) Tension headache Current Visit: Yes Status: Acute Assessment & Plan: probably from extreme coughing spells. add Flexeril Code(s): G44.209 - TENSION-TYPE HEADACHE, UNSPECIFIED, NOT INTRACTABLE
[2019-03-05] MEDS: Cyclobenzaprine 10 MG PO PRN (12:44)
[2019-03-05] MEDS: ZOCOR 20MG PO SCH (22:21)
[2019-03-05] MEDS: Singulair 10 MG PO SCH (22:21)
[2019-03-05] MEDS: Mirapex 0.5 MG Tablet PO SCH (22:22)
[2019-03-05] MEDS: ROCEPHIN 1 Gm-D5w 50 ml Bag** 1 G/50 ML IVPB IV SCH (22:22)
[2019-03-05] MEDS: Zithromax 500 MG/ 250 ML NaCl Premix 500 MG/250 ML IVPB IV SCH (22:58)
[2019-03-06] MEDS: NovoLOG Insulin SQ PRN ×5 (00:17→21:52)
[2019-03-06] MEDS: Robitussin-Dm Syrup PO PRN ×2 (00:17→07:28)
[2019-03-06] MEDS: Ativan 0.5 MG PO PRN (00:23)
[2019-03-06] MEDS: PROVENTIL 2.5 MG/3 ML NEB IH SCH ×6 (05:50→23:05)
[2019-03-06] MEDS: Atrovent 0.5MG NEBULE IH SCH ×3 (06:49→23:06)
[2019-03-06] MEDS: PULMICORT 0.5 MG/2 ML RESPULES IH SCH ×2 (06:49→19:14)
[2019-03-06] MEDS: TYLENOL 325 MG PO PRN (07:28)
[2019-03-06] MEDS: Alphagan P 0.15% OP SCH ×2 (07:29→21:50)
[2019-03-06] MEDS: COSOPT OPHTHALMIC 10 ML OP SCH ×2 (07:31→21:51)
[2019-03-06 08:18] LABS: ANION GAP 10.9 MEQ/L (5-15); BLOOD UREA NITROGEN 28 mg/dL (9-20); CHLORIDE 93 mmol/L (98-107); Calcium 8.9 mg/dL (8.4-10.2); Carbon Dioxide 38 mmol/L (22-30); Creatinine 1 0.78 mg/dL (0.66-1.25); Glucose 167 mg/dL (74-106); Potassium 3.5 mmol/L (3.5-5.1); SODIUM 139 mmol/L (137-145)
[2019-03-06] MEDS: Lantus Insulin SQ SCH ×2 (08:51→20:17)
[2019-03-06] MEDS: NovoLOG Insulin SQ SCH ×3 (08:51→18:05)
[2019-03-06] MEDS: Maxzide-25MG Tablet PO SCH (08:52)
[2019-03-06] MEDS: SYNTHROID 25 MCG PO SCH (08:53)
[2019-03-06] MEDS: Klor Con 10 MEQ PO SCH ×2 (08:53→21:48)
[2019-03-06] MEDS: VITAMIN D PO SCH (08:54)
[2019-03-06] MEDS: Lasix 40 MG PO SCH ×2 (08:54→18:04)
[2019-03-06] MEDS: Mucinex 600MG ER Tabs PO SCH ×2 (08:54→21:48)
[2019-03-06] MEDS: ELIQUIS 2.5 MG TABLET PO SCH ×2 (08:54→21:48)
[2019-03-06] MEDS: MAG-OX 400 PO SCH ×2 (08:54→21:48)
[2019-03-06] MEDS: Toprol Xl 100 MG PO SCH (08:55)
[2019-03-06] MEDS: Norco 10/325 MG Tablet PO PRN ×3 (09:27→21:52)
[2019-03-06] MEDS: solu-MEDROL 125 MG IV SCH ×2 (09:59→18:16)
[2019-03-06] MEDS: Mirapex 0.5 MG Tablet PO SCH (21:48)
[2019-03-06] MEDS: Singulair 10 MG PO SCH (21:48)
[2019-03-06] MEDS: ZOCOR 20MG PO SCH (21:48)
[2019-03-06] MEDS: ROCEPHIN 1 Gm-D5w 50 ml Bag** 1 G/50 ML IVPB IV SCH (21:49)
[2019-03-06] MEDS: Zithromax 500 MG/ 250 ML NaCl Premix 500 MG/250 ML IVPB IV SCH (21:49)
[2019-03-07] MEDS: solu-MEDROL 125 MG IV SCH ×3 (01:02→16:45)
[2019-03-07] MEDS: Ativan 0.5 MG PO PRN (01:02)
[2019-03-07] MEDS: Norco 10/325 MG Tablet PO PRN ×4 (02:18→20:05)
[2019-03-07] MEDS: PROVENTIL 2.5 MG/3 ML NEB IH SCH ×6 (03:51→23:26)
[2019-03-07 06:09] LABS: Hematocrit 47.7 % (42-50); Mean Cell Volume 92.6 fl (78-100); Mean Corpuscular Hemoglobin 29.1 pg (26-32); Mean Corpuscular Hgb Concent. 31.4 g/dl (32-36); Mean Platelet Volume 9.9 fl (6-9.5); Platelet Count 233 K/mm3 (150-450); Red Blood Count 5.15 M/mm3 (4.1-5.6); Red Cell Distribution Width 15.1 % (11.5-14.0); White Blood Count 16.2 K/mm3 (4.0-10.5)
[2019-03-07 06:51] LABS: ALKALINE PHOSPHATASE 56 U/L (38-126); ANION GAP 14.8 MEQ/L (5-15); BLOOD UREA NITROGEN 27 mg/dL (9-20); CHLORIDE 90 mmol/L (98-107); Calcium 8.9 mg/dL (8.4-10.2); Carbon Dioxide 34 mmol/L (22-30); Creatinine 1 0.74 mg/dL (0.66-1.25); Glucose 256 mg/dL (74-106); Potassium 4.1 mmol/L (3.5-5.1); SGOT/AST 42 U/L (17-59); SGPT/ALT 59 U/L (0-50); SODIUM 135 mmol/L (137-145); Total Protein 7.2 g/dL (6.3-8.2)
[2019-03-07] MEDS: Atrovent 0.5MG NEBULE IH SCH ×2 (07:22→19:21)
[2019-03-07] MEDS: PULMICORT 0.5 MG/2 ML RESPULES IH SCH ×2 (07:22→19:21)
[2019-03-07 07:44] LABS: BAND 9 % (0.0-2.0); Lymphocytes 10 % (24-44); Monocyte 4 % (0.0-12.0); Neutrophils 77 % (36.-66.); Total Cells Counted 100
[2019-03-07 07:45] LABS: Platelet Estimate NORMAL (NORMAL)
[2019-03-07 07:46] LABS: Granulocyte Absolute (ANC) 13.93 (1.4-6.9)
[2019-03-07] MEDS: NovoLOG Insulin SQ SCH ×3 (08:19→16:48)
[2019-03-07] MEDS: Lantus Insulin SQ SCH ×2 (08:22→20:06)
[2019-03-07] MEDS: NovoLOG Insulin SQ PRN ×4 (08:27→22:32)
[2019-03-07] MEDS: Maxzide-25MG Tablet PO SCH (09:46)
[2019-03-07] MEDS: MAG-OX 400 PO SCH ×2 (09:46→22:31)
[2019-03-07] MEDS: Mucinex 600MG ER Tabs PO SCH ×2 (09:46→22:32)
[2019-03-07] MEDS: SYNTHROID 25 MCG PO SCH (09:47)
[2019-03-07] MEDS: Klor Con 10 MEQ PO SCH ×2 (09:47→22:31)
[2019-03-07] MEDS: VITAMIN D PO SCH (09:47)
[2019-03-07] MEDS: Toprol Xl 100 MG PO SCH (09:47)
[2019-03-07] MEDS: ELIQUIS 2.5 MG TABLET PO SCH ×2 (09:47→22:30)
[2019-03-07] MEDS: Lasix 40 MG PO SCH ×2 (09:47→16:50)
[2019-03-07] MEDS: COSOPT OPHTHALMIC 10 ML OP SCH ×2 (09:48→22:30)
[2019-03-07] MEDS: Alphagan P 0.15% OP SCH ×2 (09:49→22:29)
--- NOTE | 2019-03-07 14:25 | PCM.NOTE ---
Date and Time: 03/07/19 1422 Subjective Assessment: Patient is coughing less and is finally bringing up sputum but it is greenish- yellow color. C/O CPap mask that he tried new last night was to small around his mouth and his sats were 87 per patient. 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 Dr Jackson will follow patient as an outpatient and will order his C Pap titration when lungs have cleared from infection and CHF.Patient has chronic headaches seem to be mixed tension and sinus ,O2 desats with Hx migraine He has Flexeril TID prn and is on Singulair and Mucinex.He was given [place] but needs to avoid this from past issue.Ibuprofen helps but he is on Eliquis.He requires a high dose of Insulin to maintain his sugars especially while on steroids. - Review of Systems Constitutional: No Fever, No Chills Eyes: Other (Home drops for glaucoma) Ears, Nose, & Throat: Nose Congestion Respiratory: Cough, Wheezing Cardiac: Edema (improved in ankles feet), No Chest Pain, No Syncope Abdominal/Gastrointestinal: No Abdominal Pain, No Nausea, No Vomiting, No Diarrhea Neurological: Headache (mixed) Objective Exam General Appearance: no apparent distress, alert, other (resting propped up in bed) Neurologic Exam: alert, oriented x 3 Skin Exam: normal color, warm, dry Respiratory Exam: rhonchi, wheezing, other (moving air finally and mucus is loosening) Cardiovascular Exam: regular rate/rhythm Gastrointestinal/Abdomen Exam: soft, No tenderness Extremity Exam: pedal edema (improved) OBJECTIVE DATA Vital Signs: Vital Signs - 24 hr Temp Pulse Resp BP Pulse Ox 03/07/19 12:00 98.4 F 94 H 18 138/76 90 L 03/07/19 11:20 97 H 18 97 03/07/19 08:00 98.1 F 88 18 144/80 90 L 03/07/19 07:23 78 18 91 L 03/07/19 03:45 92 L 03/07/19 03:44 98.2 F 90 17 136/77 92 L 03/07/19 00:00 98.2 F 94 H 18 119/65 94 L 03/06/19 23:17 92 H 18 87 L 03/06/19 20:00 98.4 F 92 H 21 136/81 94 L 03/06/19 19:21 94 H 20 93 L 03/06/19 16:00 97.4 F 87 16 161/86 92 L 03/06/19 14:38 92 H 18 90 L Oxygen-Last 24 hours O2 Percentage 3 Liters = 32% O2 Percentage 3 Liters = 32% O2 Percentage 3 Liters = 32% O2 Percentage 3 Liters = 32% Oxygen Flowrate (L/min)-RT 3 Pain Assessment - Last Documented Pain Intensity 8 Pain Scale Used 0-10 Pain Scale Intake and Output: Intake & Output 03/05/19 03/06/19 03/07/19 03/08/19 11:59 11:59 11:59 11:59 Intake Total 2340 2640 2300 480 Output Total 3725 3150 2500 450 Balance -1385 -510 -200 30 Weight 123 kg 121.4 kg 120.9 kg Lab Results: Accuchecks Date 03/07/19 Date 03/07/19 Date 03/06/19 Time 11:57 Time 08:26 Time 16:30 Accucheck Value: 288 Accucheck Value: 256 Accucheck Value: 345 Accucheck Value: 200 Lab Results-Last 24 Hours 03/07/19 03/07/19 Range/Units 05:17 05:17 WBC 16.2 H (4.0-10.5) K/mm3 RBC 5.15 (4.1-5.6) M/mm3 Hgb 15.0 (12.5-18.0) gm/dl Hct 47.7 (42-50) % MCV 92.6 (78-100) fl MCH 29.1 (26-32) pg MCHC 31.4 L (32-36) g/dl RDW 15.1 H (11.5-14.0) % Plt Count 233 (150-450) K/mm3 MPV 9.9 H (6-9.5) fl Absolute Granulocytes 13.93 H (1.4-6.9) Segmented Neutrophils 77 H (36.-66.) % Band Neutrophils 9 H (0.0-2.0) % Lymphocytes (Manual) 10 L (24-44) % Monocytes (Manual) 4 (0.0-12.0) % Platelet Estimate NORMAL (NORMAL) RBC Morphology NORMAL Sodium 135 L (137-145) mmol/L Potassium 4.1 (3.5-5.1) mmol/L Chloride 90 L (98-107) mmol/L Carbon Dioxide 34 H (22-30) mmol/L Anion Gap 14.8 (5-15) MEQ/L BUN 27 H (9-20) mg/dL Creatinine 0.74 (0.66-1.25) mg/dL Estimated GFR > 60.0 ML/MIN Glucose 256 H (74-106) mg/dL Calcium 8.9 (8.4-10.2) mg/dL Total Bilirubin 0.50 (0.2-1.3) mg/dL AST 42 (17-59) U/L ALT 59 H (0-50) U/L Alkaline Phosphatase 56 (38-126) U/L Serum Total Protein 7.2 (6.3-8.2) g/dL Albumin 4.0 (3.5-5.0) g/dL Multi-Disciplinary Progress Notes: Multi-Disciplinary Progress Notes 03/07/19 04:31 Respiratory Note by Roxane Porter PT WAS PLACED ON HIS CPAP UNIT WITH 3L OXYGEN IN-LINE WITH A LARGE [place] MASK AROUNS 0245. PT C/O OF MASK BEING TOO SMALL. TOLD HIM THAT WAS THE BIGGEST MASK WE HAD. PT STATES HE WILL TRY TO WEAR IT. ABOUT 10 MINS LATER I WAS CALLED BACK INTO HIS ROOM. PT C/O MASK AGAIN. TRIED TO READJUST THE MASK BUT HE WASN' T HAPPY WITH THAT. ASKED IF HE COULD TRY TO CLOSE HIS EYES AND SLEEP AND TRY NOT TO THINK ABOUT THE MASK. HE SAID HE WOULD TRY. AROUND 4AM GOT A CALL FROM THE NURSE THAT HE TOOK OFF HIS CPAP AND PUT HIS NASAL CANNULA BACK ON. I GO TO THE ROOM. PT STATES HE JUST DOESN'T FEEL GOOD AND CAN'T WEAR THAT MASK RIGHT NOW. PT TALKING IN CIRCLES ABOUT HIS OXYGEN SATS, HIS CPAP, COUGHING UP SPUTUM, AND NOT FEELING WELL. IT DIDN'T MAKE ANY SINCE TO ME. I TOOK OFF THE OVER NIGHT PULSE OX AND PUT HIS NASAL MASK BACK ON THE CPAP. I TOLD HIM IF HE WANTED TO WEAR HIS MASK IT WAS HOOKED BACK UP. I TOLD HIM HE WOULD MOST LIKELY BENEFIT FROM AN IN LAB SLEEP TITRATION STUDY WHEN HE WAS FEELING BETTER. Initialized on 03/07/19 04:31 - END OF NOTE 03/06/19 15:20 (created 03/06/19 15:59) Respiratory Note by Opal Corona DR. CALLED REQUESTING PT HAVE REPEAT OVERNIGHT PULSE OXIMETRY TEST TONIGHT. SHE REQUESTED PT USE [place] CPAP MASK WITH OXYGEN. Initialized on 03/06/19 15:59 - END OF NOTE Assessment/Plan (1) COPD exacerbation Current Visit: Yes Status: Acute Assessment & Plan: neb treatments,O2 Code(s): J44.1 - CHRONIC OBSTRUCTIVE PULMONARY DISEASE W (ACUTE) EXACERBATION (2) Pneumonia Current Visit: Yes Status: Acute Qualifiers: Pneumonia type: due to unspecified organism Laterality: bilateral Lung location: lower lobe of lung Qualified Code(s): J18.1 - Lobar pneumonia, unspecified organism Assessment & Plan: d/c Zithromax start Levoquin -productive cough is worse and increase in WBCs with left shift,some due to IV steroids Code(s): J18.9 - PNEUMONIA, UNSPECIFIED ORGANISM (3) Diabetes Current Visit: No Status: Deleted Qualifiers: Diabetes mellitus type: type 2 Assessment & Plan: has sliding scale in place.Increase walking Code(s): E11.9 - TYPE 2 DIABETES MELLITUS WITHOUT COMPLICATIONS (4) CHF (congestive heart failure) Current Visit: Yes Status: Acute Qualifiers: Heart failure type: diastolic Assessment & Plan: IV Lasix was changed to oral 2 days ago.Had diuresed 6+ liters.Sodium 135 today ,Hold AM Lasix,check labs Code(s): I50.9 - HEART FAILURE, UNSPECIFIED (5) Migraine Current Visit: Yes Status: Acute Assessment & Plan: stop [place] Code(s): G43.909 - MIGRAINE, UNSP, NOT INTRACTABLE, WITHOUT STATUS MIGRAINOSUS (6) Tension headache Current Visit: Yes Status: Acute Assessment & Plan: Flexeril Code(s): G44.209 - TENSION-TYPE HEADACHE, UNSPECIFIED, NOT INTRACTABLE (7) Hypoxemia requiring supplemental oxygen Current Visit: Yes Status: Acute Assessment & Plan: Brokerage Manager is following and Cpap titration is needed when patients Pneumonia has cleared,will need a mask that covers his mouth and has nasal pillows. Code(s): R09.02 - HYPOXEMIA; Z99.81 - DEPENDENCE ON SUPPLEMENTAL OXYGEN (8) Hyperglycemia due to type 2 diabetes mellitus Current Visit: No Status: Acute Code(s): E11.65 - TYPE 2 DIABETES MELLITUS WITH HYPERGLYCEMIA
[2019-03-07] MEDS: LEVOFLOXACIN 750MG/150ML D5W 750 MG/150 ML BAG IV SCH (14:28)
[2019-03-07] MEDS: Mirapex 0.5 MG Tablet PO SCH (22:31)
[2019-03-07] MEDS: Singulair 10 MG PO SCH (22:32)
[2019-03-07] MEDS: ZOCOR 20MG PO SCH (22:32)
[2019-03-07] MEDS: ROCEPHIN 1 Gm-D5w 50 ml Bag** 1 G/50 ML IVPB IV SCH (22:32)
[2019-03-08] MEDS: solu-MEDROL 125 MG IV SCH ×3 (01:13→16:41)
[2019-03-08] MEDS: TYLENOL 325 MG PO PRN ×2 (01:18→12:17)
[2019-03-08] MEDS: PROVENTIL 2.5 MG/3 ML NEB IH SCH ×7 (03:22→23:15)
[2019-03-08 06:29] LABS: Hematocrit 48.2 % (42-50); Hemoglobin 15.2 gm/dl (12.5-18.0); Mean Cell Volume 92.9 fl (78-100); Mean Corpuscular Hemoglobin 29.3 pg (26-32); Mean Corpuscular Hgb Concent. 31.5 g/dl (32-36); Mean Platelet Volume 9.8 fl (6-9.5); Platelet Count 227 K/mm3 (150-450); Red Blood Count 5.19 M/mm3 (4.1-5.6); Red Cell Distribution Width 15.5 % (11.5-14.0); White Blood Count 17.1 K/mm3 (4.0-10.5)
[2019-03-08 06:43] LABS: ANION GAP 18.3 MEQ/L (5-15); BLOOD UREA NITROGEN 34 mg/dL (9-20); CHLORIDE 91 mmol/L (98-107); Calcium 8.7 mg/dL (8.4-10.2); Carbon Dioxide 31 mmol/L (22-30); Creatinine 1 0.68 mg/dL (0.66-1.25); Glucose 303 mg/dL (74-106); Potassium 4.2 mmol/L (3.5-5.1); SODIUM 137 mmol/L (137-145)
[2019-03-08 06:46] LABS: ANISOCYTOSIS 1+; Lymphocytes 10 % (24-44); Monocyte 1 % (0.0-12.0); Neutrophils 89 % (36.-66.); Platelet Estimate NORMAL (NORMAL); Total Cells Counted 100
[2019-03-08] MEDS: NovoLOG Insulin SQ PRN ×4 (07:41→21:30)
[2019-03-08] MEDS: Lantus Insulin SQ SCH ×2 (07:42→20:45)
[2019-03-08] MEDS: NovoLOG Insulin SQ SCH ×3 (07:42→16:42)
[2019-03-08] MEDS: PULMICORT 0.5 MG/2 ML RESPULES IH SCH ×2 (09:11→20:01)
[2019-03-08] MEDS: Atrovent 0.5MG NEBULE IH SCH ×3 (09:23→23:15)
[2019-03-08] MEDS: LASIX 20 MG PO SCH ×2 (10:15→16:41)
[2019-03-08] MEDS: Cyclobenzaprine 10 MG PO PRN (10:15)
[2019-03-08] MEDS: LEVOFLOXACIN 750MG/150ML D5W 750 MG/150 ML BAG IV SCH (10:15)
[2019-03-08] MEDS: MAG-OX 400 PO SCH ×2 (10:15→21:29)
[2019-03-08] MEDS: SYNTHROID 25 MCG PO SCH (10:16)
[2019-03-08] MEDS: Maxzide-25MG Tablet PO SCH (10:16)
[2019-03-08] MEDS: VITAMIN D PO SCH (10:16)
[2019-03-08] MEDS: Klor Con 10 MEQ PO SCH ×2 (10:16→21:29)
[2019-03-08] MEDS: Mucinex 600MG ER Tabs PO SCH ×2 (10:16→21:30)
[2019-03-08] MEDS: Toprol Xl 100 MG PO SCH (10:17)
[2019-03-08] MEDS: ELIQUIS 2.5 MG TABLET PO SCH ×2 (10:17→21:29)
[2019-03-08] MEDS: COSOPT OPHTHALMIC 10 ML OP SCH ×2 (10:17→21:29)
[2019-03-08] MEDS: Alphagan P 0.15% OP SCH ×2 (10:18→21:29)
[2019-03-08] MEDS: Robitussin-Dm Syrup PO PRN (12:16)
--- NOTE | 2019-03-08 13:16 | PCM.NOTE ---
Date and Time: 03/08/19 1315 Subjective Assessment: patient reports improvement but still coughing and short of breath, still requiring oxygen and is not on home oxygen therapy. not able to cough up sputum Objective Exam General Appearance: no apparent distress, obese Neurologic Exam: alert, oriented x 3 Respiratory Exam: prolonged expirations, wheezing Cardiovascular Exam: regular rate/rhythm, normal heart sounds Gastrointestinal/Abdomen Exam: soft, No tenderness, No mass Extremity Exam: normal inspection, normal range of motion OBJECTIVE DATA Vital Signs: Vital Signs - 24 hr Temp Pulse Resp BP Pulse Ox 03/08/19 12:34 97.8 F 68 20 122/58 92 L 03/08/19 09:25 91 H 18 91 L 03/08/19 07:32 97.7 F 79 20 125/74 98 03/08/19 04:00 98.3 F 88 18 132/75 92 L 03/08/19 03:26 88 18 92 L 03/08/19 00:00 97.9 F 90 18 141/78 95 03/07/19 23:27 94 H 18 93 L 03/07/19 20:00 98.2 F 87 20 133/69 94 L 03/07/19 19:22 85 18 92 L 03/07/19 16:00 98 F 88 18 143/79 98 03/07/19 15:16 109 H 18 92 L Oxygen-Last 24 hours O2 Percentage 3 Liters = 32% O2 Percentage 4 Liters = 36% O2 Percentage 3 Liters = 32% O2 Percentage 3 Liters = 32% O2 Percentage 3 Liters = 32% Oxygen Flowrate (L/min)-RT 3 Pain Assessment - Last Documented Pain Intensity 5 Pain Scale Used 0-10 Pain Scale Intake and Output: Intake & Output 03/06/19 03/07/19 03/08/19 03/09/19 11:59 11:59 11:59 11:59 Intake Total 2640 2300 2860 420 Output Total 3150 2500 4125 400 Balance -613 -414 -4519 20 Weight 121.4 kg 120.9 kg 121 kg Lab Results: Accuchecks Date 03/08/19 Date 03/08/19 Date 03/07/19 Time 11:30 Time 07:30 Time 02:36 Accucheck Value: 259 Accucheck Value: 335 Accucheck Value: 293 Lab Results-Last 24 Hours 03/08/19 03/08/19 Range/Units 06:05 06:05 WBC 17.1 H (4.0-10.5) K/mm3 RBC 5.19 (4.1-5.6) M/mm3 Hgb 15.2 (12.5-18.0) gm/dl Hct 48.2 (42-50) % MCV 92.9 (78-100) fl MCH 29.3 (26-32) pg MCHC 31.5 L (32-36) g/dl RDW 15.5 H (11.5-14.0) % Plt Count 227 (150-450) K/mm3 MPV 9.8 H (6-9.5) fl Segmented Neutrophils 89 H (36.-66.) % Lymphocytes (Manual) 10 L (24-44) % Monocytes (Manual) 1 (0.0-12.0) % Platelet Estimate NORMAL (NORMAL) RBC Morphology ABNORMAL Anisocytosis 1+ Sodium 137 (137-145) mmol/L Potassium 4.2 (3.5-5.1) mmol/L Chloride 91 L (98-107) mmol/L Carbon Dioxide 31 H (22-30) mmol/L Anion Gap 18.3 H (5-15) MEQ/L BUN 34 H (9-20) mg/dL Creatinine 0.68 (0.66-1.25) mg/dL Estimated GFR > 60.0 ML/MIN Glucose 303 H (74-106) mg/dL Calcium 8.7 (8.4-10.2) mg/dL Assessment/Plan (1) COPD exacerbation Current Visit: Yes Status: Acute Assessment & Plan: continue levaquin and IV solu medrol Code(s): J44.1 - CHRONIC OBSTRUCTIVE PULMONARY DISEASE W (ACUTE) EXACERBATION (2) CHF (congestive heart failure) Current Visit: Yes Status: Acute Qualifiers: Heart failure type: diastolic Assessment & Plan: stable currently, appears euvolemic Code(s): I50.9 - HEART FAILURE, UNSPECIFIED (3) Hyperglycemia due to type 2 diabetes mellitus Current Visit: No Status: Acute Code(s): E11.65 - TYPE 2 DIABETES MELLITUS WITH HYPERGLYCEMIA
[2019-03-08] MEDS: ROCEPHIN 1 Gm-D5w 50 ml Bag** 1 G/50 ML IVPB IV SCH (21:30)
[2019-03-08] MEDS: Mirapex 0.5 MG Tablet PO SCH (21:30)
[2019-03-08] MEDS: Singulair 10 MG PO SCH (21:30)
[2019-03-08] MEDS: ZOCOR 20MG PO SCH (21:30)
[2019-03-09] MEDS: Ativan 0.5 MG PO PRN (00:16)
[2019-03-09] MEDS: solu-MEDROL 125 MG IV SCH ×2 (00:16→08:05)
[2019-03-09] MEDS: PROVENTIL 2.5 MG/3 ML NEB IH SCH ×2 (03:38→07:42)
[2019-03-09 05:55] LABS: Hematocrit 49.2 % (42-50); Hemoglobin 15.4 gm/dl (12.5-18.0); Mean Cell Volume 92.5 fl (78-100); Mean Corpuscular Hemoglobin 28.9 pg (26-32); Mean Corpuscular Hgb Concent. 31.3 g/dl (32-36); Mean Platelet Volume 9.6 fl (6-9.5); Platelet Count 246 K/mm3 (150-450); Red Blood Count 5.32 M/mm3 (4.1-5.6); Red Cell Distribution Width 15.4 % (11.5-14.0); White Blood Count 17.2 K/mm3 (4.0-10.5)
[2019-03-09 06:04] LABS: ANION GAP 14.9 MEQ/L (5-15); BLOOD UREA NITROGEN 37 mg/dL (9-20); CHLORIDE 94 mmol/L (98-107); Calcium 9.7 mg/dL (8.4-10.2); Carbon Dioxide 33 mmol/L (22-30); Creatinine 1 0.78 mg/dL (0.66-1.25); Glucose 320 mg/dL (74-106); Potassium 4.3 mmol/L (3.5-5.1); SODIUM 137 mmol/L (137-145)
[2019-03-09 06:20] LABS: Lymphocytes 10 % (24-44); Monocyte 2 % (0.0-12.0); Neutrophils 88 % (36.-66.); Total Cells Counted 100
[2019-03-09 06:21] LABS: Platelet Estimate NORMAL (NORMAL)
[2019-03-09] MEDS: PULMICORT 0.5 MG/2 ML RESPULES IH SCH (07:41)
[2019-03-09] MEDS: NovoLOG Insulin SQ PRN ×2 (08:05→11:51)
[2019-03-09] MEDS: Lantus Insulin SQ SCH (08:05)
[2019-03-09] MEDS: NovoLOG Insulin SQ SCH ×2 (08:05→11:52)
[2019-03-09] MEDS: LEVOFLOXACIN 750MG/150ML D5W 750 MG/150 ML BAG IV SCH (08:07)
[2019-03-09] MEDS: Robitussin-Dm Syrup PO PRN (08:11)
[2019-03-09] MEDS: Alphagan P 0.15% OP SCH (08:13)
[2019-03-09] MEDS: COSOPT OPHTHALMIC 10 ML OP SCH (08:14)
[2019-03-09] MEDS: VITAMIN D PO SCH (08:15)
[2019-03-09] MEDS: Toprol Xl 100 MG PO SCH (08:15)
[2019-03-09] MEDS: Klor Con 10 MEQ PO SCH (08:15)
[2019-03-09] MEDS: SYNTHROID 25 MCG PO SCH (08:16)
[2019-03-09] MEDS: Mucinex 600MG ER Tabs PO SCH (08:16)
[2019-03-09] MEDS: Maxzide-25MG Tablet PO SCH (08:16)
[2019-03-09] MEDS: Cyclobenzaprine 10 MG PO PRN (08:16)
[2019-03-09] MEDS: ELIQUIS 2.5 MG TABLET PO SCH (08:17)
[2019-03-09] MEDS: MAG-OX 400 PO SCH (08:17)
[2019-03-09] MEDS: LASIX 20 MG PO SCH (08:17)
--- NOTE | 2019-03-09 09:45 | PCM.DS ---
Discharge Summary Date of Admission: 03/03/19 02:59 Admitting Physician: CHAPARRITA SILVERMAN DO Consults: Consults on Case 03/03/19 08:36 Consult Cardiology ROUTINE Consult Pulmonology ROUTINE Primary Care Provider: NO FAMILY DOCTOR Allergies Allergies tuberculin,PPD,multi-puncture [From Tuberculin PPD Mary Ellen Test] Allergy ( Intermediate, Verified 03/03/19 03:27) Rash butorphanol tartrate [From Stadol] Allergy (Unknown, Verified 03/03/19 03:27) chlorpromazine HCl [From Thorazine] Allergy (Unknown, Verified 03/03/19 03:27) irritable haloperidol Allergy (Unknown, Verified 03/03/19 03:27) "makes me stay awake too much" ketorolac tromethamine [From Toradol] Allergy (Unknown, Verified 03/03/19 03:27) severe pain in lower back and kidneys nalbuphine [Nalbuphine] Allergy (Unknown, Verified 03/03/19 03:27) prochlorperazine edisylate [From Compazine] Allergy (Unknown, Verified 03/03/19 03:27) irritable lisinopril Adverse Reaction (Verified 03/03/19 03:27) Cough chloraprep Allergy (Intermediate, Uncoded 03/02/19 20:43) Rash Hospital Summary - Hospital Course Hospital Course: patient was admitted and treated by Dr Silverman for copd exacerbation and chf. he is doing much better at this time, has been qualified for home oxygen with cpap - Vitals & Intake/Output Vital Signs: Vital Signs Temperature 97.5 F 03/09/19 08:00 Pulse Rate 95 H 03/09/19 08:00 Respiratory Rate 22 03/09/19 08:00 Blood Pressure 157/84 03/09/19 08:00 O2 Sat by Pulse Oximetry 93 L 03/09/19 08:00 Oxygen-Last Documented O2 Percentage 4 Liters = 36% Intake & Output: Intake & Output 03/06/19 03/07/19 03/08/19 03/09/19 11:59 11:59 11:59 11:59 Intake Total 2640 2300 2860 4161 Output Total 3150 3778 5134 1225 Balance -380 -200 -1265 -064 Weight 121.4 kg 120.9 kg 121 kg 122.9 kg - Lab Result Diagrams: 03/09/19 05:15 03/09/19 05:15 Lab Results-Last 24 Hrs: Accuchecks Date 03/09/19 Date 03/08/19 Date 03/08/19 Time 07:30 Time 16:30 Time 11:30 Accucheck Value: 414 Accucheck Value: 273 Accucheck Value: 290 Accucheck Value: 259 Lab Results-Last 24 Hours 03/09/19 03/09/19 Range/Units 05:15 05:15 WBC 17.2 H (4.0-10.5) K/mm3 RBC 5.32 (4.1-5.6) M/mm3 Hgb 15.4 (12.5-18.0) gm/dl Hct 49.2 (42-50) % MCV 92.5 (78-100) fl MCH 28.9 (26-32) pg MCHC 31.3 L (32-36) g/dl RDW 15.4 H (11.5-14.0) % Plt Count 246 (150-450) K/mm3 MPV 9.6 H (6-9.5) fl Segmented Neutrophils 88 H (36.-66.) % Lymphocytes (Manual) 10 L (24-44) % Monocytes (Manual) 2 (0.0-12.0) % Platelet Estimate NORMAL (NORMAL) RBC Morphology NORMAL Sodium 137 (137-145) mmol/L Potassium 4.3 (3.5-5.1) mmol/L Chloride 94 L (98-107) mmol/L Carbon Dioxide 33 H (22-30) mmol/L Anion Gap 14.9 (5-15) MEQ/L BUN 37 H (9-20) mg/dL Creatinine 0.78 (0.66-1.25) mg/dL Estimated GFR > 60.0 ML/MIN Glucose 320 H (74-106) mg/dL Calcium 9.7 (8.4-10.2) mg/dL Micro Results-Entire Visit: Microbiology 03/02/19 20:58 Blood Culture Gram Stain - Final Blood Not Reportable Blood Culture - Final NO GROWTH 03/02/19 20:42 Blood Culture Gram Stain - Final Blood Not Reportable Blood Culture - Final NO GROWTH 03/04/19 12:00 Gram Stain - Final Sputum - Expectorant Sputum Culture - Final ORGANISMS ISOLATED ARE CONSISTENT WITH NORMAL RESP DANIELLE LIGHT GROWTH, NO PREDOMINANT ORGANISM Accuchecks Date 03/09/19 Date 03/08/19 Date 03/08/19 Time 07:30 Time 16:30 Time 11:30 Accucheck Value: 414 Accucheck Value: 273 Accucheck Value: 290 Accucheck Value: 259 - Procedures and Test Procedures and Tests throughout Hospitalization: Therapy Orders & Screens 03/02/19 20:53 Peak Expiratory Flow Rate ONCE Comment: Reason For Exam: Respiratory Therapy Assessment DAILY Comment: 03/03/19 03:01 Oxygen Nasal Cannula 2 lpm Comment: 03/03/19 03:42 Peak Expiratory Flow Rate ONCE Comment: Reason For Exam: Diagnosis: Pneumonia 03/03/19 03:43 BiPap/CPAP ROUTINE Comment: pt wears cpap at home. autopap 4-20 Diagnosis: Pneumonia Respiratory Therapy Assessment DAILY Comment: Diagnosis: Pneumonia 03/03/19 10:00 RT Screen per Nursing Assess ONCE Comment: Protocol Order Physician Instructions: Greater than 3 points order RT Admission Screen Reason For Exam: Triggered on Admission Diagnosis: Pneumonia, COPD Exac. Diagnosis: Pneumonia, COPD Exac. Pneumonia: Yes Home O2: No Asthma: Yes CHF: No Home CPAP/BIPAP: Yes Home Nebs/MDI: Yes Total Points: 17 03/04/19 11:33 FLUTTER [Flutter Therapy] UD Comment: Diagnosis: Pneumonia, COPD Exac. Discharge Exam General Appearance: no apparent distress, obese Neurologic Exam: alert Respiratory Exam: normal breath sounds, lungs clear Cardiovascular Exam: regular rate/rhythm, normal heart sounds Gastrointestinal/Abdomen Exam: soft, No tenderness, No mass Extremity Exam: normal inspection, normal range of motion Skin Exam: normal color, warm, dry Final Diagnosis/Problem List - Final Discharge Diagnosis/Problem (1) COPD exacerbation Current Visit: Yes Status: Acute Code(s): J44.1 - CHRONIC OBSTRUCTIVE PULMONARY DISEASE W (ACUTE) EXACERBATION (2) CHF (congestive heart failure) Current Visit: Yes Status: Acute Code(s): I50.9 - HEART FAILURE, UNSPECIFIED (3) Hyperglycemia due to type 2 diabetes mellitus Current Visit: No Status: Acute Code(s): E11.65 - TYPE 2 DIABETES MELLITUS WITH HYPERGLYCEMIA - Discharge Disposition: Home, Self-Care Condition: Stable Prescriptions: New Prednisone 20 mg [Deltasone 20 mg] 20 mg PO UD #18 tablet Levofloxacin [Levaquin] 500 mg PO DAILY #7 tablet Continue Brimonidine Tartrate [Alphagan P 0.15%] 1 drops OP BID Metformin HCl 1000 mg [Glucophage 1000 MG] 1,000 mg PO BID Magnesium Oxide 400 mg [Mag-Ox 400] 400 mg PO BID #0 tablet Apixaban [Eliquis 5 mg Tablet] 2.5 mg PO BID Levothyroxine Sodium 25 Mcg [Synthroid 25 Mcg] 25 mcg PO DAILY Dorzolamide HCl/Timolol Maleat [Dorzolamide-Timolol Eye Drops] 1 drop OP BID Insulin Aspart [NovoLOG Insulin] 52 units SQ TIDWM Metoprolol Succinate 100 mg [Toprol Xl 100 MG] 100 mg PO DAILY Montelukast Sodium 10 mg [Singulair 10 MG] 10 mg PO QPM Cholecalciferol (Vitamin D3) [Vitamin D3] 3,000 unit PO DAILY Furosemide [Lasix] 40 mg PO BID Latanoprostene Bunod [Vyzulta] 1 drop OP HS Pramipexole Di-HCl 0.5 mg [Mirapex 0.5 MG Tablet] 1 mg PO HS Rosuvastatin Calcium [Crestor] 10 mg PO HS LORazepam [Lorazepam] 0.5 mg PO QHS PRN #30 tablet PRN Reason: Anxiety Potassium Chloride 10 Meq Tab* [Klor Con 10 MEQ] 20 meq PO BID Insulin Glargine [Lantus Insulin] 75 units SQ BID Triamterene/Hydrochlorothiazid [Triamterene-Hctz 75-50 mg Tab] 1 tablet PO DAILY #30 tablet Additional Instructions: An ENT APPT was made on 03/17/19 @ 2:20 p.m. with Lesley Roberts NP for at [address] [place] [address]. Patient is to arrive 20 minutes early to fill out paperwork and have Insurance cards and photo I.D. with him. Follow up with: SERA JAIMES [ACTIVE STAFF] - 03/26/19 2:45 pm (at [facility]) DOCTOR,NO FAMILY [Primary Care Provider] - 1 Week GLADYS LEWIS MD [NON-STAFF PHY W/O PRIVILEGES] - 03/17/19 2:20 pm (Consult appt with Lesley Roberts NP for will see patient at [facility]) Joao Anaya MD [CONSULTING PHYSICIAN] - 03/11/19 1:15 pm
[2019-03-09 12:11] VITALS: BP 160/88; PULSE 88; O2SAT 95
== END 2019-03-09 12:25 | disposition home or self-care (01) | DRG 190 ==
LOC: ED 20:12 → MED SURG 03-03 02:59
PROVIDERS: ADMIT Family Medicine; ATTEND Family Medicine
DX: J44.1 Chronic obstructive pulmonary disease with (acute) exacerbation (principal); J18.9 Pneumonia, unspecified organism; E11.65 Type 2 diabetes mellitus with hyperglycemia; I10 Essential (primary) hypertension; I50.9 Heart failure, unspecified; G47.30 Sleep apnea, unspecified; E03.9 Hypothyroidism, unspecified; R09.02 Hypoxemia; Z79.01 Long term (current) use of anticoagulants; Z79.899 Other long term (current) drug therapy; G43.909 Migraine, unspecified, not intractable, without status migrainosus; G44.209 Tension-type headache, unspecified, not intractable; Z99.81 Dependence on supplemental oxygen
CPT/HCPCS: 36000; 36415; 36600; 71046; 71260; 80048; 80053; 82375; 82550; 82803; 82947; 82962; 83605; 83880; 84443; 84484; 85025; 85027; 85379; 85610; 85730; 87040; 87070; 93005; 93306; 94150; 94640; 94667; 94668; 94760; 94762; 96360; 96361; 96365; 96367; 96374; 96375; 99285; Q3014; 94660; J0456; J0696; J1642; J1940; J1956; J2930; J7609; A9270-GY

== ENCOUNTER 2019-03-10 20:04 | Emergency (ER) | payer MEDICARE ==
[2013-05-17 12:06] VITALS: BP 122/76
== END 2019-03-10 20:24 | disposition left against medical advice (07) ==
LOC: ED 20:04
DX: Z53.21 Procedure and treatment not carried out due to patient leaving prior to being seen by health care provider (principal)

== ENCOUNTER 2019-04-11 20:01 | Emergency (ER) | payer MEDICARE ==
[2019-04-11] MEDS ORDERED: BUMEX 1 MG IV ONE (20:37)
--- NOTE | 2019-04-11 20:42 | ERPHSYRPT ---
- History of Present Illness Time Seen by Provider: 04/11/19 20:39 Source: patient Exam Limitations: no limitations Patient Subjective Stated Complaint: pt states since sunday he has been increasingly short of breath and has had increasing pittting edema. Triage Nursing Assessment: pt awake and alert, age approp behavior. pt ambulatory with steady gait ntoed. declined wheelchair to room. states he has gained 15 lbs in last 2 weeks. shortness of breath with exertion. lung cta bilast. pitting edema noted to bilat lower legs, hands and lower arms. Physician History: 53 yeras old male with PMHx of right sided heart failure states since sunday he has been increasingly short of breath and has had increasing pittting edema. Timing/Duration: day(s) (5 days) Modifying Factors: Improves With: breathing Nitro Today/Relief: no nitro taken today Aspirin Treatment Today: no aspirin today Associated Symptoms: shortness of breath, diaphoresis, cough, weakness, No heartburn, No chills, No chest pain, No rash, No syncope Prior Chest Pain/Cardiac Workup: recently seen/treated Allergies/Adverse Reactions: tuberculin,PPD,multi-puncture [From Tuberculin PPD Mary Ellen Test] Allergy ( Intermediate, Verified 04/11/19 20:18) Rash butorphanol tartrate [From Stadol] Allergy (Unknown, Verified 04/11/19 20:18) chlorpromazine HCl [From Thorazine] Allergy (Unknown, Verified 04/11/19 20:18) irritable haloperidol Allergy (Unknown, Verified 04/11/19 20:18) "makes me stay awake too much" ketorolac tromethamine [From Toradol] Allergy (Unknown, Verified 04/11/19 20:18) severe pain in lower back and kidneys nalbuphine [Nalbuphine] Allergy (Unknown, Verified 04/11/19 20:18) prochlorperazine edisylate [From Compazine] Allergy (Unknown, Verified 04/11/19 20:18) irritable lisinopril Adverse Reaction (Verified 04/11/19 20:18) Cough chloraprep Allergy (Intermediate, Uncoded 04/11/19 20:18) Rash Home Medications: Brimonidine Tartrate [Alphagan P 0.15%] 1 drops OP TID 09/30/12 [History] Metformin HCl 1000 mg [Glucophage 1000 MG] 1,000 mg PO BID 09/15/14 [History] Apixaban [Eliquis 5 mg Tablet] 2.5 mg PO BID 03/30/15 [History] Levothyroxine Sodium 25 Mcg [Synthroid 25 Mcg] 25 mcg PO DAILY 03/30/15 [ History] Dorzolamide HCl/Timolol Maleat [Dorzolamide-Timolol Eye Drops] 1 drop OP BID [History] Insulin Aspart [NovoLOG Insulin] 52 units SQ TIDWM 07/13/17 [History] Metoprolol Succinate 100 mg [Toprol Xl 100 MG] 200 mg PO DAILY 10/25/17 [ History] Montelukast Sodium 10 mg [Singulair 10 MG] 10 mg PO QPM 05/22/18 [History] Cholecalciferol (Vitamin D3) [Vitamin D3] 3,000 unit PO DAILY 06/19/18 [History] Furosemide [Lasix] 40 mg PO BID 06/19/18 [History] Pramipexole Di-HCl 0.5 mg [Mirapex 0.5 MG Tablet] 1 mg PO HS 10/06/18 [ History] Rosuvastatin Calcium [Crestor] 20 mg PO HS 12/14/18 [History] Potassium Chloride 10 Meq Tab* [Klor Con 10 MEQ] 20 meq PO BID 03/02/19 [ History] Insulin Glargine [Lantus Insulin] 75 units SQ BID 03/03/19 [History] LORazepam [Lorazepam] 0.5 mg PO HS PRN PRN 04/11/19 [History] Losartan Potassium 50 mg [Cozaar 50 MG] 50 mg PO DAILY 04/11/19 [History] Hx Tetanus, Diphtheria Vaccination/Date Given: Yes Hx Influenza Vaccination/Date Given: No Hx Pneumococcal Vaccination/Date Given: Yes Immunizations Up to Date: Yes - Review of Systems Constitutional: No Fever, No Chills Eyes: No Symptoms Ears, Nose, & Throat: No Symptoms Respiratory: Dyspnea, Dyspnea on Exertion (LABOY), No Cough Cardiac: No Chest Pain, No Edema, No Syncope Abdominal/Gastrointestinal: No Abdominal Pain, No Nausea, No Vomiting, No Diarrhea Genitourinary Symptoms: No Dysuria Musculoskeletal: No Back Pain, No Neck Pain Skin: No Rash Neurological: No Dizziness, No Focal Weakness, No Sensory Changes Psychological: No Symptoms Endocrine: No Symptoms All Other Systems: Reviewed and Negative - Past Medical History Pertinent Past Medical History: Yes Neurological History: Migraines ENT History: Glaucoma Cardiac History: Angina, Congestive Heart Failure, Hypertension Respiratory History: CHF, Pneumonia, Pulmonary Embolism, Sleep Apnea, Other Endocrine Medical History: Diabetes Type II, Hypothyroidism Musculoskeletal History: No Pertinent History GI Medical History: Pancreatitis History: No Pertinent History Psycho-Social History: Anxiety Male Reproductive Disorders: No Pertinent History Other Medical History: Pulmonary hypertension; enlarged heart. rt sided heart failure - Past Surgical History Past Surgical History: Yes Neuro Surgical History: No Pertinent History Cardiac: Cardiac Catheterization Respiratory: No Pertinent History Gastrointestinal: Appendectomy, Cholecystectomy, Hernia Repair, Pancreatic Surgery Genitourinary: No Pertinent History, Other Musculoskeletal: Other Male Surgical History: Testicular Surgery Other Surgical History: old port removed, port placed x 2, had a surgery to look in bladder, right shoulder surgery. SHUNT IN RIGHT EYE. Open shut back up in right eye 10/03/18, penis surgery- pt states he had a "fracture" 6 years ago that was repaired - Social History Smoking Status: Former smoker How long have you smoked: 2 Exposure to second hand smoke: No Alcohol Use: Socially Drug Use: none Patient Lives Alone: No Significant Family History: diabetes - Nursing Vital Signs Nursing Vital Signs: Initial Vital Signs Temperature 99.0 F 04/11/19 20:06 Pulse Rate 116 H 04/11/19 20:06 Respiratory Rate 20 04/11/19 20:06 Blood Pressure 119/83 04/11/19 20:06 O2 Sat by Pulse Oximetry 95 04/11/19 20:06 Pain Scale Pain Intensity 0 - Physical Exam General Appearance: no apparent distress, alert Eye Exam: PERRL/EOMI, eyes nml inspection Ears, Nose, Throat Exam: normal ENT inspection, moist mucous membranes Neck Exam: normal inspection, non-tender, supple Respiratory Exam: crackles/rales, rhonchi, wheezing, No respiratory distress Cardiovascular Exam: regular rate/rhythm, normal heart sounds, No edema Gastrointestinal/Abdomen Exam: soft, No tenderness, No mass Back Exam: normal inspection, No CVA tenderness, No vertebral tenderness Extremity Exam: normal inspection, normal range of motion Neurologic Exam: alert, oriented x 3, cooperative, normal mood/affect, nml cerebellar function, sensation nml, No motor deficits Skin Exam: normal color, warm, dry Lymphatic Exam: No adenopathy SpO2: 95 - Course Nursing assessment & vital signs reviewed: Yes EKG Interpreted by Me: Sinus Rhythm - Radiology Exams Chest X-ray Interpretation: Reviewed by me Ordered Tests: Active Orders 24 hr Category Date Time Status Irrigationist Designer STAT Care 04/11/19 20:38 Active EKG-ER Only STAT Care 04/11/19 20:43 Active Oxygen-ED Only Nasal Cannula 3 lpm Care 04/11/19 20:37 Active Pulse Oximetry (ED) STAT Care 04/11/19 20:37 Active CHEST 1 VIEW (PORTABLE) Stat Exams 04/11/19 20:38 Taken CBC W DIFF Stat Lab 04/11/19 20:20 Completed CMP Stat Lab 04/11/19 20:20 Completed D-DIMER QUANTITATION Stat Lab 04/11/19 20:20 Completed Lactic Acid Stat Lab 04/11/19 20:37 Results MAGNESIUM Stat Lab 04/11/19 20:20 Completed Manual Differential NC Stat Lab 04/11/19 20:20 Completed NT PRO BNP Stat Lab 04/11/19 20:20 Completed TROPONIN Q3H Lab 04/11/19 20:20 Completed TROPONIN Q3H Lab 04/11/19 23:45 Ordered TROPONIN Q3H Lab 04/12/19 02:45 Ordered TROPONIN Q3H Lab 04/12/19 05:45 Ordered TROPONIN Q3H Lab 04/12/19 08:45 Ordered Medication Summary Discontinued Medications Generic Name Dose Route Start Last Admin Trade Name Freq PRN Reason Stop Dose Admin Bumetanide 1 mg 04/11/19 20:37 04/11/19 20:50 Bumex 1 Mg IV 04/11/19 20:38 1 mg STAT ONE Administration Bumetanide Confirm 04/11/19 20:44 Bumex 1 Mg Administered 04/11/19 20:45 Dose 1 mg .ROUTE .STK-MED ONE Potassium Bicarbonate 50 meq 04/11/19 21:31 K-Lyte 25 Meq PO 04/11/19 21:32 STAT ONE Lab/Rad Data: Laboratory Result Diagrams 04/11/19 20:20 04/11/19 20:20 Laboratory Results 04/11/19 04/11/19 04/11/19 Range/Units 20:37 20:20 20:20 WBC (4.0-10.5) K/mm3 RBC (4.1-5.6) M/mm3 Hgb (12.5-18.0) gm/dl Hct (42-50) % MCV (78-100) fl MCH (26-32) pg MCHC (32-36) g/dl RDW (11.5-14.0) % Plt Count (150-450) K/mm3 MPV (6-9.5) fl Absolute Granulocytes (1.4-6.9) Segmented Neutrophils (36.-66.) % Lymphocytes (Manual) (24-44) % Monocytes (Manual) (0.0-12.0) % Eosinophils (Manual) (0.00-3.0) % Platelet Estimate (NORMAL) RBC Morphology D-Dimer 276 (215-500) ng/mL Sodium (137-145) mmol/L Potassium (3.5-5.1) mmol/L Chloride (98-107) mmol/L Carbon Dioxide (22-30) mmol/L Anion Gap (5-15) MEQ/L BUN (9-20) mg/dL Creatinine (0.66-1.25) mg/dL Estimated GFR ML/MIN Glucose (74-106) mg/dL Lactic Acid 3.2 H (0.4-2.0) Calcium (8.4-10.2) mg/dL Magnesium (1.6-2.3) mg/dL Total Bilirubin (0.2-1.3) mg/dL AST (17-59) U/L ALT (0-50) U/L Alkaline Phosphatase (38-126) U/L Troponin I < 0.012 (0.000-0.034) ng/mL NT-Pro-B Natriuret Pep (0-900) pg/mL Serum Total Protein (6.3-8.2) g/dL Albumin (3.5-5.0) g/dL 04/11/19 04/11/19 Range/Units 20:20 20:20 WBC 11.9 H (4.0-10.5) K/mm3 RBC 4.68 (4.1-5.6) M/mm3 Hgb 14.2 (12.5-18.0) gm/dl Hct 42.4 (42-50) % MCV 90.6 (78-100) fl MCH 30.3 (26-32) pg MCHC 33.5 (32-36) g/dl RDW 15.4 H (11.5-14.0) % Plt Count 211 (150-450) K/mm3 MPV 9.4 (6-9.5) fl Absolute Granulocytes 7.37 H (1.4-6.9) Segmented Neutrophils 73 H (36.-66.) % Lymphocytes (Manual) 20 L (24-44) % Monocytes (Manual) 6 (0.0-12.0) % Eosinophils (Manual) 1 (0.00-3.0) % Platelet Estimate NORMAL (NORMAL) RBC Morphology NORMAL D-Dimer (215-500) ng/mL Sodium 135 L (137-145) mmol/L Potassium 3.1 L (3.5-5.1) mmol/L Chloride 90 L (98-107) mmol/L Carbon Dioxide 34 H (22-30) mmol/L Anion Gap 14.5 (5-15) MEQ/L BUN 19 (9-20) mg/dL Creatinine 1.02 (0.66-1.25) mg/dL Estimated GFR > 60.0 ML/MIN Glucose 275 H (74-106) mg/dL Lactic Acid (0.4-2.0) Calcium 9.9 (8.4-10.2) mg/dL Magnesium 1.6 (1.6-2.3) mg/dL Total Bilirubin 0.80 (0.2-1.3) mg/dL AST 45 (17-59) U/L ALT 38 (0-50) U/L Alkaline Phosphatase 64 (38-126) U/L Troponin I (0.000-0.034) ng/mL NT-Pro-B Natriuret Pep 43.5 (0-900) pg/mL Serum Total Protein 7.2 (6.3-8.2) g/dL Albumin 4.2 (3.5-5.0) g/dL - Progress Progress: improved Air Movement: good Blood Culture(s) Obtained: No Antibiotics given: No Counseled pt/family regarding: lab results, diagnosis, need for follow-up, rad results - Departure Departure Disposition: Home Clinical Impression: Chronic right-sided heart failure, Hypokalemia due to loss of potassium CHF (congestive heart failure), NYHA class II Qualifiers: Congestive heart failure type: unspecified Qualified Code(s): I50.9 - Heart failure, unspecified Condition: Stable Critical Care Time: Yes Critical Care Time(excluding separately billable procedures): 30-74 minutes Referrals: CHAPARRITA NICOLE DO [Primary Care Provider] - Instructions: Heart Failure, Hypokalemia (DC) Plan of Treatment: Discharge/Care Plan YENY MENJIVAR was seen on 04/11/19 in the Emergency Room. The patient was counseled regarding Diagnosis,Lab results, Imaging studies, need for follow up and when to return to the Emergency Room. Prescriptions given: Discharge Note I have spoken with the patient and/or caregivers. I have explained the patient' s condition, diagnosis and treatment plan based on the information available to me at this time. I have answered the patient's and/or caregiver's questions and addressed any concerns. The patient and/or caregivers have as good understanding of the patient's diagnosis, condition and treatment plan as can be expected at this point. The vital signs have been stable. The patient's condition is stable and appropriate for discharge from the emergency department. The patient will pursue further outpatient evaluation with the primary care physician or other designated or consulting physician as outlined in the discharge instructions. The patient and/or caregivers are agreeable to this plan of care and follow-up instructions have been explained in detail. The patient and/or caregivers have received these instruction. The patient/and or caregivers are aware that any significant change in condition or worsening of symptoms should prompt an immediate return to this or the closest emergency department or call 911. Prescriptions: Bumetanide 1 mg [Bumex 1 mg] 1 mg PO QAM #30 tablet
[2019-04-11] MEDS ORDERED: BUMEX 1 MG ONE (20:44)
[2019-04-11 20:48] LABS: Granulocyte Absolute (ANC) 7.37 (1.4-6.9); Hematocrit 42.4 % (42-50); Hemoglobin 14.2 gm/dl (12.5-18.0); Mean Cell Volume 90.6 fl (78-100); Mean Corpuscular Hemoglobin 30.3 pg (26-32); Mean Corpuscular Hgb Concent. 33.5 g/dl (32-36); Mean Platelet Volume 9.4 fl (6-9.5); Platelet Count 211 K/mm3 (150-450); Red Blood Count 4.68 M/mm3 (4.1-5.6); Red Cell Distribution Width 15.4 % (11.5-14.0); White Blood Count 11.9 K/mm3 (4.0-10.5)
[2019-04-11 20:53] LABS: Lactic Acid 3.2 (0.4-2.0)
[2019-04-11 21:01] LABS: ALBUMIN 4.2 g/dL (3.5-5.0); ALKALINE PHOSPHATASE 64 U/L (38-126); ANION GAP 14.5 MEQ/L (5-15); BLOOD UREA NITROGEN 19 mg/dL (9-20); CHLORIDE 90 mmol/L (98-107); Calcium 9.9 mg/dL (8.4-10.2); Carbon Dioxide 34 mmol/L (22-30); Creatinine 1 1.02 mg/dL (0.66-1.25); Glucose 275 mg/dL (74-106); MAGNESIUM 1.6 mg/dL (1.6-2.3); NT PRO BNP 43.5 pg/mL (0-900); Potassium 3.1 mmol/L (3.5-5.1); SGOT/AST 45 U/L (17-59); SGPT/ALT 38 U/L (0-50); SODIUM 135 mmol/L (137-145); Total Protein 7.2 g/dL (6.3-8.2)
[2019-04-11 21:31] LABS: Eosinophil 1 % (0.00-3.0); Lymphocytes 20 % (24-44); Monocyte 6 % (0.0-12.0); Neutrophils 73 % (36.-66.); Total Cells Counted 100
[2019-04-11] MEDS ORDERED: K-LYTE 25 MEQ PO ONE (21:31)
[2019-04-11 21:32] LABS: Platelet Estimate NORMAL (NORMAL)
[2019-04-11] MEDS ORDERED: K-LYTE 25 MEQ ONE (21:35)
[2019-04-11 21:58] VITALS: BP 125/78; PULSE 104; O2SAT 98
--- NOTE | 2019-04-12 08:49 | XRAY ---
Indication: Short of breath. Comparison: March 02, 2019. Portable chest remains clear with again incidental calcified granulomas and left Port-A-Cath. Heart and mediastinal structures within normal limits. Bony thorax intact again with mild degenerative changes and old right 5 rib fracture. Impression: Stable nonacute chest with chronic features.
== END 2019-04-11 22:04 | disposition home or self-care (01) ==
LOC: ED 20:01
DX: I50.9 Heart failure, unspecified (principal); E87.6 Hypokalemia; R60.9 Edema, unspecified; Z79.899 Other long term (current) drug therapy; I10 Essential (primary) hypertension; E11.9 Type 2 diabetes mellitus without complications; E03.9 Hypothyroidism, unspecified
CPT/HCPCS: 36415; 71045; 80053; 83605; 83735; 83880; 84484; 85025; 85379; 93005; 93041; 94760; 96374; 99284; J1642; A9270-GY

== ENCOUNTER 2019-04-12 16:55 | Observation (INO) | payer MEDICARE ==
[2019-04-12] MEDS ORDERED: Lasix 40 MG/4 ML IV SCH (17:30)
[2019-04-12 18:03] LABS: Hematocrit 40.5 % (42-50); Hemoglobin 13.6 gm/dl (12.5-18.0); Mean Cell Volume 90.4 fl (78-100); Mean Corpuscular Hemoglobin 30.4 pg (26-32); Mean Corpuscular Hgb Concent. 33.6 g/dl (32-36); Mean Platelet Volume 8.9 fl (6-9.5); Platelet Count 199 K/mm3 (150-450); Red Blood Count 4.48 M/mm3 (4.1-5.6); Red Cell Distribution Width 15.3 % (11.5-14.0); White Blood Count 11.5 K/mm3 (4.0-10.5)
[2019-04-12 18:20] LABS: ALBUMIN 4.2 g/dL (3.5-5.0); ALKALINE PHOSPHATASE 46 U/L (38-126); ANION GAP 14.7 MEQ/L (5-15); BLOOD UREA NITROGEN 30 mg/dL (9-20); CHLORIDE 92 mmol/L (98-107); Carbon Dioxide 32 mmol/L (22-30); Creatinine 1 0.89 mg/dL (0.66-1.25); Glucose 127 mg/dL (74-106); NT PRO BNP 27.6 pg/mL (0-900); SGOT/AST 36 U/L (17-59); SGPT/ALT 36 U/L (0-50); SODIUM 137 mmol/L (137-145); Total Protein 7.1 g/dL (6.3-8.2)
[2019-04-12] MEDS ORDERED: Lasix 40 MG/4 ML ONE (18:33)
[2019-04-12 18:57] LABS: ATYPICAL LYMPHS 1 %; BAND 3 % (0.0-2.0); Eosinophil 2 % (0.00-3.0); Lymphocytes 24 % (24-44); Monocyte 9 % (0.0-12.0); Neutrophils 61 % (36.-66.); Platelet Estimate NORMAL (NORMAL); Total Cells Counted 100
[2019-04-12] MEDS ORDERED: Ativan 0.5 MG PO PRN (20:04)
[2019-04-12] MEDS ORDERED: PROVENTIL 2.5 MG/3 ML NEB IH PRN (20:09)
[2019-04-12] MEDS ORDERED: PROVENTIL COMMON CANISTER IH PRN (20:09)
[2019-04-12] MEDS ORDERED: K-LYTE 25 MEQ PO ONE (20:22)
[2019-04-12 21:21] LABS: Appearance CLEAR (CLEAR); Bilirubin NEGATIVE (NEGATIVE); Blood NEGATIVE Ery/ul (0-5); Glucose NEGATIVE (NEGATIVE); Ketones NEGATIVE (NEGATIVE); Leukocyte Esterase NEGATIVE (NEGATIVE); Mucus SLIGHT /HPF (NEGATIVE); Nitrite NEGATIVE (NEGATIVE); Protein,Urine Dip NEGATIVE (Negative); Specific Gravity 1.006 (1.005-1.025); Urobilinogen NEGATIVE mg/dL (0-1)
[2019-04-12 21:22] LABS: Bacteria NONE SEEN /HPF (NEGATIVE)
[2019-04-12] MEDS ORDERED: MAG-OX 400 PO SCH (22:00)
[2019-04-12] MEDS ORDERED: K-LYTE 25 MEQ PO SCH (22:00)
[2019-04-12] MEDS ORDERED: MAG-OX 400 ONE (22:20)
[2019-04-12] MEDS: Alphagan P 0.15% OP SCH (22:34)
[2019-04-12] MEDS: Lantus Insulin SQ SCH (22:34)
[2019-04-12] MEDS: COSOPT OPHTHALMIC 10 ML OP SCH (22:34)
[2019-04-12] MEDS: ELIQUIS 2.5 MG TABLET PO SCH (22:35)
[2019-04-12] MEDS: Mirapex 0.5 MG Tablet PO SCH (22:35)
[2019-04-12] MEDS: ZOCOR 20MG PO SCH (22:35)
[2019-04-12] MEDS: Singulair 10 MG PO SCH (22:35)
[2019-04-12] MEDS ORDERED: Sodium Chloride 0.9% 500 ML 500 ML IV ONE (23:49)
[2019-04-13] MEDS ORDERED: Klor Con 10 MEQ PO ONE (01:05)
[2019-04-13] MEDS: TYLENOL 325 MG PO PRN ×2 (01:20→09:26)
[2019-04-13 05:47] LABS: Hematocrit 39.4 % (42-50); Platelet Count 175 K/mm3 (150-450); Red Blood Count 4.33 M/mm3 (4.1-5.6); Red Cell Distribution Width 15.6 % (11.5-14.0); White Blood Count 9.5 K/mm3 (4.0-10.5)
[2019-04-13] MEDS ORDERED: Lasix 40 MG/4 ML IV SCH (06:00)
[2019-04-13 06:03] LABS: ALBUMIN 3.7 g/dL (3.5-5.0); ALKALINE PHOSPHATASE 41 U/L (38-126); ANION GAP 11.3 MEQ/L (5-15); BLOOD UREA NITROGEN 29 mg/dL (9-20); CHLORIDE 90 mmol/L (98-107); Calcium 9.1 mg/dL (8.4-10.2); Carbon Dioxide 36 mmol/L (22-30); Creatinine 1 0.81 mg/dL (0.66-1.25); Glucose 173 mg/dL (74-106); Potassium 3.2 mmol/L (3.5-5.1); SGOT/AST 33 U/L (17-59); SGPT/ALT 32 U/L (0-50); SODIUM 135 mmol/L (137-145); Total Protein 6.5 g/dL (6.3-8.2)
[2019-04-13 08:26] LABS: Eosinophil 1 % (0.00-3.0); Lymphocytes 20 % (24-44); Monocyte 11 % (0.0-12.0); Neutrophils 68 % (36.-66.); Total Cells Counted 100
[2019-04-13 08:27] LABS: ANISOCYTOSIS 1+
[2019-04-13 08:28] LABS: Platelet Estimate NORMAL (NORMAL); Polychromasia 1+
[2019-04-13] MEDS: NovoLOG Insulin SQ SCH ×3 (08:36→17:05)
[2019-04-13] MEDS: Glucophage 500 MG PO SCH ×2 (08:36→17:05)
[2019-04-13] MEDS: SYNTHROID 50 MCG PO SCH (09:26)
[2019-04-13] MEDS: VITAMIN D PO SCH (09:26)
[2019-04-13] MEDS: ZYLOPRIM 300 MG PO SCH (09:26)
[2019-04-13] MEDS: Alphagan P 0.15% OP SCH ×3 (09:27→22:01)
[2019-04-13] MEDS: COSOPT OPHTHALMIC 10 ML OP SCH ×2 (09:27→22:01)
[2019-04-13] MEDS: Lantus Insulin SQ SCH ×2 (09:27→22:05)
[2019-04-13] MEDS: ELIQUIS 2.5 MG TABLET PO SCH ×2 (09:27→22:02)
[2019-04-13] MEDS ORDERED: CHOLECALCIFEROL 3000 UNIT PO SCH (10:00)
[2019-04-13] MEDS ORDERED: Klor Con 10 MEQ PO SCH (10:00)
[2019-04-13] MEDS: NovoLOG Insulin SQ PRN ×3 (12:07→22:04)
[2019-04-13] MEDS ORDERED: Lasix 40 MG/4 ML IV ONE (12:40)
[2019-04-13] MEDS ORDERED: K-LYTE 25 MEQ PO ONE (12:41)
[2019-04-13] MEDS ORDERED: Toprol Xl 50 MG PO SCH (13:00)
[2019-04-13] MEDS ORDERED: Toprol Xl 50 MG PO ONE (13:00)
--- NOTE | 2019-04-13 13:05 | PCM.SSS ---
History of Present Illness - Chief Complaint Chief Complaint: CHF History of Present Illness: is a 53 year old male. Patient has been swelling in his extremities over the past several days. He states his Lasix is not working to pull off the water. He went to ER and potassium was low and he was given Klyte orally and given Bumex RX but he did not fill it yet because the swelling was making his feet "feel like the skin was going to split" . He phoned to talk to me and I direct admitted him to observation to monitor electrolytes while giving IV Lasix. - Review of Systems Constitutional: No Fever, No Chills Ears, Nose, & Throat: No Symptoms Respiratory: Other (a little cough starting ,has Neb tx for wheezing but did not need to use on a regulkar basis this past week.) Cardiac: Other (no chest pain or palpitations.) Abdominal/Gastrointestinal: No Symptoms (no N/V/D/C), Abdominal Pain Genitourinary Symptoms: No Dysuria Musculoskeletal: Other (balls of feet hurt ,recently given Rx for Allopurinol but has not started it yet. ) Skin: No Symptoms (no rash no cellulitis) Neurological: No Dizziness, No Focal Weakness, No Sensory Changes Psychological: Anxiety (requires ativan at bedtime), Other (stable emotionally) Medications & Allergies Home Medications: Home Medication List Brimonidine Tartrate [Alphagan P 0.15%] 1 drops OP TID 09/30/12 [History Confirmed 04/12/19] Metformin HCl 1000 mg [Glucophage 1000 MG] 1,000 mg PO BID 09/15/14 [History Confirmed 04/12/19] Magnesium Oxide 400 mg [Mag-Ox 400] 400 mg PO BID #0 tablet 12/26/14 [Rx Confirmed 04/12/19] Apixaban [Eliquis 5 mg Tablet] 2.5 mg PO BID 03/30/15 [History Confirmed 04/12/19] Levothyroxine Sodium 25 Mcg [Synthroid 25 Mcg] 50 mcg PO DAILY 03/30/15 [ History Confirmed 04/12/19] Dorzolamide HCl/Timolol Maleat [Dorzolamide-Timolol Eye Drops] 1 drop OP BID 12/ 20/16 [History Confirmed 04/12/19] Insulin Aspart [NovoLOG Insulin] 52 units SQ TIDWM 07/13/17 [History Confirmed 04/12/19] Metoprolol Succinate 100 mg [Toprol Xl 100 MG] 200 mg PO DAILY 10/25/17 [ History Confirmed 04/12/19] Montelukast Sodium 10 mg [Singulair 10 MG] 10 mg PO QPM 05/22/18 [History Confirmed 04/12/19] Cholecalciferol (Vitamin D3) [Vitamin D3] 3,000 unit PO DAILY 06/19/18 [History Confirmed 04/12/19] Furosemide [Lasix] 40 mg PO BID 06/19/18 [History Confirmed 04/12/19] Pramipexole Di-HCl 0.5 mg [Mirapex 0.5 MG Tablet] 1 mg PO HS 10/06/18 [ History Confirmed 04/12/19] Rosuvastatin Calcium [Crestor] 20 mg PO HS 12/14/18 [History Confirmed 04/12/19] Potassium Chloride 10 Meq Tab* [Klor Con 10 MEQ] 20 meq PO BID 03/02/19 [ History Confirmed 04/12/19] Insulin Glargine [Lantus Insulin] 75 units SQ BID 03/03/19 [History Confirmed 04/12/19] Triamterene/Hydrochlorothiazid [Triamterene-Hctz 75-50 mg Tab] 1 tablet PO DAILY #30 tablet 03/09/19 [Rx Confirmed 04/12/19] Bumetanide 1 mg [Bumex 1 mg] 1 mg PO QAM #30 tablet 04/11/19 [Rx Confirmed 04/12/19] LORazepam [Lorazepam] 0.5 mg PO HS PRN PRN 04/11/19 [History Confirmed 04/12/19] Losartan Potassium 50 mg [Cozaar 50 MG] 50 mg PO DAILY 04/11/19 [History Confirmed 04/12/19] Allopurinol 300 mg [Zyloprim 300 mg] 300 mg PO DAILY 04/12/19 [History Confirmed 04/12/19] Latanoprostene Bunod [Vyzulta] 1 drops OP HS 04/12/19 [History Confirmed ] Allergies/Adverse Reactions: Allergies Allergy/AdvReac Type Severity Reaction Status Date / Time tuberculin,PPD,multi-puncture Allergy Intermediate Rash Verified 04/11/19 20:18 [From Tuberculin PPD Mary Ellen Test] butorphanol tartrate Allergy Unknown Verified 04/11/19 20:18 [From Stadol] chlorpromazine HCl Allergy Unknown Verified 04/11/19 20:18 [From Thorazine] haloperidol Allergy Unknown Verified 04/11/19 20:18 ketorolac tromethamine Allergy Unknown Verified 04/11/19 20:18 [From Toradol] nalbuphine [Nalbuphine] Allergy Unknown Verified 04/11/19 20:18 prochlorperazine edisylate Allergy Unknown Verified 04/11/19 20:18 [From Compazine] lisinopril AdvReac Cough Verified 04/11/19 20:18 chloraprep Allergy Intermediate Rash Uncoded 04/11/19 20:18 - Past Medical History Past Medical History: Yes Neurological History: Migraines ENT History: Glaucoma Cardiac History: Angina, Congestive Heart Failure, Hypertension Respiratory History: CHF, Pneumonia, Pulmonary Embolism, Sleep Apnea, Other Endocrine Medical History: Diabetes Type II, Hypothyroidism Musculoskelatal History: No Pertinent History GI Medical History: Pancreatitis History: No Pertinent History Pyscho-Social History: Anxiety Male Reproductive Disorders: No Pertinent History Comment: Pulmonary hypertension; enlarged heart. rt sided heart failure - Past Surgical History Past Surgical History: Yes Neuro Surgical History: No Pertinent History Cardiac History: Cardiac Catheterization Respiratory Surgery: No Pertinent History GI Surgical History: Appendectomy, Cholecystectomy, Hernia Repair, Pancreatic Surgery Genitourinary Surgical Hx: No Pertinent History, Other Musculskeletal Surgical Hx: Other Male Surgical History: Testicular Surgery Other Surgical History: old port removed, port placed x 2, had a surgery to look in bladder, right shoulder surgery. SHUNT IN RIGHT EYE. Open shut back up in right eye 10/03/18, penis surgery- pt states he had a "fracture" 6 years ago that was repaired - Social History Smoking Status: Former smoker How long have you smoked: 2 Exposure to second hand smoke: No Alcohol: None Drug Use: none Significant Family History: diabetes - Physical Exam Vital Signs: Vital Signs - 24 hr Temp Pulse Resp BP Pulse Ox 04/13/19 12:00 18 04/13/19 11:30 98.1 F 87 18 119/63 94 L 04/13/19 09:22 72 16 94 L 04/13/19 08:00 18 04/13/19 07:02 98.3 F 79 18 106/59 96 04/13/19 04:00 98.0 F 80 20 106/58 94 L 04/13/19 00:00 98.3 F 89 19 98/60 96 04/12/19 20:00 17 04/12/19 19:50 95 H 17 94 L 04/12/19 19:27 98.4 F 107 H 124/77 93 L 04/12/19 17:55 93 L 04/12/19 17:47 98.4 F 107 H 20 124/77 96 Results - Labs Lab/Micro Results: Accuchecks Date 04/13/19 Date 04/13/19 Date 04/12/19 Time 11:30 Time 07:30 Time 22:00 Accucheck Value: 253 Accucheck Value: 173 Accucheck Value: 213 Lab Results-Last 24 Hours 04/12/19 04/12/19 04/12/19 Range/Units 17:56 17:56 17:56 WBC 11.5 H (4.0-10.5) K/mm3 RBC 4.48 (4.1-5.6) M/mm3 Hgb 13.6 (12.5-18.0) gm/dl Hct 40.5 L (42-50) % MCV 90.4 (78-100) fl MCH 30.4 (26-32) pg MCHC 33.6 (32-36) g/dl RDW 15.3 H (11.5-14.0) % Plt Count 199 (150-450) K/mm3 MPV 8.9 (6-9.5) fl Segmented Neutrophils 61 (36.-66.) % Band Neutrophils 3 H (0.0-2.0) % Lymphocytes (Manual) 24 (24-44) % Monocytes (Manual) 9 (0.0-12.0) % Eosinophils (Manual) 2 (0.00-3.0) % Atypical Lymphocytes 1 % Platelet Estimate NORMAL (NORMAL) RBC Morphology NORMAL Polychromasia Anisocytosis Sodium 137 (137-145) mmol/L Potassium 3.0 L (3.5-5.1) mmol/L Chloride 92 L (98-107) mmol/L Carbon Dioxide 32 H (22-30) mmol/L Anion Gap 14.7 (5-15) MEQ/L BUN 30 H (9-20) mg/dL Creatinine 0.89 (0.66-1.25) mg/dL Estimated GFR > 60.0 ML/MIN Glucose 127 H (74-106) mg/dL Hemoglobin A1c (4.5-6.0) % Calcium 10.0 (8.4-10.2) mg/dL Total Bilirubin 0.70 (0.2-1.3) mg/dL AST 36 (17-59) U/L ALT 36 (0-50) U/L Alkaline Phosphatase 46 (38-126) U/L Troponin I < 0.012 (0.000-0.034) ng/mL NT-Pro-B Natriuret Pep 27.6 (0-900) pg/mL Serum Total Protein 7.1 (6.3-8.2) g/dL Albumin 4.2 (3.5-5.0) g/dL Urine Color (YELLOW) Urine Appearance (CLEAR) Urine pH (5-6) Ur Specific Hagerman (1.005-1.025) Urine Protein (Negative) Urine Ketones (NEGATIVE) Urine Blood (0-5) Maximino/ul Urine Nitrite (NEGATIVE) Urine Bilirubin (NEGATIVE) Urine Urobilinogen (0-1) mg/dL Ur Leukocyte Esterase (NEGATIVE) Urine WBC (Auto) (0-5) /HPF Urine RBC (Auto) (0-2) /HPF U Epithel Cells (Auto) (FEW) /HPF Urine Bacteria (Auto) (NEGATIVE) /HPF Urine Mucus (Auto) (NEGATIVE) /HPF Urine Culture Reflexed (NO) Urine Glucose (NEGATIVE) mg/dL 04/12/19 04/12/19 04/12/19 Range/Units 17:56 20:42 21:08 WBC (4.0-10.5) K/mm3 RBC (4.1-5.6) M/mm3 Hgb (12.5-18.0) gm/dl Hct (42-50) % MCV (78-100) fl MCH (26-32) pg MCHC (32-36) g/dl RDW (11.5-14.0) % Plt Count (150-450) K/mm3 MPV (6-9.5) fl Segmented Neutrophils (36.-66.) % Band Neutrophils (0.0-2.0) % Lymphocytes (Manual) (24-44) % Monocytes (Manual) (0.0-12.0) % Eosinophils (Manual) (0.00-3.0) % Atypical Lymphocytes % Platelet Estimate (NORMAL) RBC Morphology Polychromasia Anisocytosis Sodium (137-145) mmol/L Potassium (3.5-5.1) mmol/L Chloride (98-107) mmol/L Carbon Dioxide (22-30) mmol/L Anion Gap (5-15) MEQ/L BUN (9-20) mg/dL Creatinine (0.66-1.25) mg/dL Estimated GFR ML/MIN Glucose (74-106) mg/dL Hemoglobin A1c 10.01 H (4.5-6.0) % Calcium (8.4-10.2) mg/dL Total Bilirubin (0.2-1.3) mg/dL AST (17-59) U/L ALT (0-50) U/L Alkaline Phosphatase (38-126) U/L Troponin I < 0.012 (0.000-0.034) ng/mL NT-Pro-B Natriuret Pep (0-900) pg/mL Serum Total Protein (6.3-8.2) g/dL Albumin (3.5-5.0) g/dL Urine Color COLORLESS (YELLOW) Urine Appearance CLEAR (CLEAR) Urine pH 7.0 (5-6) Ur Specific Hagerman 1.006 (1.005-1.025) Urine Protein NEGATIVE (Negative) Urine Ketones NEGATIVE (NEGATIVE) Urine Blood NEGATIVE (0-5) Maximino/ul Urine Nitrite NEGATIVE (NEGATIVE) Urine Bilirubin NEGATIVE (NEGATIVE) Urine Urobilinogen NEGATIVE (0-1) mg/dL Ur Leukocyte Esterase NEGATIVE (NEGATIVE) Urine WBC (Auto) NONE (0-5) /HPF Urine RBC (Auto) NONE (0-2) /HPF U Epithel Cells (Auto) NONE (FEW) /HPF Urine Bacteria (Auto) NONE SEEN (NEGATIVE) /HPF Urine Mucus (Auto) SLIGHT (NEGATIVE) /HPF Urine Culture Reflexed NO (NO) Urine Glucose NEGATIVE (NEGATIVE) mg/dL 0704/12/19 04/13/19 Range/Units 23:49 23:49 05:35 WBC 9.5 (4.0-10.5) K/mm3 RBC 4.33 (4.1-5.6) M/mm3 Hgb 13.0 (12.5-18.0) gm/dl Hct 39.4 L (42-50) % MCV 91.0 (78-100) fl MCH 30.0 (26-32) pg MCHC 33.0 (32-36) g/dl RDW 15.6 H (11.5-14.0) % Plt Count 175 (150-450) K/mm3 MPV 9.0 (6-9.5) fl Segmented Neutrophils 68 H (36.-66.) % Band Neutrophils (0.0-2.0) % Lymphocytes (Manual) 20 L (24-44) % Monocytes (Manual) 11 (0.0-12.0) % Eosinophils (Manual) 1 (0.00-3.0) % Atypical Lymphocytes % Platelet Estimate NORMAL (NORMAL) RBC Morphology ABNORMAL Polychromasia 1+ Anisocytosis 1+ Sodium (137-145) mmol/L Potassium 3.2 L (3.5-5.1) mmol/L Chloride (98-107) mmol/L Carbon Dioxide (22-30) mmol/L Anion Gap (5-15) MEQ/L BUN (9-20) mg/dL Creatinine (0.66-1.25) mg/dL Estimated GFR ML/MIN Glucose (74-106) mg/dL Hemoglobin A1c (4.5-6.0) % Calcium (8.4-10.2) mg/dL Total Bilirubin (0.2-1.3) mg/dL AST (17-59) U/L ALT (0-50) U/L Alkaline Phosphatase (38-126) U/L Troponin I < 0.012 (0.000-0.034) ng/mL NT-Pro-B Natriuret Pep (0-900) pg/mL Serum Total Protein (6.3-8.2) g/dL Albumin (3.5-5.0) g/dL Urine Color (YELLOW) Urine Appearance (CLEAR) Urine pH (5-6) Ur Specific Hagerman (1.005-1.025) Urine Protein (Negative) Urine Ketones (NEGATIVE) Urine Blood (0-5) Maximino/ul Urine Nitrite (NEGATIVE) Urine Bilirubin (NEGATIVE) Urine Urobilinogen (0-1) mg/dL Ur Leukocyte Esterase (NEGATIVE) Urine WBC (Auto) (0-5) /HPF Urine RBC (Auto) (0-2) /HPF U Epithel Cells (Auto) (FEW) /HPF Urine Bacteria (Auto) (NEGATIVE) /HPF Urine Mucus (Auto) (NEGATIVE) /HPF Urine Culture Reflexed (NO) Urine Glucose (NEGATIVE) mg/dL 04/13/19 Range/Units 05:35 WBC (4.0-10.5) K/mm3 RBC (4.1-5.6) M/mm3 Hgb (12.5-18.0) gm/dl Hct (42-50) % MCV (78-100) fl MCH (26-32) pg MCHC (32-36) g/dl RDW (11.5-14.0) % Plt Count (150-450) K/mm3 MPV (6-9.5) fl Segmented Neutrophils (36.-66.) % Band Neutrophils (0.0-2.0) % Lymphocytes (Manual) (24-44) % Monocytes (Manual) (0.0-12.0) % Eosinophils (Manual) (0.00-3.0) % Atypical Lymphocytes % Platelet Estimate (NORMAL) RBC Morphology Polychromasia Anisocytosis Sodium 135 L (137-145) mmol/L Potassium 3.2 L (3.5-5.1) mmol/L Chloride 90 L (98-107) mmol/L Carbon Dioxide 36 H (22-30) mmol/L Anion Gap 11.3 (5-15) MEQ/L BUN 29 H (9-20) mg/dL Creatinine 0.81 (0.66-1.25) mg/dL Estimated GFR > 60.0 ML/MIN Glucose 173 H (74-106) mg/dL Hemoglobin A1c (4.5-6.0) % Calcium 9.1 (8.4-10.2) mg/dL Total Bilirubin 0.80 (0.2-1.3) mg/dL AST 33 (17-59) U/L ALT 32 (0-50) U/L Alkaline Phosphatase 41 (38-126) U/L Troponin I (0.000-0.034) ng/mL NT-Pro-B Natriuret Pep (0-900) pg/mL Serum Total Protein 6.5 (6.3-8.2) g/dL Albumin 3.7 (3.5-5.0) g/dL Urine Color (YELLOW) Urine Appearance (CLEAR) Urine pH (5-6) Ur Specific Hagerman (1.005-1.025) Urine Protein (Negative) Urine Ketones (NEGATIVE) Urine Blood (0-5) Maximino/ul Urine Nitrite (NEGATIVE) Urine Bilirubin (NEGATIVE) Urine Urobilinogen (0-1) mg/dL Ur Leukocyte Esterase (NEGATIVE) Urine WBC (Auto) (0-5) /HPF Urine RBC (Auto) (0-2) /HPF U Epithel Cells (Auto) (FEW) /HPF Urine Bacteria (Auto) (NEGATIVE) /HPF Urine Mucus (Auto) (NEGATIVE) /HPF Urine Culture Reflexed (NO) Urine Glucose (NEGATIVE) mg/dL Accuchecks Date 04/13/19 Date 04/13/1904/12/19 Time 11:30 Time 07:30 Time 22:00 Accucheck Value: 253 Accucheck Value: 173 Accucheck Value: 213 - Other Procedures and Tests Respiratory Therapy 04/12/19 17:30 Oxygen NASAL CANNULA 2 lpm 04/12/19 17:53 BiPap/CPAP ROUTINE 04/12/19 20:03 Peak Expiratory Flow Rate DAILY Respiratory Therapy Assessment DAILY Hospital Summary - Vitals & Intake/Output Vital Signs: Vital Signs Temperature 98.1 F 04/13/19 11:30 Pulse Rate 87 04/13/19 11:30 Respiratory Rate 18 04/13/19 12:00 Blood Pressure 119/63 04/13/19 11:30 O2 Sat by Pulse Oximetry 94 L 04/13/19 11:30 Intake & Output: Intake & Output 04/11/19 04/12/19 04/13/19 04/14/19 11:59 11:59 11:59 11:59 Intake Total 2320 Output Total 2600 Balance -280 Weight 120.4 kg - Lab Result Diagrams: 04/13/19 05:35 04/13/19 05:35 Lab Results-Last 24 Hrs: Accuchecks Date 04/13/19 Date 04/13/1904/12/19 Time 11:30 Time 07:30 Time 22:00 Accucheck Value: 253 Accucheck Value: 173 Accucheck Value: 213 Lab Results-Last 24 Hours 04/12/19 04/12/19 04/12/19 Range/Units 17:56 17:56 17:56 WBC 11.5 H (4.0-10.5) K/mm3 RBC 4.48 (4.1-5.6) M/mm3 Hgb 13.6 (12.5-18.0) gm/dl Hct 40.5 L (42-50) % MCV 90.4 (78-100) fl MCH 30.4 (26-32) pg MCHC 33.6 (32-36) g/dl RDW 15.3 H (11.5-14.0) % Plt Count 199 (150-450) K/mm3 MPV 8.9 (6-9.5) fl Segmented Neutrophils 61 (36.-66.) % Band Neutrophils 3 H (0.0-2.0) % Lymphocytes (Manual) 24 (24-44) % Monocytes (Manual) 9 (0.0-12.0) % Eosinophils (Manual) 2 (0.00-3.0) % Atypical Lymphocytes 1 % Platelet Estimate NORMAL (NORMAL) RBC Morphology NORMAL Polychromasia Anisocytosis Sodium 137 (137-145) mmol/L Potassium 3.0 L (3.5-5.1) mmol/L Chloride 92 L (98-107) mmol/L Carbon Dioxide 32 H (22-30) mmol/L Anion Gap 14.7 (5-15) MEQ/L BUN 30 H (9-20) mg/dL Creatinine 0.89 (0.66-1.25) mg/dL Estimated GFR > 60.0 ML/MIN Glucose 127 H (74-106) mg/dL Hemoglobin A1c (4.5-6.0) % Calcium 10.0 (8.4-10.2) mg/dL Total Bilirubin 0.70 (0.2-1.3) mg/dL AST 36 (17-59) U/L ALT 36 (0-50) U/L Alkaline Phosphatase 46 (38-126) U/L Troponin I < 0.012 (0.000-0.034) ng/mL NT-Pro-B Natriuret Pep 27.6 (0-900) pg/mL Serum Total Protein 7.1 (6.3-8.2) g/dL Albumin 4.2 (3.5-5.0) g/dL Urine Color (YELLOW) Urine Appearance (CLEAR) Urine pH (5-6) Ur Specific Hagerman (1.005-1.025) Urine Protein (Negative) Urine Ketones (NEGATIVE) Urine Blood (0-5) Maximino/ul Urine Nitrite (NEGATIVE) Urine Bilirubin (NEGATIVE) Urine Urobilinogen (0-1) mg/dL Ur Leukocyte Esterase (NEGATIVE) Urine WBC (Auto) (0-5) /HPF Urine RBC (Auto) (0-2) /HPF U Epithel Cells (Auto) (FEW) /HPF Urine Bacteria (Auto) (NEGATIVE) /HPF Urine Mucus (Auto) (NEGATIVE) /HPF Urine Culture Reflexed (NO) Urine Glucose (NEGATIVE) mg/dL 04/12/19 04/12/19 04/12/19 Range/Units 17:56 20:42 21:08 WBC (4.0-10.5) K/mm3 RBC (4.1-5.6) M/mm3 Hgb (12.5-18.0) gm/dl Hct (42-50) % MCV (78-100) fl MCH (26-32) pg MCHC (32-36) g/dl RDW (11.5-14.0) % Plt Count (150-450) K/mm3 MPV (6-9.5) fl Segmented Neutrophils (36.-66.) % Band Neutrophils (0.0-2.0) % Lymphocytes (Manual) (24-44) % Monocytes (Manual) (0.0-12.0) % Eosinophils (Manual) (0.00-3.0) % Atypical Lymphocytes % Platelet Estimate (NORMAL) RBC Morphology Polychromasia Anisocytosis Sodium (137-145) mmol/L Potassium (3.5-5.1) mmol/L Chloride (98-107) mmol/L Carbon Dioxide (22-30) mmol/L Anion Gap (5-15) MEQ/L BUN (9-20) mg/dL Creatinine (0.66-1.25) mg/dL Estimated GFR ML/MIN Glucose (74-106) mg/dL Hemoglobin A1c 10.01 H (4.5-6.0) % Calcium (8.4-10.2) mg/dL Total Bilirubin (0.2-1.3) mg/dL AST (17-59) U/L ALT (0-50) U/L Alkaline Phosphatase (38-126) U/L Troponin I < 0.012 (0.000-0.034) ng/mL NT-Pro-B Natriuret Pep (0-900) pg/mL Serum Total Protein (6.3-8.2) g/dL Albumin (3.5-5.0) g/dL Urine Color COLORLESS (YELLOW) Urine Appearance CLEAR (CLEAR) Urine pH 7.0 (5-6) Ur Specific Hagerman 1.006 (1.005-1.025) Urine Protein NEGATIVE (Negative) Urine Ketones NEGATIVE (NEGATIVE) Urine Blood NEGATIVE (0-5) Maximino/ul Urine Nitrite NEGATIVE (NEGATIVE) Urine Bilirubin NEGATIVE (NEGATIVE) Urine Urobilinogen NEGATIVE (0-1) mg/dL Ur Leukocyte Esterase NEGATIVE (NEGATIVE) Urine WBC (Auto) NONE (0-5) /HPF Urine RBC (Auto) NONE (0-2) /HPF U Epithel Cells (Auto) NONE (FEW) /HPF Urine Bacteria (Auto) NONE SEEN (NEGATIVE) /HPF Urine Mucus (Auto) SLIGHT (NEGATIVE) /HPF Urine Culture Reflexed NO (NO) Urine Glucose NEGATIVE (NEGATIVE) mg/dL 04/12/19 04/12/19 04/13/19 Range/Units 23:49 23:49 05:35 WBC 9.5 (4.0-10.5) K/mm3 RBC 4.33 (4.1-5.6) M/mm3 Hgb 13.0 (12.5-18.0) gm/dl Hct 39.4 L (42-50) % MCV 91.0 (78-100) fl MCH 30.0 (26-32) pg MCHC 33.0 (32-36) g/dl RDW 15.6 H (11.5-14.0) % Plt Count 175 (150-450) K/mm3 MPV 9.0 (6-9.5) fl Segmented Neutrophils 68 H (36.-66.) % Band Neutrophils (0.0-2.0) % Lymphocytes (Manual) 20 L (24-44) % Monocytes (Manual) 11 (0.0-12.0) % Eosinophils (Manual) 1 (0.00-3.0) % Atypical Lymphocytes % Platelet Estimate NORMAL (NORMAL) RBC Morphology ABNORMAL Polychromasia 1+ Anisocytosis 1+ Sodium (137-145) mmol/L Potassium 3.2 L (3.5-5.1) mmol/L Chloride (98-107) mmol/L Carbon Dioxide (22-30) mmol/L Anion Gap (5-15) MEQ/L BUN (9-20) mg/dL Creatinine (0.66-1.25) mg/dL Estimated GFR ML/MIN Glucose (74-106) mg/dL Hemoglobin A1c (4.5-6.0) % Calcium (8.4-10.2) mg/dL Total Bilirubin (0.2-1.3) mg/dL AST (17-59) U/L ALT (0-50) U/L Alkaline Phosphatase (38-126) U/L Troponin I < 0.012 (0.000-0.034) ng/mL NT-Pro-B Natriuret Pep (0-900) pg/mL Serum Total Protein (6.3-8.2) g/dL Albumin (3.5-5.0) g/dL Urine Color (YELLOW) Urine Appearance (CLEAR) Urine pH (5-6) Ur Specific Hagerman (1.005-1.025) Urine Protein (Negative) Urine Ketones (NEGATIVE) Urine Blood (0-5) Maximino/ul Urine Nitrite (NEGATIVE) Urine Bilirubin (NEGATIVE) Urine Urobilinogen (0-1) mg/dL Ur Leukocyte Esterase (NEGATIVE) Urine WBC (Auto) (0-5) /HPF Urine RBC (Auto) (0-2) /HPF U Epithel Cells (Auto) (FEW) /HPF Urine Bacteria (Auto) (NEGATIVE) /HPF Urine Mucus (Auto) (NEGATIVE) /HPF Urine Culture Reflexed (NO) Urine Glucose (NEGATIVE) mg/dL 04/13/19 Range/Units 05:35 WBC (4.0-10.5) K/mm3 RBC (4.1-5.6) M/mm3 Hgb (12.5-18.0) gm/dl Hct (42-50) % MCV (78-100) fl MCH (26-32) pg MCHC (32-36) g/dl RDW (11.5-14.0) % Plt Count (150-450) K/mm3 MPV (6-9.5) fl Segmented Neutrophils (36.-66.) % Band Neutrophils (0.0-2.0) % Lymphocytes (Manual) (24-44) % Monocytes (Manual) (0.0-12.0) % Eosinophils (Manual) (0.00-3.0) % Atypical Lymphocytes % Platelet Estimate (NORMAL) RBC Morphology Polychromasia Anisocytosis Sodium 135 L (137-145) mmol/L Potassium 3.2 L (3.5-5.1) mmol/L Chloride 90 L (98-107) mmol/L Carbon Dioxide 36 H (22-30) mmol/L Anion Gap 11.3 (5-15) MEQ/L BUN 29 H (9-20) mg/dL Creatinine 0.81 (0.66-1.25) mg/dL Estimated GFR > 60.0 ML/MIN Glucose 173 H (74-106) mg/dL Hemoglobin A1c (4.5-6.0) % Calcium 9.1 (8.4-10.2) mg/dL Total Bilirubin 0.80 (0.2-1.3) mg/dL AST 33 (17-59) U/L ALT 32 (0-50) U/L Alkaline Phosphatase 41 (38-126) U/L Troponin I (0.000-0.034) ng/mL NT-Pro-B Natriuret Pep (0-900) pg/mL Serum Total Protein 6.5 (6.3-8.2) g/dL Albumin 3.7 (3.5-5.0) g/dL Urine Color (YELLOW) Urine Appearance (CLEAR) Urine pH (5-6) Ur Specific Hagerman (1.005-1.025) Urine Protein (Negative) Urine Ketones (NEGATIVE) Urine Blood (0-5) Maximino/ul Urine Nitrite (NEGATIVE) Urine Bilirubin (NEGATIVE) Urine Urobilinogen (0-1) mg/dL Ur Leukocyte Esterase (NEGATIVE) Urine WBC (Auto) (0-5) /HPF Urine RBC (Auto) (0-2) /HPF U Epithel Cells (Auto) (FEW) /HPF Urine Bacteria (Auto) (NEGATIVE) /HPF Urine Mucus (Auto) (NEGATIVE) /HPF Urine Culture Reflexed (NO) Urine Glucose (NEGATIVE) mg/dL Micro Results-Entire Visit: Accuchecks Date 04/13/19 Date 04/13/19 Date 04/12/19 Time 11:30 Time 07:30 Time 22:00 Accucheck Value: 253 Accucheck Value: 173 Accucheck Value: 213 - Procedures and Test Procedures and Tests throughout Hospitalization: Therapy Orders & Screens 04/12/19 17:24 EKG ROUTINE Comment: 04/12/19 17:30 Oxygen NASAL CANNULA 2 lpm Comment: Diagnosis: CHF 04/12/19 17:53 BiPap/CPAP ROUTINE Comment: Diagnosis: CHF 04/12/19 20:03 Peak Expiratory Flow Rate DAILY Comment: Reason For Exam: Diagnosis: CHF Respiratory Therapy Assessment DAILY Comment: Diagnosis: CHF - Discharge Disposition: Home, Self-Care Condition: Stable Prescriptions: No Action Brimonidine Tartrate [Alphagan P 0.15%] 1 drops OP TID Metformin HCl 1000 mg [Glucophage 1000 MG] 1,000 mg PO BID Magnesium Oxide 400 mg [Mag-Ox 400] 400 mg PO BID #0 tablet Apixaban [Eliquis 5 mg Tablet] 2.5 mg PO BID Levothyroxine Sodium 25 Mcg [Synthroid 25 Mcg] 50 mcg PO DAILY Dorzolamide HCl/Timolol Maleat [Dorzolamide-Timolol Eye Drops] 1 drop OP BID Insulin Aspart [NovoLOG Insulin] 52 units SQ TIDWM Metoprolol Succinate 100 mg [Toprol Xl 100 MG] 200 mg PO DAILY Montelukast Sodium 10 mg [Singulair 10 MG] 10 mg PO QPM Cholecalciferol (Vitamin D3) [Vitamin D3] 3,000 unit PO DAILY Furosemide [Lasix] 40 mg PO BID Pramipexole Di-HCl 0.5 mg [Mirapex 0.5 MG Tablet] 1 mg PO HS Rosuvastatin Calcium [Crestor] 20 mg PO HS Potassium Chloride 10 Meq Tab* [Klor Con 10 MEQ] 20 meq PO BID Insulin Glargine [Lantus Insulin] 75 units SQ BID Triamterene/Hydrochlorothiazid [Triamterene-Hctz 75-50 mg Tab] 1 tablet PO DAILY #30 tablet Losartan Potassium 50 mg [Cozaar 50 MG] 50 mg PO DAILY LORazepam [Lorazepam] 0.5 mg PO HS PRN PRN PRN Reason: Anxiety Bumetanide 1 mg [Bumex 1 mg] 1 mg PO QAM #30 tablet Allopurinol 300 mg [Zyloprim 300 mg] 300 mg PO DAILY Latanoprostene Bunod [Vyzulta] 1 drops OP HS Follow up with: CHAPARRITA NICOLE DO [Primary Care Provider] - 1 Week
[2019-04-13] MEDS: Zithromax 250 MG TABLET PO SCH (13:08)
[2019-04-13] MEDS: PROVENTIL 2.5 MG/3 ML NEB IH SCH ×2 (13:39→18:41)
[2019-04-13] MEDS ORDERED: Robitussin-Dm Syrup PO PRN (21:43)
[2019-04-13] MEDS: solu-MEDROL 125 MG IV SCH (22:02)
[2019-04-13] MEDS: Singulair 10 MG PO SCH (22:02)
[2019-04-13] MEDS: Mirapex 0.5 MG Tablet PO SCH (22:03)
[2019-04-13] MEDS: ZOCOR 20MG PO SCH (22:03)
[2019-04-14 06:14] LABS: ANION GAP 16.5 MEQ/L (5-15); BLOOD UREA NITROGEN 21 mg/dL (9-20); CHLORIDE 91 mmol/L (98-107); Calcium 8.7 mg/dL (8.4-10.2); Carbon Dioxide 29 mmol/L (22-30); Creatinine 1 0.74 mg/dL (0.66-1.25); Glucose 353 mg/dL (74-106); SODIUM 133 mmol/L (137-145)
[2019-04-14] MEDS: PROVENTIL 2.5 MG/3 ML NEB IH SCH (06:21)
[2019-04-14] MEDS: Glucophage 500 MG PO SCH (07:47)
[2019-04-14] MEDS: NovoLOG Insulin SQ PRN ×2 (07:48→12:08)
[2019-04-14] MEDS: NovoLOG Insulin SQ SCH ×2 (07:48→12:08)
[2019-04-14] MEDS: Alphagan P 0.15% OP SCH (09:19)
[2019-04-14] MEDS: COSOPT OPHTHALMIC 10 ML OP SCH (09:20)
[2019-04-14] MEDS: Lantus Insulin SQ SCH (09:21)
[2019-04-14] MEDS: ELIQUIS 2.5 MG TABLET PO SCH (09:22)
[2019-04-14] MEDS: solu-MEDROL 125 MG IV SCH (09:22)
[2019-04-14] MEDS: VITAMIN D PO SCH (09:23)
[2019-04-14] MEDS: Zithromax 250 MG TABLET PO SCH (09:23)
[2019-04-14] MEDS: SYNTHROID 50 MCG PO SCH (09:23)
[2019-04-14] MEDS: ZYLOPRIM 300 MG PO SCH (09:24)
[2019-04-14 11:56] VITALS: BP 113/55; PULSE 92; O2SAT 94
--- NOTE | 2019-04-14 12:23 | PCM.DCORD ---
- Discharge Discharge Date: 04/14/19 Disposition: Home, Self-Care Condition: Stable Prescriptions: New Metoprolol Succinate 50 mg [Toprol Xl 50 MG] 50 mg PO BID #60 tablet NS Continue Brimonidine Tartrate [Alphagan P 0.15%] 1 drops OP TID Metformin HCl 1000 mg [Glucophage 1000 MG] 1,000 mg PO BID Magnesium Oxide 400 mg [Mag-Ox 400] 400 mg PO BID #0 tablet Apixaban [Eliquis 5 mg Tablet] 2.5 mg PO BID Levothyroxine Sodium 25 Mcg [Synthroid 25 Mcg] 50 mcg PO DAILY Dorzolamide HCl/Timolol Maleat [Dorzolamide-Timolol Eye Drops] 1 drop OP BID Insulin Aspart [NovoLOG Insulin] 52 units SQ TIDWM Montelukast Sodium 10 mg [Singulair 10 MG] 10 mg PO QPM Cholecalciferol (Vitamin D3) [Vitamin D3] 3,000 unit PO DAILY Furosemide [Lasix] 40 mg PO BID Pramipexole Di-HCl 0.5 mg [Mirapex 0.5 MG Tablet] 1 mg PO HS Rosuvastatin Calcium [Crestor] 20 mg PO HS Potassium Chloride 10 Meq Tab* [Klor Con 10 MEQ] 20 meq PO BID Insulin Glargine [Lantus Insulin] 75 units SQ BID Triamterene/Hydrochlorothiazid [Triamterene-Hctz 75-50 mg Tab] 1 tablet PO DAILY #30 tablet Losartan Potassium 50 mg [Cozaar 50 MG] 50 mg PO DAILY LORazepam [Lorazepam] 0.5 mg PO HS PRN PRN PRN Reason: Anxiety Allopurinol 300 mg [Zyloprim 300 mg] 300 mg PO DAILY Latanoprostene Bunod [Vyzulta] 1 drops OP HS Discontinued Metoprolol Succinate 100 mg [Toprol Xl 100 MG] 200 mg PO DAILY Bumetanide 1 mg [Bumex 1 mg] 1 mg PO QAM #30 tablet Additional Instructions: BOTH DR SURESH AND DR NICOLE APPOINTMENTS WERE ALREADY SCHEDULED BY PATIENT. Follow up with: CHAPARRITA NICOLE DO [Primary Care Provider] - 04/18/19 8:30 am Joao Suresh MD [CONSULTING PHYSICIAN] - 04/22/19 3:15 pm
[2019-04-14] MEDS ORDERED: Toprol Xl 50 MG PO SCH (12:33)
== END 2019-04-14 13:22 | disposition home or self-care (01) ==
LOC: MED SURG 17:23
PROVIDERS: ADMIT Family Medicine; ATTEND Family Medicine
DX: I50.9 Heart failure, unspecified (principal); I10 Essential (primary) hypertension; E11.9 Type 2 diabetes mellitus without complications; F41.9 Anxiety disorder, unspecified; E03.9 Hypothyroidism, unspecified; G47.30 Sleep apnea, unspecified; Z86.711 Personal history of pulmonary embolism; Z79.899 Other long term (current) drug therapy; Z79.01 Long term (current) use of anticoagulants
CPT/HCPCS: 36415; 80048; 80053; 81001; 82533; 82962; 83036; 83880; 84132; 84484; 85025; 93005; 93268; 94150; 94640; 94760; J1642; J1940; J2930; J7609; A9270-GY; G0378

== ENCOUNTER 2019-05-04 06:23 | Emergency (ER) | payer MEDICARE ==
[2019-05-04] MEDS ORDERED: NITRO-BID 2% UD PACKETS TOP ONE (06:41)
[2019-05-04] MEDS ORDERED: CAPTOPRIL 25 MG PO ONE (06:41)
[2019-05-04] MEDS ORDERED: Lasix 40 MG/4 ML IV ONE (06:41)
[2019-05-04] MEDS ORDERED: NITRO-BID 2% UD PACKETS ONE (06:42)
[2019-05-04] MEDS ORDERED: CAPTOPRIL 25 MG ONE (06:42)
[2019-05-04] MEDS ORDERED: Sodium Chloride 0.9% 1000 ML 1,000 ML IV SCH (06:45)
--- NOTE | 2019-05-04 06:54 | ERPHSYRPT ---
- History of Present Illness Source: patient, old records Exam Limitations: no limitations Patient Subjective Stated Complaint: pt states he has been increasingly short of breath since yesterday and generalized edema worsening. states his skin feels tight and he feels tight and swollen around his neck this morning. Triage Nursing Assessment: pt alert and oriented, answers questions approp. pt ambulatory with steady gait noted. pt short of breath with exertion. lung sounds diminished. pt o2 sat 89 on room air at arrival. 3l per nasal can applied. pt states he uses 3l at home at night and prn. Timing/Duration: today (much worse SOB), week(s) (1) Activities at Onset: rest Severity of Dyspnea-Max: severe Severity of Dyspnea-Current: severe Possible Cause: chronic episodes Modifying Factors: Improves With: lying down, oxygen Associated Symptoms: constant, edema, ankle swelling, heaviness International travel in last 2 weeks: No Hx Tetanus, Diphtheria Vaccination/Date Given: Yes Hx Influenza Vaccination/Date Given: No Hx Pneumococcal Vaccination/Date Given: Yes Immunizations Up to Date: Yes <PERNELL LAMAR - Last Filed: 05/04/19 06:48> <MELISSA ROA - Last Filed: 05/04/19 09:25> - History of Present Illness Time Seen by Provider: 05/04/19 06:40 Physician History: patient with increasng SOB; 20# wt gain; increasing edema; orthopnea and increasing Lasix over past week; no CP; prior hx of same; admitted 2-3 weeks ago for same; Lisnopril makes him cough; no other changessats on arrival on [id number] -88; improved to 95-97 on 3 l nc (PERNELL LAMAR) Allergies/Adverse Reactions: tuberculin,PPD,multi-puncture [From Tuberculin PPD Mary Ellen Test] Allergy ( Intermediate, Verified 05/04/19 06:41) Rash butorphanol tartrate [From Stadol] Allergy (Unknown, Verified 05/04/19 06:41) chlorpromazine HCl [From Thorazine] Allergy (Unknown, Verified 05/04/19 06:41) irritable haloperidol Allergy (Unknown, Verified 05/04/19 06:41) "makes me stay awake too much" ketorolac tromethamine [From Toradol] Allergy (Unknown, Verified 05/04/19 06:41) severe pain in lower back and kidneys nalbuphine [Nalbuphine] Allergy (Unknown, Verified 05/04/19 06:41) prochlorperazine edisylate [From Compazine] Allergy (Unknown, Verified 05/04/19 06:41) irritable lisinopril Adverse Reaction (Verified 05/04/19 06:41) Cough chloraprep Allergy (Intermediate, Uncoded 05/04/19 06:41) Rash Home Medications: Brimonidine Tartrate [Alphagan P 0.15%] 1 drops OP TID 09/30/12 [History] Metformin HCl 1000 mg [Glucophage 1000 MG] 1,000 mg PO BID 09/15/14 [History] Apixaban [Eliquis 5 mg Tablet] 2.5 mg PO BID 03/30/15 [History] Levothyroxine Sodium 25 Mcg [Synthroid 25 Mcg] 50 mcg PO DAILY 03/30/15 [ History] Dorzolamide HCl/Timolol Maleat [Dorzolamide-Timolol Eye Drops] 1 drop OP BID [History] Insulin Aspart [NovoLOG Insulin] 52 units SQ TIDWM 07/13/17 [History] Montelukast Sodium 10 mg [Singulair 10 MG] 10 mg PO QPM 05/22/18 [History] Cholecalciferol (Vitamin D3) [Vitamin D3] 3,000 unit PO DAILY 06/19/18 [History] Furosemide [Lasix] 40 mg PO BID 06/19/18 [History] Pramipexole Di-HCl 0.5 mg [Mirapex 0.5 MG Tablet] 1 mg PO HS 10/06/18 [ History] Rosuvastatin Calcium [Crestor] 20 mg PO HS 12/14/18 [History] Potassium Chloride 10 Meq Tab* [Klor Con 10 MEQ] 20 meq PO BID 03/02/19 [ History] Insulin Glargine [Lantus Insulin] 75 units SQ BID 03/03/19 [History] LORazepam [Lorazepam] 0.5 mg PO HS PRN PRN 04/11/19 [History] Losartan Potassium 50 mg [Cozaar 50 MG] 50 mg PO DAILY 04/11/19 [History] Allopurinol 300 mg [Zyloprim 300 mg] 300 mg PO DAILY 04/12/19 [History] Latanoprostene Bunod [Vyzulta] 1 drops OP HS 04/12/19 [History] - Review of Systems Constitutional: Other (20# wt gain) Eyes: No Symptoms Ears, Nose, & Throat: No Symptoms Respiratory: Dyspnea, Dyspnea on Exertion (LABOY) Cardiac: Edema, Orthopnea, PND, No Chest Pain, No Palpitations, No Syncope Abdominal/Gastrointestinal: No Symptoms Genitourinary Symptoms: No Symptoms Musculoskeletal: No Symptoms Skin: Other (tight), No Rash Neurological: No Symptoms Psychological: No Symptoms Endocrine: No Symptoms Hematologic/Lymphatic: No Symptoms Immunological/Allergic: No Symptoms <PERNELL LAMAR - Last Filed: 05/04/19 06:48> - Past Medical History Pertinent Past Medical History: Yes Neurological History: Migraines ENT History: Glaucoma Cardiac History: Angina, Congestive Heart Failure, Hypertension Respiratory History: CHF, Pneumonia, Pulmonary Embolism, Sleep Apnea, Other Endocrine Medical History: Diabetes Type II, Hypothyroidism Musculoskeletal History: No Pertinent History GI Medical History: Pancreatitis History: No Pertinent History Psycho-Social History: Anxiety Male Reproductive Disorders: No Pertinent History Other Medical History: Pulmonary hypertension; enlarged heart. rt sided heart failure - Past Surgical History Past Surgical History: Yes Neuro Surgical History: No Pertinent History Cardiac: Cardiac Catheterization Respiratory: No Pertinent History Gastrointestinal: Appendectomy, Cholecystectomy, Hernia Repair, Pancreatic Surgery Genitourinary: No Pertinent History, Other Musculoskeletal: Other Male Surgical History: Testicular Surgery Other Surgical History: old port removed, port placed x 2, had a surgery to look in bladder, right shoulder surgery. SHUNT IN RIGHT EYE. Open shut back up in right eye 10/03/18, penis surgery- pt states he had a "fracture" 6 years ago that was repaired - Social History Smoking Status: Former smoker How long have you smoked: 2 Exposure to second hand smoke: No Alcohol Use: Socially Drug Use: none Patient Lives Alone: No Significant Family History: diabetes <PERNELL LAMAR - Last Filed: 05/04/19 06:48> - Physical Exam General Appearance: moderate distress, alert, obese Eye Exam: PERRL/EOMI, eyes nml inspection, No photophobia Ears, Nose, Throat Exam: hearing grossly normal, normal ENT inspection Neck Exam: normal inspection, non-tender, supple, full range of motion, JVD, No subcutaneous emphysema Respiratory Exam: respiratory distress, airway intact, crackles/rales, No normal breath sounds, No chest tenderness, No lungs clear, No diminished breath sounds, No rhonchi, No wheezing Cardiovascular/Chest Exam: normal heart sounds, regular rate/rhythm, edema, JVD , tachycardia, No murmur Abdominal/Gastrointestinal Exam: soft, normal bowel sounds, distention, No tenderness, No guarding, No rebound, No organomegaly Rectal Exam: deferred Extremity Exam: non-tender, normal range of motion, pedal edema (anasarca), No normal inspection, No no calf tenderness, No ronak's sign Peripheral Pulses Exam: carotid (R): 3+, carotid (L): 3+, femoral (R): 3+, femoral (L): 3+, dorsalis-pedis (R): 1+, dorsalis-pedis (L): 1+ Neurologic Exam: alert, oriented x 3, cooperative, salt manager II-XII nml as tested, normal mood/affect Skin Exam: normal color, warm, dry, cyanosis (initially resolved with O2), No rash, No petechiae SpO2 Interpretation: hypoxic, ABG ordered, O2 applied SpO2: 96 (86-88 on RA on arrival) O2 Delivery: BiPap/CPAP <PERNELL LAMAR - Filed: 05/04/19 06:48> - Nursing Vital Signs Nursing Vital Signs: Initial Vital Signs Pulse Rate 106 H 05/04/19 06:26 Respiratory Rate 20 05/04/19 06:26 Blood Pressure 141/73 05/04/19 06:26 O2 Sat by Pulse Oximetry 95 05/04/19 06:26 Pain Scale Pain Intensity 0 - Course Nursing assessment & vital signs reviewed: Yes EKG Interpreted by Me: RATE (106), Sinus Tach, Left Rayle Deviation, NORMAL INTERVALS, NORMAL QRS, Non-specific ST Changes, Other (unchanged from 04/12/19) Rhythm Strip: Rate (106), Sinus Tachycardia <PERNELL LAMAR - Filed: 05/04/19 06:48> - Course Nursing assessment & vital signs reviewed: Yes <MELISSA ROA - Last Filed: 05/04/19 09:25> Ordered Tests: Active Orders 24 hr Category Date Time Status Oliving Machine Operator STAT Care 05/04/19 06:42 Active EKG-ER Only STAT Care 05/04/19 06:41 Active IV Insertion STAT Care 05/04/19 06:41 Active CHEST 1 VIEW (PORTABLE) Stat Exams 05/04/19 07:41 Completed ARTERIAL BLOOD GASES Stat Lab 05/04/19 06:41 Completed CBC W DIFF Stat Lab 05/04/19 07:05 Completed CMP Stat Lab 05/04/19 07:05 Completed MAGNESIUM Stat Lab 05/04/19 07:05 Completed NT PRO BNP Stat Lab 05/04/19 07:05 Completed PROTIME WITH INR Stat Lab 05/04/19 07:05 Completed TROPONIN Q3H Lab 05/04/19 07:05 Completed TROPONIN Q3H Lab 05/04/19 09:45 Ordered TROPONIN Q3H Lab 05/04/19 12:45 Ordered TROPONIN Q3H Lab 05/04/19 15:45 Ordered TROPONIN Q3H Lab 05/04/19 18:45 Ordered BiPap/CPAP STAT RT 05/04/19 06:41 Active Peak Expiratory Flow Rate ONCE RT 05/04/19 06:41 Active Medication Summary Generic Name Dose Route Start Last Admin Trade Name Freq PRN Reason Stop Dose Admin Sodium Chloride 1,000 mls @ 50 mls/hr 05/04/19 06:45 05/04/19 07:13 Sodium Chloride 0.9% 1000 Ml IV 06/03/19 06:44 50 mls/hr .Q20H REGAN Administration Discontinued Medications Generic Name Dose Route Start Last Admin Trade Name Freq PRN Reason Stop Dose Admin Captopril Confirm 05/04/19 06:42 Captopril 25 Mg Administered 05/04/19 06:43 Dose 25 mg .ROUTE .STK-MED ONE Captopril 25 mg 05/04/19 06:41 05/04/19 06:50 Captopril 25 Mg PO 05/04/19 06:42 25 mg STAT ONE Administration Furosemide 80 mg 05/04/19 06:41 05/04/19 07:13 Lasix 40 Mg/4 Ml IV 05/04/19 06:42 80 mg STAT ONE Administration Furosemide Confirm 05/04/19 07:09 Lasix 40 Mg/4 Ml Administered 08/18/19 07:10 Dose 40 mg .ROUTE .STK-MED ONE Furosemide Confirm 05/04/19 07:14 Lasix 40 Mg/4 Ml Administered 05/04/19 07:15 Dose 40 mg .ROUTE .STK-MED ONE Nitroglycerin Confirm 05/04/19 06:42 Nitro-Bid 2% Ud Packets Administered 05/04/19 06:43 Dose 1 gm .ROUTE .STK-MED ONE Nitroglycerin 1 gm 05/04/19 06:41 05/04/19 06:50 Nitro-Bid 2% Ud Packets TOP 05/04/19 06:42 1 gm STAT ONE Administration Lab/Rad Data: Laboratory Result Diagrams 05/04/19 07:05 05/04/19 07:05 Laboratory Results 05/04/19 05/04/19 05/04/19 Range/Units 07:05 07:05 07:05 WBC (4.0-10.5) K/mm3 RBC (4.1-5.6) M/mm3 Hgb (12.5-18.0) gm/dl Hct (42-50) % MCV (78-100) fl MCH (26-32) pg MCHC (32-36) g/dl RDW (11.5-14.0) % Plt Count (150-450) K/mm3 MPV (6-9.5) fl Gran % (36.0-66.0) % Eos # (Auto) (0-0.5) Absolute Lymphs (auto) (1.0-4.6) Absolute Monos (auto) (0.0-1.3) Lymphocytes % (24.0-44.0) % Monocytes % (0.0-12.0) % Eosinophils % (0.00-5.0) % Basophils % (0.0-0.4) % Absolute Granulocytes (1.4-6.9) Basophils # (0-0.4) PT 12.4 (8.83-12.87) SECONDS INR 1.10 (0.8-3.0) Puncture Site pCO2 (35-45) mmHg pO2 (75-100) mmHg Base Excess (-2.0-2.0) O2 Saturation (94-100) g/dF ABG pH (7.35-7.45) ABG HCO3 (22-28) ABG O2 Sat (Measured) (95-100) % Dennis Test A-a Gradient a/A Ratio Hemoglobin Carboxyhemoglobin (0.0-6.9) % THgb Methemoglobin (1.4-1.5) % Potassium 3.3 L (3.5-5.1) Temperature C POC O2 Flow Rate % Vent Mode Inspiratory BiPAP Expiratory BiPAP Sodium 135 L (137-145) mmol/L Chloride 95 L (98-107) mmol/L Carbon Dioxide 28 (22-30) mmol/L Anion Gap 15.8 H (5-15) MEQ/L BUN 17 (9-20) mg/dL Creatinine 0.84 (0.66-1.25) mg/dL Estimated GFR > 60.0 ML/MIN Glucose 363 H (74-106) mg/dL Calcium 9.1 (8.4-10.2) mg/dL Magnesium 1.8 (1.6-2.3) mg/dL Total Bilirubin 0.40 (0.2-1.3) mg/dL AST 55 (17-59) U/L ALT 41 (0-50) U/L Alkaline Phosphatase 55 (38-126) U/L Troponin I < 0.012 (0.000-0.034) ng/mL NT-Pro-B Natriuret Pep 31.0 (0-900) pg/mL Serum Total Protein 6.7 (6.3-8.2) g/dL Albumin 3.8 (3.5-5.0) g/dL 05/04/19 05/04/19 Range/Units 07:05 06:41 WBC 7.4 (4.0-10.5) K/mm3 RBC 4.06 L (4.1-5.6) M/mm3 Hgb 12.3 L (12.5-18.0) gm/dl Hct 37.9 L (42-50) % MCV 93.3 (78-100) fl MCH 30.2 (26-32) pg MCHC 32.5 (32-36) g/dl RDW 16.2 H (11.5-14.0) % Plt Count 205 (150-450) K/mm3 MPV 9.1 (6-9.5) fl Gran % 55.9 (36.0-66.0) % Eos # (Auto) 0.20 (0-0.5) Absolute Lymphs (auto) 1.86 (1.0-4.6) Absolute Monos (auto) 1.16 (0.0-1.3) Lymphocytes % 25.2 (24.0-44.0) % Monocytes % 15.7 H (0.0-12.0) % Eosinophils % 2.7 (0.00-5.0) % Basophils % 0.5 (0.0-0.4) % Absolute Granulocytes 4.11 (1.4-6.9) Basophils # 0.04 (0-0.4) PT (8.83-12.87) SECONDS INR (0.8-3.0) Puncture Site LEFT RADIAL pCO2 43 (35-45) mmHg pO2 137 H* (75-100) mmHg Base Excess 3.7 H (-2.0-2.0) O2 Saturation 96.6 (94-100) g/dF ABG pH 7.43 (7.35-7.45) ABG HCO3 28.5 H (22-28) ABG O2 Sat (Measured) 98.4 (95-100) % Dennis Test YES A-a Gradient 94 a/A Ratio 0.59 Hemoglobin 12.2 Carboxyhemoglobin 1.1 (0.0-6.9) % THgb Methemoglobin 0.6 L (1.4-1.5) % Potassium 3.1 L (3.5-5.1) Temperature 37.0 C POC O2 Flow Rate 40 % Vent Mode BiPAP Inspiratory BiPAP 12 Expiratory BiPAP 6 Sodium (137-145) mmol/L Chloride (98-107) mmol/L Carbon Dioxide (22-30) mmol/L Anion Gap (5-15) MEQ/L BUN (9-20) mg/dL Creatinine (0.66-1.25) mg/dL Estimated GFR ML/MIN Glucose (74-106) mg/dL Calcium (8.4-10.2) mg/dL Magnesium (1.6-2.3) mg/dL Total Bilirubin (0.2-1.3) mg/dL AST (17-59) U/L ALT (0-50) U/L Alkaline Phosphatase (38-126) U/L Troponin I (0.000-0.034) ng/mL NT-Pro-B Natriuret Pep (0-900) pg/mL Serum Total Protein (6.3-8.2) g/dL Albumin (3.5-5.0) g/dL - Progress Air Movement: fair Counseled pt/family regarding: lab results, diagnosis, rad results <PERNELL LAMAR - Last Filed: 05/04/19 06:48> - Progress Progress: re-examined Air Movement: good Discussed with DrAshlee: Luke (Transfer to [facility] based on BP/stability/Cardiac hx), Other (Dr. 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 Anaya) goes to further evaluate and stabalize patient (considering seccond admission in 2 weeks). Patient voices understanding and agreement with the plan. (MELISSA ROA) - Departure Critical Care Time: Yes Critical Care Time(excluding separately billable procedures): Critical 30-74 mins <PERNELL LAMAR - Last Filed: 05/04/19 06:48> - Departure Departure Disposition: Transfer ([facility]) Critical Care Time: Yes Critical Care Time(excluding separately billable procedures): Critical 30-74 mins <MELISSA ROA - Last Filed: 05/04/19 09:25> - Departure Clinical Impression: Shortness of breath at rest, Heart failure, right Condition: Stable Referrals: CHAPARRITA NICOLE, [Primary Care Provider] -
[2019-05-04 07:09] LABS: BASOPHIL % 0.5 % (0.0-0.4); Basophil (Absolute #) 0.04 (0-0.4); Eosinophil % 2.7 % (0.00-5.0); Granulocyte Absolute (ANC) 4.11 (1.4-6.9); Granulocytes % 55.9 % (36.0-66.0); Hematocrit 37.9 % (42-50); Hemoglobin 12.3 gm/dl (12.5-18.0); Lymphocyte (Absolute #) 1.86 (1.0-4.6); Lymphocytes % 25.2 % (24.0-44.0); Mean Cell Volume 93.3 fl (78-100); Mean Corpuscular Hgb Concent. 32.5 g/dl (32-36); Mean Platelet Volume 9.1 fl (6-9.5); Monocyte (Absolute #) 1.16 (0.0-1.3); Monocytes % 15.7 % (0.0-12.0); Platelet Count 205 K/mm3 (150-450); Red Blood Count 4.06 M/mm3 (4.1-5.6); Red Cell Distribution Width 16.2 % (11.5-14.0); White Blood Count 7.4 K/mm3 (4.0-10.5)
[2019-05-04] MEDS ORDERED: Sodium Chloride 0.9% 1000 ML 1,000 ML ONE (07:09)
[2019-05-04] MEDS ORDERED: Lasix 40 MG/4 ML ONE ×2 (07:09→07:14)
[2019-05-04 07:14] LABS: Mean Corpuscular Hemoglobin 30.2 pg (26-32)
[2019-05-04 07:14] LABS: A-aADO2 94; ABG HEMOGLOBIN 12.2; ABG POTASSIUM 3.1 (3.5-5.1); ABG SITE LEFT RADIAL; ALLEN TEST OK? YES; ARTERIAL BLD GAS O2 SATURATION 98.4 % (95-100); ARTERIAL BLOOD GAS BASE EXCESS 3.7 (-2.0-2.0); ARTERIAL BLOOD GAS FIO2 40 %; ARTERIAL BLOOD GAS PCO2 43 mmHg (35-45); ARTERIAL BLOOD GAS PO2 137 mmHg (75-100); ARTERIAL BLOOD GAS VENT MODE BiPAP; ARTERIAL BLOOD GAS pH 7.43 (7.35-7.45); CARBOXYHEMOGLOBIN 1.1 % THgb (0.0-6.9); HCO3- 28.5 (22-28); HGB O2 SAT 96.6 g/dF (94-100); Methhemoglobin 0.6 % (1.4-1.5); paO2 pAO1 0.59
[2019-05-04 07:16] LABS: INR 1.1 (0.8-3.0); PROTIME 12.4 SECONDS (8.83-12.87)
[2019-05-04 07:27] LABS: SGPT/ALT 41 U/L (0-50)
[2019-05-04 07:30] LABS: ALBUMIN 3.8 g/dL (3.5-5.0); ALKALINE PHOSPHATASE 55 U/L (38-126); ANION GAP 15.8 MEQ/L (5-15); BLOOD UREA NITROGEN 17 mg/dL (9-20); CHLORIDE 95 mmol/L (98-107); Calcium 9.1 mg/dL (8.4-10.2); Carbon Dioxide 28 mmol/L (22-30); Creatinine 1 0.84 mg/dL (0.66-1.25); Glucose 363 mg/dL (74-106); MAGNESIUM 1.8 mg/dL (1.6-2.3); Potassium 3.3 mmol/L (3.5-5.1); SGOT/AST 55 U/L (17-59); SODIUM 135 mmol/L (137-145); Total Protein 6.7 g/dL (6.3-8.2)
--- NOTE | 2019-05-04 08:16 | XRAY ---
Indication: Short of breath. Comparison: April 11, 2019. Portable apical lordotic chest less inflated again with a few incidental calcified granulomas. No focal infiltrate, consolidation, or large effusion. Heart is not enlarged again with left Port-A-Cath. Bony thorax intact again with old right 5 rib fracture. Impression: Stable nonacute chest with chronic features.
[2019-05-04 09:05] VITALS: BP 87/57; PULSE 98; O2SAT 95
== END 2019-05-04 09:54 | disposition short-term general hospital (02) ==
LOC: ED 06:23
DX: R06.02 Shortness of breath (principal); I50.810 Right heart failure, unspecified
CPT/HCPCS: 36000; 36415; 36600; 71045; 80053; 82375; 82803; 83735; 83880; 84484; 85025; 85610; 93005; 93041; 94002; 96360; 96361; 96374; 99285; 99291; J1940; A9270-GY

== ENCOUNTER 2019-08-20 21:28 | Emergency (ER) | payer MEDICARE ==
--- NOTE | 2019-08-20 22:35 | ERPHSYRPT ---
- History of Present Illness Time Seen by Provider: 08/20/19 21:42 Source: patient Exam Limitations: no limitations Patient Subjective Stated Complaint: pt states that he has been SOB all day, pt states that he coughed so hard today that he passed out twice, pt states that he went to the MD a week ago for crackles in the LLL, pt was put on antibiotics , pt states that he is now done with antibiotics, pt states that he also had a bad sinus infection, pt states that nasal discharge is clear, pt states that it feels like he has to "cough something but is stuck in his chest" Triage Nursing Assessment: pt ambulated into the ER, pt is SOB, respirations 26 , lung sound are clear on left side, pt has expiratory wheezes to posterior RLL , pt coughing up think yellow/ white mucuse, pt has 3+ pitting edema, rt lower leg worse than left Physician History: URI S/S -BRONCHITIS-COPD EXACERBATION 1 WEEK AGO PLACED ON STEROIDS/ DOXYCYCLINE . POSITIVE HX OF COPD: RT HEART FAILURE FOR THE PAST 2-3 DAYS INCREASING SOB: CAN NOT WALK GREATER THAN 50-100 FEET W/O RESTING SLEEPS ON 6 PILLOWS AT NIGHT POS: HX SLEEP APNEA Timing/Duration: day(s) (2-3) Activities at Onset: activity Severity of Dyspnea-Max: mild Severity of Dyspnea-Current: moderate Possible Cause: frequent episodes Modifying Factors: Improves With: activity, coughing, lying down, other (RT HEART FAILURE WITHPERIPHERAL EDEMA ) Associated Symptoms: cough, wheezing, weakness, ankle swelling, heaviness International travel in last 2 weeks: No Allergies/Adverse Reactions: tuberculin,PPD,multi-puncture [From Tuberculin PPD Mary Ellen Test] Allergy ( Intermediate, Verified 08/20/19 21:56) Rash butorphanol tartrate [From Stadol] Allergy (Unknown, Verified 08/20/19 21:56) chlorpromazine HCl [From Thorazine] Allergy (Unknown, Verified 08/20/19 21:56) irritable haloperidol Allergy (Unknown, Verified 08/20/19 21:56) "makes me stay awake too much" ketorolac tromethamine [From Toradol] Allergy (Unknown, Verified 08/20/19 21:56) severe pain in lower back and kidneys nalbuphine [Nalbuphine] Allergy (Unknown, Verified 08/20/19 21:56) prochlorperazine edisylate [From Compazine] Allergy (Unknown, Verified 08/20/19 21:56) irritable lisinopril Adverse Reaction (Verified 08/20/19 21:56) Cough chloraprep Allergy (Intermediate, Uncoded 08/20/19 21:56) Rash Home Medications: Brimonidine Tartrate [Alphagan P 0.15%] 1 drops OP TID 09/30/12 [History] Metformin HCl 1000 mg [Glucophage 1000 MG] 1,000 mg PO BID 09/15/14 [History] Apixaban [Eliquis 5 mg Tablet] 2.5 mg PO BID 03/30/15 [History] Levothyroxine Sodium 25 Mcg [Synthroid 25 Mcg] 50 mcg PO DAILY 03/30/15 [ History] Dorzolamide HCl/Timolol Maleat [Dorzolamide-Timolol Eye Drops] 1 drop OP BID [History] Montelukast Sodium 10 mg [Singulair 10 MG] 10 mg PO QPM 05/22/18 [History] Cholecalciferol (Vitamin D3) [Vitamin D3] 3,000 unit PO DAILY 06/19/18 [History] Pramipexole Di-HCl 0.5 mg [Mirapex 0.5 MG Tablet] 1 mg PO HS 10/06/18 [ History] Rosuvastatin Calcium [Crestor] 20 mg PO HS 12/14/18 [History] Potassium Chloride 10 Meq Tab* [Klor Con 10 MEQ] 20 meq PO BID 03/02/19 [ History] LORazepam [Lorazepam] 0.5 mg PO HS PRN PRN 04/11/19 [History] Losartan Potassium 50 mg [Cozaar 50 MG] 50 mg PO DAILY 04/11/19 [History] Allopurinol 300 mg [Zyloprim 300 mg] 300 mg PO DAILY 04/12/19 [History] Latanoprostene Bunod [Vyzulta] 1 drops OP HS 04/12/19 [History] Bumetanide [Bumex] 2 mg PO BID 06/13/19 [History] Gabapentin 300 mg PO TID 08/20/19 [History] Insulin Regular, Human [Humulin R U-500 Kwikpen] 110 unit SQ DINNER 08/20/19 [ History] Insulin Regular, Human [Humulin R U-500 Kwikpen] 120 units SQ LUNCH 08/20/19 [ History] Insulin Regular, Human [Humulin R U-500 Kwikpen] 130 units SQ BREAKFAST [History] Hx Tetanus, Diphtheria Vaccination/Date Given: Yes Hx Influenza Vaccination/Date Given: No Hx Pneumococcal Vaccination/Date Given: Yes - Review of Systems Constitutional: Fatigue, Malaise, Weakness, Other (WEIGHT GAIN ) Eyes: No Symptoms Ears, Nose, & Throat: Nose Congestion Respiratory: Cough, Dyspnea, Dyspnea on Exertion (LABOY), Wheezing Cardiac: Edema, Orthopnea Abdominal/Gastrointestinal: No Symptoms, No Abdominal Pain, No Nausea, No Vomiting, No Diarrhea Genitourinary Symptoms: No Symptoms Musculoskeletal: Arthralgias, Back Pain Skin: Other (EDEMA LOWER EXTREMITIES ) Neurological: No Symptoms, No Dizziness, No Focal Weakness Psychological: No Symptoms Endocrine: No Symptoms Hematologic/Lymphatic: No Symptoms Immunological/Allergic: No Symptoms All Other Systems: Reviewed and Negative - Past Medical History Pertinent Past Medical History: Yes Neurological History: Migraines ENT History: Glaucoma Cardiac History: Angina, Congestive Heart Failure, Hypertension Respiratory History: CHF, Pneumonia, Pulmonary Embolism, Sleep Apnea, Other Endocrine Medical History: Diabetes Type II, Hypothyroidism Musculoskeletal History: No Pertinent History GI Medical History: Pancreatitis History: No Pertinent History Psycho-Social History: Anxiety Male Reproductive Disorders: No Pertinent History Other Medical History: Pulmonary hypertension; enlarged heart. rt sided heart failure, hospitalized last month for fluid retention, now seeing Dr Berry cardiolinda. - Past Surgical History Past Surgical History: Yes Neuro Surgical History: No Pertinent History Cardiac: Cardiac Catheterization Respiratory: No Pertinent History Gastrointestinal: Appendectomy, Cholecystectomy, Hernia Repair, Pancreatic Surgery Genitourinary: No Pertinent History, Other Musculoskeletal: Other Male Surgical History: Testicular Surgery Other Surgical History: old port removed, port placed x 2, had a surgery to look in bladder, right shoulder surgery. SHUNT IN RIGHT EYE. Open shut back up in right eye 10/03/18, penis surgery- pt states he had a "fracture" 6 years ago that was repaired - Social History Smoking Status: Former smoker How long have you smoked: 2 Exposure to second hand smoke: No Alcohol Use: Socially Drug Use: none Patient Lives Alone: No Significant Family History: diabetes - Nursing Vital Signs Nursing Vital Signs: Initial Vital Signs Temperature 99 F 08/20/19 21:31 Pulse Rate 108 H 08/20/19 21:31 Respiratory Rate 26 H 08/20/19 21:31 Blood Pressure 139/76 08/20/19 21:31 O2 Sat by Pulse Oximetry 95 08/20/19 21:31 Pain Scale Pain Intensity 6 - Physical Exam General Appearance: mild distress Eye Exam: PERRL/EOMI, eyes nml inspection Ears, Nose, Throat Exam: hearing grossly normal, normal ENT inspection, normal pharynx, abnormal TM (R), abnormal TM (L), nasal congestion, No sinus pain/ drainage, No pharyngeal erythema, No tonsillar exudate, No tonsillar swelling Neck Exam: limited range of motion, other (MILD-MODERASTE DJD ), No meningismus , No JVD Respiratory Exam: chest tenderness, diminished breath sounds, prolonged expirations, crackles/rales, wheezing (SCATTERED), No accessory muscle use Cardiovascular/Chest Exam: tachycardia (106), decreased pulses, No gallop/S3, No gallop/S4 Abdominal/Gastrointestinal Exam: normal bowel sounds, distention, No tenderness , No mass, No guarding, No ecchymosis, No rebound, No hepatomegaly Peripheral Pulses Exam: carotid (R): 1+, carotid (L): 1+, femoral (R): 1+, femoral (L): 1+ Neurologic Exam: alert, oriented x 3, cooperative, envelope fold operator II-XII nml as tested, normal mood/affect Skin Exam: normal color, other (2+ PITTING EDEMA BILATERAL LOWER ERXTREMITIES ) , No rash, No petechiae SpO2 Interpretation: O2 applied SpO2: 105 O2 Delivery: Nasal Cannula - Course Nursing assessment & vital signs reviewed: Yes EKG Interpreted by Me: Sinus Tach (109), Non-specific ST Changes, Other (old inf wall mi age ?) Ordered Tests: Active Orders 24 hr Category Date Time Status CHEST 1 VIEW (PORTABLE) Stat Exams 08/20/19 23:11 Taken BNP [NT PRO BNP] Stat Lab 08/20/19 22:15 Completed CBC W DIFF Stat Lab 08/20/19 22:15 Completed CMP Stat Lab 08/20/19 22:15 Completed Manual Differential NC Stat Lab 08/20/19 22:15 Completed TROPONIN Q3H Lab 08/20/19 22:15 Completed Peak Expiratory Flow Rate ONCE RT 08/20/19 23:08 Active Respiratory Therapy Assessment DAILY RT 08/20/19 23:08 Active Medication Summary Discontinued Medications Generic Name Dose Route Start Last Admin Trade Name Freq PRN Reason Stop Dose Admin Hydrocodone Bitart/Acetaminophen 1 tab 08/20/19 22:48 08/20/19 23:06 [place] 5/325 Mg PO 08/20/19 22:49 1 tab STAT ONE Administration Hydrocodone Bitart/Acetaminophen Confirm 08/20/19 23:04 [place] 5/325 Mg Administered 08/20/19 23:05 Dose 1 tab .ROUTE .STK-MED ONE Albuterol/Ipratropium 3 ml 08/20/19 22:49 08/20/19 23:05 Duoneb 0.5-3 Mg/3 Ml Neb IH 08/20/19 22:50 3 ml STAT ONE Administration Albuterol/Ipratropium Confirm 08/20/19 22:59 Duoneb 0.5-3 Mg/3 Ml Neb Administered 08/20/19 23:00 Dose 3 ml IH .STK-MED ONE Potassium Chloride 20 meq 08/21/19 00:12 Klor Con 10 Meq PO 08/21/19 00:13 STAT ONE Lab/Rad Data: Laboratory Result Diagrams 08/20/19 22:15 08/20/19 22:15 Laboratory Results 08/20/19 08/20/19 08/20/19 Range/Units 22:15 22:15 22:15 WBC 12.0 H (4.0-10.5) K/mm3 RBC 4.28 (4.1-5.6) M/mm3 Hgb 12.5 (12.5-18.0) gm/dl Hct 39.7 L (42-50) % MCV 92.8 (78-100) fl MCH 29.2 (26-32) pg MCHC 31.5 L (32-36) g/dl RDW 15.2 H (11.5-14.0) % Plt Count 218 (150-450) K/mm3 MPV 10.0 H (6-9.5) fl Absolute Granulocytes 7.98 H (1.4-6.9) Segmented Neutrophils 73 H (36.-66.) % Band Neutrophils 1 (0.0-2.0) % Lymphocytes (Manual) 19 L (24-44) % Monocytes (Manual) 7 (0.0-12.0) % Platelet Estimate NORMAL (NORMAL) RBC Morphology NORMAL Sodium 135 L (137-145) mmol/L Potassium 3.4 L (3.5-5.1) mmol/L Chloride 90 L (98-107) mmol/L Carbon Dioxide 34 H (22-30) mmol/L Anion Gap 14.6 (5-15) MEQ/L BUN 33 H (9-20) mg/dL Creatinine 1.35 H (0.66-1.25) mg/dL Estimated GFR 58.5 ML/MIN Glucose 345 H (74-106) mg/dL Calcium 9.0 (8.4-10.2) mg/dL Total Bilirubin 0.60 (0.2-1.3) mg/dL AST 77 H (17-59) U/L ALT 37 (0-50) U/L Alkaline Phosphatase 60 (38-126) U/L Troponin I < 0.012 (0.000-0.034) ng/mL NT-Pro-B Natriuret Pep 27.7 (0-900) pg/mL Serum Total Protein 7.2 (6.3-8.2) g/dL Albumin 3.9 (3.5-5.0) g/dL - Progress Progress: improved Progress Note: 08/21/19 00:40 patient feeling better and wishes to go home at this time states that his sugars are up because he ate just before coming to the patient has chronic - - edema lower extremities neg: cp/p pos hx of copd Blood Culture(s) Obtained: No Antibiotics given: Yes Counseled pt/family regarding: lab results, diagnosis, need for follow-up, rad results - Departure Departure Disposition: Home Clinical Impression: COPD exacerbation, Chronic right-sided heart failure, Peripheral edema, Hypokalemia due to loss of potassium, Poorly controlled diabetes mellitus Condition: Stable Critical Care Time: No Referrals: CHAPARRITA NICOLE DO [Primary Care Provider] - Instructions: Chronic Obstructive Pulmonary Disease
[2019-08-20] MEDS ORDERED: NORCO 5/325 MG PO ONE (22:48)
[2019-08-20] MEDS ORDERED: DUONEB 0.5-3 MG/3 ml Neb IH ONE ×2 (22:49→22:59)
[2019-08-20 22:58] LABS: Absolute Neutrophil Ct (ANC) 7.98 (1.4-6.9); Hematocrit 39.7 % (42-50); Hemoglobin 12.5 gm/dl (12.5-18.0); Mean Cell Volume 92.8 fl (78-100); Mean Corpuscular Hemoglobin 29.2 pg (26-32); Mean Corpuscular Hgb Concent. 31.5 g/dl (32-36); Platelet Count 218 K/mm3 (150-450); Red Blood Count 4.28 M/mm3 (4.1-5.6); Red Cell Distribution Width 15.2 % (11.5-14.0)
[2019-08-20] MEDS ORDERED: NORCO 5/325 MG ONE (23:04)
[2019-08-20 23:12] LABS: ALBUMIN 3.9 g/dL (3.5-5.0); ANION GAP 14.6 MEQ/L (5-15); BILIRUBIN,TOTAL 0.6 mg/dL (0.2-1.3); Creatinine 1 1.35 mg/dL (0.66-1.25); NT PRO BNP 27.7 pg/mL (0-900); Potassium 3.4 mmol/L (3.5-5.1); Total Protein 7.2 g/dL (6.3-8.2)
[2019-08-21] MEDS ORDERED: Klor Con 10 MEQ PO ONE ×2 (00:12→00:37)
[2019-08-21 00:20] LABS: BAND 1 % (0.0-2.0); Lymphocytes 19 % (24-44); Monocyte 7 % (0.0-12.0); Neutrophils 73 % (36.-66.); Platelet Estimate NORMAL (NORMAL); Total Cells Counted 100
[2019-08-21] MEDS ORDERED: Zithromax 250 MG TABLET PO SCH ×2 (01:04→10:00)
[2019-08-21] MEDS ORDERED: Zithromax 250 MG TABLET ONE (01:06)
[2019-08-21 01:37] VITALS: BP 133/65; PULSE 101; O2SAT 96
--- NOTE | 2019-08-21 08:49 | XRAY ---
Indication: Short of breath. Comparison: May 04, 2019. Portable chest remains slightly underinflated and clear again with incidental calcified granulomas. Heart is not enlarged with stable left Port-A-Cath. Bony thorax intact again with mild degenerative changes and old right 5 rib fracture. Impression: Nonacute chest with chronic features.
== END 2019-08-21 01:37 | disposition home or self-care (01) ==
LOC: ED 21:28
DX: J44.1 Chronic obstructive pulmonary disease with (acute) exacerbation (principal); I50.812 Chronic right heart failure; R60.9 Edema, unspecified; E87.6 Hypokalemia; E11.65 Type 2 diabetes mellitus with hyperglycemia
CPT/HCPCS: 36415; 71045; 80053; 83880; 84484; 85025; 94150; 94640; 99284; J1642; A9270-GY

== ENCOUNTER 2020-01-27 12:53 | Observation (INO) | payer SELFPAY ==
--- NOTE | 2020-01-27 13:15 | ERPHSYRPT ---
- History of Present Illness Time Seen by Provider: 01/27/20 12:59 Source: patient Exam Limitations: no limitations Physician History: Patient is a 54-year-old male with history of congestive heart failure on Bumex presents to our ED with complaints of progressive swelling of his extremities as well as orthopnea. Symptoms started approximately 3 days ago and have been progressively worsening. Patient has a history of sleep apnea. Patient has been sleeping with his CPAP as recommended. In spite he has been experiencing shortness of breath and swelling of his extremities. Symptoms are moderate in intensity. Lying supine worse his symptoms. Symptoms improve when he sits up. No associated chest pain. No nausea or vomiting. No diarrhea. No rash. No fever. No chills. No trauma. Patient does not recall his ejection fraction or the name of his catechist at this time. Patient has been taking all medications as recommended. He voices no other complaints or concerns at this time. Timing/Duration: day(s) (Symptoms started approximately 3 days ago.) Activities at Onset: rest Severity of Dyspnea-Max: moderate Severity of Dyspnea-Current: mild Possible Cause: unknown cause Modifying Factors: Improves With: lying down Associated Symptoms: constant, ankle swelling, leg swelling, No chest pain/ discomfort, No fever, No lightheadedness, No wheezing, No weakness, No chills, No dizziness, No productive cough Allergies/Adverse Reactions: tuberculin,PPD,multi-puncture [From Tuberculin PPD Mary Ellen Test] Allergy ( Intermediate, Verified 01/27/20 13:10) Rash butorphanol tartrate [From Stadol] Allergy (Unknown, Verified 01/27/20 13:10) chlorpromazine HCl [From Thorazine] Allergy (Unknown, Verified 01/27/20 13:10) irritable haloperidol Allergy (Unknown, Verified 01/27/20 13:10) "makes me stay awake too much" ketorolac tromethamine [From Toradol] Allergy (Unknown, Verified 01/27/20 13:10) severe pain in lower back and kidneys nalbuphine [Nalbuphine] Allergy (Unknown, Verified 01/27/20 13:10) prochlorperazine edisylate [From Compazine] Allergy (Unknown, Verified 01/27/20 13:10) irritable lisinopril Adverse Reaction (Verified 01/27/20 13:10) Cough chloraprep Allergy (Intermediate, Uncoded 01/27/20 13:10) Rash Home Medications: Brimonidine Tartrate [Alphagan P 0.15%] 1 drops OP TID 09/30/12 [History] Metformin HCl 1000 mg [Glucophage 1000 MG] 1,000 mg PO BID 09/15/14 [History] Apixaban [Eliquis 5 mg Tablet] 2.5 mg PO BID 03/30/15 [History] Levothyroxine Sodium 25 Mcg [Synthroid 25 Mcg] 50 mcg PO DAILY 03/30/15 [ History] Dorzolamide HCl/Timolol Maleat [Dorzolamide-Timolol Eye Drops] 1 drop OP BID [History] Montelukast Sodium 10 mg [Singulair 10 MG] 10 mg PO QPM 05/22/18 [History] Cholecalciferol (Vitamin D3) [Vitamin D3] 3,000 unit PO DAILY 06/19/18 [History] Pramipexole Di-HCl 0.5 mg [Mirapex 0.5 MG Tablet] 1 mg PO HS 10/06/18 [ History] Rosuvastatin Calcium [Crestor] 20 mg PO HS 12/14/18 [History] Potassium Chloride 10 Meq Tab* [Klor Con 10 MEQ] 20 meq PO BID 03/02/19 [ History] LORazepam [Lorazepam] 0.5 mg PO HS PRN PRN 04/11/19 [History] Losartan Potassium 50 mg [Cozaar 50 MG] 50 mg PO DAILY 04/11/19 [History] Allopurinol 300 mg [Zyloprim 300 mg] 300 mg PO DAILY 04/12/19 [History] Latanoprostene Bunod [Vyzulta] 1 drops OP HS 04/12/19 [History] Bumetanide [Bumex] 2 mg PO BID 06/13/19 [History] Gabapentin 300 mg PO TID 08/20/19 [History] Insulin Regular, Human [Humulin R U-500 Kwikpen] 155 units SQ LUNCH 08/20/19 [ History] Insulin Regular, Human [Humulin R U-500 Kwikpen] 175 unit SQ DINNER 08/20/19 [ History] Insulin Regular, Human [Humulin R U-500 Kwikpen] 185 units SQ BREAKFAST [History] Insulin Regular, Human [Humulin R U-500 Kwikpen] 500 unit SQ 01/27/20 [History] Hx Tetanus, Diphtheria Vaccination/Date Given: Yes Hx Influenza Vaccination/Date Given: No Hx Pneumococcal Vaccination/Date Given: Yes - Review of Systems Constitutional: No Symptoms, No Fever, No Chills Eyes: No Symptoms Ears, Nose, & Throat: No Symptoms Respiratory: No Symptoms, Dyspnea on Exertion (LABOY), No Cough, No Dyspnea Cardiac: Orthopnea, No No Symptoms, No Chest Pain, No Edema, No Syncope Abdominal/Gastrointestinal: No Symptoms, No Abdominal Pain, No Nausea, No Vomiting, No Diarrhea Genitourinary Symptoms: No Symptoms, No Dysuria Musculoskeletal: No Symptoms, No Back Pain, No Neck Pain Skin: No Symptoms, No Rash Neurological: No Symptoms, No Dizziness, No Focal Weakness, No Sensory Changes Psychological: No Symptoms Endocrine: No Symptoms All Other Systems: Reviewed and Negative - Past Medical History Pertinent Past Medical History: Yes Neurological History: Migraines ENT History: Glaucoma Cardiac History: Angina, Congestive Heart Failure, Hypertension Respiratory History: CHF, Pneumonia, Pulmonary Embolism, Sleep Apnea, Other Endocrine Medical History: Diabetes Type II, Hypothyroidism Musculoskeletal History: No Pertinent History GI Medical History: Pancreatitis History: No Pertinent History Psycho-Social History: Anxiety Male Reproductive Disorders: No Pertinent History Other Medical History: Pulmonary hypertension; enlarged heart. rt sided heart failure, hospitalized last month for fluid retention, now seeing Dr Berry cardiolinda. - Past Surgical History Past Surgical History: Yes Neuro Surgical History: No Pertinent History Cardiac: Cardiac Catheterization Respiratory: No Pertinent History Gastrointestinal: Appendectomy, Cholecystectomy, Hernia Repair, Pancreatic Surgery Genitourinary: No Pertinent History, Other Musculoskeletal: Other Male Surgical History: Testicular Surgery Other Surgical History: old port removed, port placed x 2, had a surgery to look in bladder, right shoulder surgery. SHUNT IN RIGHT EYE. Open shut back up in right eye 10/03/18, penis surgery- pt states he had a "fracture" 6 years ago that was repaired - Social History Smoking Status: Former smoker How long have you smoked: 2 Exposure to second hand smoke: No Alcohol Use: Socially Drug Use: none Patient Lives Alone: No Significant Family History: diabetes - Nursing Vital Signs Nursing Vital Signs: Initial Vital Signs Temperature 98.5 F 01/27/20 12:54 Pulse Rate 92 H 01/27/20 12:54 Respiratory Rate 22 01/27/20 12:54 Blood Pressure 146/67 01/27/20 12:54 O2 Sat by Pulse Oximetry 96 01/27/20 12:54 Pain Scale Pain Intensity 0 - Physical Exam General Appearance: no apparent distress, alert Eye Exam: PERRL/EOMI Neck Exam: normal inspection, supple Respiratory Exam: normal breath sounds, respiratory distress, airway intact, No accessory muscle use, No crackles/rales Cardiovascular/Chest Exam: normal heart sounds, regular rate/rhythm Abdominal/Gastrointestinal Exam: soft, No tenderness, No distention, No mass Extremity Exam: non-tender, normal range of motion, normal inspection, no calf tenderness, no pedal edema Peripheral Pulses Exam: dorsalis-pedis (R): 2+, dorsalis-pedis (L): 2+ ( Bilateral lower extremity pitting edema 3+) Neurologic Exam: alert, oriented x 3, cooperative, pier hand helper II-XII nml as tested, sensation nml, No motor deficits Skin Exam: normal color, warm, No dry SpO2 Interpretation: normal SpO2: 98 O2 Delivery: Room Air - Course Nursing assessment & vital signs reviewed: Yes EKG Interpreted by Me: RATE, Sinus Rhythm, NORMAL AXIS, NORMAL INTERVALS (rate 91) - Radiology Exams Chest X-ray Interpretation: Teleradiologist Report (Continued nonacute chest with chronic features. Dental calcified granuloma. Heart is not enlarged. Bony thorax intact. Mild degenerative changes and old right rib fracture observed.) Ordered Tests: Active Orders 24 hr Category Date Time Status [employer] Developer STAT Care 01/27/20 13:08 Active EKG-ER Only STAT Care 01/27/20 13:06 Active IV Insertion STAT Care 01/27/20 13:06 Active Pulse Oximetry (ED) STAT Care 01/27/20 13:06 Active CHEST 1 VIEW (PORTABLE) Stat Exams 01/27/20 13:08 Completed CBC W DIFF Stat Lab 01/27/20 13:15 Completed CMP Stat Lab 01/27/20 13:15 Completed MAGNESIUM Stat Lab 01/27/20 13:15 Completed NT PRO BNP Stat Lab 01/27/20 13:15 Completed TROPONIN Q3H Lab 01/27/20 13:15 Completed TROPONIN Q3H Lab 01/27/20 16:15 Ordered TROPONIN Q3H Lab 01/27/20 19:15 Ordered TROPONIN Q3H Lab 01/27/20 22:15 Ordered TROPONIN Q3 Lab 01/28/20 01:15 Ordered UA W/RFX UR CULTURE Stat Lab 01/27/20 13:48 Completed Lab/Rad Data: Laboratory Result Diagrams 01/27/20 13:15 01/27/20 13:15 Laboratory Results 01/27/20 01/27/20 01/27/20 Range/Units 13:48 13:34 13:15 WBC (4.0-10.5) K/mm3 RBC (4.1-5.6) M/mm3 Hgb (12.5-18.0) gm/dl Hct (42-50) % MCV (78-100) fl MCH (26-32) pg MCHC (32-36) g/dl RDW (11.5-14.0) % Plt Count (150-450) K/mm3 MPV (7.5-11.0) fl Gran % (36.0-66.0) % Eos # (Auto) (0-0.5) Absolute Lymphs (auto) (1.0-4.6) Absolute Monos (auto) (0.0-1.3) Lymphocytes % (24.0-44.0) % Monocytes % (0.0-12.0) % Eosinophils % (0.00-5.0) % Basophils % (0.0-0.4) % Absolute Granulocytes (1.4-6.9) Basophils # (0-0.4) Sodium (137-145) mmol/L Potassium (3.5-5.1) mmol/L Chloride (98-107) mmol/L Carbon Dioxide (22-30) mmol/L Anion Gap (5-15) MEQ/L BUN (9-20) mg/dL Creatinine (0.66-1.25) mg/dL Estimated GFR ML/MIN Glucose (74-106) mg/dL Calcium (8.4-10.2) mg/dL Magnesium (1.6-2.3) mg/dL Total Bilirubin (0.2-1.3) mg/dL AST (17-59) U/L ALT (0-50) U/L Alkaline Phosphatase (38-126) U/L Troponin I < 0.012 (0.000-0.034) ng/mL NT-Pro-B Natriuret Pep (0-900) pg/mL Serum Total Protein (6.3-8.2) g/dL Albumin (3.5-5.0) g/dL Urine Color COLORLESS (YELLOW) Urine Appearance CLEAR (CLEAR) Urine pH 7.0 (5-6) Ur Specific Henderson 1.007 (1.005-1.025) Urine Protein NEGATIVE (Negative) Urine Ketones NEGATIVE (NEGATIVE) Urine Blood NEGATIVE (0-5) Maximino/ul Urine Nitrite NEGATIVE (NEGATIVE) Urine Bilirubin NEGATIVE (NEGATIVE) Urine Urobilinogen NEGATIVE (0-1) mg/dL Ur Leukocyte Esterase NEGATIVE (NEGATIVE) Urine WBC (Auto) NONE (0-5) /HPF Urine RBC (Auto) NONE (0-2) /HPF U Epithel Cells (Auto) NONE (FEW) /HPF Urine Bacteria (Auto) NONE (NEGATIVE) /HPF Urine Culture Reflexed NO (NO) Urine Glucose >=500 (NEGATIVE) mg/dL Influenza Type A Ag NEGATIVE (NEGATIVE) Influenza Type B Ag NEGATIVE (NEGATIVE) RSV (PCR) NEGATIVE (Negative) 01/27/20 01/27/20 Range/Units 13:15 13:15 WBC 9.4 (4.0-10.5) K/mm3 RBC 4.16 (4.1-5.6) M/mm3 Hgb 12.5 (12.5-18.0) gm/dl Hct 39.6 L (42-50) % MCV 95.2 (78-100) fl MCH 30.0 (26-32) pg MCHC 31.6 L (32-36) g/dl RDW 16.1 H (11.5-14.0) % Plt Count 195 (150-450) K/mm3 MPV 9.9 (7.5-11.0) fl Gran % 58.4 (36.0-66.0) % Eos # (Auto) 0.27 (0-0.5) Absolute Lymphs (auto) 2.24 (1.0-4.6) Absolute Monos (auto) 1.38 H (0.0-1.3) Lymphocytes % 23.8 L (24.0-44.0) % Monocytes % 14.6 H (0.0-12.0) % Eosinophils % 2.9 (0.00-5.0) % Basophils % 0.3 (0.0-0.4) % Absolute Granulocytes 5.50 (1.4-6.9) Basophils # 0.03 (0-0.4) Sodium 133 L (137-145) mmol/L Potassium 4.1 (3.5-5.1) mmol/L Chloride 88 L (98-107) mmol/L Carbon Dioxide 33 H (22-30) mmol/L Anion Gap 15.9 H (5-15) MEQ/L BUN 28 H (9-20) mg/dL Creatinine 0.96 (0.66-1.25) mg/dL Estimated GFR > 60.0 ML/MIN Glucose 415 H (74-106) mg/dL Calcium 9.2 (8.4-10.2) mg/dL Magnesium 2.3 (1.6-2.3) mg/dL Total Bilirubin 0.50 (0.2-1.3) mg/dL AST 121 H (17-59) U/L ALT 94 H (0-50) U/L Alkaline Phosphatase 86 (38-126) U/L Troponin I (0.000-0.034) ng/mL NT-Pro-B Natriuret Pep 42.2 (0-900) pg/mL Serum Total Protein 7.9 (6.3-8.2) g/dL Albumin 4.3 (3.5-5.0) g/dL Urine Color (YELLOW) Urine Appearance (CLEAR) Urine pH (5-6) Ur Specific Henderson (1.005-1.025) Urine Protein (Negative) Urine Ketones (NEGATIVE) Urine Blood (0-5) Maximino/ul Urine Nitrite (NEGATIVE) Urine Bilirubin (NEGATIVE) Urine Urobilinogen (0-1) mg/dL Ur Leukocyte Esterase (NEGATIVE) Urine WBC (Auto) (0-5) /HPF Urine RBC (Auto) (0-2) /HPF U Epithel Cells (Auto) (FEW) /HPF Urine Bacteria (Auto) (NEGATIVE) /HPF Urine Culture Reflexed (NO) Urine Glucose (NEGATIVE) mg/dL Influenza Type A Ag (NEGATIVE) Influenza Type B Ag (NEGATIVE) RSV (PCR) (Negative) - Progress Progress: improved Air Movement: fair Progress Note: 01/27/20 15:18 Patient reassessed. He continues to feel short of breath. Patient states that his body feels swollen. Patient also states that he may have a sinusitis. Patient recently completed antibiotics for sinus infection but has not improved very much. Troponin negative. BNP within normal limits. Patient believes he is retaining fluid. Case discussed with Dr. Montano covering Dr. Morejon who accepts admission to observation. Plan of care discussed with patient. He agrees to admission to [facility] for evaluation and treatment. 01/27/20 15:22 01/27/20 15:32 Initial glucose was 415. Patient self treated with insulin. Glucose rechecked in our ED and resulted as 315. Glucose downtrending likely due to administration of insulin prior to arrival. We will continue to monitor his glucose prior to next dose of insulin. Blood Culture(s) Obtained: No Antibiotics given: No Discussed with .: Elli Will see patient in: hospital (observation) Counseled pt/family regarding: lab results, diagnosis, rad results - Departure Departure Disposition: Observation Clinical Impression: ACS (acute coronary syndrome), Orthopnea, Shortness of breath, Hyperglycemia, Lung granuloma, Glucosuria Condition: Stable Critical Care Time: No Referrals: CHAPARRITA NICOLE DO [Primary Care Provider] -
[2020-01-27 13:34] LABS: BASOPHIL % 0.3 % (0.0-0.4); Basophil (Absolute #) 0.03 (0-0.4); Eosinophil % 2.9 % (0.00-5.0); Eosinophil (Absolute #) 0.27 (0-0.5); Hematocrit 39.6 % (42-50); Hemoglobin 12.5 gm/dl (12.5-18.0); Lymphocyte (Absolute #) 2.24 (1.0-4.6); Lymphocytes % 23.8 % (24.0-44.0); Mean Cell Volume 95.2 fl (78-100); Mean Corpuscular Hgb Concent. 31.6 g/dl (32-36); Mean Platelet Volume 9.9 fl (7.5-11.0); Monocyte (Absolute #) 1.38 (0.0-1.3); Monocytes % 14.6 % (0.0-12.0); Neutrophil % 58.4 % (36.0-66.0); Platelet Count 195 K/mm3 (150-450); Red Blood Count 4.16 M/mm3 (4.1-5.6); Red Cell Distribution Width 16.1 % (11.5-14.0); White Blood Count 9.4 K/mm3 (4.0-10.5)
[2020-01-27 13:51] LABS: Appearance CLEAR (CLEAR); Bilirubin NEGATIVE (NEGATIVE); Blood NEGATIVE Ery/ul (0-5); Glucose >=500 mg/dL (NEGATIVE); Ketones NEGATIVE (NEGATIVE); Leukocyte Esterase NEGATIVE (NEGATIVE); Nitrite NEGATIVE (NEGATIVE); Protein,Urine Dip NEGATIVE (Negative); Specific Gravity 1.007 (1.005-1.025); Urobilinogen NEGATIVE mg/dL (0-1)
[2020-01-27 13:55] LABS: ALBUMIN 4.3 g/dL (3.5-5.0); ALKALINE PHOSPHATASE 86 U/L (38-126); ANION GAP 15.9 MEQ/L (5-15); BLOOD UREA NITROGEN 28 mg/dL (9-20); CHLORIDE 88 mmol/L (98-107); Calcium 9.2 mg/dL (8.4-10.2); Carbon Dioxide 33 mmol/L (22-30); Creatinine 1 0.96 mg/dL (0.66-1.25); Glucose 415 mg/dL (74-106); MAGNESIUM 2.3 mg/dL (1.6-2.3); NT PRO BNP 42.2 pg/mL (0-900); Potassium 4.1 mmol/L (3.5-5.1); SGOT/AST 121 U/L (17-59); SGPT/ALT 94 U/L (0-50); SODIUM 133 mmol/L (137-145); Total Protein 7.9 g/dL (6.3-8.2)
[2020-01-27 14:04] LABS: INFLUENZA A NEGATIVE (NEGATIVE); INFLUENZA B NEGATIVE (NEGATIVE); RESPIRATORY SYNCTIAL VIRUS NEGATIVE (Negative)
--- NOTE | 2020-01-27 14:14 | XRAY ---
Indication: Cough and short of breath. Comparison: August 20, 2019. Portable chest remains clear again with incidental calcified granulomas. Heart is not enlarged with stable left Port-A-Cath. Bony thorax intact again with mild degenerative changes and old right 5 rib fracture. Impression: Continued nonacute chest with chronic features.
[2020-01-27] MEDS ORDERED: MILK OF MAGNESIA 30 ML PO PRN (16:27)
[2020-01-27] MEDS ORDERED: Senokot-S Tablet PO PRN (16:27)
[2020-01-27] MEDS ORDERED: MAALOX ES 30 ML UNIT DOSE PO PRN (16:27)
[2020-01-27] MEDS ORDERED: HUMALOG SQ PRN (17:47)
[2020-01-27] MEDS ORDERED: DUONEB 0.5-3 MG/3 ml Neb IH PRN (18:18)
[2020-01-27] MEDS: HUMULIN R SQ PRN ×2 (18:41→20:59)
[2020-01-27] MEDS: BUMEX 1 MG PO SCH (18:42)
[2020-01-27] MEDS: TYLENOL 325 MG PO PRN (20:59)
[2020-01-27] MEDS: MAG-OX 400 PO SCH (21:01)
[2020-01-27] MEDS: NEURONTIN 300 MG PO SCH (21:02)
[2020-01-27] MEDS: ELIQUIS 2.5 MG TABLET PO SCH (21:02)
[2020-01-27] MEDS: Glucophage 500 MG PO SCH (21:03)
[2020-01-27] MEDS: Toprol Xl 50 MG PO SCH (21:03)
[2020-01-27] MEDS: Klor Con 10 MEQ PO SCH (21:04)
[2020-01-27] MEDS ORDERED: Alphagan P 0.15% OP SCH (22:00)
[2020-01-27] MEDS ORDERED: Singulair 10 MG PO SCH (22:00)
[2020-01-27] MEDS ORDERED: Mirapex 0.5 MG Tablet PO SCH (22:00)
[2020-01-27] MEDS ORDERED: ZOCOR 20MG PO SCH (22:00)
[2020-01-27] MEDS: Ativan 0.5 MG PO PRN (22:36)
[2020-01-28] MEDS: TYLENOL 325 MG PO PRN ×3 (04:39→21:25)
[2020-01-28 05:52] LABS: Cholesterol 97 mg/dL (50-200); HDL CHOLESTEROL 28 mg/dL (40-60); LDL, DIRECT 42 mg/dL (30-100); Risk Ratio 3.5; TRIGLYCERIDE 218 mg/dL (30-150)
[2020-01-28 05:55] LABS: TROPONIN < 0.012 ng/mL (0.000-0.034)
[2020-01-28] MEDS ORDERED: MEDICATION INTERVENTION MC SCH (07:45)
[2020-01-28] MEDS: HUMULIN R SQ PRN ×2 (07:53→11:40)
[2020-01-28] MEDS: Glucophage 500 MG PO SCH ×2 (07:56→16:22)
[2020-01-28] MEDS: Cozaar 50 MG PO SCH (09:33)
[2020-01-28] MEDS: Maxzide-25MG Tablet PO SCH (09:33)
[2020-01-28] MEDS: Toprol Xl 50 MG PO SCH ×2 (09:33→20:33)
[2020-01-28] MEDS: SYNTHROID 50 MCG PO SCH (09:33)
[2020-01-28] MEDS: BUMEX 1 MG PO SCH (09:33)
[2020-01-28] MEDS: ELIQUIS 2.5 MG TABLET PO SCH ×2 (09:33→20:32)
[2020-01-28] MEDS: Klor Con 10 MEQ PO SCH ×2 (09:33→20:32)
[2020-01-28] MEDS: NEURONTIN 300 MG PO SCH ×3 (09:33→20:33)
[2020-01-28] MEDS: COSOPT OPHTHALMIC 10 ML OP SCH ×2 (09:34→20:32)
[2020-01-28] MEDS: ZYLOPRIM 300 MG PO SCH (09:34)
[2020-01-28] MEDS: Alphagan P 0.15% OP SCH ×3 (09:35→20:30)
[2020-01-28] MEDS: MAG-OX 400 PO SCH ×2 (09:43→20:32)
[2020-01-28] MEDS ORDERED: CHOLECALCIFEROL 3000 UNIT PO SCH (10:00)
[2020-01-28] MEDS ORDERED: HYDROCHLOROTHIAZIDE PO SCH (10:00)
[2020-01-28] MEDS ORDERED: VITAMIN D PO SCH (10:00)
[2020-01-28] MEDS ORDERED: TRIAMTERENE PO SCH (10:00)
[2020-01-28] MEDS ORDERED: [UNRECOGNIZED DRUG - OTHER] PO SCH (10:00)
[2020-01-28] MEDS ORDERED: SYNTHROID 25 MCG PO SCH (10:00)
--- NOTE | 2020-01-28 11:02 | HP ---
CHIEF COMPLAINT: Increasing swelling, orthopnea. HISTORY OF PRESENT ILLNESS: The patient is a 54 year-old white male who reports he has history of right-sided heart failure and pulmonary hypertension. He reports he has had increasing swelling over the past several days and has been unable to get the fluid off despite taking his Bumex and other medications. The patient's adventure education teacher is Dr. Anaya. He sees Dr. Silverman for his regular medical care otherwise. PAST MEDICAL HISTORY: Significant for his right-sided heart failure and pulmonary hypertension, diabetes mellitus type 2 which is insulin resistant, hypothyroidism, history of pulmonary embolism, sleep apnea. MEDICATIONS: His home medications are quite extensive and include: Albuterol, Allopurinol, Eliquis, Alphagan-P, Bumex, vitamin D, dorzolamide, Atenolol eye drops, gabapentin, huge doses of insulin 185 units subcu at breakfast and 155 units subcu at lunch and 175 units at dinner. He takes Vyzulta eye drops, Synthroid, lorazepam, losartan, magnesium, metformin, metoprolol, montelukast, pramipexole, rosuvastatin, Maxzide. ALLERGIES: STADOL. THORAZINE. HALDOL. TORADOL. NUBAIN. COMPAZINE. LISINOPRIL. CHLORAPREP. PHYSICAL EXAMINATION: VITAL SIGNS: Vital signs on admission showed his temperature to be 98.5F, pulse 92, respiratory rate 22 and blood pressure 146/67. O2 saturation 96%. HEENT: Normocephalic, atraumatic. Pupils equal round reactive to light. Extraocular movements intact. Oropharynx is pink and moist. NECK: Supple without lymphadenopathy, thyromegaly or JVD. CHEST: Clear to auscultation. HEART: Regular rate and rhythm without significant murmurs, rubs or gallops heard. ABDOMEN: Soft. No palpable masses. EXTREMITIES: Without cyanosis or clubbing. There was noted to be massive edema present on the backs of his hands. NEUROLOGIC: The patient is alert and oriented x3. LAB DATA AND TESTS: His laboratory studies show white count 9,400, hemoglobin 12.5 and PLT count 195,000. Influenza A, B and respiratory syncytial virus were negative. Troponin less than 0.012. Glucose 415, BUN 28, creatinine 0.96, sodium slightly low at 133, potassium is normal. Liver enzymes were slightly elevated with SGPT of 121 and SGOT of 94. His UA was normal. A1C was 9.33. ASSESSMENT: A patient with right-sided heart failure who failed outpatient treatment with increasing edema. The patient was brought into the hospital for IV diuretic management with IV Lasix at 40 mg IV every 12 hours. We will obtain a tele-cardiology consult from his adventure education teacher, Dr. Anaya, if possible and continue his home medications. We are placing him on low dose sliding scale coverage for his sugars as he appears to be quite insulin resistant and continue on regular home medications as listed above.
[2020-01-28] MEDS: Lasix 40 MG/4 ML IV SCH ×2 (11:23→20:32)
[2020-01-28] MEDS ORDERED: HUMULIN R SQ PRN (12:53)
[2020-01-28] MEDS ORDERED: PHARMACY DOSING REQUEST MC ONE (12:54)
[2020-01-28] MEDS ORDERED: PATIENT OWN MEDICATION SQ SCH (17:00)
[2020-01-28] MEDS ORDERED: PATIENT OWN MEDICATION OP SCH (22:00)
[2020-01-28] MEDS ORDERED: ZOCOR 20MG PO SCH (22:00)
[2020-01-28] MEDS ORDERED: LATANOPROSTENE BUNOD OP SCH (22:00)
[2020-01-28] MEDS: Ativan 0.5 MG PO PRN (23:18)
[2020-01-29 05:47] LABS: BLOOD UREA NITROGEN 32 mg/dL (9-20); CHLORIDE 86 mmol/L (98-107); Calcium 8.7 mg/dL (8.4-10.2); Carbon Dioxide 37 mmol/L (22-30); Creatinine 1 0.81 mg/dL (0.66-1.25); Glucose 183 mg/dL (74-106); Potassium 3.6 mmol/L (3.5-5.1); SODIUM 132 mmol/L (137-145)
[2020-01-29 07:06] VITALS: O2SAT 93
[2020-01-29] MEDS: Glucophage 500 MG PO SCH (07:54)
[2020-01-29] MEDS: TYLENOL 325 MG PO PRN (07:54)
[2020-01-29] MEDS: Lasix 40 MG/4 ML IV SCH (07:54)
[2020-01-29] MEDS ORDERED: PATIENT OWN MEDICATION SQ SCH ×2 (08:00→12:00)
[2020-01-29] MEDS: Alphagan P 0.15% OP SCH (09:49)
[2020-01-29] MEDS: COSOPT OPHTHALMIC 10 ML OP SCH (09:50)
[2020-01-29 09:51] LABS: HEPATITIS A IGM Non Reactive (Non Reactive); HEPATITIS B VIRUS CORE TOT AB Non Reactive (Non Reactive); HEPATITIS C VIRUS ANTIBODY Non Reactive (Non Reactive); Hepatitis B Surface Ab.Quant. 10.96 mIU/mL (0.00-8.49); Hepatitis B Surface Antigen Non Reactive (Non Reactive)
[2020-01-29] MEDS: ELIQUIS 2.5 MG TABLET PO SCH (09:51)
[2020-01-29] MEDS: Klor Con 10 MEQ PO SCH (09:51)
[2020-01-29] MEDS: Cozaar 50 MG PO SCH (09:51)
[2020-01-29] MEDS: NEURONTIN 300 MG PO SCH (09:52)
[2020-01-29] MEDS: Maxzide-25MG Tablet PO SCH (09:52)
[2020-01-29] MEDS: Toprol Xl 50 MG PO SCH (09:52)
[2020-01-29] MEDS: SYNTHROID 50 MCG PO SCH (09:52)
[2020-01-29] MEDS: MAG-OX 400 PO SCH (09:52)
[2020-01-29] MEDS: ZYLOPRIM 300 MG PO SCH (09:52)
[2020-01-29 11:59] VITALS: BP 110/55; PULSE 93
== END 2020-01-29 15:00 | disposition home or self-care (01) ==
LOC: ED 12:53 → MED SURG 16:14
PROVIDERS: ADMIT Family Medicine; ATTEND Family Medicine
DX: I27.20 Pulmonary hypertension, unspecified (principal); I50.810 Right heart failure, unspecified; E11.9 Type 2 diabetes mellitus without complications; R06.01 Orthopnea; E03.9 Hypothyroidism, unspecified; G47.30 Sleep apnea, unspecified; Z86.711 Personal history of pulmonary embolism; Z79.01 Long term (current) use of anticoagulants; Z79.899 Other long term (current) drug therapy
CPT/HCPCS: 36000; 36415; 71045; 80048; 80053; 80061; 80074; 81001; 82962; 83036; 83721; 83735; 83880; 84484; 85025; 87631; 93005; 93041; 93268; 94760; 94762; 99285; G0378; J1642; J1815; J1940; A9270-GY

== ENCOUNTER 2021-05-06 21:21 | Emergency (ER) | payer OTHER ==
[2021-05-06] MEDS ORDERED: Adacel Vial IM ONE ×2 (21:57→22:01)
[2021-05-06] MEDS ORDERED: BACIGUENT PACKET TP ONE (21:59)
[2021-05-06] MEDS ORDERED: BACIGUENT PACKET ONE (22:00)
[2021-05-06 22:08] VITALS: BP 130/79; PULSE 100
[2021-05-06 22:11] VITALS: O2SAT 94
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
== END 2021-05-06 22:14 | disposition home or self-care (01) ==
LOC: ED 21:21
DX: S61.012A Laceration without foreign body of left thumb without damage to nail, initial encounter (principal); W26.0XXA Contact with knife, initial encounter; Y93.G1 Activity, food preparation and clean up; Y92.9 Unspecified place or not applicable; Z86.79 Personal history of other diseases of the circulatory system; Z79.01 Long term (current) use of anticoagulants; I50.9 Heart failure, unspecified; Z79.899 Other long term (current) drug therapy; I10 Essential (primary) hypertension; G47.30 Sleep apnea, unspecified
CPT/HCPCS: 12001; 90471; 90715; 99283; A9270-GY

== ENCOUNTER 2022-06-02 23:34 | Emergency (ER) | payer OTHER ==
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
[2022-06-02 23:49] VITALS: O2SAT 95
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
[2022-06-03] MEDS ORDERED: KEFLEX 500 MG PO ONE (00:05)
[2022-06-03] MEDS ORDERED: NORCO 5/325 MG PO ONE (00:05)
[2022-06-03] MEDS ORDERED: NORCO 5/325 MG ONE (00:20)
[2022-06-03] MEDS ORDERED: KEFLEX 500 MG ONE (00:20)
[2022-06-03 00:32] VITALS: BP 119/58; PULSE 85
== END 2022-06-03 00:32 | disposition home or self-care (01) ==
LOC: ED 23:34
DX: T21.12XA Burn of first degree of abdominal wall, initial encounter (principal); X12.XXXA Contact with other hot fluids, initial encounter; Y93.G9 Activity, other involving cooking and grilling; Y92.000 Kitchen of unspecified non-institutional (private) residence as the place of occurrence of the external cause; I11.0 Hypertensive heart disease with heart failure; I50.9 Heart failure, unspecified; E11.9 Type 2 diabetes mellitus without complications; Z79.4 Long term (current) use of insulin; Z79.01 Long term (current) use of anticoagulants; Z79.84 Long term (current) use of oral hypoglycemic drugs; Z79.899 Other long term (current) drug therapy
CPT/HCPCS: 99282; A9270-GY

== ENCOUNTER 2024-04-07 22:49 | Emergency (ER) | payer OTHER ==
--- NOTE | 2024-04-07 23:30 | ERPHSYRPT ---
- History of Present Illness Time Seen by Provider: 04/07/24 23:30 Source: patient Exam Limitations: no limitations Physician History: This is a 58-year-old diabetic male who was at home and his initial blood glucose reading was "high". He then gave himself 18 units of Humalog and short time later he repeated the Accu-Chek on his home monitoring device and it read 576. He came to the emergency department and on arrival his blood sugar level was 292. Patient complains of some bodyaches and headaches. Patient has a history of diabetes, hypothyroidism and migraine headaches. He denies chest pain. He denies shortness of breath. Timing/Duration: today Severity: mild Modifying Factors: Improves With: nothing Associated Symptoms: headaches, No nausea, No vomiting, No abdominal pain, No shortness of breath, No chest pain, No weakness Allergies/Adverse Reactions: tuberculin,PPD,multi-puncture [From Tuberculin PPD Mary Ellen Test] Allergy (Intermediate, Verified 04/07/24 23:49) Rash butorphanol tartrate [From Stadol] Allergy (Unknown, Verified 04/07/24 23:49) chlorpromazine HCl [From Thorazine] Allergy (Unknown, Verified 04/07/24 23:49) irritable haloperidol Allergy (Unknown, Verified 04/07/24 23:49) "makes me stay awake too much" ketorolac tromethamine [From Toradol] Allergy (Unknown, Verified 04/07/24 23:49) severe pain in lower back and kidneys nalbuphine [Nalbuphine] Allergy (Unknown, Verified 04/07/24 23:49) prochlorperazine edisylate [From Compazine] Allergy (Unknown, Verified 04/07/24 23:49) irritable lisinopril Adverse Reaction (Verified 04/07/24 23:49) Cough chloraprep Allergy (Intermediate, Uncoded 04/07/24 23:49) Rash Home Medications: Brimonidine Tartrate [Alphagan P 0.15%] 1 drops OP TID 09/30/12 [History] Metformin HCl 1000 mg [Glucophage 1000 MG] 1,000 mg PO BID 09/15/14 [History] Apixaban [Eliquis 5 mg Tablet] 2.5 mg PO BID 03/30/15 [History] Levothyroxine Sodium 25 Mcg [Synthroid 25 Mcg] 50 mcg PO DAILY 03/30/15 [History] Dorzolamide HCl/Timolol Maleat [Dorzolamide-Timolol Eye Drops] 1 drop OP BID 09/05/16 [History] Cholecalciferol (Vitamin D3) [Vitamin D3] 3,000 unit PO DAILY 06/19/18 [History] Rosuvastatin Calcium [Crestor] 20 mg PO HS 12/14/18 [History] Potassium Chloride Tab* [Klor Con] 20 meq PO BID 03/02/19 [History] Losartan Potassium 50 mg [Cozaar 50 MG] 50 mg PO DAILY 04/11/19 [History] Latanoprostene Bunod [Vyzulta] 1 drops OP HS 04/12/19 [History] Insulin Regular, Human [Humulin R U-500 Kwikpen] 130 units SQ ACHS 08/20/19 [History] Insulin Regular, Human [Humulin R U-500 Kwikpen] 175 unit SQ DINNER 08/20/19 [History] Insulin Regular, Human [Humulin R U-500 Kwikpen] 500 unit SQ UD 01/27/20 [History] Bumetanide [Bumex] 2 mg PO DAILY 05/06/21 [History] Empagliflozin [Jardiance] 10 mg PO DAILY 05/06/21 [History] Hx Tetanus, Diphtheria Vaccination/Date Given: Yes (2019) Hx Influenza Vaccination/Date Given: Yes Hx Pneumococcal Vaccination/Date Given: Yes Travel Risk - International Travel Have you traveled outside of the country in past 3 weeks: No - Emerging Infectious Disease Are you exhibiting symptoms associated with any current EIDs: Yes Symptoms: Headaches/Body Aches/ - Review of Systems Constitutional: No Symptoms Eyes: No Symptoms Ears, Nose, & Throat: No Symptoms Respiratory: No Symptoms Cardiac: No Symptoms Abdominal/Gastrointestinal: No Symptoms Musculoskeletal: Arthralgias, Myalgias Skin: No Symptoms Neurological: Headache Psychological: No Symptoms Endocrine: No Symptoms Hematologic/Lymphatic: No Symptoms Immunological/Allergic: No Symptoms All Other Systems: Reviewed and Negative - Past Medical History Pertinent Past Medical History: Yes Neurological History: Migraines ENT History: Glaucoma Cardiac History: Angina, Arrhythmia, Congestive Heart Failure, Hypertension Respiratory History: CHF, Pneumonia, Pulmonary Embolism, Sleep Apnea, Other Endocrine Medical History: Diabetes Type II, Hypothyroidism Musculoskeletal History: No Pertinent History GI Medical History: Pancreatitis History: No Pertinent History Psycho-Social History: Anxiety Male Reproductive Disorders: No Pertinent History Other Medical History: Pulmonary hypertension; enlarged heart. rt sided heart failure, hospitalized last month for fluid retention, now seeing Dr Jamal sun. - Past Surgical History Past Surgical History: Yes Neuro Surgical History: No Pertinent History Cardiac: Cardiac Catheterization Respiratory: No Pertinent History Gastrointestinal: Appendectomy, Cholecystectomy, Hernia Repair, Pancreatic Surgery Genitourinary: No Pertinent History, Other Musculoskeletal: Other Male Surgical History: Testicular Surgery Other Surgical History: old port removed, port placed x 2, had a surgery to look in bladder, right shoulder surgery. SHUNT IN RIGHT EYE. Open shut back up in right eye 10/03/18, penis surgery- pt states he had a "fracture" 6 years ago t hat was repaired Significant Family History: diabetes - Social History Smoking Status: Former smoker How long have you smoked: 2 Exposure to second hand smoke: No Alcohol Use: Socially Drug Use: none Patient Lives Alone: No - Nursing Vital Signs Nursing Vital Signs: Initial Vital Signs Temperature 98.3 F 04/07/24 23:54 Pulse Rate 96 H 04/07/24 23:54 Respiratory Rate 16 04/07/24 23:54 O2 Sat by Pulse Oximetry 95 04/07/24 23:54 Pain Scale Pain Intensity 8 - Physical Exam General Appearance: no apparent distress, alert, anxiety Eye Exam: PERRL/EOMI, eyes nml inspection Ears, Nose, Throat Exam: normal ENT inspection, moist mucous membranes Neck Exam: normal inspection, non-tender, supple, full range of motion Respiratory Exam: normal breath sounds, lungs clear, airway intact, No chest tenderness, No respiratory distress Cardiovascular Exam: regular rate/rhythm, normal heart sounds, normal peripheral pulses Gastrointestinal/Abdomen Exam: soft, normal bowel sounds, No tenderness Rectal Exam: not done Back Exam: normal inspection, normal range of motion, No CVA tenderness, No vertebral tenderness Extremity Exam: normal inspection, normal range of motion, pelvis stable Neurologic Exam: alert, oriented x 3, cooperative, firebrick layer II-XII nml as tested, nml cerebellar function, nml station & gait, sensation nml Skin Exam: normal color, warm, dry Lymphatic Exam: No adenopathy SpO2 Interpretation: normal O2 Delivery: Room Air - Course Nursing assessment & vital signs reviewed: Yes Ordered Tests: Active Orders 24 hr Category Date Time Status Political Advisor STAT Care 04/08/24 00:01 Active IV Insertion STAT Care 04/08/24 00:01 Active Pulse Oximetry (ED) STAT Care 04/08/24 00:01 Active CBC W DIFF Stat Lab 04/08/24 00:25 Completed CMP Stat Lab 04/08/24 00:25 Completed ETHYL ALCOHOL Stat Lab 04/08/24 00:25 Completed Lactic Acid Urgent Lab 04/08/24 00:01 Completed MAGNESIUM Stat Lab 04/08/24 00:25 Completed MONO SCREEN Stat Lab 04/08/24 00:25 Completed POCT GLUCOSE Stat Lab 04/07/24 23:53 Completed UA W/RFX UR CULTURE Stat Lab 04/08/24 00:55 Completed Medication Summary Generic Name Dose Route Start Last Admin Trade Name Freq PRN Reason Stop Dose Admin Promethazine HCl 12.5 mg/ 100.5 mls @ 201 mls/hr 04/08/24 01:18 Sodium Chloride IV 04/08/24 01:47 STAT ONE Discontinued Medications Generic Name Dose Route Start Last Admin Trade Name Freq PRN Reason Stop Dose Admin Hydromorphone HCl 1 mg 04/08/24 01:18 Hydromorphone 1 Mg/1ml Inj IV 04/08/24 01:19 STAT ONE Sodium Chloride 1,000 mls @ 999 mls/hr 04/08/24 00:01 04/08/24 00:31 Sodium Chloride 0.9% 1000 Ml IV 04/08/24 01:01 999 mls/hr .Q1H1M STA Administration Sodium Chloride Confirm 04/08/24 00:31 Sodium Chloride 0.9% 1000 Ml Administered 04/08/24 00:32 Dose 1,000 mls @ ud .ROUTE .STK-MED ONE Lab/Rad Data: Laboratory Result Diagrams 04/08/24 00:25 04/08/24 00:25 Laboratory Results 04/08/24 04/08/24 04/08/24 Range/Units 00:55 00:25 00:25 WBC (4.23-9.07) x10^3/uL RBC (4.63-6.08) x10^6/uL Hgb (13.7-17.5) g/dL Hct (40.1-51.0) % MCV (79.0-92.2) fL MCH (25.7-32.2) pg MCHC (32.3-36.5) g/dL RDW (11.6-14.4) % Plt Count (163-337) x10^3/uL MPV (9.4-12.4) fL Gran % (34.0-67.9) % Immature Gran % (Auto) (0.001-0.429) % Nucleat RBC Rel Count (0.00-0.2) % Eos # (Auto) (0.04-0.54) x10^3/uL Immature Gran # (Auto) (0.001-0.031) x10^3u/L Absolute Lymphs (auto) (1.32-3.57) x10^3/uL Absolute Monos (auto) (0.30-0.82) x10^3/uL Absolute Nucleated RBC (0.00-0.012) x10^3u/L Lymphocytes % (21.8-53.1) % Monocytes % (5.3-12.2) % Eosinophils % (0.8-7.0) % Basophils % (0.2-1.2) % Absolute Granulocytes (1.78-5.38) x10^3/uL Basophils # (0.01-0.08) x10^3/uL Sodium 142 (135-145) mmol/L Potassium 3.7 (3.5-5.1) mmol/L Chloride 102 (98-107) mmol/L Carbon Dioxide 30 (22-30) mmol/L Anion Gap 13.8 (5-15) MEQ/L BUN 21 H (9-20) mg/dL Creatinine 0.83 (0.66-1.25) mg/dL Estimated GFR 100.8 ML/MIN Glucose 281 H (74-106) mg/dL POC Glucometer (74 to 106) mg/dL Lactic Acid (0.4-2.0) Calcium 9.3 (8.4-10.2) mg/dL Magnesium 2.3 (1.6-2.3) mg/dL Total Bilirubin 0.60 (0.2-1.3) mg/dL AST 32 (17-59) U/L ALT 43 (0-50) U/L Alkaline Phosphatase 46 (38-126) U/L Serum Total Protein 7.3 (6.3-8.2) g/dL Albumin 4.4 (3.5-5.0) g/dL Urine Color Yellow (Yellow) Urine Appearance Clear (Clear) Urine pH 7.0 (4.6-8.0) Ur Specific [place] >=1.030 A (1.005-1.030) Urine Protein Negative (Negative) Urine Glucose (UA) >=1000 A (Negative) mg/dL Urine Ketones Negative (Negative) Urine Blood Negative (Negative) Urine Nitrite Negative (Negative) Urine Bilirubin Negative (Negative) Urine Urobilinogen 0.2 (0.2) mg/dL Ur Leukocyte Esterase Negative (Negative) U Hyaline Cast (Auto) NONE SEEN (0-2) /LPF Urine Microscopic RBC 0-2 (0-5) /HPF Urine Microscopic WBC 0-2 (0-5) /HPF Ur Epithelial Cells None Seen (None Seen) /HPF Urine Bacteria None Seen (None Seen) /HPF Urine Culture Reflexed NO (NO) Ethyl Alcohol < 10 (0-10) mg/dL Monoscreen NEGATIVE (NEGATIVE) 04/08/24 04/08/24 04/07/24 Range/Units 00:25 00:01 23:53 WBC 6.5 (4.23-9.07) x10^3/uL RBC 5.04 (4.63-6.08) x10^6/uL Hgb 15.6 (13.7-17.5) g/dL Hct 45.5 (40.1-51.0) % MCV 90.3 (79.0-92.2) fL MCH 31.0 (25.7-32.2) pg MCHC 34.3 (32.3-36.5) g/dL RDW 12.7 (11.6-14.4) % Plt Count 133 L (163-337) x10^3/uL MPV 9.5 (9.4-12.4) fL Gran % 55.8 (34.0-67.9) % Immature Gran % (Auto) 0.5 H (0.001-0.429) % Nucleat RBC Rel Count 0.0 (0.00-0.2) % Eos # (Auto) 0.05 (0.04-0.54) x10^3/uL Immature Gran # (Auto) 0.03 (0.001-0.031) x10^3u/L Absolute Lymphs (auto) 2.06 (1.32-3.57) x10^3/uL Absolute Monos (auto) 0.68 (0.30-0.82) x10^3/uL Absolute Nucleated RBC 0.00 (0.00-0.012) x10^3u/L Lymphocytes % 31.8 (21.8-53.1) % Monocytes % 10.5 (5.3-12.2) % Eosinophils % 0.8 (0.8-7.0) % Basophils % 0.6 (0.2-1.2) % Absolute Granulocytes 3.62 (1.78-5.38) x10^3/uL Basophils # 0.04 (0.01-0.08) x10^3/uL Sodium (135-145) mmol/L Potassium (3.5-5.1) mmol/L Chloride (98-107) mmol/L Carbon Dioxide (22-30) mmol/L Anion Gap (5-15) MEQ/L BUN (9-20) mg/dL Creatinine (0.66-1.25) mg/dL Estimated GFR ML/MIN Glucose (74-106) mg/dL POC Glucometer 292 H (74 to 106) mg/dL Lactic Acid 2.7 H (0.4-2.0) Calcium (8.4-10.2) mg/dL Magnesium (1.6-2.3) mg/dL Total Bilirubin (0.2-1.3) mg/dL AST (17-59) U/L ALT (0-50) U/L Alkaline Phosphatase (38-126) U/L Serum Total Protein (6.3-8.2) g/dL Albumin (3.5-5.0) g/dL Urine Color (Yellow) Urine Appearance (Clear) Urine pH (4.6-8.0) Ur Specific [place] (1.005-1.030) Urine Protein (Negative) Urine Glucose (UA) (Negative) mg/dL Urine Ketones (Negative) Urine Blood (Negative) Urine Nitrite (Negative) Urine Bilirubin (Negative) Urine Urobilinogen (0.2) mg/dL Ur Leukocyte Esterase (Negative) U Hyaline Cast (Auto) (0-2) /LPF Urine Microscopic RBC (0-5) /HPF Urine Microscopic WBC (0-5) /HPF Ur Epithelial Cells (None Seen) /HPF Urine Bacteria (None Seen) /HPF Urine Culture Reflexed (NO) Ethyl Alcohol (0-10) mg/dL Monoscreen (NEGATIVE) - Progress Progress: improved, pain not gone completely, re-examined Progress Note: 04/08/24 00:59 My medical decision making and the assignment of moderate complexity to this patient's medical issue today is based on review of the patient's past medical history, review the patient's medication list, review patient drug allergy list, history present illness and physical exam findings. Their workup in this patient includes placement of intravenous line, infusion of normal saline solution, CBC, CMP, urinalysis. 04/08/24 01:21 I have interpreted the patient's laboratory data results. The patient has hyperglycemia. Patient has no ketones in his urine. He does have a headache but he has a history of migraine headaches. We are awaiting the viral swab results. Counseled pt/family regarding: lab results, diagnosis, need for follow-up Medical Desision Making - Independent Historian Additional History obtained from: Spouse, Family - Diagnostic Testing Diagnostic test were ordered, analyzed, and reviewed by me: Yes - Risk of complications Low Risk: Low risk of morbidity from additional dx testing or treatment - Departure Departure Disposition: Home Clinical Impression: Hyperglycemia Condition: Stable Critical Care Time: No Referrals: CHAPARRITA NICOLE, [Primary Care Provider] - Follow up/PCP as directed Additional Instructions: Drink plenty fluids. Take your medications as prescribed. Monitor your blood sugar closely. Call your primary care provider today, 04/08/2023, to make arranges for follow-up appointment for further evaluation management.
[2024-04-08 00:05] VITALS: TEMP 98.3
[2024-04-08] MEDS ORDERED: Sodium Chloride 0.9% 1000 ML 1,000 ML ONE (00:31)
[2024-04-08] MEDS: Sodium Chloride 0.9% 1000 ML 1,000 ML IV STA (00:31)
[2024-04-08 00:33] LABS: Absolute Neutrophil Ct (ANC) 3.62 x10^3/uL (1.78-5.38); BASOPHIL % 0.6 % (0.2-1.2); Basophil (Absolute #) 0.04 x10^3/uL (0.01-0.08); Eosinophil % 0.8 % (0.8-7.0); Eosinophil (Absolute #) 0.05 x10^3/uL (0.04-0.54); Hematocrit 45.5 % (40.1-51.0); Hemoglobin 15.6 g/dL (13.7-17.5); IMMATURE GRAN # 0.03 x10^3u/L (0.001-0.031); IMMATURE GRAN % 0.5 % (0.001-0.429); Lymphocyte (Absolute #) 2.06 x10^3/uL (1.32-3.57); Lymphocytes % 31.8 % (21.8-53.1); Mean Cell Volume 90.3 fL (79.0-92.2); Mean Corpuscular Hgb Concent. 34.3 g/dL (32.3-36.5); Mean Platelet Volume 9.5 fL (9.4-12.4); Monocyte (Absolute #) 0.68 x10^3/uL (0.30-0.82); Monocytes % 10.5 % (5.3-12.2); Neutrophil % 55.8 % (34.0-67.9); Platelet Count 133 x10^3/uL (163-337); Red Blood Count 5.04 x10^6/uL (4.63-6.08); Red Cell Distribution Width 12.7 % (11.6-14.4); White Blood Count 6.5 x10^3/uL (4.23-9.07)
[2024-04-08 00:43] VITALS: RESP 18
[2024-04-08 00:47] LABS: ALBUMIN 4.4 g/dL (3.5-5.0); ALKALINE PHOSPHATASE 46 U/L (38-126); ANION GAP 13.8 MEQ/L (5-15); BLOOD UREA NITROGEN 21 mg/dL (9-20); CHLORIDE 102 mmol/L (98-107); Calcium 9.3 mg/dL (8.4-10.2); Carbon Dioxide 30 mmol/L (22-30); Creatinine 1 0.83 mg/dL (0.66-1.25); EST GLOMERULAR FILTRATION RATE 100.8 ML/MIN; ETHYL ALCOHOL < 10 mg/dL (0-10); Glucose 281 mg/dL (74-106); MAGNESIUM 2.3 mg/dL (1.6-2.3); Potassium 3.7 mmol/L (3.5-5.1); SGOT/AST 32 U/L (17-59); SGPT/ALT 43 U/L (0-50); SODIUM 142 mmol/L (135-145); Total Protein 7.3 g/dL (6.3-8.2)
[2024-04-08 01:05] LABS: ADD URINE CULTURE? NO (NO); Appearance Clear (Clear); Bacteria None Seen /HPF (None Seen); Bilirubin Negative (Negative); Blood Negative (Negative); Epithelial Cells None Seen /HPF (None Seen); Glucose, Urine >=1000 mg/dL (Negative); Hyaline Casts NONE SEEN /LPF (0-2); Ketones Negative (Negative); Leukocyte Esterase Negative (Negative); Nitrite Negative (Negative); Protein,Urine Dip Negative (Negative); RBC 0-2 /HPF (0-5); Specific Gravity >=1.030 (1.005-1.030); Urobilinogen 0.2 mg/dL (0.2); WBC 0-2 /HPF (0-5)
[2024-04-08 01:12] LABS: INFLUENZA A NEGATIVE (NEGATIVE); INFLUENZA B NEGATIVE (NEGATIVE); RESPIRATORY SYNCTIAL VIRUS NEGATIVE (NEGATIVE); SARS-CoV-2 Xpert Express NEGATIVE (NEGATIVE)
[2024-04-08] MEDS ORDERED: Sodium Chloride 0.9% 100 ML ONE (01:24)
[2024-04-08] MEDS ORDERED: Phenergan 25 MG INJ ONE (01:24)
[2024-04-08] MEDS ORDERED: Hydromorphone 1 mg/ml Injection ONE (01:24)
[2024-04-08] MEDS: Hydromorphone 1 mg/ml Injection IV ONE (01:25)
[2024-04-08] MEDS: Phenergan 25 MG INJ*** 12.5 MG in Sodium Chloride 0.9% 100 ML IV ONE (01:27)
[2024-04-08 02:12] VITALS: BP 133/72; PULSE 80; O2SAT 93
== END 2024-04-08 02:22 | disposition home or self-care (01) ==
LOC: ED 22:49
DX: E11.65 Type 2 diabetes mellitus with hyperglycemia (principal); M79.10 Myalgia, unspecified site; R51.9 Headache, unspecified; I11.0 Hypertensive heart disease with heart failure; I50.9 Heart failure, unspecified; Z79.84 Long term (current) use of oral hypoglycemic drugs; Z79.01 Long term (current) use of anticoagulants; Z79.4 Long term (current) use of insulin; Z79.899 Other long term (current) drug therapy
CPT/HCPCS: 0241U; 36000; 80053; 81001; 82077; 82947; 83605; 83735; 85025; 86308; 93041; 94760; 96374; 99284; 36415; J1170; J2550

== ENCOUNTER 2024-04-17 07:20 | Emergency (ER) | payer OTHER ==
[2024-04-17 07:33] VITALS: TEMP 98.8
--- NOTE | 2024-04-17 07:37 | ERPHSYRPT ---
- History of Present Illness Time Seen by Provider: 04/17/24 07:35 Source: patient Exam Limitations: no limitations Patient Subjective Stated Complaint: pt brought into ED by EMS because of of uncontrolled high blood sugar levels. Triage Nursing Assessment: Pt brought into ED by ambulance with a blood sugar of 495 per our glucometer. Pt states, "I feel like I am drunk." pt complains of a 9/10 headache, hypertensive, nausea, pulses normal, skin w/n/d, responds to verbal commands, pt doesn't appear to be in any distress. Physician History: This is a 58-year-old white male patient who is diabetic and was brought into the emergency department by the ethylbenzene cracking supervisor service because of severe headache, nausea" I feel like I am drunk" although he has not taken any alcohol. Patient's blood sugar at home was measured at 543. His blood sugar on arrival to the emergency department is 495. Patient did take 12 units of Humalog prior to arrival once he knew his blood sugar was 543. Patient denies chest pain. Patient denies shortness of breath. Patient was seen by me in our emergency department on 04/07/2024 with similar symptoms and was diagnosed with hyperglycemia. Since that visit, he has been seen by his after school coordinator who modified his diabetic drug regimen. In the last several days, despite the change in his regimen, patient has not been feeling well. Patient has a history of hypothyroidism, migraine headaches, atrial fibrillation and pulmonary embolus and is on Eliquis. Patient has a history of CHF and pulmonary hypertension. Patient also states his thinking is off. Timing/Duration: today Severity: moderate Associated Symptoms: nausea, diaphoresis, headaches, No vomiting, No abdominal pain, No shortness of breath, No chest pain Allergies/Adverse Reactions: tuberculin,PPD,multi-puncture [From Tuberculin PPD Mary Ellen Test] Allergy (Intermediate, Verified 04/17/24 07:36) Rash butorphanol tartrate [From Stadol] Allergy (Unknown, Verified 04/17/24 07:36) chlorpromazine HCl [From Thorazine] Allergy (Unknown, Verified 04/17/24 07:36) irritable haloperidol Allergy (Unknown, Verified 04/17/24 07:36) "makes me stay awake too much" ketorolac tromethamine [From Toradol] Allergy (Unknown, Verified 04/17/24 07:36) severe pain in lower back and kidneys nalbuphine [Nalbuphine] Allergy (Unknown, Verified 04/17/24 07:36) prochlorperazine edisylate [From Compazine] Allergy (Unknown, Verified 04/17/24 07:36) irritable lisinopril Adverse Reaction (Verified 04/17/24 07:36) Cough chloraprep Allergy (Intermediate, Uncoded 04/17/24 07:36) Rash Home Medications: Brimonidine Tartrate [Alphagan P 0.15%] 1 drops OP TID 09/30/12 [History] Metformin HCl 1000 mg [Glucophage 1000 MG] 1,000 mg PO BID 09/15/14 [History] Apixaban [Eliquis 5 mg Tablet] 2.5 mg PO BID 03/30/15 [History] Levothyroxine Sodium 25 Mcg [Synthroid 25 Mcg] 50 mcg PO DAILY 03/30/15 [History] Dorzolamide HCl/Timolol Maleat [Dorzolamide-Timolol Eye Drops] 1 drop OP BID 09/05/16 [History] Cholecalciferol (Vitamin D3) [Vitamin D3] 3,000 unit PO DAILY 06/19/18 [History] Rosuvastatin Calcium [Crestor] 20 mg PO HS 12/14/18 [History] Potassium Chloride Tab* [Klor Con] 20 meq PO BID 03/02/19 [History] Losartan Potassium 50 mg [Cozaar 50 MG] 50 mg PO DAILY 04/11/19 [History] Latanoprostene Bunod [Vyzulta] 1 drops OP HS 04/12/19 [History] Insulin Regular, Human [Humulin R U-500 Kwikpen] 130 units SQ ACHS 08/20/19 [History] Insulin Regular, Human [Humulin R U-500 Kwikpen] 175 unit SQ DINNER 08/20/19 [History] Insulin Regular, Human [Humulin R U-500 Kwikpen] 500 unit SQ UD 01/27/20 [History] Bumetanide [Bumex] 2 mg PO DAILY 05/06/21 [History] Empagliflozin [Jardiance] 10 mg PO DAILY 05/06/21 [History] Hx Tetanus, Diphtheria Vaccination/Date Given: Yes (2018) Hx Influenza Vaccination/Date Given: Yes Hx Pneumococcal Vaccination/Date Given: Yes Travel Risk - International Travel Have you traveled outside of the country in past 3 weeks: No - Emerging Infectious Disease Are you exhibiting symptoms associated with any current EIDs: Yes Symptoms: Headaches/Body Aches/ - Review of Systems Eyes: No Symptoms Ears, Nose, & Throat: No Symptoms Respiratory: No Symptoms Cardiac: No Symptoms Abdominal/Gastrointestinal: Nausea, Appetite Changes, No Abdominal Pain, No Vomiting, No Diarrhea, No Constipation Genitourinary Symptoms: No Symptoms Musculoskeletal: No Symptoms Skin: No Symptoms Neurological: Headache Psychological: No Symptoms Endocrine: No Symptoms Hematologic/Lymphatic: No Symptoms Immunological/Allergic: No Symptoms All Other Systems: Reviewed and Negative - Past Medical History Pertinent Past Medical History: Yes Neurological History: Migraines ENT History: Glaucoma Cardiac History: Angina, Arrhythmia, Congestive Heart Failure, Hypertension Respiratory History: CHF, Pneumonia, Pulmonary Embolism, Sleep Apnea, Other Endocrine Medical History: Diabetes Type II, Hypothyroidism Musculoskeletal History: No Pertinent History GI Medical History: Pancreatitis History: No Pertinent History Psycho-Social History: Anxiety Male Reproductive Disorders: No Pertinent History Other Medical History: Pulmonary hypertension; enlarged heart. rt sided heart failure, hospitalized last month for fluid retention, now seeing Dr Berry cardiolinda. - Past Surgical History Past Surgical History: Yes Neuro Surgical History: No Pertinent History Cardiac: Cardiac Catheterization Respiratory: No Pertinent History Gastrointestinal: Appendectomy, Cholecystectomy, Hernia Repair, Pancreatic Surgery Genitourinary: No Pertinent History, Other Musculoskeletal: Other Male Surgical History: Testicular Surgery Other Surgical History: old port removed, port placed x 2, had a surgery to look in bladder, right shoulder surgery. SHUNT IN RIGHT EYE. Open shut back up in right eye 10/03/18, penis surgery- pt states he had a "fracture" 6 years ago that was repaired Significant Family History: diabetes - Social History Smoking Status: Former smoker How long have you smoked: 2 Exposure to second hand smoke: No Alcohol Use: Socially Drug Use: none Patient Lives Alone: No - Social Determinants of Health Will the patient participate in the screening: Yes Do you worry about a steady place to live?: No Do you have any problems with any of the following?: No known problems In the past 12 months,have you had to go without utilities?: No Transportation Issues: No Has anyone in your support network made you feel unsafe?: No Have you or anyone in your house had to go without enough: No - Nursing Vital Signs Nursing Vital Signs: Initial Vital Signs Temperature 98.8 F 04/17/24 07:22 Pulse Rate 83 04/17/24 07:22 Respiratory Rate 14 04/17/24 07:22 Blood Pressure 172/75 04/17/24 07:22 O2 Sat by Pulse Oximetry 96 04/17/24 07:22 Pain Scale Pain Intensity 6 - Physical Exam General Appearance: mild distress, alert, anxiety, obese Eye Exam: PERRL/EOMI, eyes nml inspection Ears, Nose, Throat Exam: normal ENT inspection, moist mucous membranes Respiratory Exam: normal breath sounds, lungs clear, airway intact, No chest tenderness, No respiratory distress Cardiovascular Exam: regular rate/rhythm, normal heart sounds, normal peripheral pulses Gastrointestinal/Abdomen Exam: soft, normal bowel sounds, No tenderness Rectal Exam: not done Back Exam: normal inspection, normal range of motion, No CVA tenderness, No vertebral tenderness Extremity Exam: normal inspection, normal range of motion, pelvis stable Neurologic Exam: alert, oriented x 3, cooperative, supervisor housecleaner II-XII nml as tested, sensation nml Skin Exam: normal color, warm, dry Lymphatic Exam: No adenopathy SpO2 Interpretation: normal SpO2: 96 O2 Delivery: Room Air - Course Nursing assessment & vital signs reviewed: Yes Ordered Tests: Active Orders 24 hr Category Date Time Status Incinerator Operator STAT Care 04/17/24 07:42 Active EKG-ER Only STAT Care 04/17/24 07:39 Active IV Insertion STAT Care 04/17/24 07:39 Active Pulse Oximetry (ED) STAT Care 04/17/24 07:39 Active Re-Check Vital Signs STAT Care 04/17/24 07:39 Active HEAD WITHOUT CONTRAST [CT] Stat Exams 04/17/24 07:50 Completed CBC W DIFF Stat Lab 04/17/24 08:00 Completed CMP Stat Lab 04/17/24 08:00 Completed ETHYL ALCOHOL Stat Lab 04/17/24 08:00 Completed Lactic Acid Urgent Lab 04/17/24 08:00 Completed MAGNESIUM Stat Lab 04/17/24 08:00 Completed MONO SCREEN Stat Lab 04/17/24 08:00 Completed TROPONIN Q4H Lab 04/17/24 08:00 Completed TROPONIN Q4H Lab 04/17/24 11:45 Ordered TROPONIN Q4H Lab 04/17/24 15:45 Ordered TROPONIN Q4H Lab 04/17/24 19:45 Ordered TROPONIN Q4H Lab 04/17/24 23:45 Ordered UA W/RFX UR CULTURE Stat Lab 04/17/24 08:12 Completed Medication Summary Generic Name Dose Route Start Last Admin Trade Name Edgar PRN Reason Stop Dose Admin Lactated Ringer's 1,000 mls @ 999 mls/hr 04/17/24 08:43 04/17/24 09:11 Lactated Ringers IV 04/17/24 09:43 999 mls/hr .Q1H1M ONE Administration Promethazine HCl 12.5 mg/ 100.5 mls @ 201 mls/hr 04/17/24 09:03 Sodium Chloride IV 04/17/24 09:32 STAT ONE Discontinued Medications Generic Name Dose Route Start Last Admin Trade Name Edgar PRN Reason Stop Dose Admin Hydromorphone HCl 1 mg 04/17/24 07:42 04/17/24 08:00 Hydromorphone 1 Mg/1ml Inj IV 04/17/24 07:43 1 mg STAT ONE Administration Hydromorphone HCl Confirm 04/17/24 07:50 Hydromorphone 1 Mg/1ml Inj Administered 04/17/24 07:51 Dose 1 mg .ROUTE .STK-MED ONE Sodium Chloride 1,000 mls @ 999 mls/hr 04/17/24 07:39 04/17/24 09:05 Sodium Chloride 0.9% 1000 Ml IV 04/17/24 08:39 Infused .Q1H1M STA Infusion Sodium Chloride Confirm 04/17/24 07:51 Sodium Chloride 0.9% 1000 Ml Administered 04/17/24 07:52 Dose 1,000 mls @ ud .ROUTE .STK-MED ONE Lactated Ringer's Confirm 04/17/24 08:54 Lactated Ringers Administered 04/17/24 08:55 Dose 1,000 mls @ ud IV .STK-MED ONE Insulin Human Regular 10 unit 04/17/24 08:43 04/17/24 09:01 Insulin Regular, Human 1 Unit IV 04/17/24 08:44 10 unit STAT ONE Administration Insulin Human Regular Confirm 04/17/24 08:54 Insulin Regular, Human 1 Unit Administered 04/17/24 08:55 Dose 10 unit .ROUTE .STK-MED ONE Ondansetron HCl 4 mg 04/17/24 07:39 04/17/24 07:58 Ondansetron Hcl 4 Mg/2 Ml Vial IV 04/17/24 07:40 4 mg STAT ONE Administration Ondansetron HCl Confirm 04/17/24 07:50 Ondansetron Hcl 4 Mg/2 Ml Vial Administered 04/17/24 07:51 Dose 4 mg .ROUTE .STK-MED ONE Lab/Rad Data: Laboratory Result Diagrams 04/17/24 08:00 04/17/24 08:00 Laboratory Results 04/17/24 04/17/24 04/17/24 Range/Units 08:12 08:00 08:00 WBC (4.23-9.07) x10^3/uL RBC (4.63-6.08) x10^6/uL Hgb (13.7-17.5) g/dL Hct (40.1-51.0) % MCV (79.0-92.2) fL MCH (25.7-32.2) pg MCHC (32.3-36.5) g/dL RDW (11.6-14.4) % Plt Count (163-337) x10^3/uL MPV (9.4-12.4) fL Gran % (34.0-67.9) % Immature Gran % (Auto) (0.001-0.429) % Nucleat RBC Rel Count (0.00-0.2) % Eos # (Auto) (0.04-0.54) x10^3/uL Immature Gran # (Auto) (0.001-0.031) x10^3u/L Absolute Lymphs (auto) (1.32-3.57) x10^3/uL Absolute Monos (auto) (0.30-0.82) x10^3/uL Absolute Nucleated RBC (0.00-0.012) x10^3u/L Lymphocytes % (21.8-53.1) % Monocytes % (5.3-12.2) % Eosinophils % (0.8-7.0) % Basophils % (0.2-1.2) % Absolute Granulocytes (1.78-5.38) x10^3/uL Basophils # (0.01-0.08) x10^3/uL Sodium (135-145) mmol/L Potassium (3.5-5.1) mmol/L Chloride (98-107) mmol/L Carbon Dioxide (22-30) mmol/L Anion Gap (5-15) MEQ/L BUN (9-20) mg/dL Creatinine (0.66-1.25) mg/dL Estimated GFR ML/MIN Glucose (74-106) mg/dL Lactic Acid (0.4-2.0) Calcium (8.4-10.2) mg/dL Magnesium (1.6-2.3) mg/dL Total Bilirubin (0.2-1.3) mg/dL AST (17-59) U/L ALT (0-50) U/L Alkaline Phosphatase (38-126) U/L Troponin I (0.000-0.033) ng/mL Serum Total Protein (6.3-8.2) g/dL Albumin (3.5-5.0) g/dL Urine Color Yellow (Yellow) Urine Appearance Clear (Clear) Urine pH 6.5 (4.6-8.0) Ur Specific [place] >=1.030 A (1.005-1.030) Urine Protein Negative (Negative) Urine Glucose (UA) >=1000 A (Negative) mg/dL Urine Ketones Negative (Negative) Urine Blood Negative (Negative) Urine Nitrite Negative (Negative) Urine Bilirubin Negative (Negative) Urine Urobilinogen 0.2 (0.2) mg/dL Ur Leukocyte Esterase Negative (Negative) U Hyaline Cast (Auto) NONE SEEN (0-2) /LPF Urine Microscopic RBC 0-2 (0-5) /HPF Urine Microscopic WBC 0-2 (0-5) /HPF Ur Epithelial Cells None Seen (None Seen) /HPF Urine Bacteria None Seen (None Seen) /HPF Urine Culture Reflexed NO (NO) Ethyl Alcohol (0-10) mg/dL Monoscreen NEGATIVE (NEGATIVE) Influenza Type A Ag NEGATIVE (NEGATIVE) Influenza Type B Ag NEGATIVE (NEGATIVE) RSV (PCR) NEGATIVE (NEGATIVE) SARS-CoV-2 (PCR) NEGATIVE (NEGATIVE) 04/17/24 04/17/24 04/17/24 Range/Units 08:00 08:00 08:00 WBC (4.23-9.07) x10^3/uL RBC (4.63-6.08) x10^6/uL Hgb (13.7-17.5) g/dL Hct (40.1-51.0) % MCV (79.0-92.2) fL MCH (25.7-32.2) pg MCHC (32.3-36.5) g/dL RDW (11.6-14.4) % Plt Count (163-337) x10^3/uL MPV (9.4-12.4) fL Gran % (34.0-67.9) % Immature Gran % (Auto) (0.001-0.429) % Nucleat RBC Rel Count (0.00-0.2) % Eos # (Auto) (0.04-0.54) x10^3/uL Immature Gran # (Auto) (0.001-0.031) x10^3u/L Absolute Lymphs (auto) (1.32-3.57) x10^3/uL Absolute Monos (auto) (0.30-0.82) x10^3/uL Absolute Nucleated RBC (0.00-0.012) x10^3u/L Lymphocytes % (21.8-53.1) % Monocytes % (5.3-12.2) % Eosinophils % (0.8-7.0) % Basophils % (0.2-1.2) % Absolute Granulocytes (1.78-5.38) x10^3/uL Basophils # (0.01-0.08) x10^3/uL Sodium 134 L (135-145) mmol/L Potassium 3.7 (3.5-5.1) mmol/L Chloride 98 (98-107) mmol/L Carbon Dioxide 23 (22-30) mmol/L Anion Gap 15.8 H (5-15) MEQ/L BUN 15 (9-20) mg/dL Creatinine 0.68 (0.66-1.25) mg/dL Estimated GFR 107.1 ML/MIN Glucose 446 H (74-106) mg/dL Lactic Acid 3.8 H (0.4-2.0) Calcium 9.3 (8.4-10.2) mg/dL Magnesium 2.3 (1.6-2.3) mg/dL Total Bilirubin 0.60 (0.2-1.3) mg/dL AST 33 (17-59) U/L ALT 44 (0-50) U/L Alkaline Phosphatase 46 (38-126) U/L Troponin I < 0.012 (0.000-0.033) ng/mL Serum Total Protein 6.7 (6.3-8.2) g/dL Albumin 4.1 (3.5-5.0) g/dL Urine Color (Yellow) Urine Appearance (Clear) Urine pH (4.6-8.0) Ur Specific [place] (1.005-1.030) Urine Protein (Negative) Urine Glucose (UA) (Negative) mg/dL Urine Ketones (Negative) Urine Blood (Negative) Urine Nitrite (Negative) Urine Bilirubin (Negative) Urine Urobilinogen (0.2) mg/dL Ur Leukocyte Esterase (Negative) U Hyaline Cast (Auto) (0-2) /LPF Urine Microscopic RBC (0-5) /HPF Urine Microscopic WBC (0-5) /HPF Ur Epithelial Cells (None Seen) /HPF Urine Bacteria (None Seen) /HPF Urine Culture Reflexed (NO) Ethyl Alcohol < 10 (0-10) mg/dL Monoscreen (NEGATIVE) Influenza Type A Ag (NEGATIVE) Influenza Type B Ag (NEGATIVE) RSV (PCR) (NEGATIVE) SARS-CoV-2 (PCR) (NEGATIVE) 04/17/24 Range/Units 08:00 WBC 5.2 (4.23-9.07) x10^3/uL RBC 4.68 (4.63-6.08) x10^6/uL Hgb 14.3 (13.7-17.5) g/dL Hct 43.5 (40.1-51.0) % MCV 92.9 H (79.0-92.2) fL MCH 30.6 (25.7-32.2) pg MCHC 32.9 (32.3-36.5) g/dL RDW 13.0 (11.6-14.4) % Plt Count 119 L (163-337) x10^3/uL MPV 9.5 (9.4-12.4) fL Gran % 52.7 (34.0-67.9) % Immature Gran % (Auto) 0.8 H (0.001-0.429) % Nucleat RBC Rel Count 0.0 (0.00-0.2) % Eos # (Auto) 0.08 (0.04-0.54) x10^3/uL Immature Gran # (Auto) 0.04 H (0.001-0.031) x10^3u/L Absolute Lymphs (auto) 1.67 (1.32-3.57) x10^3/uL Absolute Monos (auto) 0.62 (0.30-0.82) x10^3/uL Absolute Nucleated RBC 0.00 (0.00-0.012) x10^3u/L Lymphocytes % 32.2 (21.8-53.1) % Monocytes % 12.0 (5.3-12.2) % Eosinophils % 1.5 (0.8-7.0) % Basophils % 0.8 (0.2-1.2) % Absolute Granulocytes 2.73 (1.78-5.38) x10^3/uL Basophils # 0.04 (0.01-0.08) x10^3/uL Sodium (135-145) mmol/L Potassium (3.5-5.1) mmol/L Chloride (98-107) mmol/L Carbon Dioxide (22-30) mmol/L Anion Gap (5-15) MEQ/L BUN (9-20) mg/dL Creatinine (0.66-1.25) mg/dL Estimated GFR ML/MIN Glucose (74-106) mg/dL Lactic Acid (0.4-2.0) Calcium (8.4-10.2) mg/dL Magnesium (1.6-2.3) mg/dL Total Bilirubin (0.2-1.3) mg/dL AST (17-59) U/L ALT (0-50) U/L Alkaline Phosphatase (38-126) U/L Troponin I (0.000-0.033) ng/mL Serum Total Protein (6.3-8.2) g/dL Albumin (3.5-5.0) g/dL Urine Color (Yellow) Urine Appearance (Clear) Urine pH (4.6-8.0) Ur Specific [place] (1.005-1.030) Urine Protein (Negative) Urine Glucose (UA) (Negative) mg/dL Urine Ketones (Negative) Urine Blood (Negative) Urine Nitrite (Negative) Urine Bilirubin (Negative) Urine Urobilinogen (0.2) mg/dL Ur Leukocyte Esterase (Negative) U Hyaline Cast (Auto) (0-2) /LPF Urine Microscopic RBC (0-5) /HPF Urine Microscopic WBC (0-5) /HPF Ur Epithelial Cells (None Seen) /HPF Urine Bacteria (None Seen) /HPF Urine Culture Reflexed (NO) Ethyl Alcohol (0-10) mg/dL Monoscreen (NEGATIVE) Influenza Type A Ag (NEGATIVE) Influenza Type B Ag (NEGATIVE) RSV (PCR) (NEGATIVE) SARS-CoV-2 (PCR) (NEGATIVE) - Progress Progress: improved, re-examined Progress Note: 04/17/24 08:01 My medical decision making and the assignment of moderate complexity to this patient's medical issue today is based on review of the patient's past medical history, review of the patient's medication list, review of patient drug allergy list, history present illness and physical findings on examination. The workup in this patient includes placement of an intravenous line, infusion of normal s diaz solution, infusion of Zofran, infusion of Dilaudid, CBC, CMP, amylase, lipase, urinalysis, ethyl alcohol level, viral swabs, monotest, troponin level and twelve-lead EKG. I also ordered a CT scan of his head 04/17/24 08:02 Differential diagnosis includes but is not limited to hyperglycemia, DKA, arrhythmia, electrolyte abnormalities, dehydration, urinary tract infection, acute intracranial abnormality 04/17/24 08:[address] scan of the head without contrast was interpreted by the radiologist and I reviewed the impression. The comparison study was performed on April 06, 2017. The impression states partial opacification both mastoid air cells presumed to be inflammatory. No new or acute intracranial abnormalities. There is a stable right anterior orbit 3 mm density iatrogenic versus foreign body. 04/17/24 09:21 I interpreted the patient's laboratory data results. Patient did have an elevated lactic acid level. We did provide the patient with 2 L of crystalloid infusion. There are no other acute or emergent medical issues other than his hyperglycemia. Counseled pt/family regarding: lab results, diagnosis, need for follow-up, rad results Medical Desision Making - Independent Historian Additional History obtained from: Spouse - Diagnostic Testing Diagnostic test were ordered, analyzed, and reviewed by me: Yes Radiological Interpretation: Reviewed by me, Teleradiologist Report - Risk of complications The pt has a mod risk of morbidity or mortality based on: Need for prescription drug management - Departure Departure Disposition: Home Clinical Impression: Hyperglycemia, Nausea Condition: Stable Critical Care Time: No Referrals: CHAPARRITA NICOLE, [Primary Care Provider] - Follow up/PCP as directed Additional Instructions: Drink plenty of clear liquids. Monitor your blood sugar levels closely. Call y our after school coordinator today, 04/17/2024, to make arrangements for further evaluation and management and to be seen in the next 3 to 5 days. Prescriptions: Promethazine HCl 25 mg [Phenergan 25 mg] 25 mg PO Q8H PRN PRN #10 tablet PRN Reason: Nausea/Vomiting
[2024-04-17] MEDS ORDERED: Hydromorphone 1 mg/ml Injection ONE (07:50)
[2024-04-17] MEDS ORDERED: Zofran 4 MG/2 ML VIAL ONE (07:50)
[2024-04-17] MEDS ORDERED: Sodium Chloride 0.9% 1000 ML 1,000 ML ONE (07:51)
[2024-04-17] MEDS: Sodium Chloride 0.9% 1000 ML 1,000 ML IV STA (07:55)
[2024-04-17] MEDS: Zofran 4 MG/2 ML VIAL IV ONE (07:58)
[2024-04-17] MEDS: Hydromorphone 1 mg/ml Injection IV ONE (08:00)
[2024-04-17 08:06] LABS: Absolute Neutrophil Ct (ANC) 2.73 x10^3/uL (1.78-5.38); BASOPHIL % 0.8 % (0.2-1.2); Basophil (Absolute #) 0.04 x10^3/uL (0.01-0.08); Eosinophil % 1.5 % (0.8-7.0); Eosinophil (Absolute #) 0.08 x10^3/uL (0.04-0.54); Hematocrit 43.5 % (40.1-51.0); Hemoglobin 14.3 g/dL (13.7-17.5); IMMATURE GRAN # 0.04 x10^3u/L (0.001-0.031); IMMATURE GRAN % 0.8 % (0.001-0.429); Lymphocyte (Absolute #) 1.67 x10^3/uL (1.32-3.57); Lymphocytes % 32.2 % (21.8-53.1); Mean Cell Volume 92.9 fL (79.0-92.2); Mean Corpuscular Hemoglobin 30.6 pg (25.7-32.2); Mean Corpuscular Hgb Concent. 32.9 g/dL (32.3-36.5); Mean Platelet Volume 9.5 fL (9.4-12.4); Monocyte (Absolute #) 0.62 x10^3/uL (0.30-0.82); Neutrophil % 52.7 % (34.0-67.9); Platelet Count 119 x10^3/uL (163-337); Red Blood Count 4.68 x10^6/uL (4.63-6.08); White Blood Count 5.2 x10^3/uL (4.23-9.07)
[2024-04-17 08:18] LABS: ALBUMIN 4.1 g/dL (3.5-5.0); ALKALINE PHOSPHATASE 46 U/L (38-126); ANION GAP 15.8 MEQ/L (5-15); BLOOD UREA NITROGEN 15 mg/dL (9-20); CHLORIDE 98 mmol/L (98-107); Calcium 9.3 mg/dL (8.4-10.2); Carbon Dioxide 23 mmol/L (22-30); Creatinine 1 0.68 mg/dL (0.66-1.25); EST GLOMERULAR FILTRATION RATE 107.1 ML/MIN; ETHYL ALCOHOL < 10 mg/dL (0-10); Glucose 446 mg/dL (74-106); MAGNESIUM 2.3 mg/dL (1.6-2.3); Potassium 3.7 mmol/L (3.5-5.1); SGOT/AST 33 U/L (17-59); SGPT/ALT 44 U/L (0-50); SODIUM 134 mmol/L (135-145); Total Protein 6.7 g/dL (6.3-8.2)
[2024-04-17 08:36] LABS: Appearance Clear (Clear); Bacteria None Seen /HPF (None Seen); Bilirubin Negative (Negative); Blood Negative (Negative); Epithelial Cells None Seen /HPF (None Seen); Glucose, Urine >=1000 mg/dL (Negative); Hyaline Casts NONE SEEN /LPF (0-2); Ketones Negative (Negative); Leukocyte Esterase Negative (Negative); Nitrite Negative (Negative); Ph 6.5 (4.6-8.0); Protein,Urine Dip Negative (Negative); RBC 0-2 /HPF (0-5); Specific Gravity >=1.030 (1.005-1.030); Urobilinogen 0.2 mg/dL (0.2); WBC 0-2 /HPF (0-5)
[2024-04-17 08:38] LABS: ADD URINE CULTURE? NO (NO)
--- NOTE | 2024-04-17 08:39 | XRAY ---
Indication: Headache. Altered mental status. Multiple contiguous axial images obtained through the head without contrast. Comparison: April 06, 2017. Normal appearing brain parenchyma, ventricles, and bony calvarium. Again partial opacification of both mastoid air cells presumed inflammatory. Right orbit again demonstrates 3 mm density anteriorly. Impression: Stable partial opacification both mastoid air cells again presumed inflammatory. Also stable right anterior orbit 3 mm density either iatrogenic versus foreign body. No new/acute intracranial abnormalities.
[2024-04-17 08:46] LABS: INFLUENZA A NEGATIVE (NEGATIVE); INFLUENZA B NEGATIVE (NEGATIVE); RESPIRATORY SYNCTIAL VIRUS NEGATIVE (NEGATIVE); SARS-CoV-2 Xpert Express NEGATIVE (NEGATIVE)
[2024-04-17] MEDS ORDERED: Lactated Ringers 1,000 ML IV ONE (08:54)
[2024-04-17] MEDS ORDERED: HUMULIN R ONE (08:54)
[2024-04-17] MEDS: HUMULIN R IV ONE (09:01)
[2024-04-17] MEDS: Lactated Ringers 1,000 ML IV ONE (09:11)
[2024-04-17] MEDS: Phenergan 25 MG INJ*** 12.5 MG in Sodium Chloride 0.9% 100 ML IV ONE (09:58)
[2024-04-17 10:39] VITALS: BP 133/71; PULSE 67; RESP 16; O2SAT 88
== END 2024-04-17 10:55 | disposition home or self-care (01) ==
LOC: ED 07:20
DX: E11.65 Type 2 diabetes mellitus with hyperglycemia (principal); R11.0 Nausea; I11.0 Hypertensive heart disease with heart failure; I50.9 Heart failure, unspecified; Z79.84 Long term (current) use of oral hypoglycemic drugs; Z79.01 Long term (current) use of anticoagulants; Z79.4 Long term (current) use of insulin; Z79.899 Other long term (current) drug therapy
CPT/HCPCS: 0241U; 36000; 36415; 70450; 80053; 81001; 82077; 83605; 83735; 84484; 85025; 86308; 93005; 93041; 94760; 96374; 96375; 99284; J1170; J1815; J2405; J2550

== ENCOUNTER 2024-07-08 18:02 | Emergency (ER) | payer OTHER ==
[2024-07-08 20:06] VITALS: RESP 18; TEMP 97.9
[2024-07-08 20:07] VITALS: O2SAT 96
--- NOTE | 2024-07-08 21:17 | ERPHSYRPT ---
- History of Present Illness Time Seen by Provider: 07/08/24 21:00 Source: patient Exam Limitations: no limitations Patient Subjective Stated Complaint: pt states that he was stabbing a potato with a knife and cut his finger Triage Nursing Assessment: pt ambulated into the er; pt is axo x4; c/o laceration; pt states 2/10 pain to left index finger; pt has 1 cm laceration to proximal left index finger; no bleeding present; wound was cleaned; skin PDW; no respiratory distress present; vitals wnl Physician History: 58-year-old male history of diabetes presents to emergency department for evaluation of 1 cm laceration to the base of the left index finger. The laceration is positioned laterally at the base. The involved digits neurovascular intact distally compartments are soft cap refill less than 2 seconds. Injury occurred just prior to arrival. Tetanus up-to-date. Patient reports he was cutting a potato when injury occurred. Injury occurred just prior to arrival. No active bleeding. Patient otherwise feels well. He voices no other complaints or concerns at this time. Portions of this note were created with voice recognition technology. There may be grammatical, spelling, punctuation or sound alike errors portions of this note were created with voice recognition technology. Timing/Duration: today Severity: mild Modifying Factors: Improves With: nothing Associated Symptoms: denies symptoms Allergies/Adverse Reactions: tuberculin,PPD,multi-puncture [From Tuberculin PPD Mary Ellen Test] Allergy (Intermediate, Verified 07/08/24 19:58) Rash butorphanol tartrate [From Stadol] Allergy (Unknown, Verified 07/08/24 19:58) chlorpromazine HCl [From Thorazine] Allergy (Unknown, Verified 07/08/24 19:58) irritable haloperidol Allergy (Unknown, Verified 07/08/24 19:58) "makes me stay awake too much" ketorolac tromethamine [From Toradol] Allergy (Unknown, Verified 07/08/24 19:58) severe pain in lower back and kidneys nalbuphine [Nalbuphine] Allergy (Unknown, Verified 07/08/24 19:58) prochlorperazine edisylate [From Compazine] Allergy (Unknown, Verified 07/08/24 19:58) irritable lisinopril Adverse Reaction (Verified 07/08/24 19:58) Cough chloraprep Allergy (Intermediate, Uncoded 07/08/24 19:58) Rash Home Medications: Brimonidine Tartrate [Alphagan P 0.15%] 1 drops OP TID 09/30/12 [History] Metformin HCl 1000 mg [Glucophage 1000 MG] 1,000 mg PO BID 09/15/14 [History] Apixaban [Eliquis 5 mg Tablet] 2.5 mg PO BID 03/30/15 [History] Levothyroxine Sodium 25 Mcg [Synthroid 25 Mcg] 50 mcg PO DAILY 03/30/15 [History] Dorzolamide HCl/Timolol Maleat [Dorzolamide-Timolol Eye Drops] 1 drop OP BID 09/05/16 [History] Cholecalciferol (Vitamin D3) [Vitamin D3] 3,000 unit PO DAILY 06/19/18 [History] Rosuvastatin Calcium [Crestor] 20 mg PO HS 12/14/18 [History] Potassium Chloride Tab* [Klor Con] 20 meq PO BID 03/02/19 [History] Losartan Potassium 50 mg [Cozaar 50 MG] 50 mg PO DAILY 04/11/19 [History] Latanoprostene Bunod [Vyzulta] 1 drops OP HS 04/12/19 [History] Insulin Regular, Human [Humulin R U-500 Kwikpen] 130 units SQ ACHS 08/20/19 [History] Insulin Regular, Human [Humulin R U-500 Kwikpen] 175 unit SQ DINNER 08/20/19 [History] Insulin Regular, Human [Humulin R U-500 Kwikpen] 500 unit SQ UD 01/27/20 [History] Bumetanide [Bumex] 2 mg PO DAILY 05/06/21 [History] Empagliflozin [Jardiance] 10 mg PO DAILY 05/06/21 [History] Hx Tetanus, Diphtheria Vaccination/Date Given: Yes (2018) Hx Influenza Vaccination/Date Given: Yes Hx Pneumococcal Vaccination/Date Given: Yes Travel Risk - International Travel Have you traveled outside of the country in past 3 weeks: No - Emerging Infectious Disease Are you exhibiting symptoms associated with any current EIDs: No Symptoms: Headaches/Body Aches/ - Review of Systems Constitutional: No Symptoms, No Fever, No Chills Eyes: No Symptoms Ears, Nose, & Throat: No Symptoms Respiratory: No Symptoms, No Cough, No Dyspnea Cardiac: No Symptoms, No Chest Pain, No Edema, No Syncope Abdominal/Gastrointestinal: No Symptoms, No Abdominal Pain, No Nausea, No Vomiting, No Diarrhea Genitourinary Symptoms: No Symptoms, No Dysuria Musculoskeletal: No Symptoms, No Back Pain, No Neck Pain Skin: No Symptoms, No Rash Neurological: No Symptoms, No Dizziness, No Focal Weakness, No Sensory Changes Psychological: No Symptoms Endocrine: No Symptoms Hematologic/Lymphatic: No Symptoms Immunological/Allergic: No Symptoms All Other Systems: Reviewed and Negative - Past Medical History Pertinent Past Medical History: Yes Neurological History: Migraines ENT History: Glaucoma Cardiac History: Angina, Arrhythmia, Congestive Heart Failure, Hypertension Respiratory History: CHF, Pneumonia, Pulmonary Embolism, Sleep Apnea, Other Endocrine Medical History: Diabetes Type II, Hypothyroidism Musculoskeletal History: No Pertinent History GI Medical History: Pancreatitis History: No Pertinent History Psycho-Social History: Anxiety Male Reproductive Disorders: No Pertinent History Other Medical History: Pulmonary hypertension; enlarged heart. rt sided heart failure, hospitalized last month for fluid retention, now seeing Dr Jamal sun. - Past Surgical History Past Surgical History: Yes Neuro Surgical History: No Pertinent History Cardiac: Cardiac Catheterization Respiratory: No Pertinent History Gastrointestinal: Appendectomy, Cholecystectomy, Hernia Repair, Pancreatic Surgery Genitourinary: No Pertinent History, Other Musculoskeletal: Other Male Surgical History: Testicular Surgery Other Surgical History: old port removed, port placed x 2, had a surgery to look in bladder, right shoulder surgery. SHUNT IN RIGHT EYE. Open shut back up in right eye 10/03/18, penis surgery- pt states he had a "fracture" 6 years ago that was repaired Significant Family History: diabetes - Social History Smoking Status: Former smoker How long have you smoked: 2 Exposure to second hand smoke: No Alcohol Use: Socially Drug Use: none Patient Lives Alone: No - Social Determinants of Health Will the patient participate in the screening: Yes Do you worry about a steady place to live?: No Do you have any problems with any of the following?: No known problems In the past 12 months,have you had to go without utilities?: No Transportation Issues: No Has anyone in your support network made you feel unsafe?: No Have you or anyone in your house had to go without enough: No - Nursing Vital Signs Nursing Vital Signs: Initial Vital Signs Temperature 97.9 F 07/08/24 19:59 Pulse Rate 61 07/08/24 19:59 Respiratory Rate 18 07/08/24 19:59 Blood Pressure 133/66 07/08/24 19:59 O2 Sat by Pulse Oximetry 97 07/08/24 19:59 Pain Scale Pain Intensity 2 - Physical Exam General Appearance: no apparent distress, alert Eye Exam: PERRL/EOMI, eyes nml inspection Ears, Nose, Throat Exam: normal ENT inspection, moist mucous membranes Neck Exam: normal inspection, full range of motion Respiratory Exam: normal breath sounds, airway intact, No respiratory distress Cardiovascular Exam: regular rate/rhythm, normal peripheral pulses Gastrointestinal/Abdomen Exam: soft, normal bowel sounds, No tenderness, No mass Back Exam: normal inspection, normal range of motion, No CVA tenderness, No vertebral tenderness Extremity Exam: normal inspection, normal range of motion, pelvis stable Neurologic Exam: alert, oriented x 3, cooperative, normal mood/affect, sensation nml, No motor deficits Skin Exam: normal color, warm, dry, No rash Lymphatic Exam: No adenopathy SpO2 Interpretation: normal SpO2: 96 O2 Delivery: Room Air Procedures - Laceration/Wound Repair Left Finger Time of Procedure: 21:24 Wound Location: Left (Left index finger base) Wound Length (cm): 1 Wound's Depth, Shape: superficial Wound Explored: clean Irrigated: Yes Hibiclens Prep: Yes Wound Repaired With: Steri-strips, Dermabond Layer Closure?: No Sterile Dressing Applied?: Yes Splint Applied?: Yes Progress: 07/08/24 21:25 Patient neurovascular intact distally pre and post procedure. - Course Nursing assessment & vital signs reviewed: Yes - Progress Progress: improved Progress Note: 58-year-old male presents to our ED for evaluation of hand laceration. Injury occurred just prior to arrival. Physical exam reveals a 1 cm laceration to the lateral aspect of the left index finger base. No active bleeding. The involved digits neurovascular tact distally compartments are soft cap refill less than 2 seconds. Wound was repaired using Dermabond and a Steri-Strip. Prophylactic antibiotic provided as patient is a diabetic. Splint applied. Patient to follow-up with his primary care doctor within 48 hours for reevaluation. Significant other at bedside. They voiced no other complaints or concerns at this time. Portions of this note were created with voice recognition technology. There may be grammatical, spelling, punctuation or sound alike errors Complexity of problem addressed is moderate acute complicated. No critical care time. Complex of data reviewed and analyzed is none. Diagnosis made based on history and physical exam. No specialized testing ordered or indicated. Risk of complication and or risk of morbidity/mortality of patient management is moderate. A prescription for Keflex forwarded to patient's pharmacy. Vital stable. Time spent to discharge patient is approximately 10 minutes. Plan of care established for shared decision making. No social determinants of health present to impede follow-up. Patient's involved digit neurovascular intact distally pre and post repair and splint application. Portions of this note were created with voice recognition technology. There may be grammatical, spelling, punctuation or sound alike errors 07/08/24 21:29 Counseled pt/family regarding: diagnosis, need for follow-up - Departure Departure Disposition: Home Clinical Impression: Hand laceration Condition: Stable Critical Care Time: No Referrals: CHAPARRITA NICOLE DO [Primary Care Provider] - Follow up/PCP as directed Additional Instructions: Discharge/Care Plan YENY MENJIVAR was seen on 07/08/24 in the Emergency Room. The patient was counseled regarding Diagnosis,Lab results, Imaging studies, need for follow up and when to return to the Emergency Room. Prescriptions given: Discharge Note I have spoken with the patient and/or caregivers. I have explained the patient's condition, diagnosis and treatment plan based on the information available to me at this time. I have answered the patient's and/or caregiver's questions and addressed any concerns. The patient and/or caregivers have as good understanding of the patient's diagnosis, condition and treatment plan as can be expected at this point. The vital signs have been stable. The patient's condition is stable and appropriate for discharge from the emergency department. The patient will pursue further outpatient evaluation with the primary care physician or other designated or consulting physician as outlined in the discharge instructions. The patient and/or caregivers are agreeable to this plan of care and follow-up instructions have been explained in detail. The patient and/or caregivers have received these instruction. The patient/and or caregivers are aware that any significant change in condition or worsening of symptoms should prompt an immediate return to this or the closest emergency department or call 911. Prescriptions: Cephalexin Mh 500 mg [Keflex 500 mg] 500 mg PO TID 5 Days #15 cap
[2024-07-08 21:35] VITALS: BP 138/70; PULSE 68
== END 2024-07-08 21:34 | disposition home or self-care (01) ==
LOC: ED 18:02
DX: S61.211A Laceration without foreign body of left index finger without damage to nail, initial encounter (principal); W26.0XXA Contact with knife, initial encounter; Y93.G1 Activity, food preparation and clean up; I11.0 Hypertensive heart disease with heart failure; I50.9 Heart failure, unspecified; E11.9 Type 2 diabetes mellitus without complications; Z79.01 Long term (current) use of anticoagulants; Z79.84 Long term (current) use of oral hypoglycemic drugs; Z79.4 Long term (current) use of insulin; Z79.899 Other long term (current) drug therapy
CPT/HCPCS: 12001; 99282